=== PATIENT | male | born 1945 | race Caucasian/White ===

== ENCOUNTER → 2017-11-29 08:13 | Outpatient (CLI) | payer MEDICARE, SELFPAY ==
[2017-11-29 08:56] LABS: Basophils % 0.7 % (0.1-2.0); Eosinophils # 0.1 K/mm3 (0.0-0.4); Eosinophils % 1.7 % (0.1-12.0); Hematocrit 43.2 % (42.0-52.0); Hemoglobin 14.4 g/dL (14.1-18.0); Lymphocytes # 1.9 K/mm3 (0.7-4.5); Mean Corpuscular HGB Conc 33.3 g/dL (31.8-35.4); Mean Corpuscular Hemoglobin 29.9 pg (27.0-31.2); Mean Corpuscular Volume 89.8 fl (80-94); Mean Platelet Volume 8.9 fl (7.4-10.4); Monocytes # 0.5 K/mm3 (0.1-1.0); Neutrophils # 1.4 K/mm3 (1.8-7.8); Neutrophils % 36.7 % (37.0-80.0); Platelet Count 200 K/mm3 (142-424); Red Blood Count 4.81 M/mm3 (4.60-6.20); Red Cell Distribution Width 13.2 % (11.5-17.5); White Blood Count 3.8 K/mm3 (4.8-10.8)
[2017-11-29 09:47] LABS: Alanine Aminotransferase 24 U/L (12-78); Albumin Level 4.4 gm/dL (3.4-5.0); Albumin/Globulin Ratio 1.7 (1.1-1.8); Alkaline Phosphatase 34 U/L (46-116); Anion Gap 10.1 mEq/L (5-15); Aspartate Amino Transferase 22 U/L (15-37); Bilirubin,Total 0.6 mg/dL (0.2-1.0); Blood Urea Nitrogen 15 mg/dL (7-18); Calcium 9.4 mg/dL (8.5-10.1); Carbon Dioxide 29 mmol/L (21.0-32.0); Chloride 106 mmol/L (98-107); Chol/HDL Ratio 3.7 (1-3.5); Cholesterol 215 mg/dL (140-200); Creatinine,Serum 1.09 mg/dL (0.70-1.30); Estimated Glomerular Filt Rate 67 ml/min (>60); Ferritin 91 ng/mL (8-388); GFR (African American) 81 ML/MIN (>60); Globulin 2.6 gm/dl (1.3-3.2); Glucose 91 mg/dL (74-106); HDL Cholesterol 58 mg/dL (27-67); LDL Cholesterol 138 mg/dL (0-130); Magnesium 1.9 mg/dL (1.4-2.2); Potassium 4.1 mmoL/L (3.5-5.1); Sodium 141 mmol/L (136-145); Thyroid Stimulating Hormone 2.78 uIU/ml (0.358-3.740); Triglycerides 93 mg/dL (30-200); VLDL Cholesterol 19 mg/dL (0-40)
[2017-11-29 10:14] LABS: Prostate Specific Ag, Diagnost 5.26 ng/mL (0.0-4.0)
== END ==
PROVIDERS: PCP Internal Medicine Adolescent Medicine; Visit Provider Internal Medicine Adolescent Medicine
DX: Z79.899 Other long term (current) drug therapy (principal); D64.9 Anemia, unspecified; E78.00 Pure hypercholesterolemia, unspecified; R97.20 Elevated prostate specific antigen [PSA]
CPT/HCPCS: 36415; 80053; 80061; 82728; 83735; 84153; 84443; 85025

== ENCOUNTER 2018-01-17 14:43 | Emergency (ER) | payer MEDICARE, SELFPAY ==
[2018-01-17 14:44] VITALS: BP 141/107; PULSE 82; RESP 18; TEMP 36.6; O2SAT 96; BMI 25.8
--- NOTE | 2018-01-17 15:05 | PC.NURSE ---
Pt L index finger soaking in Saline and hibiclens mix.
--- NOTE | 2018-01-17 15:20 | HMH.EDGENADL ---
ED Disposition Clinical Impression: Avulsion of skin of finger Qualifiers: Encounter type: initial encounter Qualified Code(s): S61.209A - Unspecified open wound of unspecified finger without damage to nail, initial encounter Disposition: Home, Self-Care Condition on Discharge: Good Instructions: DI for Open Laceration Additional Instructions: Additional instructions for WOUND CARE: Keep the wound and bandage dry for the first 24 hours. Then, clean the wound daily and a bandage. See your physician in 3-5 days for a wound check. Return to the emergency room if increasing pain, swelling, redness, red streaks, pus drainage, or fever. Ibuprofen for pain. Elevate her hand to reduce pain and swelling. Prescriptions: cephALEXin [Keflex 500mg Cap] 500 mg PO TID #21 cap Referrals: Gil Aguilar MD [Primary Care Provider] - - Critical Care Critical Care Time: No Attestation: On 01/17/18, the high probability of a clinically significant, sudden or life threatening deterioration of the following system(s) required my full and direct attention, intervention and personal management. The time I documented below is in addition to time spent performing reported procedures but includes the following listed in this critical care notation. Medical Decision Making - Odell Inquiry Pt receiving controlled substance: No Vital Signs: 01/17/18 14:44 Temperature 97.8 F Temperature Source Oral Pulse Rate [Right Brachial] 82 Respiratory Rate 18 Blood Pressure [Right Arm] 141/107 Blood Pressure Mean [Right Arm] 118 Blood Pressure Source [Right Arm] Automatic Cuff Blood Pressure Position [Right Arm] Sitting 02 Sat by Pulse Oximetry 96 Oxygen Delivery Method Room Air Orders (Tests/Meds): ED MEDICATIONS Discontinued Medications Generic Name Dose Route Start Last Admin Trade Name Murtaza PRN Reason Stop Dose Admin Bupivacaine HCl 50 mg 01/17/18 15:21 01/17/18 15:58 Bupivacaine 0.5% 30ml Vial SQ 01/17/18 15:22 50 mg ONCE ONE Administration Cephalexin HCl 500 mg 01/17/18 15:22 01/17/18 15:57 Cephalexin 500mg Capsule PO 01/17/18 15:23 500 mg ONCE ONE Administration Protocol Tetanus/Diphtheria Toxoids 0.5 ml 01/17/18 15:20 01/17/18 15:57 Tenivac 0.5ml Syringe IM 01/17/18 15:21 0.5 ml .ONCE ONE Administration - Radiology Data #1 Image(s): Finger(s)/Thumb Image Reviewed: Yes I reviewed the patient's radiology image Soft tissue injury only, no bony injury seen. No foreign body seen. General Adult HPI - General Chief complaint: Wound/Laceration Stated complaint: AO lac L index finger Time Seen by Provider: 01/17/18 15:10 Mode of Arrival: Ambulatory Limitations: No Limitations Description of Symptoms (Recalled from ER Triage Doc. by RN): Laceration to L index finger from a miter saw. - History of Present Illness HPI narrative: He cut the tip of his left index finger with a miter saw. Last tetanus immunization greater than 5 years ago. - Related Data Home Medications Medication Instructions Recorded Confirmed Amlodipine Besylate [Norvasc 2.5mg 2.5 mg PO DAILY 01/17/18 01/17/18 tablet] Aspirin 81 mg PO DAILY 01/17/18 01/17/18 Fenofibrate 160 mg PO DAILY 01/17/18 01/17/18 Ferrous Sulfate 325 mg PO DAILY 01/17/18 01/17/18 Pramipexole Di-HCl [Mirapex 0.125 mg PO DAILY 01/17/18 01/17/18 0.125mg tablet] Previous Rx's Medication Instructions Recorded cephALEXin [Keflex 500mg Cap] 500 mg PO TID #21 cap 01/17/18 Allergies Allergy/AdvReac Type Severity Reaction Status Date / Time SEASONAL ALLERGIES Allergy Unknown RUNNY NOSE Uncoded 10/17/17 15:01 ETC [facility] History I have reviewed the patient's past medical history: Yes Medical History: Denies:: Diabetes Mellitus Type 1, Diabetes Mellitus Type 2 Laterality Cases: Right: Total Knee Replacement - Social History Alcohol Intake: never - Psychiatric History Expresses thoughts of
--- NOTE | 2018-01-17 15:21 | XR_ITS ---
XR finger LT min 2V CLINICAL INDICATION: Pain following injury, laceration to the distal phalanx of the second finger ITS.REASON: cut with saw ORDERING PHYSICIAN: Jas Benedict MD PATIENT AGE: 72 years COMPARISON: None FINDINGS: Soft tissue defect is present at the distal aspect of the second finger. No acute fracture. No metallic foreign body. IMPRESSION: Laceration of the tip of the distal phalanx of the second finger with no acute bony finding
[2018-01-17 17:04] VITALS: BP 135/84; PULSE 78; RESP 18; TEMP 36.6; O2SAT 98
== END 2018-01-17 17:04 | disposition home or self-care (01) ==
PROVIDERS: Emergency Provider Emergency Medicine; Family Provider Internal Medicine Adolescent Medicine; PCP Internal Medicine Adolescent Medicine
DX: S61.211A Laceration without foreign body of left index finger without damage to nail, initial encounter (principal); W31.2XXA Contact with powered woodworking and forming machines, initial encounter; Y92.019 Unspecified place in single-family (private) house as the place of occurrence of the external cause
CPT/HCPCS: 97597; 73140; 90471; 90714; 99282

== ENCOUNTER → 2018-05-28 09:51 | Outpatient (CLI) | payer MEDICARE, SELFPAY ==
[2018-05-28 11:28] LABS: Alanine Aminotransferase 27 U/L (12-78); Albumin Level 4.3 gm/dL (3.4-5.0); Albumin/Globulin Ratio 1.7 (1.1-1.8); Alkaline Phosphatase 36 U/L (46-116); Anion Gap 10.3 mEq/L (5-15); Aspartate Amino Transferase 17 U/L (15-37); Bilirubin,Total 0.5 mg/dL (0.2-1.0); Blood Urea Nitrogen 12 mg/dL (7-18); Calcium 9.2 mg/dL (8.5-10.1); Carbon Dioxide 30 mmol/L (21.0-32.0); Chloride 107 mmol/L (98-107); Chol/HDL Ratio 3.5 (1-3.5); Cholesterol 190 mg/dL (140-200); Creatinine,Serum 1.03 mg/dL (0.70-1.30); Estimated Glomerular Filt Rate 71 ml/min (>60); GFR (African American) 86 ML/MIN (>60); Globulin 2.6 gm/dl (1.3-3.2); Glucose 88 mg/dL (74-106); HDL Cholesterol 54 mg/dL (27-67); LDL Cholesterol 118 mg/dL (0-130); Potassium 4.3 mmoL/L (3.5-5.1); Prostate Specific Ag, Diagnost 4.79 ng/mL (0.0-4.0); Sodium 143 mmol/L (136-145); Total Protein,Serum 6.9 gm/dL (6.4-8.2); Triglycerides 92 mg/dL (30-200); VLDL Cholesterol 18 mg/dL (0-40)
== END ==
PROVIDERS: Visit Provider Internal Medicine Adolescent Medicine
DX: E78.00 Pure hypercholesterolemia, unspecified (principal); R97.20 Elevated prostate specific antigen [PSA]
CPT/HCPCS: 36415; 80053; 80061; 84153

== ENCOUNTER → 2018-07-31 10:25 | Outpatient (POV) | payer MEDICARE, SELFPAY | PROVIDERS: Visit Provider Dermatology | DX: Z00.00 Encounter for general adult medical examination without abnormal findings (principal) ==

== ENCOUNTER → 2018-08-29 10:03 | Outpatient (CLI) | payer MEDICARE, SELFPAY ==
[2018-08-29 11:05] LABS: Basophils % 0.9 % (0.1-2.0); Eosinophils % 1.1 % (0.1-12.0); Hematocrit 41.4 % (42.0-52.0); Hemoglobin 13.9 g/dL (14.1-18.0); Lymphocytes # 1.5 K/mm3 (0.7-4.5); Lymphocytes % 39.7 K/mm3 (10-50); Mean Corpuscular HGB Conc 33.4 g/dL (31.8-35.4); Mean Corpuscular Hemoglobin 30.7 pg (27.0-31.2); Mean Corpuscular Volume 91.8 fl (80-94); Mean Platelet Volume 8.7 fl (7.4-10.4); Monocytes # 0.5 K/mm3 (0.1-1.0); Monocytes % 13.6 % (1.7-9.3); Neutrophils # 1.7 K/mm3 (1.8-7.8); Neutrophils % 44.7 % (37.0-80.0); Platelet Count 193 K/mm3 (142-424); Red Blood Count 4.52 M/mm3 (4.60-6.20); Red Cell Distribution Width 12.7 % (11.5-17.5); White Blood Count 3.8 K/mm3 (4.8-10.8)
[2018-08-29 13:33] LABS: Alanine Aminotransferase 26 U/L (12-78); Albumin Level 4.3 gm/dL (3.4-5.0); Albumin/Globulin Ratio 1.6 (1.1-1.8); Alkaline Phosphatase 34 U/L (46-116); Aspartate Amino Transferase 21 U/L (15-37); Bilirubin,Total 0.6 mg/dL (0.2-1.0); Blood Urea Nitrogen 17 mg/dL (7-18); Calcium 9.1 mg/dL (8.5-10.1); Carbon Dioxide 30 mmol/L (21.0-32.0); Chloride 105 mmol/L (98-107); Chol/HDL Ratio 3.6 (1-3.5); Cholesterol 200 mg/dL (140-200); Creatinine,Serum 1.01 mg/dL (0.70-1.30); Estimated Glomerular Filt Rate 73 ml/min (>60); GFR (African American) 88 ML/MIN (>60); Globulin 2.7 gm/dl (1.3-3.2); Glucose 87 mg/dL (74-106); HDL Cholesterol 55 mg/dL (27-67); LDL Cholesterol 132 mg/dL (0-130); Sodium 140 mmol/L (136-145); Triglycerides 67 mg/dL (30-200); VLDL Cholesterol 13 mg/dL (0-40)
== END ==
PROVIDERS: Visit Provider Internal Medicine Adolescent Medicine
DX: E78.00 Pure hypercholesterolemia, unspecified (principal); M12.9 Arthropathy, unspecified
CPT/HCPCS: 36415; 80053; 80061; 85025

== ENCOUNTER → 2019-02-19 09:33 | Outpatient (POV) | payer MEDICARE, SELFPAY | PROVIDERS: Visit Provider Dermatology | DX: Z00.00 Encounter for general adult medical examination without abnormal findings (principal) ==

== ENCOUNTER → 2019-12-24 09:14 | Outpatient (POV) | payer MEDICARE, SELFPAY | PROVIDERS: PCP Dermatology; Visit Provider Dermatology | DX: Z00.00 Encounter for general adult medical examination without abnormal findings (principal) ==

== ENCOUNTER → 2020-04-08 12:53 | Outpatient (CLI) | payer MEDICARE, SELFPAY | PROVIDERS: PCP Internal Medicine Adolescent Medicine; Visit Provider Internal Medicine Adolescent Medicine | DX: G47.33 Obstructive sleep apnea (adult) (pediatric) (principal); R40.0 Somnolence; R06.83 Snoring | CPT/HCPCS: G0399 ==

== ENCOUNTER → 2020-09-22 10:14 | Outpatient (POV) | payer MEDICARE, SELFPAY | PROVIDERS: Visit Provider Dermatology | DX: Z00.00 Encounter for general adult medical examination without abnormal findings (principal) ==

== ENCOUNTER → 2021-05-28 08:43 | Outpatient (CLI) | payer MEDICARE, SELFPAY ==
[2021-05-28 09:01] LABS: Basophils % 0.6 % (0.1-2.0); Eosinophils # 0.1 K/mm3 (0.0-0.4); Eosinophils % 2.1 % (0.1-12.0); Hematocrit 41.1 % (42.0-52.0); Hemoglobin 14.1 g/dL (14.1-18.0); Lymphocytes # 1.7 K/mm3 (0.7-4.5); Lymphocytes % 35.2 % (10-50); Mean Corpuscular HGB Conc 34.2 g/dL (31.8-35.4); Mean Corpuscular Hemoglobin 30.2 pg (27.0-31.2); Mean Corpuscular Volume 88.2 fl (80-94); Mean Platelet Volume 9.3 fl (7.4-10.4); Monocytes # 0.7 K/mm3 (0.1-1.0); Monocytes % 14.3 % (1.7-9.3); Neutrophils # 2.3 K/mm3 (1.8-7.8); Neutrophils % 47.8 % (37.0-80.0); Platelet Count 177 K/mm3 (142-424); Red Blood Count 4.66 M/mm3 (4.60-6.20); White Blood Count 4.8 K/mm3 (4.8-10.8)
[2021-05-28 09:47] LABS: Alanine Aminotransferase 17 U/L (12-78); Albumin Level 4.6 g/dl (3.5-5.0); Alkaline Phosphatase 33 U/L (38-126); Anion Gap 11.7 mEq/L (5-15); Aspartate Amino Transferase 27 U/L (17-59); Bilirubin,Total 0.8 mg/dl (0.2-1.3); Blood Urea Nitrogen 14 mg/dl (9-20); Calcium 9.9 mg/dl (8.4-10.2); Carbon Dioxide 30 mmol/L (22.0-30.0); Chloride 104 mmol/L (98-107); Chol/HDL Ratio 3.5 (1-3.5); Cholesterol 198 mg/dl (140-200); Estimated Glomerular Filt Rate 73 ml/min (>60); GFR (African American) 89 ML/MIN (>60); Globulin 2.3 g/dL (1.3-3.2); Glucose 92 mg/dl (74-100); HDL Cholesterol 56 mg/dl (40-60); Potassium 4.7 mmoL/L (3.5-5.1); Sodium 141 mmol/L (136-145); Total Protein,Serum 6.9 g/dl (6.3-8.2); Triglycerides 82 mg/dl (30-150); VLDL Cholesterol 16 mg/dL (0-40)
[2021-05-28 09:58] LABS: Direct LDL Cholesterol 117.11 mg/dL (100-129)
[2021-05-28 10:18] LABS: Prostate Specific Ag Screen 5.1 ng/ml (0.0-4.0)
== END ==
PROVIDERS: Visit Provider Internal Medicine Adolescent Medicine
DX: G25.81 Restless legs syndrome (principal); E78.00 Pure hypercholesterolemia, unspecified; R97.20 Elevated prostate specific antigen [PSA]; Z12.5 Encounter for screening for malignant neoplasm of prostate
CPT/HCPCS: 36415; 80053; 80061; 85025; G0103

== ENCOUNTER 2021-08-20 09:00 | Outpatient (RCR) | payer MEDICARE, SELFPAY ==
--- NOTE | 2021-06-21 09:39 | HMH.PTOPEV ---
PT Outpatient Evaluation Rehab PT Outpatient Evaluation Start: 06/21/21 09:03 Freq: Status: Active Protocol: Document 06/21/21 09:05 KADERICARDO (Rec: 06/21/21 09:38 MAGYEMILEE [id number]) Electronically Signed By Zander Jaimes PT 06/21/21 09:05 Outpatient Therapy Subjective History Subjective History THis is the initial Physical THerapy evalaution for Mak Martell. Pt is a 75 y/o male referred to PT for c/o cervical pain and CALVO's. Pt reports c/o pain for years . Pt states his CALVO's are mild but he has knots in the muscles at the base of the skull Pt reports limited ROM and pain at end range. Chief Complaint Pain,Stiff Symptom Type Ache,Throb,Sharp,Dull Symptoms Relieved By Rest/Positioning,Prescription Meds Symptoms Aggravated By Sitting,Physical Activity Prior Functional Limitations None Current Functional Limitations Desk Work/Reading,Sitting, Recreation Activity Symptom Description Intermittent Level of pain today (0-10) 2 Pain scale - at its best (0-10) 0 Pain scale - at its worst (0-10) 8 Cervical Eval Palpation Cervical Muscles R Suboccipital,L Suboccipital Cervical/Thoracic Palpation Findings Tenderness,Trigger Point AROM Cervical Spine Extension Active Range of 40 Motion (degrees) Cervical Spine Flexion Active Range of 50 Motion (degrees) Cervical Spine Right Lateral Flexion 35 Active Range of Motion (degrees) Cervical Spine Left Lateral Flexion 35 Active Range of Motion (degrees) Cervical Spine Right Rotation Active 60 Range of Motion (degrees) Cervical Spine Left Rotation Active 70 Range of Motion (degrees) Special Test C-Spine Foraminal Compression (Spurling) Negative Left,Negative Right Test C-Spine Foraminal Distraction Test Positive C-Spine Compression Test Negative Left,Negative Right Outpatient Therapy Assessment Impairments Problems/Impairmments Palpation Tenderness,Impaired Range of Motion,Impaired Sitting,Impaired Recreational Activities,Subjective C/O Pain ,Impaired Self Care/Self Management Prognosis Rehab Potential Good Clinical Impression Consistent with Diagnosis Yes Short Term Goals Number of Weeks 2 Decreased Palpation Tenderness Yes: 1
== END 2021-08-20 09:05 | disposition home or self-care (01) ==
LOC: PT 09:00
PROVIDERS: PCP Internal Medicine Adolescent Medicine; Visit Provider Internal Medicine Adolescent Medicine
DX: M54.2 Cervicalgia (principal)
CPT/HCPCS: 20560; 20561; 97010; 97012; 97014; 97035; 97110; 97140; 97163; 97164; G0283

== ENCOUNTER → 2022-04-12 11:23 | Outpatient (CLI) | payer MEDICARE, SELFPAY ==
--- NOTE | 2022-04-12 11:27 | XR_ITS ---
FINAL REPORT CLINICAL HISTORY: CERVICALGIA, no injury FINDINGS: CERVICAL SPINE Five views were obtained. There is no acute fracture. There is mild anterolisthesis of C3 on C4. There is mild retrolisthesis of C4 on C5 and C5 on C6. There are mild and moderate degenerative changes. There are multilevel osteophytes. There is mild left neural foraminal narrowing at C4-5 and C5-6. IMPRESSION: [id number] degenerative disc disease. Reviewed, Interpreted and Dictated by Marcus Hogue III, MD Transcribed by Paulie Spence Authenticated and [facility]
== END ==
PROVIDERS: PCP Internal Medicine Adolescent Medicine; Visit Provider Internal Medicine Adolescent Medicine
DX: M54.2 Cervicalgia (principal)
CPT/HCPCS: 72050

== ENCOUNTER → 2022-05-13 09:22 | Outpatient (CLI) | payer MEDICARE, SELFPAY | PROVIDERS: PCP Internal Medicine Adolescent Medicine; Visit Provider Urology | DX: R97.20 Elevated prostate specific antigen [PSA] (principal); Z01.812 Encounter for preprocedural laboratory examination; Z20.822 Contact with and (suspected) exposure to COVID-19 | CPT/HCPCS: C9803; U0003; U0005 ==

== ENCOUNTER 2022-05-16 06:02 | Day surgery (SDC) | payer MEDICARE, SELFPAY ==
[2022-05-16 06:30] VITALS: BP 143/98; PULSE 89; RESP 18; TEMP 36.3; O2SAT 97; BMI 25.1
--- NOTE | 2022-05-16 07:04 | HMH.ANESCL ---
[facility] Anesthesia Checklist - Structural Data Admitted From: Home Planned Operative Procedure/s: prostate bx Consent for Planned Operative Procedure(s) Verified: Yes - Additional verifications Anesthesia Reactions: No Hx Blood Transfusions: No Blood Transfusion Reaction: No - Airway Assessment C-Spine Mobility Assessed: Yes TMJ Mobility Assessed: Yes Dentition: Dentures-good fit - Neurological Assessment Level of Consciousness: Awake, Alert, Appropriate - Anesthesia Plan Anesthesia Risk discussed: Yes Anesthesia Plan: Verified ASA Class: II Anesthesia Type: MAC [facility] History I have reviewed the patient's past medical history: Yes Medical History: Reports:: BPH, Hypertension Denies:: Cancer, Diabetes Mellitus Type 1, Diabetes Mellitus Type 2, Internal Pacemaker, MRSA, Seizures *Have you ever received a pneumonia vaccine?: Yes *Have you received a flu vaccine this season?: Yes Other Medical History: Reports: Arthritis. Denies: Blood Transfusion Reaction Anesthesia experience/problems:: none Laterality Cases: Right: Arthroscopy Knee, Bilateral: Cataract Other Surgeries: Yes: No Previous Surgery, Colonoscopy. No: Pacemaker Amputation: No Fractures: No - *Social History Last grade of school completed: High school graduate Smoking Status: Never smoker Alcohol Intake: never Substance Use Type: denies use *Occupational Status:: retired Housing: house Household Members: spouse *Travel in the last 8 weeks: None Family Hx:: Cancer, Hypertension
[2022-05-16 08:25] VITALS: BP 90/60; PULSE 63; RESP 16; TEMP 36.3; O2SAT 93
[2022-05-16 08:40] VITALS: BP 91/61; PULSE 53; RESP 16; TEMP 36.3; O2SAT 94
[2022-05-16 08:55] VITALS: BP 93/64; PULSE 65; RESP 16; TEMP 36.3; O2SAT 96
[2022-05-16 09:25] VITALS: BP 127/78; PULSE 64; RESP 18; TEMP 36.3; O2SAT 97
--- NOTE | 2022-05-16 11:49 | HMH.OPNOTE ---
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 We discussed the elevation and patient opted to proceed with transrectal ultrasound and prostate biopsy Operative findings:: Prostate was measured at 80.2 cm?. There were bilateral hypoechoic areas and calcifications. Operative note:: Patient taken to the operating room after informed consent was obtained. Monitored anesthesia care was administered and patient placed into the left lateral decubitus position. The transrectal ultrasound probe was placed into the rectum and the prostate was easily visualized. It was measured at 80.2 cm?. There were 2 hypoechoic areas on the left and 1:00 area on the right. There were multiple calcifications bilaterally in the central zone. 5 cc of local anesthetic placed into each neurovascular bundle and 12 biopsies then taken in a systematic fashion including through the focal areas. Patient tolerated the procedure well there are no complications. He was transported to recovery in stable condition. Condition: stable Disposition: same day Specimens:: Prostate biopsies x12 Complications:: None
== END 2022-05-16 09:25 | disposition home or self-care (01) ==
LOC: OR 06:03
PROVIDERS: PCP Internal Medicine Adolescent Medicine; Visit Provider Urology
DX: R97.20 Elevated prostate specific antigen [PSA] (principal); N40.0 Benign prostatic hyperplasia without lower urinary tract symptoms; I10 Essential (primary) hypertension; Z79.899 Other long term (current) drug therapy
CPT/HCPCS: 55700; 76872; 88305; J2405

== ENCOUNTER → 2022-05-23 09:50 | Outpatient (POV) | payer MEDICARE, SELFPAY ==
[2022-05-23 11:39] VITALS: BP 141/89; PULSE 75; RESP 20; TEMP 36.5; O2SAT 97; BMI 25.1
--- NOTE | 2022-05-23 12:55 | HMH.PMCON ---
Assessment and Plan (1) Bilateral occipital neuralgia Status: Acute Category: Medical Code(s): M54.81 - Occipital neuralgia - Assessment and plan all Dx Assessment and Plan for all problems:: Imaging Ordering Physician: Gucci Chery MD Date of Service: 04/12/22 Procedure(s): XR cervical spine 5V Accession Number(s): [id number] cc: Gucci Chery MD; Marcus Hogue MD~ FINAL REPORT CLINICAL HISTORY: CERVICALGIA, no injury FINDINGS: CERVICAL SPINE Five views were obtained. There is no acute fracture. There is mild anterolisthesis of C3 on C4. There is mild retrolisthesis of C4 on C5 and C5 on C6. There are mild and moderate degenerative changes. There are multilevel osteophytes. There is mild left neural foraminal narrowing at C4-5 and C5-6. IMPRESSION: [id number] degenerative disc disease. Reviewed, Interpreted and Dictated by Marcus Hogue III, MD Transcribed by Paulie Spence Authenticated and [facility] Plan: Patient presents today as a new patient with a chief complaint of bilateral pain around his occiput. He is tender to palpation around the bilateral occipital nerves. We will schedule the patient for bilateral occipital nerve block. We will also start this patient on the compounding cream Patient has been instructed to contact the clinic with any concerns before the next appointment. Dr. Aguilar has reviewed this note and agrees with this plan of care. This note was dictated using voice recognition software and make contain errors or omissions. HPI - Data of Consult Patient: new to practice Consult date: 05/23/22 Requesting Physician: DANIELLA Patino - Consult Narrative Reason for consult: Occiput pain History of present illness: Mr. Martell is a 76 year old male who presents today as a new patient. Patient is referred by Dr. Chery. Thank you for the referral. Patient presents with chronic bilateral occipital pain that radiates down to his posterior neck. This has been going on for 12 to 15 years. He states that he was having headache with this pain as well. He states that the headache did get better after getting chiropractic adjustments in the past. Denies any precipitating factors. He denies any vision changes or confusion. He says that his movements are limited on his neck because of the pain. He has also tried physical therapy, TENS unit and dry needling that all provided minimal relief. He does complain of constant achy pain. Rates his pain as 5 out of 10. He does take tramadol 50 mg 3 times a day as needed that are prescribed by Dr. Aguilar. Odell [phone] with an active morphine equivalent of 0. CC: DANIELLA Patino [facility] History I have reviewed the patient's past medical history: Yes Medical History: Reports:: BPH, Hypertension Denies:: Cancer, Diabetes Mellitus Type 1, Diabetes Mellitus Type 2, Internal Pacemaker, MRSA, Seizures *Have you ever received a pneumonia vaccine?: Yes *Have you received a flu vaccine this season?: Yes Other Medical History: Reports: Arthritis. Denies: Blood Transfusion Reaction Laterality Cases: Right: Arthroscopy Knee Other Surgeries: Yes: No Previous Surgery, Colonoscopy. No: Pacemaker Amputation: No Fractures: No - *Social History Smoking Status: Never smoker Alcohol Intake: never Substance Use Type: denies use *Occupational Status:: retired Housing: house Household Members: other *Travel in the last 8 weeks: None Family Hx:: Cancer, Hypertension Review of Systems - Review of Systems Review of Systems: General: No recent weight changes, no fever, no sleep disturbances Respiratory: No cough, no shortness of air, no recurring pulmonary infections Cardiovascular/peripheral vascular: No chest pain, no palpitations, no edema, no shortness of breath Gastrointestinal: No new onset incontinence, normal bowel movements reported Genitourinary: N
== END ==
PROVIDERS: Visit Provider Student in an Organized Health Care Education/Training Program
DX: M54.81 Occipital neuralgia (principal); M19.90 Unspecified osteoarthritis, unspecified site
CPT/HCPCS: 99202; G0463

== ENCOUNTER 2022-06-07 13:13 | Day surgery (SDC) | payer MEDICARE, SELFPAY ==
[2022-06-07 13:21] VITALS: BP 142/88; PULSE 74; RESP 20; TEMP 36.5; O2SAT 97; BMI 25.1
--- NOTE | 2022-06-07 13:42 | HMH.PMPROC ---
- Procedure Date: 06/07/22 Time: 13:42 Anesthesiologist:: Stephan Mejia CRNA Complications:: None Pre-procedure Diagnosis:: Bilateral occipital neuralgia Post-procedure Diagnosis:: Same Indications for Procedure:: This patient is a pleasant 76-year-old male who comes our clinic today with occipital nerve pain. Patient describes pain as constant, dull, aching in the superior area of the posterior cervical spine. Patient rates the pain 8/10. Patient complains of headaches intermittently. Pain in the posterior cervical spine. Procedure Details:: Details of the procedure were explained to the patient. Patient was taken the procedure room placed in the sitting position. The area over the occipital and posterior cervical spine area was cleaned using chlorhexidine as a cleansing solution. Markers were placed at the bilateral occipital nerve outlets. Using a 25-gauge needle a 6 cc solution containing 3 cc of 0.25% Marcaine +2 cc of 1% lidocaine and 40 mg of Depo-Medrol was injected in a fanning fashion after negative aspiration over the right occipital nerve area. The same procedure was carried out in the similar fashion over the left occipital nerve area. Patient tolerated the procedure without difficulty. There are no complications. Plan and Disposition:: Patient was discharged without incident.
[2022-06-07 13:50] VITALS: BP 148/89; PULSE 71; RESP 20; O2SAT 97
== END 2022-06-07 13:50 | disposition home or self-care (01) ==
LOC: SC.PAINP 13:14
PROVIDERS: PCP Internal Medicine Adolescent Medicine; Visit Provider Nurse Anesthetist, Certified Registered
DX: G57.83 Other specified mononeuropathies of bilateral lower limbs (principal); M54.81 Occipital neuralgia
CPT/HCPCS: 64405; J1040

== ENCOUNTER → 2022-06-22 13:48 | Outpatient (POV) | payer MEDICARE, SELFPAY ==
--- NOTE | 2022-06-22 14:22 | A.OFFVIS_ITS ---
[facility] Pain Management SOAP Note Subjective:: Patient is a pleasant 76-year-old male who presents today for follow-up from a occipital nerve block on 06/07/2022. We are currently treating the patient for bilateral occipital neuralgia. He states he has had 80% or better relief of his headaches since his injection. Today he rates his pain 1 out of 10 and states his pain is in his neck. He denies any new trauma or injury to the site. He states he just has limited range of motion of his neck turning side to side as well as soreness in his bilateral shoulders. Patient does currently take tramadol 50 mg 3 times a day written by Dr. Avelar. Patient denies any side effects from this medication. He states this medication does moderately improve his pain symptoms. He also is using a compounding cream and states this does provide some relief. Patient is not a diabetic. His Odell is [phone]. Its been reviewed and appropriate. Review of Systems: General: No recent weight changes, no fever, no sleep disturbances Respiratory: No cough, no shortness of air, no recurring pulmonary infections Cardiovascular/peripheral vascular: No chest pain, no palpitations, no edema, no shortness of breath Gastrointestinal: No new onset incontinence, normal bowel movements reported Genitourinary: No new onset incontinence Musculoskeletal: Neck pain, bilateral shoulder pain Psychiatric: [Normal mood/affect] Neurological: [Denies weakness in extremities], [denies balance issues] Objective:: Physical Exam: General: Alert and oriented x3, no acute distress, pleasant and cooperative Lungs: Respirations even and unlabored, symmetrical chest expansion Eyes: PERRL Musculoskeletal: Flexion and extension of cervical [spine] somewhat guarded secondary to pain, [antalgic gait noted]. Point tenderness noted along bilateral cervical paraspinous and trapezius muscles Neurological: Speech clear, no gross sensory deficit Assessment:: Bilateral occipital neuralgia, myofascial pain of bilateral cervical paraspinous and trapezius muscles Plan:: Patient has had significant improvements of his headaches and nerve pain since having the occipital nerve block. Today the patient had point tenderness along bilateral cervical paraspinous and trapezius muscles. I have discussed with the patient regarding having trigger point injections at the sites. Risk and benefits were discussed with the patient. He would like to proceed forward with these injections. We will schedule the patient for a TPI of bilateral cervical paraspinous and trapezius muscles. Patient has been instructed to contact the clinic with any concerns before the next appointment. Dr. Aguilar has reviewed this note and agrees with this plan of care. This note was dictated using voice recognition software and make contain errors or omissions. PFSH PFS Social History Smoking Status: Never smoker second hand exposure: No alcohol intake: never substance use type: denies use current occupational status: other household members: other housing: house current occupational exposures/hazards: No caffeine: No
[2022-06-22 14:55] VITALS: BP 135/78; PULSE 71; RESP 20; TEMP 36.6; O2SAT 99; BMI 25.1
== END ==
PROVIDERS: PCP Internal Medicine Adolescent Medicine; Visit Provider Nurse Practitioner Family
DX: M50.30 Other cervical disc degeneration, unspecified cervical region (principal); M54.81 Occipital neuralgia; M79.18 Myalgia, other site
CPT/HCPCS: 99212; G0463

== ENCOUNTER 2022-07-12 13:19 | Day surgery (SDC) | payer MEDICARE, SELFPAY ==
[2022-07-12 13:25] VITALS: BP 148/86; PULSE 72; RESP 20; O2SAT 96; BMI 25.1
[2022-07-12 13:33] VITALS: BP 146/94; PULSE 76; PULSE 78; RESP 18; O2SAT 96
--- NOTE | 2022-07-12 13:38 | EXP.PAIN.PRO ---
Procedure Date: 07/12/22 Time: 13:32 Anesthesiologist:: Stephan Mejia CRNA Complications:: None Pre-procedure Diagnosis:: Degenerative disc disease of cervical spine, bilateral occipital neuralgia, myofascial pain of bilateral cervical paraspinous and trapezius muscles Post-procedure Diagnosis:: Same Indications for Procedure:: Patient is a pleasant 77-year-old male who presents today for trigger point injections. We are currently treating the patient for degenerative disc disease of cervical spine, bilateral occipital neuralgia, myofascial pain of bilateral cervical paraspinous and trapezius muscles. Today the patient states that he is having 0 out of 10 pain. Patient denies any new trauma or injury to the site. He states that he often has limited range of motion of his neck while turning side to side as well as increased soreness in his bilateral shoulders. He is managed with tramadol 50 mg 3 times a day by Dr. Huynh's office. He denies any side effects from this medication and states it does provide moderate improvement of his pain. He also uses a compounding cream. We will proceed forward with trigger point injections of his bilateral cervical paraspinous and upper trapezius muscles at today's visit. Procedure Details:: Informed consent was obtained and the risk and benefits of the procedure were explained to the patient. The patient was taken to the procedure room where noninvasive monitoring was placed on the patient including a noninvasive blood pressure cuff and pulse oximeter. Neck and upper trapezius area were prepped using ChloraPrep bilaterally. Trigger points were palpated and marked. Each of these trigger points were injected with bupivacaine 0.25% 2 mL and Depo-Medrol 10 mg. A total of 80 mg Depo-Medrol was used for bilateral trigger points of the cervical paraspinous and upper trapezius muscles. Patient tolerated the procedure well with no complications. Plan and Disposition:: Patient will follow up in clinic in 2 weeks. Patient has been advised to contact the clinic if he has any questions or concerns before the next appointment date. Dr. Aguilar has reviewed this chart and agrees with this plan of care. This note was dictated using voice recognition and may contain errors or omissions.
[2022-07-12 13:47] VITALS: BP 143/80; PULSE 72; RESP 20; O2SAT 96
== END 2022-07-12 13:48 | disposition home or self-care (01) ==
PROVIDERS: PCP Internal Medicine Adolescent Medicine; Visit Provider Nurse Anesthetist, Certified Registered
DX: M50.10 Cervical disc disorder with radiculopathy, unspecified cervical region (principal); M54.81 Occipital neuralgia; M79.18 Myalgia, other site
CPT/HCPCS: 20552; J1040

== ENCOUNTER → 2022-07-26 10:12 | Outpatient (CLI) | payer MEDICARE, SELFPAY ==
[2022-07-27 09:28] LABS: PSA, Free 3.43 ng/mL; Prostate Specific Ag 12.6 ng/mL (0.0-4.0)
== END ==
PROVIDERS: PCP Internal Medicine Adolescent Medicine; Visit Provider Urology
DX: R97.20 Elevated prostate specific antigen [PSA] (principal)
CPT/HCPCS: 36415; 84153; 84154

== ENCOUNTER → 2022-07-27 09:26 | Outpatient (POV) | payer MEDICARE, SELFPAY ==
[2022-07-27 09:48] VITALS: BP 150/84; PULSE 71; RESP 18; TEMP 36.4; O2SAT 98; BMI 25.4
--- NOTE | 2022-07-27 12:55 | EXP.PAIN.SOA ---
[facility] Pain Management SOAP Note Subjective:: Patient is a pleasant 77-year-old male who presents today for follow-up of trigger point injections of bilateral cervical paraspinous and bilateral trapezius on 07/12/2022. We are currently treating the patient for degenerative disc disease of cervical spine, bilateral occipital neuralgia, myofascial pain of bilateral cervical paraspinous and trapezius muscles. Patient states he has had 95% improvement following this injection and feels like it is still helping in his muscles. Today the patient rates his pain a 8 out of 10 and states the pain is primarily in his upper back with radiating symptoms in and around his arms into his chest. Patient denies any new trauma or injury to the site. He states his pain is worse with increased activity and describes it as a sharp achy, shooting sensation and comes at random times. Patient has tried [id number] ibuprofen with tramadol that does provide some relief of his symptoms. He has also tried heat and ice. Patient did have physical therapy last year however it provided no help including dry needling and use of a TENS unit. Patient does continue to do some at home exercise and stretching techniques for longer than 6 weeks however he has had to decrease those lately due to the pain. Patient does also use compounding cream that helps some. Patient is currently managed with tramadol 50 mg 3 times a day by Dr. Avelar's office. Patient denies any side effects from this medication. He states this medication does adequately help manage his pain symptoms. His Odell is [id number]. It has been reviewed and appropriate. Review of Systems: General: No recent weight changes, no fever, no sleep disturbances Respiratory: No cough, no shortness of air, no recurring pulmonary infections Cardiovascular/peripheral vascular: No chest pain, no palpitations, no edema, no shortness of breath Gastrointestinal: No new onset incontinence, normal bowel movements reported Genitourinary: No new onset incontinence Musculoskeletal: Upper back pain Psychiatric: [Normal mood/affect] Neurological: [Denies weakness in extremities], [denies balance issues] Objective:: Physical Exam: General: Alert and oriented x3, no acute distress, pleasant and cooperative Lungs: Respirations even and unlabored, symmetrical chest expansion Eyes: PERRL Musculoskeletal: Flexion and extension of cervical [spine] somewhat guarded secondary to pain, [antalgic gait noted] Neurological: Speech clear, no gross sensory deficit Assessment:: Degenerative disc disease of cervical spine, bilateral occipital neuralgia, myofascial pain of bilateral cervical paraspinous and trapezius muscles Plan:: Patient is experiencing significant pain in his upper back that radiates into under his arms towards his chest. Patient had limited range of motion of his cervical spine during today's exam. Patient has tried and failed conservative therapy such as oral medications, topical creams, heat and ice, physical therapy, at home stretching and exercises for longer than 6 weeks. I have discussed with the patient that he may benefit from a cervical epidural. Risk and benefits were discussed with the patient. He would like to proceed forward with this injection. He is not currently on any blood thinners. We will schedule him for a ALVERTO C6-C7 at today's visit. Patient has been instructed to contact the clinic with any concerns before the next appointment. Dr. Aguilar has reviewed this note and agrees with this plan of care. This note was dictated using voice recognition software and make contain errors or omissions. [facility] Medical History HTN (hypertension) HTN (hypertension) Family History Other No significant family history Social History Smoking Status: Never smoker
== END ==
PROVIDERS: PCP Internal Medicine Adolescent Medicine; Visit Provider Nurse Practitioner Family
DX: M50.323 Other cervical disc degeneration at C6-C7 level (principal); M54.81 Occipital neuralgia; M79.18 Myalgia, other site
CPT/HCPCS: 99212; G0463

== ENCOUNTER 2022-08-02 11:39 | Day surgery (SDC) | payer MEDICARE, SELFPAY ==
[2022-08-02 11:45] VITALS: BP 148/85; PULSE 76; RESP 20; TEMP 36.7; O2SAT 98; BMI 25.4
[2022-08-02 12:09] VITALS: BP 153/102; PULSE 73; RESP 18; O2SAT 97
[2022-08-02 12:10] VITALS: BP 153/102; PULSE 73; RESP 18; O2SAT 97
--- NOTE | 2022-08-02 12:18 | P.PCN_ITS ---
Procedure Date: 08/02/22 Time: 12:18 Anesthesiologist:: Stephan Mejia CRNA Complications:: None Pre-procedure Diagnosis:: Degenerative disc disease cervical spine multilevels. Cervical radiculopathy. Post-procedure Diagnosis:: Same. Indications for Procedure:: Very pleasant 77-year-old male that comes to our clinic today for an initial cervical epidural steroid injection C7-T1 level. Patient complains of cervical neck pain as well as cervical radicular symptoms to bilateral arms and s houlders. He rates his pain 7/10. Procedure Details:: Procedure:Cervical epidural steroid injection Informed consent was obtained and the risks and benefits of the procedure were explained to the patient. The patient was taken to the procedure room and noninvasive monitors placed, including noninvasive blood pressure cuff and pulse oximeter. The neck was prepped using Betadine as a cleansing solution. The C7-T1 interspace was palpated. The skin and subcutaneous tissues were anesthetized using lidocaine 1.5% and a 25-gauge needle. After this an 18-gauge Touhy epidural needle was placed into the C7-T1 interspace and advanced using loss of resistance to air until the epidural space was encountered. After confirmation of needle placement in the epidural space, a solution containing 2 cc of normal saline and Depo-Medrol 80 mg was incrementally injected into the cervical epidural space.~ The patient tolerated the procedure well with no complications. The patient was observed in the Pain Clinic and then discharged home neurologically intact. Plan and Disposition:: Patient was discharged without incident
[2022-08-02 12:19] VITALS: BP 126/82; PULSE 70; RESP 20
== END 2022-08-02 12:20 | disposition home or self-care (01) ==
PROVIDERS: PCP Internal Medicine Adolescent Medicine; Visit Provider Nurse Anesthetist, Certified Registered
DX: M50.13 Cervical disc disorder with radiculopathy, cervicothoracic region (principal)
CPT/HCPCS: 62321; J1040

== ENCOUNTER → 2022-08-23 09:28 | Outpatient (POV) | payer MEDICARE, SELFPAY ==
[2022-08-23 09:38] VITALS: BP 138/85; PULSE 72; RESP 18; TEMP 36.8; O2SAT 97; BMI 25.4
--- NOTE | 2022-08-23 09:50 | A.OFFVIS_ITS ---
[facility] Pain Management SOAP Note Subjective:: Patient is a pleasant 77-year-old male who presents today for follow-up of cervical epidural steroid injection at C7-T1 on 08/02/2022. We are currently treating the patient for degenerative disc disease cervical spine multilevels with cervical radiculopathy symptoms. Patient states following this injection he has had significant improvement of his symptoms however this past Monday he was on his lawnmower and thinks he may have pulled a muscle when looking back. Patient has had episodes of shooting pain along the right side of his neck following this episode. Today the patient rates his pain a 1 out of 10. He states the pain has gotten better however it seems to come and go. Patient states he has been using his tramadol 50 mg to help treat the pain. Patient denies any side effects to this medication. He states this medication does adequately help manage his pain symptoms. He is also prescribed a compounding cream that states gives additional improvement of his symptoms. His Odell is [id number]. Its been reviewed and appropriate. Review of Systems: General: No recent weight changes, no fever, no sleep disturbances Respiratory: No cough, no shortness of air, no recurring pulmonary infections Cardiovascular/peripheral vascular: No chest pain, no palpitations, no edema, no shortness of breath Gastrointestinal: No new onset incontinence, normal bowel movements reported Genitourinary: No new onset incontinence Musculoskeletal: Neck pain Psychiatric: [Normal mood/affect] Neurological: [Denies weakness in extremities], [denies balance issues] Objective:: Physical Exam: General: Alert and oriented x3, no acute distress, pleasant and cooperative Lungs: Respirations even and unlabored, symmetrical chest expansion Eyes: PERRL Musculoskeletal: Flexion and extension of cervical [spine] somewhat guarded secondary to pain, [antalgic gait noted] Neurological: Speech clear, no gross sensory deficit Assessment:: Degenerative disc disease cervical spine with cervical radiculopathy symptoms Plan:: Patient has had worsening right-sided neck pain following an episode on his lawnmower. Patient did have limited range of motion of the cervical spine during today's visit. I have discussed with the patient regarding having a repeat cervical epidural steroid injection. Risk and benefits were discussed with the patient. He would like to proceed forward with this injection. Patient is not currently on any blood thinners. We will schedule him for a ALVERTO C7-T1. Patient has been instructed to contact the clinic with any concerns before the next appointment. Dr. Aguilar has reviewed this note and agrees with this plan of care. This note was dictated using voice recognition software and make contain errors or omissions. [facility] Medical History HTN (hypertension) HTN (hypertension) Family History Other No significant family history Social History (Updated 08/02/22 @ 11:55 by Essence Rush RN) Smoking Status: Never smoker second hand exposure: No alcohol intake: never substance use type: denies use current occupational status: retired Travel in the last 8 weeks: None household members: other housing: house current occupational exposures/hazards: No caffeine: No
== END ==
PROVIDERS: PCP Internal Medicine Adolescent Medicine; Visit Provider Nurse Practitioner Family
DX: M50.13 Cervical disc disorder with radiculopathy, cervicothoracic region (principal); Z79.899 Other long term (current) drug therapy
CPT/HCPCS: 99212; G0463

== ENCOUNTER 2022-08-30 14:45 | Day surgery (SDC) | payer MEDICARE, SELFPAY ==
[2022-08-30 15:01] VITALS: BP 140/92; PULSE 77; RESP 18; TEMP 36.8; O2SAT 97; BMI 25.1
--- NOTE | 2022-08-30 15:20 | P.PCN_ITS ---
Procedure Date: 08/30/22 Time: 15:15 Anesthesiologist:: Stephan Mejia CRNA Complications:: None Pre-procedure Diagnosis:: Degenerative disc disease cervical spine multilevels. Cervical radiculopathy Post-procedure Diagnosis:: Same. Indications for Procedure:: Very pleasant 77-year-old male that comes our clinic today for a repeat cervical epidural steroid injection at the C7-T1 level. Patient had significant improvement terms of his cervical neck pain as well as bilateral arm radicular symptoms with his first injection at the same level. Patient describes his cervical neck pain as constant, dull, sharp, stabbing at times. Also complains of bilateral arm radicular symptoms at times. Procedure Details:: Procedure:Cervical epidural steroid injection Informed consent was obtained and the risks and benefits of the procedure were e xplained to the patient. The patient was taken to the procedure room and noninvasive monitors placed, including noninvasive blood pressure cuff and pulse oximeter. The neck was prepped using Chloraprep as a cleansing solution. The C7- T1 interspace was viewed using fluroscopy. The skin and subcutaneous tissues were anesthetized using lidocaine 1.5% and a 25-gauge needle. After this an 18- gauge Touhy epidural needle was placed into the C7-T1 interspace under fluroscopy guidance and advanced using loss of resistance to air until the epidural space was encountered. After confirmation of needle placement in the epidural space using contrast dye, a solution containing normal saline, 2 mL and Depo-Medrol 80 mg was incrementally injected into the cervical epidural space.~ The patient tolerated the procedure well with no complications. The patient was observed in the Pain Clinic and then discharged home neurologically intact. Plan and Disposition:: Patient was discharged without incident
[2022-08-30 15:21] VITALS: BP 140/81; PULSE 70; RESP 18; O2SAT 97
== END 2022-08-30 15:21 | disposition home or self-care (01) ==
PROVIDERS: PCP Internal Medicine Adolescent Medicine; Visit Provider Nurse Anesthetist, Certified Registered
DX: M50.13 Cervical disc disorder with radiculopathy, cervicothoracic region (principal)
CPT/HCPCS: 62321; J1030

== ENCOUNTER → 2022-09-29 14:38 | Outpatient (POV) | payer MEDICARE, SELFPAY ==
[2022-09-29 14:49] VITALS: BP 146/86; PULSE 81; RESP 18; O2SAT 97; BMI 25.1
--- NOTE | 2022-09-29 14:58 | EXP.PAIN.SOA ---
[facility] Pain Management SOAP Note Subjective:: Patient is a pleasant 77-year-old male who presents today for follow-up of cervical epidural steroid injection at C7-T1 on 08/30/2022. We are currently treating the patient for degenerative disc disease of cervical spine multilevels with cervical radiculopathy symptoms, myofascial pain. Today the patient states he has had at least 90% improvement following this injection and states that has continued to provide relief. Today he rates a 0 out of 10 his pain however he does state that he has started experiencing more issues with his left knee. Patient states he has had a right knee replacement however his left has slowly worsened over time. Patient describes this as a constant ache that goes down to his left calf and is worse with increased activity. Patient continues to use vtjr-pab-enfnmea medications to provide some improvement. He also states he uses a heating pad and compounding cream for short-term relief. His Odell is [id number]. It has been reviewed and appropriate. Review of Systems: General: No recent weight changes, no fever, no sleep disturbances Respiratory: No cough, no shortness of air, no recurring pulmonary infections Cardiovascular/peripheral vascular: No chest pain, no palpitations, no edema, no shortness of breath Gastrointestinal: No new onset incontinence, normal bowel movements reported Genitourinary: No new onset incontinence Musculoskeletal: Left knee pain Psychiatric: [Normal mood/affect] Neurological: [Denies weakness in extremities], [denies balance issues] Objective:: Physical Exam: General: Alert and oriented x3, no acute distress, pleasant and cooperative Lungs: Respirations even and unlabored, symmetrical chest expansion Eyes: PERRL Musculoskeletal: Flexion and extension of left knee somewhat guarded secondary to pain, [antalgic gait noted] Neurological: Speech clear, no gross sensory deficit Assessment:: Degenerative disc disease of cervical spine with cervical radiculopathy symptoms, left knee pain, myofascial pain Plan:: Patient is experiencing worsening pain in his left knee during today's visit. I have discussed with the patient that he may benefit from diagnostic intra-articular knee injections at the left side. Risk and benefits were discussed with the patient. He would like to proceed forward with this plan of care. We will schedule him for a left knee intra-articular injection. Patient has been instructed to contact the clinic with any concerns before the next appointment. Dr. Aguilar has reviewed this note and agrees with this plan of care. This note was dictated using voice recognition software and make contain errors or omissions. [facility] Disclaimer: The information contained in this section may have been updated after the patient was seen, as this information can be updated by other users. Medical History HTN (hypertension) HTN (hypertension) Family History Other No significant family history Social History Smoking Status: Never smoker second hand exposure: No alcohol intake: never substance use type: denies use current occupational status: retired Travel in the last 8 weeks: None household members: other housing: house current occupational exposures/hazards: No caffeine: No
== END ==
PROVIDERS: PCP Internal Medicine Adolescent Medicine; Visit Provider Nurse Practitioner Family
DX: M50.13 Cervical disc disorder with radiculopathy, cervicothoracic region (principal); M79.10 Myalgia, unspecified site; M25.562 Pain in left knee; Z79.899 Other long term (current) drug therapy
CPT/HCPCS: 99212; G0463

== ENCOUNTER 2022-10-11 08:49 | Day surgery (SDC) | payer MEDICARE, SELFPAY ==
[2022-10-11 09:02] VITALS: BP 136/90; PULSE 72; RESP 18; TEMP 36.2; O2SAT 96; BMI 25.1
[2022-10-11 09:09] VITALS: BP 153/87; PULSE 71; RESP 18; O2SAT 98
[2022-10-11 09:11] VITALS: BP 153/87; PULSE 71; RESP 18; O2SAT 98
[2022-10-11 09:14] VITALS: BP 145/94; PULSE 70; RESP 18; O2SAT 96
--- NOTE | 2022-10-11 09:24 | EXP.PAIN.PRO ---
Procedure Date: 10/11/22 Time: 09:00 Anesthesiologist:: Stephan Mejia CRNA Complications:: None Pre-procedure Diagnosis:: Osteoarthritis left knee Post-procedure Diagnosis:: Same Indications for Procedure:: Patient is a pleasant 77-year-old male that comes our clinic today for his initial left intra-articular knee injection of cortisone. Patient complains of constant pain in the left knee with ambulation. Patient also reports at times while sitting it will ache. He rates the pain 7/10. Procedure Details:: Procedure Details: Left intra-articular knee injection Informed consent was obtained risk and benefits of the procedure were explained to the patient. Patient was taken the procedure room left knees was prepped using ChloraPrep. A 25-gauge needle was used to inject 10 mL bupivacaine 0.25% and Depo-Medrol 40 mg into left knee. The patient tolerated the procedure well with no complications. Plan and Disposition:: We will follow-up with him in 2 weeks. Will reevaluate symptoms at that time. Plan and Disposition:: Patient was discharged without incident.
== END 2022-10-11 09:14 | disposition home or self-care (01) ==
LOC: SC.PAINP 08:50
PROVIDERS: PCP Internal Medicine Adolescent Medicine; Visit Provider Nurse Anesthetist, Certified Registered
DX: M17.12 Unilateral primary osteoarthritis, left knee (principal)
CPT/HCPCS: 20610; J1040

== ENCOUNTER → 2022-10-25 08:17 | Outpatient (POV) | payer MEDICARE, SELFPAY ==
[2022-10-25 08:31] VITALS: BP 162/92; PULSE 72; RESP 18; O2SAT 96; BMI 25.8
--- NOTE | 2022-10-25 08:45 | EXP.PAIN.SOA ---
[facility] Pain Management SOAP Note Subjective:: Patient is a pleasant 77-year-old male who presents today for follow-up of left knee intra-articular injection on 10/11/2022. We are currently treating the patient for degenerative disc disease of cervical spine multilevels with cervical radiculopathy symptoms, myofascial pain, left knee osteoarthritis. Today he states that this last injection is provided 90 to 95% relief lasting over 1 week. Patient states that approximately 1 week ago he did start having additional pain in his left knee with increased activity. Patient states he was out frequently with shopping for [employer] and may have aggravated his symptoms. Today he rates his pain a 0 out of 10. He states his knee pain has improved again and he is not having any issues at this time. Patient is able to increase range of motion of that left knee without increased pain symptoms. Patient does state that he has been experiencing increasing pain around his left hip and buttocks. Patient denies any new trauma or injury. Patient states he has had an injection from his primary care doctor in the past at this site and did provide significant improvement. Patient is managed with compounding cream that he states does provide some additional improvement. Patient does also use a heating pad that he states gives significant relief although short-term. His Odell is [id number]. Its been reviewed and appropriate. Review of Systems: General: No recent weight changes, no fever, no sleep disturbances Respiratory: No cough, no shortness of air, no recurring pulmonary infections Cardiovascular/peripheral vascular: No chest pain, no palpitations, no edema, no shortness of breath Gastrointestinal: No new onset incontinence, normal bowel movements reported Genitourinary: No new onset incontinence Musculoskeletal: Left buttocks/hip pain Psychiatric: [Normal mood/affect] Neurological: [Denies weakness in extremities], [denies balance issues] Objective:: Physical Exam: General: Alert and oriented x3, no acute distress, pleasant and cooperative Lungs: Respirations even and unlabored, symmetrical chest expansion Eyes: PERRL Musculoskeletal: Flexion and extension of lumbar [spine] somewhat guarded secondary to pain, [antalgic gait noted] point tenderness along left SI and positive left Irlanda's, Ken's, Gaenslen's, compression and distraction exam Neurological: Speech clear, no gross sensory deficit Assessment:: Degenerative disc disease of cervical spine multilevels with cervical radiculopathy symptoms, myofascial pain, left knee osteoarthritis, left-sided sacroiliitis Plan:: The patient had significant improvement of his left knee pain symptoms following a intra-articular knee injection and does not need any additional injective therapy at this location currently. I have discussed with the patient that he may benefit from a repeat left knee intra-articular injection in the future. Risk and benefits were discussed. Patient did have limited range of motion of his lumbar spine and point tenderness along his left SI as well as positive left Irlanda's, Ken's, Gaenslen's, compression and distraction exam. I have discussed with the patient that he may benefit from a diagnostic left SI injection. Risk and benefits were discussed however at this time the patient would like to wait. I have counseled the patient that we will do a 1 month follow-up however if he does start having worsening pain he can call to schedule either a left knee intra-articular injection or a left SI injection. Patient is not on any blood thinners. Patient will return to clinic in 1 month for reevaluation of symptoms and follow-up. Patient has been instructed to contact the clinic with any concerns before the next appointment. Dr. Aguilar has reviewed this note and agrees with this plan of care. This note was dictated using voice recognition software and make contain errors or omissions. [facility] Disclaimer: The
== END ==
PROVIDERS: PCP Internal Medicine Adolescent Medicine; Visit Provider Nurse Practitioner Family
DX: M50.10 Cervical disc disorder with radiculopathy, unspecified cervical region (principal); M46.1 Sacroiliitis, not elsewhere classified; M17.12 Unilateral primary osteoarthritis, left knee; M79.10 Myalgia, unspecified site; Z79.899 Other long term (current) drug therapy
CPT/HCPCS: 99212; G0463

== ENCOUNTER → 2022-11-24 11:32 | Outpatient (POV) | payer MEDICARE, SELFPAY ==
[2022-11-24 11:51] VITALS: BP 150/90; PULSE 72; RESP 18; O2SAT 100; BMI 25.5
--- NOTE | 2022-11-24 12:27 | EXP.PAIN.SOA ---
[facility] Pain Management SOAP Note Subjective:: Patient is a pleasant 77-year-old male who presents today for follow-up. We are currently treating the patient for degenerative disc disease of cervical spine multilevels with cervical radiculopathy symptoms, myofascial pain, left knee osteoarthritis. Today he rates his pain a 2 out of 10 for his left knee however he states his neck pain is an 8 out of 10. Patient denies any new trauma or injury. Patient denies any change location or type of pain he experiences. Patient states he is still getting relief in his left knee from his previous injection back in September. Patient has had multiple injections including trigger point injections in his neck and shoulders in the past that provided significant improvement for over 2 to 3 months. Patient does describe his pain as a aching, throbbing sensation that is worse with increased activity. Patient states he does have radiating symptoms into his shoulders with limited range of motion of his neck. Patient also states he has been having more headaches and does believe it is related to his neck pain. Patient states his pain and limited range of motion does affect his ability to perform activities of daily living such as cooking and cleaning around the house. Patient is currently prescribed compounding cream that he states does provide significant improvement along with a heating pad. Patient is on tramadol 50 mg 3 times a day from his primary care doctor. Patient denies any side effects from this medication. His Odell is [id number]. Its been reviewed and appropriate. Review of Systems: General: No recent weight changes, no fever, no sleep disturbances Respiratory: No cough, no shortness of air, no recurring pulmonary infections Cardiovascular/peripheral vascular: No chest pain, no palpitations, no edema, no shortness of breath Gastrointestinal: No new onset incontinence, normal bowel movements reported Genitourinary: No new onset incontinence Musculoskeletal: Neck pain, shoulder pain, headaches Psychiatric: [Normal mood/affect] Neurological: [Denies weakness in extremities], [denies balance issues] Objective:: Physical Exam: General: Alert and oriented x3, no acute distress, pleasant and cooperative Lungs: Respirations even and unlabored, symmetrical chest expansion Eyes: PERRL Musculoskeletal: Flexion and extension of cervical [spine] somewhat guarded secondary to pain, [antalgic gait noted] Neurological: Speech clear, no gross sensory deficit ORT score updated with low risk Assessment:: Degenerative disc disease of cervical spine multilevels with cervical radiculopathy symptoms, myofascial pain of bilateral cervical paraspinous and bilateral trapezius muscles, left knee osteoarthritis, headaches Plan:: Patient is experiencing worsening pain in his neck with radiating symptoms into his shoulders. Patient did have limited range of motion of his cervical spine today along with extreme point tenderness at his bilateral cervical paraspinous and bilateral trapezius muscles. I have discussed with the patient that he may benefit from trigger point injections at these locations. Risk and benefits were discussed with the patient. He would like to proceed forward with this plan of care. I have discussed with the patient that if he does not get beneficial relief with these injections we may look into doing a cervical epidural as well as ordering updated cervical imaging. We will schedule the patient for TPI bilateral cervical paraspinous and bilateral trapezius muscles. Patient has been instructed to contact the clinic with any concerns before the next appointment. Dr. Aguilar has reviewed this note and agrees with this plan of care. This note was dictated using voice recognition software and make contain errors or omissions. [facility] Disclaimer: The information contained in this section may have been updated after the patient was seen, as this information can be updated
== END ==
PROVIDERS: PCP Internal Medicine Adolescent Medicine; Visit Provider Nurse Practitioner Family
DX: M50.10 Cervical disc disorder with radiculopathy, unspecified cervical region (principal); M17.12 Unilateral primary osteoarthritis, left knee; M79.10 Myalgia, unspecified site; R51.9 Headache, unspecified
CPT/HCPCS: 99212; G0463

== ENCOUNTER 2022-11-29 10:14 | Day surgery (SDC) | payer MEDICARE, SELFPAY ==
[2022-11-29 10:22] VITALS: BP 140/87; PULSE 74; RESP 18; TEMP 36.7; O2SAT 97; BMI 56.2
[2022-11-29 10:23] VITALS: BP 162/83; PULSE 68; RESP 18; O2SAT 97
[2022-11-29 10:35] VITALS: BP 143/79; PULSE 64; RESP 18; O2SAT 97
--- NOTE | 2022-11-29 10:35 | EXP.PAIN.PRO ---
Procedure Date: 11/29/22 Time: 10:35 Anesthesiologist:: Stephan Mejia CRNA Complications:: None Pre-procedure Diagnosis:: Myofascial pain bilateral cervical paraspinous muscles. Bilateral trapezius muscles. Post-procedure Diagnosis:: Same. Indications for Procedure:: Very pleasant 77-year-old male that comes our clinic today for trigger point injections bilateral posterior cervical paraspinous muscles as well as bilateral trapezius muscles. Patient has had this for months ago with significant improvement. Patient also receives cervical epidural steroid injection at times. Procedure Details:: Details of the procedure explained the patient. The patient taken procedure room placed in sitting position. The area over the posterior cervical spine was cleansed using chlorhexidine as a cleansing solution. Also, bilateral trapezius muscles were cleansed in the same fashion. Using a syringe of 0.25% Marcaine +1% lidocaine and 40 mg of Depo-Medrol and a 25-gauge needle. After negative aspiration 1 cc was injected in 2 separate areas bilaterally at the cervical posterior spinous muscles. Also, 1 cc was injected after negative aspiration in 3 areas of the left trapezius muscle. The same was carried out on the right trapezius muscle. Patient tolerated procedure without difficulty. There are no complications Plan and Disposition:: Patient was discharged without incident.
== END 2022-11-29 10:35 | disposition home or self-care (01) ==
PROVIDERS: PCP Internal Medicine Adolescent Medicine; Visit Provider Nurse Anesthetist, Certified Registered
DX: M79.18 Myalgia, other site (principal); M50.10 Cervical disc disorder with radiculopathy, unspecified cervical region; M17.12 Unilateral primary osteoarthritis, left knee
CPT/HCPCS: 20552; J1040

== ENCOUNTER → 2022-12-16 09:28 | Outpatient (POV) | payer MEDICARE, SELFPAY ==
[2022-12-16 10:04] VITALS: BP 135/87; PULSE 75; RESP 18; O2SAT 98; BMI 25.4
--- NOTE | 2022-12-16 10:24 | EXP.PAIN.SOA ---
[facility] Pain Management SOAP Note Subjective:: This patient is a pleasant 77-year-old male who comes our clinic today following trigger point injections of the posterior cervical paraspinous muscle as well as bilateral trapezius muscle. Patient reports 50 to 70% improvement terms of his overall symptoms in these areas. However, patient is describing today pinpoint pain over the bilateral occipital nerve. Right greater than left. Patient describes this pain as sharp, stabbing. Also complains of chronic headaches. Patient also describing right trapezius and shoulder pain at times especially when trying to sleep. He rates his overall pain 7/10. I discussed in detail with the patient regarding occipital neuritis symptoms. Treatment options. Also, discussed in detail with the patient regarding cervical facet arthropathy, spondylosis cervical spine. We do not have imaging for cervical spine. Patient has difficulty with right and left rotation of the cervical spine Objective:: Patient is awake alert [place] x3. In no acute distress. Flexion-extension cervical and lumbar spine somewhat guarded secondary to pain. Deep tendon reflexes upper lower extremities normal. Motor strength upper lower extremities normal. There is no gross sensory deficit. Gait is normal. Assessment:: Chronic cervical neck pain. Acute cervical neck pain. Occipital neuritis. Cervical radiculopathy. Lumbar back pain. Lumbar radiculopathy Plan:: Patient attended physical therapy last year for same symptoms. He reports minimal relief. He continues taking acetaminophen when appropriate. Patient unable to take NSAIDs. He continues with a home exercise program with mild relief. Essentially, patient has failed conservative treatments. I recommend bilateral occipital nerve blocks. Also, MRI cervical spine to further discern pathology. I suspect he may have facet arthropathy multiple levels. I discussed in detail with the patient regarding these treatment options. He wishes to proceed. [facility] Disclaimer: The information contained in this section may have been updated after the patient was seen, as this information can be updated by other users. Medical History HTN (hypertension) HTN (hypertension) Family History Other No significant family history Social History Smoking Status: Never smoker second hand exposure: No alcohol intake: never substance use type: denies use current occupational status: retired Travel in the last 8 weeks: None household members: other housing: house current occupational exposures/hazards: No caffeine: No
== END ==
PROVIDERS: PCP Internal Medicine Adolescent Medicine; Visit Provider Nurse Anesthetist, Certified Registered
DX: M54.12 Radiculopathy, cervical region (principal); M54.16 Radiculopathy, lumbar region; M54.2 Cervicalgia; M54.50 Low back pain, unspecified; G89.29 Other chronic pain
CPT/HCPCS: 99212; G0463

== ENCOUNTER 2022-12-20 14:18 | Day surgery (SDC) | payer MEDICARE, SELFPAY ==
[2022-12-20 14:30] VITALS: BP 132/91; PULSE 77; RESP 18; TEMP 36.7; O2SAT 97; BMI 25.5
[2022-12-20 14:31] VITALS: BP 149/82; PULSE 82; RESP 18; O2SAT 97
[2022-12-20 14:33] VITALS: BP 149/82; PULSE 82; RESP 18; O2SAT 97
--- NOTE | 2022-12-20 14:36 | EXP.PAIN.PRO ---
Procedure Date: 12/20/22 Time: 14:36 Anesthesiologist:: Stephan Mejia CRNA Complications:: None Pre-procedure Diagnosis:: Bilateral greater occipital neuralgia Post-procedure Diagnosis:: Same. Indications for Procedure:: Patient is a very pleasant 77-year-old male that comes our clinic today for bilateral greater occipital nerve block. Patient has high cervical pain bilaterally. Right greater than left. Occipital pain bilaterally. We do not have cervical imaging. This has been ordered. We will review the cervical MRI to further discern pathology in the near future. I discussed in detail with the patient regarding the potential need for bilateral cervical facet blocks/medial branch blocks. Procedure Details:: Details of the procedure were explained to the patient. The area over the bilateral occipital nerve was cleaned using alcohol swab. The right greater occipital nerve was blocked using a 22-gauge needle after negative aspiration with 5 cc of 0.5% Marcaine +20 mg of Depo-Medrol. The same procedure was carried out over the greater left occipital nerve. Patient tolerated procedure without difficulty. There are no complications. Plan and Disposition:: Patient was discharged without incident.
[2022-12-20 14:37] VITALS: BP 138/79; PULSE 73; RESP 18; O2SAT 97
== END 2022-12-20 14:37 | disposition home or self-care (01) ==
PROVIDERS: PCP Internal Medicine Adolescent Medicine; Visit Provider Nurse Anesthetist, Certified Registered
DX: M54.81 Occipital neuralgia (principal)
CPT/HCPCS: 64405; J1040

== ENCOUNTER → 2022-12-27 14:00 | Outpatient (CLI) | payer MEDICARE, SELFPAY ==
--- NOTE | 2022-12-27 14:03 | MR_ITS ---
FINAL REPORT TECHNIQUE: Multiplanar and multisequence imaging of the cervical spine was obtained. CLINICAL HISTORY: NECK PAIN into top of shoulders x 10-12 years FINDINGS: Alignment is normal. Vertebral body height is preserved. Signal intensity within the substance of the spinal cord is normal. There are multilevel degenerative marrow endplate changes. Marrow signal is otherwise unremarkable. Paraspinal soft tissues are within normal limits. C2/3: There is mild bilateral facet osteoarthropathy with mild right neural foraminal narrowing. C3/4: An annular disc bulge is present with degenerative endplate changes and facet osteoarthropathy. There is moderate bilateral neural foraminal narrowing. C4/5: An annular disc bulge is present with degenerative endplate changes and facet osteoarthropathy. There is mild central stenosis. There is severe, left greater than right neural foraminal narrowing. C5/6: An annular disc bulge is present with degenerative endplate changes and facet osteoarthropathy. There is mild central stenosis and moderate bilateral neural foraminal narrowing. C6/7: An annular disc bulge is present with degenerative endplate changes and facet osteoarthropathy. There is moderate bilateral neural foraminal narrowing. C7/T1: There is no focal disc herniation, central stenosis or neural foraminal narrowing. IMPRESSION: Multilevel degenerative disc disease. Reviewed, Interpreted and Dictated by Julia Benavidez MD Transcribed by Lilibeth Vigil Authenticated and [facility]
== END ==
PROVIDERS: PCP Internal Medicine Adolescent Medicine; Visit Provider Nurse Practitioner Family
DX: M54.2 Cervicalgia (principal)
CPT/HCPCS: 72141; 76376

== ENCOUNTER → 2023-01-09 09:54 | Outpatient (POV) | payer MEDICARE, SELFPAY ==
[2023-01-09 10:30] VITALS: BP 163/93; PULSE 71; RESP 20; BMI 25.8
--- NOTE | 2023-01-09 10:30 | EXP.PAIN.SOA ---
[facility] Pain Management SOAP Note Subjective:: Patient is a pleasant 77-year-old male who presents today for follow-up of MRI of cervical spine as well as bilateral occipital nerve blocks on 12/20/2022. We are currently treating the patient for degenerative disc disease of cervical spine with cervical radiculopathy symptoms, myofascial pain chronic neck pain, low back pain, lumbar radiculopathy symptoms. Today he states that he got 0 relief following the occipital nerve blocks. He states it did seem like it made his pain worse. He does rated a 10 out of 10 today. He states he has constant aching sensations in his bilateral neck with radiating symptoms into his shoulders. Patient states he has limited range of motion due to his pain. He states he has to turn his whole body in order to turn his head from side to side or up and down. Patient denies any new trauma or injury. Patient denies any change to location or type of pain he experiences. Patient has had trigger point injections in the past that did provide significant relief as well as cervical epidural. Patient does have a history of restless legs syndrome and he is prescribed Mirapex 0.125 mg daily by his primary care doctor as well as tramadol 50 mg 3 times a day. Patient is prescribed from our office compounding cream that he does state will typically help however this episode he states is not doing anything additional for. He is interested in any additional relief we can provide. His Odell is [phone]. Its been reviewed and appropriate. Review of Systems: General: No recent weight changes, no fever, no sleep disturbances Respiratory: No cough, no shortness of air, no recurring pulmonary infections Cardiovascular/peripheral vascular: No chest pain, no palpitations, no edema, no shortness of breath Gastrointestinal: No new onset incontinence, normal bowel movements reported Genitourinary: No new onset incontinence Musculoskeletal: Neck pain, shoulder pain Psychiatric: [Normal mood/affect] Neurological: [Denies weakness in extremities], [denies balance issues] Objective:: Physical Exam: General: Alert and oriented x3, no acute distress, pleasant and cooperative Lungs: Respirations even and unlabored, symmetrical chest expansion Eyes: PERRL Musculoskeletal: Flexion and extension of cervical [spine] somewhat guarded secondary to pain, [antalgic gait noted] extreme point tenderness of bilateral cervical paraspinous and bilateral trapezius muscles Neurological: Speech clear, no gross sensory deficit FINAL REPORT TECHNIQUE: Multiplanar and multisequence imaging of the cervical spine was obtained. CLINICAL HISTORY: NECK PAIN into top of shoulders x 10-12 years FINDINGS: Alignment is normal.? Vertebral body height is preserved. Signal intensity within the substance of the spinal cord is normal.? There are multilevel degenerative marrow endplate changes.? Marrow signal is otherwise unremarkable.? Paraspinal soft tissues are within normal limits.? C2/3:? There is mild bilateral facet osteoarthropathy with mild right neural foraminal narrowing.? C3/4:? An annular disc bulge is present with degenerative endplate changes and facet osteoarthropathy. There is moderate bilateral neural foraminal narrowing.? C4/5: An annular disc bulge is present with degenerative endplate changes and facet osteoarthropathy.? There is mild central stenosis.? There is severe, left greater than right neural foraminal narrowing.? C5/6:? An annular disc bulge is present with degenerative endplate changes and facet osteoarthropathy. There is mild central stenosis and moderate bilateral neural foraminal narrowing.? C6/7:? An annular disc bulge is present with degenerative endplate changes and facet osteoarthropathy. There is moderate bilateral neural foraminal narrowing.? C7/T1: There is no focal disc herniation, central stenosis or neural foraminal narrowing. IMPRESSION: Multilevel degenerative disc disease. Reviewed, In
== END | disposition home or self-care (01) ==
PROVIDERS: Visit Provider Nurse Practitioner Family
DX: M50.10 Cervical disc disorder with radiculopathy, unspecified cervical region (principal); M79.10 Myalgia, unspecified site; G89.29 Other chronic pain
CPT/HCPCS: 99212; G0463

== ENCOUNTER 2023-01-17 08:21 | Day surgery (SDC) | payer MEDICARE, SELFPAY ==
[2023-01-17 08:34] VITALS: BP 156/90; PULSE 73; RESP 18; TEMP 36.9; O2SAT 98; BMI 25.8
[2023-01-17 09:00] VITALS: BP 154/88; PULSE 68; RESP 18; O2SAT 98
[2023-01-17 09:04] VITALS: BP 154/88; PULSE 68; RESP 18; O2SAT 98
--- NOTE | 2023-01-17 09:06 | EXP.PAIN.PRO ---
Procedure Date: 01/17/23 Time: 08:50 Anesthesiologist:: Stephan Mejia CRNA Complications:: None Pre-procedure Diagnosis:: Myofascial pain bilateral cervical paraspinous muscles. Bilateral trapezius muscles Post-procedure Diagnosis:: Same. Indications for Procedure:: Very pleasant 77-year-old male that comes our clinic today for repeat of the distal posterior cervical paraspinous muscles as well as bilateral trapezius muscles. He has had these injections in the past with significant relief. He reports 3 to 4 months of significant improvement in his overall posterior cervical and shoulder pain. Procedure Details:: Details of the procedure explained to the patient. The patient was taken to procedure room placed in the sitting position. The area over the posterior cervical spine as well as bilateral trapezius muscle was cleansed using chlorhexidine as a cleansing solution. Using a 22-gauge inch and half needle the bilateral inferior posterior cervical paraspinous muscles were injected with 2 ml of a 10 mL solution containing 0.25% Marcaine +1% lidocaine and 40 mg of Depo-Medrol. 2 separate injections of the left trapezius muscle using 3 cc/inj. of the same solution. The same was carried out over the right trapezius muscle. Patient tolerated procedure without difficulty. There are no complications Plan and Disposition:: Patient was discharged without incident.
[2023-01-17 09:07] VITALS: BP 146/80; PULSE 70; RESP 18; O2SAT 98
== END 2023-01-17 09:07 | disposition home or self-care (01) ==
PROVIDERS: PCP Internal Medicine Adolescent Medicine; Visit Provider Nurse Anesthetist, Certified Registered
DX: M79.18 Myalgia, other site (principal)
CPT/HCPCS: 20552; J1040

== ENCOUNTER → 2023-01-24 08:24 | Outpatient (POV) | payer MEDICARE, SELFPAY | PROVIDERS: Visit Provider Dermatology | DX: Z00.00 Encounter for general adult medical examination without abnormal findings (principal) ==

== ENCOUNTER → 2023-02-01 09:36 | Outpatient (POV) | payer MEDICARE, SELFPAY ==
--- NOTE | 2023-02-01 10:34 | EXP.PAIN.SOA ---
[facility] Pain Management SOAP Note Subjective:: Patient is a pleasant 77-year-old male who presents today for follow-up of trigger point injections of his bilateral cervical paraspinous and bilateral trapezius muscles on 01/17/2023. We are currently treating the patient for degenerative disc disease of cervical spine with cervical radiculopathy symptoms, myofascial pain, chronic neck pain, low back pain, lumbar radiculopathy symptoms, cervical facet arthropathy. Today he states that he did have approximately 50% improvement lasting only a few days following these injections. Patient continues to state he has significant pain in his neck that is worse with bending, twisting movements. He states he experiences significant stiffness on a daily basis. He does state this interferes with his ability to perform activities of daily living such as cooking and cleaning. He states he cannot even turn his head from side to side without significant pain. Patient has had cervical epidurals and trigger point injections that did provide significant relief in the past. Patient does have a history of restless leg syndrome and is prescribed Mirapex 0.125 mg daily by his primary care doctor and tramadol 50 mg 3 times a day. Patient denies any side effects from this medication. Patient has been prescribed compounding cream in the past however he did not notice significant improvement. His Odell is [id number]. Its been reviewed and appropriate. Review of Systems: General: No recent weight changes, no fever, no sleep disturbances Respiratory: No cough, no shortness of air, no recurring pulmonary infections Cardiovascular/peripheral vascular: No chest pain, no palpitations, no edema, no shortness of breath Gastrointestinal: No new onset incontinence, normal bowel movements reported Genitourinary: No new onset incontinence Musculoskeletal: Neck pain Psychiatric: [Normal mood/affect] Neurological: [Denies weakness in extremities], [denies balance issues] Objective:: Physical Exam: General: Alert and oriented x3, no acute distress, pleasant and cooperative Lungs: Respirations even and unlabored, symmetrical chest expansion Eyes: PERRL Musculoskeletal: Flexion and extension of cervical [spine] somewhat guarded secondary to pain, [antalgic gait noted] positive Kemps test Neurological: Speech clear, no gross sensory deficit Assessment:: Degenerative disc disease of cervical spine with cervical radiculopathy symptoms, cervical facet arthropathy, cervical spondylosis, myofascial pain, chronic neck pain, low back pain, lumbar radiculopathy symptoms Plan:: Patient continues to experience significant pain with bending and twisting motions. Patient did have a positive Kemps test and limited range of motion of his cervical spine during today's visit. I have discussed with the patient that he may benefit from a medial branch block of his cervical spine. Risk and benefits were discussed with the patient and he would like to proceed forward with this plan of care. Patient is not on any blood thinners. We will schedule him for a cervical medial branch block bilaterally of C5-C6, C6-C7. Patient has been instructed to contact the clinic with any concerns before the next appointment. Dr. Aguilar has reviewed this note and agrees with this plan of care. This note was dictated using voice recognition software and make contain errors or omissions. [facility] Disclaimer: The information contained in this section may have been updated after the patient was seen, as this information can be updated by other users. Medical History HTN (hypertension) HTN (hypertension) Family History Other No significant family history Social History Smoking Status: Never smoker second hand exposure: No alcohol intake: never substance use ty
[2023-02-01 12:22] VITALS: BP 143/80; PULSE 79; RESP 18; O2SAT 97; BMI 25.2
== END ==
PROVIDERS: PCP Internal Medicine Adolescent Medicine; Visit Provider Nurse Practitioner Family
DX: M50.123 Cervical disc disorder at C6-C7 level with radiculopathy (principal); M47.22 Other spondylosis with radiculopathy, cervical region; M79.10 Myalgia, unspecified site
CPT/HCPCS: 99212; G0463

== ENCOUNTER 2023-02-07 13:08 | Day surgery (SDC) | payer MEDICARE, SELFPAY ==
[2023-02-07 13:20] VITALS: BP 147/80; PULSE 79; RESP 18; TEMP 37; O2SAT 97; BMI 25.2
[2023-02-07 13:24] VITALS: BP 142/78; PULSE 86; RESP 18; O2SAT 97
[2023-02-07 13:26] VITALS: BP 142/78; PULSE 86; RESP 18; O2SAT 97
[2023-02-07 13:31] VITALS: BP 128/73; PULSE 78; RESP 18; O2SAT 97
--- NOTE | 2023-02-07 13:31 | P.PCN_ITS ---
Procedure Date: 02/07/23 Time: 13:20 Anesthesiologist:: Stephan Mejia CRNA Complications:: None Pre-procedure Diagnosis:: Degenerative disc disease cervical spine multilevels. Cervical spondylosis. Multilevel cervical facet arthropathy. Cervical radiculopathy Post-procedure Diagnosis:: Same. Indications for Procedure:: Patient is a pleasant 77-year-old male that comes our clinic today for bilateral C5-6, C6-7 medial branch block/facet block. Patient complains of posterior cervical neck pain. Difficulty with flexion, extension, left and right rotation of the cervical spine. He rates his pain 7/10. Procedure Details:: Informed consent was obtained and the risk and benefits of the procedure was explained to the patient. Patient was taken to the procedure room where noninvasive monitors were placed, including noninvasive blood pressure cuff as well as pulse oximeter. The area over the posterior cervical spine was cleansed using chlorhexidine as a cleansing solution. I anesthetized the skin and subcutaneous tissues with 1% Lidocaine. I placed 25 -gauge spinal needles into the facet joint/ medial branches of C5-6, C6-7 bilaterally. Needle placement was confirmed with fluoroscopy. After confirmation of needle placement, each site was injected with 1 mL of 1% lidocaine and 0.25 % Marcaine and 10 mg of Depo- Medrol. A total of 20 mg of depo medrol was used for bilateral medial branch blocks of C5-6, C6-7 bilaterally. Patient tolerated the procedure without difficulty. There were no complications. Plan and Disposition:: Patient was discharged without incident.
== END 2023-02-07 13:31 | disposition home or self-care (01) ==
PROVIDERS: PCP Internal Medicine Adolescent Medicine; Visit Provider Nurse Anesthetist, Certified Registered
DX: M50.123 Cervical disc disorder at C6-C7 level with radiculopathy (principal); M47.892 Other spondylosis, cervical region
CPT/HCPCS: 64490; 64491; J1040; Q9966

== ENCOUNTER → 2023-02-21 12:50 | Outpatient (POV) | payer MEDICARE, SELFPAY | PROVIDERS: Visit Provider Dermatology | DX: Z00.00 Encounter for general adult medical examination without abnormal findings (principal) ==

== ENCOUNTER → 2023-02-23 13:53 | Outpatient (POV) | payer MEDICARE, SELFPAY ==
[2023-02-23 14:23] VITALS: BP 136/87; PULSE 84; RESP 18; O2SAT 98; BMI 25.5
--- NOTE | 2023-02-23 14:28 | EXP.PAIN.SOA ---
[facility] Pain Management SOAP Note Subjective:: Patient is a pleasant 77-year-old male who presents today for follow-up bilateral medial branch block of cervical spine C5-6 and C6-7 on 02/07/2023. We are currently treating the patient for degenerative disc disease of cervical spine with cervical radiculopathy symptoms, cervical facet arthropathy, chronic neck pain, low back pain, lumbar radiculopathy symptoms, myofascial pain. Today he states he has had at least 40 to 50% improvement following these injections. He states that he was feeling so good that he did go out to the garden and work. Patient states that he was doing a lot of bending and twisting and feels like he may have pulled something. He states Monday and Monday he was in excruciating pain however it has progressively improved. He does state he still continues to have some soreness into the back of his head and going into his neck and shoulders. Patient states that overall his more major pain has been resolved since and continues to provide relief. Patient does have a history of restless leg syndrome and is on Mirapex 0.125 mg daily from his primary care doctor and tramadol 50 mg 3 times a day from Dr. Aguilar's office. He denies any side effects from this medication. Patient denies any heart or kidney issues his Odell is [id number]. Its been reviewed and appropriate. Review of Systems: General: No recent weight changes, no fever, no sleep disturbances Respiratory: No cough, no shortness of air, no recurring pulmonary infections Cardiovascular/peripheral vascular: No chest pain, no palpitations, no edema, no shortness of breath Gastrointestinal: No new onset incontinence, normal bowel movements reported Genitourinary: No new onset incontinence Musculoskeletal: Neck pain, shoulder pain Psychiatric: [Normal mood/affect] Neurological: [Denies weakness in extremities], [denies balance issues] Objective:: Physical Exam: General: Alert and oriented x3, no acute distress, pleasant and cooperative Lungs: Respirations even and unlabored, symmetrical chest expansion Eyes: PERRL Musculoskeletal: Flexion and extension of cervical [spine] somewhat guarded secondary to pain, [antalgic gait noted] positive Kemps test; point tenderness noted along bilateral cervical paraspinous and bilateral trapezius muscles Neurological: Speech clear, no gross sensory deficit Assessment:: Degenerative disc disease of cervical spine with cervical radiculopathy symptoms, cervical facet arthropathy, chronic neck pain, low back pain with lumbar radiculopathy symptoms, myofascial pain Plan:: Patient is experiencing significant pain in his posterior cervical paraspinous muscles and bilateral trapezius muscles. Patient had limited range of motion of the cervical spine during today's visit. I have discussed with patient that he may benefit from trigger point injections at these locations. Risk and benefits were discussed with the patient and he would like to proceed forward with this plan of care. I have also discussed with the patient that in the future he may benefit from being put on meloxicam however at this time we will wait. We will schedule him for TPI of bilateral posterior cervical paraspinous and bilateral trapezius muscles. Patient has been instructed to contact the clinic with any concerns before the next appointment. Dr. Aguilar has reviewed this note and agrees with this plan of care. This note was dictated using voice recognition software and make contain errors or omissions. [facility] Disclaimer: The information contained in this section may have been updated after the patient was seen, as this information can be updated by other users. Medical History HTN (hypertension) HTN (hypertension) Family History Other No significant family history Social History (Reviewed 02/07/23 @ 13:20 by Madeleine Slaughter
== END ==
PROVIDERS: PCP Internal Medicine Adolescent Medicine; Visit Provider Nurse Practitioner Family
DX: M50.123 Cervical disc disorder at C6-C7 level with radiculopathy (principal); M47.22 Other spondylosis with radiculopathy, cervical region; M79.10 Myalgia, unspecified site
CPT/HCPCS: 99212; G0463

== ENCOUNTER 2023-02-28 10:41 | Day surgery (SDC) | payer MEDICARE, SELFPAY ==
[2023-02-28 10:44] VITALS: BP 145/88; PULSE 69; RESP 18; TEMP 36.4; O2SAT 97; BMI 25.2
[2023-02-28 11:03] VITALS: BP 150/81; PULSE 65; RESP 18; O2SAT 97
--- NOTE | 2023-02-28 11:04 | EXP.PAIN.PRO ---
Procedure Date: 02/28/23 Time: 11:00 Anesthesiologist:: Stephan Mejia CRNA Complications:: None Pre-procedure Diagnosis:: Myofascial pain bilateral posterior cervical paraspinous muscles as well as bilateral trapezius muscles Post-procedure Diagnosis:: Same. Indications for Procedure:: Patient is a very pleasant 77-year-old male that comes our clinic today for trigger point injections to bilateral posterior cervical paraspinous muscle as well as bilateral trapezius muscles. Patient describes pain as constant, dull, aching in regards to these muscle groups. Procedure Details:: Informed consent was obtained and the risk and benefits of the procedure were explained to the patient. The patient was taken to the procedure room where noninvasive monitoring was placed including a noninvasive blood pressure cuff and a pulse oximeter. Neck and upper trapezius on the right side were prepped with ChloraPrep as a cleansing solution. Trigger points were palpated and marked. Each of these trigger points were injected with bupivacaine 0.25% 3 mL and Depo-Medrol 20 mg. A total of 80 mg Depo-Medrol was used for each trigger point of the right cervical paraspinous and right upper trapezius muscles. Needle was withdrawn and sterile bandages placed over the injection sites. Patient tolerated the procedure well with no complications. Plan and Disposition:: Patient was discharged without incident.
== END 2023-02-28 11:03 | disposition home or self-care (01) ==
PROVIDERS: PCP Internal Medicine Adolescent Medicine; Visit Provider Nurse Anesthetist, Certified Registered
DX: M79.18 Myalgia, other site (principal)
CPT/HCPCS: 20552; J1040

== ENCOUNTER → 2023-03-15 11:40 | Outpatient (POV) | payer MEDICARE, SELFPAY ==
[2023-03-15 11:44] VITALS: BP 162/92; PULSE 68; RESP 20; BMI 24.8
--- NOTE | 2023-03-15 11:51 | EXP.PAIN.SOA ---
[facility] Pain Management SOAP Note Subjective:: Patient is a pleasant 77-year-old male who presents today for follow-up of trigger point injections to his bilateral posterior cervical paraspinous and bilateral trapezius muscles on 02/28/2023. We are currently treating the patient for degenerative disc disease of cervical spine with cervical radiculopathy symptoms, cervical facet arthropathy, chronic neck pain, low back pain, lumbar radiculopathy symptoms, myofascial pain. Today he rates his pain a 1 out of 10. He states that he did not notice significant improvement in his upper neck symptoms but he may have had approximately 50% in his lower neck area and into his shoulders following this injection. Patient denies any new trauma or injury. Patient denies any change location or type of pain he experiences. He states he continues to have pain higher up into his neck that is aggravated with motions of bending or twisting. He states he immediately has sharp, shooting pain and cannot even sit to watch the TV due to this. He continues to use a heating pad frequently to provide temporary relief. He denies any radiating symptoms with this pain. He does state his pain interferes with his ability to do activities of daily living such as cooking and cleaning. Patient has had multiple injections that have provided significant improvements. He is currently managed on Mirapex 0.25 mg daily and tramadol 50 mg twice a day from his primary care doctor and compounding cream from our office. Patient denies any side effects from these medications. He states he has not noticed significant relief with the compounding cream. His Odell is [id number]. Its been reviewed and appropriate. Review of Systems: General: No recent weight changes, no fever, no sleep disturbances Respiratory: No cough, no shortness of air, no recurring pulmonary infections Cardiovascular/peripheral vascular: No chest pain, no palpitations, no edema, no shortness of breath Gastrointestinal: No new onset incontinence, normal bowel movements reported Genitourinary: No new onset incontinence Musculoskeletal: Neck pain Psychiatric: [Normal mood/affect] Neurological: [Denies weakness in extremities], [denies balance issues] Objective:: Physical Exam: General: Alert and oriented x3, no acute distress, pleasant and cooperative Lungs: Respirations even and unlabored, symmetrical chest expansion Eyes: PERRL Musculoskeletal: Flexion and extension of cervical [spine] somewhat guarded secondary to pain, [antalgic gait noted] positive Kemps test Neurological: Speech clear, no gross sensory deficit CLINICAL HISTORY: NECK PAIN into top of shoulders x 10-12 years FINDINGS: Alignment is normal.? Vertebral body height is preserved. Signal intensity within the substance of the spinal cord is normal.? There are multilevel degenerative marrow endplate changes.? Marrow signal is otherwise unremarkable.? Paraspinal soft tissues are within normal limits.? C2/3:? There is mild bilateral facet osteoarthropathy with mild right neural foraminal narrowing.? C3/4:? An annular disc bulge is present with degenerative endplate changes and facet osteoarthropathy. There is moderate bilateral neural foraminal narrowing.? C4/5: An annular disc bulge is present with degenerative endplate changes and facet osteoarthropathy.? There is mild central stenosis.? There is severe, left greater than right neural foraminal narrowing.? C5/6:? An annular disc bulge is present with degenerative endplate changes and facet osteoarthropathy. There is mild central stenosis and moderate bilateral neural foraminal narrowing.? C6/7:? An annular disc bulge is present with degenerative endplate changes and facet osteoarthropathy. There is moderate bilateral neural foraminal narrowing.? C7/T1: There is no focal disc herniation, central stenosis or neural foraminal narrowing. IMPRESSION: Multilevel degenerative disc disease. Reviewed, Interpreted and Dictated
== END | disposition home or self-care (01) ==
PROVIDERS: PCP Internal Medicine Adolescent Medicine; Visit Provider Nurse Practitioner Family
DX: M50.121 Cervical disc disorder at C4-C5 level with radiculopathy (principal); M47.22 Other spondylosis with radiculopathy, cervical region
CPT/HCPCS: 99212; G0463

== ENCOUNTER 2023-03-28 10:34 | Day surgery (SDC) | payer MEDICARE, SELFPAY ==
[2023-03-28 10:40] VITALS: BP 155/86; PULSE 74; RESP 18; TEMP 36.9; O2SAT 98; BMI 25.1
[2023-03-28 10:46] VITALS: BP 145/79; PULSE 78; RESP 18; O2SAT 97
[2023-03-28 11:00] VITALS: BP 149/83; PULSE 74; RESP 18; O2SAT 98
--- NOTE | 2023-03-28 11:17 | P.PCN_ITS ---
Procedure Date: 03/28/23 Time: 11:00 Anesthesiologist:: Stephan Mejia CRNA Complications:: None Pre-procedure Diagnosis:: Degenerative disc cervical spine multilevels. Cervical radiculopathy. Cervical spondylosis. Multilevel cervical facet arthropathy Post-procedure Diagnosis:: Same. Indications for Procedure:: Very pleasant 77-year-old male that comes our clinic today for C3-4, C4-5 bilateral medial branch blocks/facet injections. Patient complains of posterior cervical neck pain as constant, dull, aching. Patient also reports radicular symptoms into the shoulders bilaterally. Frequent headaches. Procedure Details:: Informed consent was obtained and the risk and benefits of the procedure was explained to the patient. Patient was taken to the procedure room where noninvasive monitors were placed, including noninvasive blood pressure cuff as well as pulse oximeter. The area over the posterior cervical spine was cleansed using chlorhexidine as a cleansing solution. I anesthetized the skin and subcutaneous tissues with 1% Lidocaine. I placed 25 -gauge spinal needles into the facet joint/ medial branches of C3-4, C4-5 bilaterally. Needle placement was confirmed with fluoroscopy. After confirmation of needle placement, each site was injected with 1 mL of 1% lidocaine and 0.25 % Marcaine and 10 mg of Depo- Medrol. A total of 20 mg of depo medrol was used for bilateral medial branch blocks of C3-4, C4-5 bilaterally. Patient tolerated the procedure without difficulty. There were no complications. Plan and Disposition:: Patient was discharged without incident.
== END 2023-03-28 11:00 | disposition home or self-care (01) ==
LOC: SC.PAINP 10:34
PROVIDERS: PCP Internal Medicine Adolescent Medicine; Visit Provider Nurse Anesthetist, Certified Registered
DX: M50.121 Cervical disc disorder at C4-C5 level with radiculopathy (principal); M47.896 Other spondylosis, lumbar region
CPT/HCPCS: 64493; 64494; J1040; Q9966

== ENCOUNTER → 2023-04-10 08:56 | Outpatient (POV) | payer MEDICARE, SELFPAY ==
--- NOTE | 2023-04-10 09:32 | EXP.PAIN.SOA ---
[facility] Pain Management SOAP Note Subjective:: Patient is a pleasant 77-year-old male who presents today for follow-up of cervical medial branch blocks C3-4 and C4-5 on 03/28/2023.? We are currently treating the patient for degenerative disc disease of cervical spine with cervical radiculopathy symptoms, cervical facet arthropathy, chronic neck pain, low back pain, lumbar radiculopathy symptoms, myofascial pain.? Today he rates his pain a 1 out of 10.? He states he did have significant improvement initially however he states it only lasted 3 to 4 days. He rates improvement of approximately 30 to 50%. He states that it was easier to turn his neck following the injection and he was able to increase his activity however for today he is back to his baseline. He continues to state he is only experiencing pain in his upper neck and has continued to do well with previous injections for the lower portion and into his shoulders. He denies any new trauma or injury.? Patient denies any change location or type of pain he experiences.? He states he continues to have pain higher up into his neck that is aggravated with motions of bending or twisting.? He states he immediately has sharp, shooting pain that is made worse when turning his head in the car or even watching television.? He continues to state it does not radiate anywhere and that he will frequently use a heating pad. He has tried compounding cream at this location however he states the cream became less effective over time he felt like. At our last visit we did prescribe meloxicam and he states he did feel like this medication did help some. He is requesting a refill at today's visit. He does state his pain interferes with his ability to do activities of daily living such as cooking and cleaning.? He is currently managed on Mirapex 0.25 mg daily and tramadol 50 mg twice a day from his primary care doctor.? Patient denies any side effects from these medications.? His Odell is [id number]. Its been reviewed and appropriate. Review of Systems: General: No recent weight changes, no fever, no sleep disturbances Respiratory: No cough, no shortness of air, no recurring pulmonary infections Cardiovascular/peripheral vascular: No chest pain, no palpitations,? no edema, no shortness of breath Gastrointestinal: No new onset incontinence, normal bowel movements reported Genitourinary: No new onset incontinence Musculoskeletal: Neck pain Psychiatric: [Normal mood/affect] Neurological: [Denies weakness in extremities], [denies balance issues] Objective:: Physical Exam: General: Alert and oriented x3, no acute distress, pleasant and cooperative Lungs: Respirations even and unlabored, symmetrical chest expansion Eyes: PERRL Musculoskeletal: Flexion and extension of cervical [spine] somewhat guarded secondary to pain, [antalgic gait noted] positive Kemps test Neurological: Speech clear, no gross sensory deficit Assessment:: Degenerative disc disease of cervical spine with cervical radiculopathy symptoms, cervical facet arthropathy, chronic neck pain, cervical spondylosis, low back pain with lumbar radiculopathy symptoms, myofascial pain. Plan:: Patient continues to have pain in his neck with limited range of motion. He did have a positive Kemps test. I have discussed with the patient that he may benefit from repeat cervical medial branch block bilaterally. Risk and benefits were discussed with the patient and he would like to proceed forward with this plan of care. Patient is not on any blood thinners. I will refill his meloxicam 7.5 mg daily and provide a 1 month supply of this medication. We will schedule the patient for a cervical medial branch block #2 bilaterally C3-C4, C4-C5 and C5-C6. Patient has been instructed to contact the clinic with any concerns before the next appointment. Dr. Aguilar has reviewed this note and agrees with this plan of care. This note was dictated using voice recognition software and make contain errors or o
[2023-04-10 09:51] VITALS: BP 148/93; PULSE 75; RESP 18; O2SAT 98; BMI 25.1
== END | disposition home or self-care (01) ==
PROVIDERS: PCP Internal Medicine Adolescent Medicine; Visit Provider Nurse Practitioner Family
DX: M50.122 Cervical disc disorder at C5-C6 level with radiculopathy (principal); M47.22 Other spondylosis with radiculopathy, cervical region; M54.16 Radiculopathy, lumbar region; G89.29 Other chronic pain
CPT/HCPCS: 99212; G0463

== ENCOUNTER 2023-04-18 09:24 | Day surgery (SDC) | payer MEDICARE, SELFPAY ==
[2023-04-18 09:39] VITALS: BP 148/87; PULSE 74; RESP 18; TEMP 36.2; O2SAT 96; BMI 24.8
[2023-04-18 09:47] VITALS: BP 166/90; PULSE 77; RESP 18; O2SAT 98
[2023-04-18 09:49] VITALS: BP 120/84; BP 166/90; PULSE 65; PULSE 77; RESP 18; O2SAT 96; O2SAT 98
--- NOTE | 2023-04-18 09:51 | EXP.PAIN.PRO ---
Procedure Date: 04/18/23 Time: 09:20 Anesthesiologist:: Stephan Mejia CRNA Complications:: None Pre-procedure Diagnosis:: Degenerative disc cervical spine multilevels. Cervical radiculopathy. Cervical spondylosis. Multilevel cervical facet arthropathy. Post-procedure Diagnosis:: Same. Indications for Procedure:: Very pleasant 77-year-old male that comes our clinic today for repeat bilateral cervical C4-5, C5-6 medial branch block/facet block. Patient responded very well to his initial block same levels. He reports 50% improvement. Patient reports improvement with flexion, extension, left and right rotation of the cervical spine. Procedure Details:: Details of the procedure explained to the patient. The patient was taken to procedure room placed in the prone position on the fluoroscopy table. The posterior cervical spine was cleansed using chlorhexidine as a cleansing solution. Using a 22-gauge 3 inch needle under fluoroscopy guidance the right C4-5 and C5-6 facet joint was accessed. Needle position was confirmed using contrast dye. 1 cc of 1% lidocaine +10 mg of Depo-Medrol was injected at each facet level. The same procedure was carried out on the left C4-5, C5-6 facet joint. Patient tolerated procedure without difficulty. There are no complications. Plan and Disposition:: Patient was discharged without incident.
== END 2023-04-18 09:49 | disposition home or self-care (01) ==
PROVIDERS: PCP Internal Medicine Adolescent Medicine; Visit Provider Nurse Anesthetist, Certified Registered
DX: M50.10 Cervical disc disorder with radiculopathy, unspecified cervical region (principal); M47.892 Other spondylosis, cervical region
CPT/HCPCS: 64491; 64490; J1040; Q9966

== ENCOUNTER → 2023-05-03 08:59 | Outpatient (POV) | payer MEDICARE, SELFPAY ==
--- NOTE | 2023-05-03 09:34 | EXP.PAIN.SOA ---
[facility] Pain Management SOAP Note Subjective:: Patient is a pleasant 77-year-old male who presents today for follow-up of cervical medial branch block bilaterally C4-C5 and C5-C6 on 04/18/2023. We are currently treating the patient for degenerative disc disease of cervical spine with cervical radiculopathy symptoms, cervical facet arthropathy, chronic neck pain, low back pain with lumbar radiculopathy symptoms, myofascial pain. Today he states he has had at least 85% improvement following this injection and feels like it is still providing additional relief. He does rate his pain currently a 0 out of 10 however states with certain movements or increased activity he will have pain at the back of his head that does interfere with his ability perform activities of daily living such as cooking and cleaning. Patient states he does have tenderness when palpating at these 2 spots. Patient states that he will occasionally have difficulty turning his head from side to side when these sites flareup. Patient has used a heating pad along with compounding cream however it became less effective over time. He is currently managed with Mirapex 0.25 mg daily and tramadol 50 mg twice a day from his primary care doctor. Patient's Odell is [id number]. Its been reviewed and appropriate. Review of Systems: General: No recent weight changes, no fever, no sleep disturbances Respiratory: No cough, no shortness of air, no recurring pulmonary infections Cardiovascular/peripheral vascular: No chest pain, no palpitations, no edema, no shortness of breath Gastrointestinal: No new onset incontinence, normal bowel movements reported Genitourinary: No new onset incontinence Musculoskeletal: Neck pain Psychiatric: [Normal mood/affect] Neurological: [Denies weakness in extremities], [denies balance issues] Objective:: Physical Exam: General: Alert and oriented x3, no acute distress, pleasant and cooperative Lungs: Respirations even and unlabored, symmetrical chest expansion Eyes: PERRL Musculoskeletal: Flexion and extension of cervical [spine] somewhat guarded secondary to pain, [antalgic gait noted] point tenderness noted at superior sternocleidomastoid muscles bilaterally Neurological: Speech clear, no gross sensory deficit Assessment:: degenerative disc disease of cervical spine with cervical radiculopathy symptoms, cervical facet arthropathy, chronic neck pain, low back pain with lumbar radiculopathy symptoms, myofascial pain Plan:: Patient continues to have point tenderness along the posterior aspect of his occipital with point tenderness noted at his bilateral superior sternocleidomastoid muscles. I have discussed with the patient that it may be beneficial to try trigger point injections at these areas. Risk and benefits were discussed with the patient and he would like to proceed forward with this plan of care. Patient will be scheduled for trigger point injections of his superior sternocleidomastoid muscles bilaterally. Patient has been instructed to contact the clinic with any concerns before the next appointment. Dr. Aguilar has reviewed this note and agrees with this plan of care. This note was dictated using voice recognition software and make contain errors or omissions. [facility] Disclaimer: The information contained in this section may have been updated after the patient was seen, as this information can be updated by other users. Medical History HTN (hypertension) HTN (hypertension) Family History Other No significant family history Social History Smoking Status: Never smoker second hand exposure: No alcohol intake: never substance use type: denies use current occupational status: retired Travel in the last 8 weeks: None household members: other housing: house current occupationa
[2023-05-03 09:53] VITALS: BP 140/80; PULSE 70; RESP 18; O2SAT 97; BMI 24.9
== END ==
PROVIDERS: Visit Provider Nurse Practitioner Family
DX: M50.10 Cervical disc disorder with radiculopathy, unspecified cervical region (principal); M47.22 Other spondylosis with radiculopathy, cervical region; G89.29 Other chronic pain; M79.10 Myalgia, unspecified site
CPT/HCPCS: 99212; G0463

== ENCOUNTER 2023-05-16 10:43 | Day surgery (SDC) | payer MEDICARE, SELFPAY ==
[2023-05-16 11:01] VITALS: BP 143/88; PULSE 76; RESP 18; TEMP 36.4; O2SAT 98; BMI 25.1
[2023-05-16 11:17] VITALS: BP 158/81; PULSE 67; RESP 18; O2SAT 97
--- NOTE | 2023-05-16 11:18 | EXP.PAIN.PRO ---
Procedure Date: 05/16/23 Time: 11:15 Anesthesiologist:: Stephan Mejia CRNA Complications:: None Pre-procedure Diagnosis:: Chronic occipital pain. Chronic posterior neck pain at times. Cervical facet arthropathy. Cervical spondylosis. Post-procedure Diagnosis:: Same. Indications for Procedure:: Patient is a very pleasant 77-year-old male that comes our clinic today for bilateral occipital nerve block. Patient was scheduled for bilateral superior sternocleidomastoid trigger point injection. However, this was accomplished with occipital nerve blocks bilaterally. Patient describes his pain as constant, dull, aching. Patient states pain increases with left and right rotation of the cervical spine. Procedure Details:: Details of the procedure explained to the patient. Patient taken to procedure room placed in the sitting position. The occipital area was cleansed using alcohol preps. Using a 25-gauge inch and a half needle the right occipital nerve area was injected after negative aspiration using 6 mL of solution containing 0.25% Marcaine +1% lidocaine and 20 mg of Depo-Medrol. The same procedure was carried out over the left occipital nerve area. Patient tolerated procedure without difficulty. There are no complications. Plan and Disposition:: Patient was reevaluated 10 minutes post procedure. He reports 50% improvement in his cervical neck pain with flexion and extension, left and right rotation. Patient was discharged without incident.
[2023-05-16 11:19] VITALS: BP 158/81; PULSE 67; RESP 18; O2SAT 97
[2023-05-16 11:24] VITALS: BP 157/80; PULSE 66; RESP 18; O2SAT 98
== END 2023-05-16 11:24 | disposition home or self-care (01) ==
PROVIDERS: PCP Internal Medicine Adolescent Medicine; Visit Provider Nurse Anesthetist, Certified Registered
DX: M54.81 Occipital neuralgia (principal); M47.812 Spondylosis without myelopathy or radiculopathy, cervical region; G89.29 Other chronic pain
CPT/HCPCS: 64405; J1040

== ENCOUNTER → 2023-05-29 13:04 | Outpatient (POV) | payer MEDICARE, SELFPAY ==
--- NOTE | 2023-05-29 13:34 | EXP.PAIN.SOA ---
[facility] Pain Management SOAP Note Subjective:: Patient is a pleasant 77-year-old male who presents today for follow-up of bilateral occipital nerve block on 05/16/2023. We are currently treating the patient for degenerative disc disease of cervical spine with cervical radiculopathy symptoms, cervical facet arthropathy, cervical spondylosis, chronic neck pain, low back pain with lumbar radiculopathy symptoms, myofascial pain, occipital neuralgia. Today he states that he has had at least 50% improvement following these injections however he is experiencing soreness at the sites of injection. He also states that he was mowing the yard about a week after his injection and noticed that the vibration seem to aggravate his pain symptoms. He does state that he has been using ice for temporary relief. Patient denies any new trauma or injury. Patient denies any change location or type of pain he experiences. 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 He does describe it as an aching, throbbing sensation that is worse with increased activity. Patient is currently managed with Mirapex 0.25 mg daily and tramadol 50 mg twice a day from his primary care doctor. He has been put on compounding cream from our office and methocarbamol with no additional relief. His Odell is [id number]. Its been reviewed and appropriate. Review of Systems: General: No recent weight changes, no fever, no sleep disturbances Respiratory: No cough, no shortness of air, no recurring pulmonary infections Cardiovascular/peripheral vascular: No chest pain, no palpitations, no edema, no shortness of breath Gastrointestinal: No new onset incontinence, normal bowel movements reported Genitourinary: No new onset incontinence Musculoskeletal: Neck pain, occipital neuralgia Psychiatric: [Normal mood/affect] Neurological: [Denies weakness in extremities], [denies balance issues] Objective:: Physical Exam: General: Alert and oriented x3, no acute distress, pleasant and cooperative Lungs: Respirations even and unlabored, symmetrical chest expansion Eyes: PERRL Musculoskeletal: Flexion and extension of cervical [spine] somewhat guarded secondary to pain, [antalgic gait noted] Neurological: Speech clear, no gross sensory deficit Assessment:: degenerative disc disease of cervical spine with cervical radiculopathy symptoms, cervical facet arthropathy, cervical spondylosis, chronic neck pain, low back pain with lumbar radiculopathy symptoms, myofascial pain, occipital neura Plan:: I will prescribe the patient tizanidine 4 mg at bedtime and provide a 2-week supply of this medication. Patient will return to clinic in 2 weeks for reevaluation of symptoms, possible medication refill if indicated and follow-up. Patient has been instructed to contact the clinic with any concerns before the next appointment. Dr. Aguilar has reviewed this note and agrees with this plan of care. This note was dictated using voice recognition software and make contain errors or omissions. [facility] Disclaimer: The information contained in this section may have been updated after the patient was seen, as this information can be updated by other users. Medical History HTN (hypertension) HTN (hypertension) Family History Other No significant family history Social History Smoking Status: Never smoker second hand exposure: No alcohol intake: never substance use type: denies use current occupational status: retired Travel in the last 8 weeks: None household members: other housing: house current occupational exposures/hazards: No caffeine: No
[2023-05-29 13:49] VITALS: BP 145/88; PULSE 77; RESP 18; O2SAT 98; BMI 24.9
== END | disposition home or self-care (01) ==
PROVIDERS: Visit Provider Nurse Practitioner Family
DX: M50.10 Cervical disc disorder with radiculopathy, unspecified cervical region (principal); M47.22 Other spondylosis with radiculopathy, cervical region; G89.29 Other chronic pain; M54.16 Radiculopathy, lumbar region; M79.10 Myalgia, unspecified site; M54.81 Occipital neuralgia
CPT/HCPCS: 99212; G0463

== ENCOUNTER → 2023-06-12 10:19 | Outpatient (POV) | payer MEDICARE, SELFPAY ==
--- NOTE | 2023-06-12 11:26 | EXP.PAIN.SOA ---
[facility] Pain Management SOAP Note Subjective:: Patient is a pleasant 77-year-old male who presents today for follow-up and medication refill. We are currently treating the patient for degenerative disc disease of cervical spine with cervical radiculopathy symptoms, cervical facet arthropathy, chronic neck pain, low back pain with lumbar radiculopathy symptoms, myofascial pain. Today he rates his pain a 6 out of 10. Patient denies any new trauma or injury or change to location or type of pain he has. He does still have tenderness with palpation around his neck and going into his shoulders. He states he does have difficulty with certain range of motion exercises and then it does affect his ability to perform ADLs. P he does use a heating pad along with compounding cream. He is currently managed with Mirapex 0.25 mg daily and tramadol 50 mg twice a day from his primary care doctor. At our last visit we did prescribe him tizanidine 4 mg at bedtime. He states that this medication did provide significant improvement and is requesting a refill. Patient's Odell is [id number]. Its been reviewed and appropriate. Review of Systems: General: No recent weight changes, no fever, no sleep disturbances Respiratory: No cough, no shortness of air, no recurring pulmonary infections Cardiovascular/peripheral vascular: No chest pain, no palpitations, no edema, no shortness of breath Gastrointestinal: No new onset incontinence, normal bowel movements reported Genitourinary: No new onset incontinence Musculoskeletal: Neck pain Psychiatric: [Normal mood/affect] Neurological: [Denies weakness in extremities], [denies balance issues] Objective:: Physical Exam: General: Alert and oriented x3, no acute distress, pleasant and cooperative Lungs: Respirations even and unlabored, symmetrical chest expansion Eyes: PERRL Musculoskeletal: Flexion and extension of cervical [spine] somewhat guarded secondary to pain, [antalgic gait noted] point tenderness along bilateral cervical paraspinous and rhomboid muscles Neurological: Speech clear, no gross sensory deficit Assessment:: degenerative disc disease of cervical spine with cervical radiculopathy symptoms, cervical facet arthropathy, chronic neck pain, low back pain with lumbar radiculopathy symptoms, myofascial pain Plan:: Patient does have point tenderness along his bilateral cervical paraspinous and rhomboid muscles. I have discussed with the patient that he may benefit from trigger point injections at this location. I will refill his tizanidine 4 mg at bedtime and provide a 1 month supply of this medication. Patient will be scheduled for trigger point injections of his bilateral cervical paraspinous and rhomboid muscles. Patient has been instructed to contact the clinic with any concerns before the next appointment. Dr. Aguilar has reviewed this note and agrees with this plan of care. This note was dictated using voice recognition software and make contain errors or omissions. [facility] Disclaimer: The information contained in this section may have been updated after the patient was seen, as this information can be updated by other users. Medical History HTN (hypertension) HTN (hypertension) Family History Other No significant family history Social History Smoking Status: Never smoker second hand exposure: No alcohol intake: never substance use type: denies use current occupational status: retired Travel in the last 8 weeks: None household members: other housing: house current occupational exposures/hazards: No caffeine: No
[2023-06-12 12:09] VITALS: BP 152/89; PULSE 67; RESP 18; O2SAT 96; BMI 24.9
== END ==
PROVIDERS: PCP Internal Medicine Adolescent Medicine; Visit Provider Nurse Practitioner Family
DX: M50.10 Cervical disc disorder with radiculopathy, unspecified cervical region (principal); M47.22 Other spondylosis with radiculopathy, cervical region; M54.16 Radiculopathy, lumbar region; M79.10 Myalgia, unspecified site
CPT/HCPCS: 99212; G0463

== ENCOUNTER 2023-06-20 11:21 | Day surgery (SDC) | payer MEDICARE, SELFPAY ==
[2023-06-20 11:46] VITALS: BP 136/76; PULSE 74; RESP 18; TEMP 36.6; O2SAT 97; BMI 25.1
--- NOTE | 2023-06-20 12:08 | P.PCN_ITS ---
Procedure Date: 06/20/23 Time: 12:10 Anesthesiologist:: Stephan Mejia CRNA Complications:: None Pre-procedure Diagnosis:: Myofascial pain bilateral posterior cervical paraspinous muscles. Bilateral trapezius muscles. Bilateral rhomboids. Post-procedure Diagnosis:: Same. Indications for Procedure:: Patient continues with myofascial pain posterior cervical spine as well as bilateral trapezius muscles. He complains of pain that is aching, dull, constant at times. Patient has difficulty with left and right rotation of the cervical spine. Procedure Details:: Details of the procedure explained to the patient. The patient taken to proce dure room placed in sitting position. The area over the posterior cervical spine as well as trapezius muscles was cleansed using chlorhexidine as a cleansing solution. Using a 25-gauge inch and half needle and a solution containing 0.25% Marcaine +1% lidocaine and 40 mg of Depo-Medrol 2 mL of solution was injected in 3 separate areas of the left cervical paraspinous muscle. Also, same was carried out over the left trapezius muscle. Same procedure was carried out over the right cervical paraspinous muscle as well as right trapezius muscle. Patient tolerated procedure without difficulty. There are no complications. Plan and Disposition:: Patient was discharged without incident.
[2023-06-20 12:15] VITALS: BP 152/86; PULSE 71; RESP 18; O2SAT 97
[2023-06-20 12:20] VITALS: BP 177/93; PULSE 76; RESP 18; O2SAT 97
[2023-06-20 12:21] VITALS: BP 177/93; PULSE 76; RESP 18; O2SAT 97
== END 2023-06-20 12:15 | disposition home or self-care (01) ==
PROVIDERS: PCP Internal Medicine Adolescent Medicine; Visit Provider Nurse Anesthetist, Certified Registered
DX: M79.18 Myalgia, other site (principal)
CPT/HCPCS: 20553; J1040

== ENCOUNTER → 2023-07-12 11:21 | Outpatient (POV) | payer MEDICARE, SELFPAY ==
--- NOTE | 2023-07-12 11:55 | EXP.PAIN.SOA ---
[facility] Pain Management SOAP Note Subjective:: Patient is a pleasant 78-year-old male who presents today for follow-up of trigger point injections of bilateral posterior cervical paraspinous, trapezius and rhomboid muscles on 06/20/2023. We are currently treating the patient for degenerative disc disease of cervical spine with cervical radiculopathy symptoms, cervical facet arthropathy, chronic neck pain, low back pain with lumbar radiculopathy symptoms, myofascial pain. Today he rates his pain a 2 out of 10. Patient denies any new trauma or injury. He states he had at least 50% improvement following these injections however he is starting to go back to his baseline. He states he continues to have soreness in his neck with radiating symptoms down into his bilateral shoulders. Patient does describe this as an aching sensation that is worse with increased activity and does affect his ability to perform ADLs. Patient is currently managed with Mirapex 0.25 mg daily and tramadol 50 mg twice a day from his primary care provider. Patient has been prescribed tizanidine 4 mg at bedtime from our office. Patient denies any side effects from this medication. He states that he is not really sure how much improvement he has gotten from the tizanidine and not requesting a refill at this time. His Odell is [id number]. Its been reviewed and appropriate. Review of Systems: General: No recent weight changes, no fever, no sleep disturbances Respiratory: No cough, no shortness of air, no recurring pulmonary infections Cardiovascular/peripheral vascular: No chest pain, no palpitations, no edema, no shortness of breath Gastrointestinal: No new onset incontinence, normal bowel movements reported Genitourinary: No new onset incontinence Musculoskeletal: Neck pain, shoulder pain Psychiatric: [Normal mood/affect] Neurological: [Denies weakness in extremities], [denies balance issues] Objective:: Physical Exam: General: Alert and oriented x3, no acute distress, pleasant and cooperative Lungs: Respirations even and unlabored, symmetrical chest expansion Eyes: PERRL Musculoskeletal: Flexion and extension of cervical [spine] somewhat guarded secondary to pain, [antalgic gait noted] point tenderness noted along posterior cervical paraspinous muscles, bilateral trapezius and bilateral rhomboid muscles Neurological: Speech clear, no gross sensory deficit Assessment:: Degenerative disc disease of cervical spine with cervical radiculopathy symptoms, cervical facet arthropathy, low back pain with lumbar radiculopathy symptoms, myofascial pain, chronic neck pain Plan:: Patient did have at least 50% improvement following his trigger point injections however he is starting to experience worsening pain in his neck and shoulders with point tenderness noted throughout these muscles. I have discussed with the patient that he may benefit from repeat trigger point injections to these locations. Risk and benefits were explained to the patient and he would like to proceed forward with this plan of care. I have counseled the patient if he decides he would like additional refills on his tizanidine he can call our office and let us know. Patient will be scheduled for trigger point injections of his bilateral posterior cervical paraspinous, bilateral trapezius and bilateral rhomboid muscles. Patient has been instructed to contact the clinic with any concerns before the next appointment. Dr. Aguilar has reviewed this note and agrees with this plan of care. This note was dictated using voice recognition software and make contain errors or omissions. [facility] Disclaimer: The information contained in this section may have been updated after the patient was seen, as this information can be updated by other users. Medical History HTN (hypertension) HTN (hypertension) Family History Other No signific
[2023-07-12 12:05] VITALS: BP 148/87; PULSE 77; RESP 18; O2SAT 97; BMI 24.7
== END ==
PROVIDERS: PCP Internal Medicine Adolescent Medicine; Visit Provider Nurse Practitioner Family
DX: M50.10 Cervical disc disorder with radiculopathy, unspecified cervical region (principal); M47.22 Other spondylosis with radiculopathy, cervical region; M54.16 Radiculopathy, lumbar region; M79.10 Myalgia, unspecified site; G89.29 Other chronic pain
CPT/HCPCS: 99212; G0463

== ENCOUNTER → 2023-07-17 09:38 | Outpatient (CLI) | payer MEDICARE, SELFPAY ==
--- NOTE | 2023-07-17 09:46 | XR_ITS ---
FINAL REPORT TECHNIQUE: Chest PA & Lateral CLINICAL HISTORY: SUBAREOLAR MASS OF RT BREAST COMPARISON: None FINDINGS: 2 views of the chest were performed. The heart size is normal. The mediastinum is within normal limits. There is no acute cardiopulmonary process. There are no pleural effusions. There is no pneumothorax. The bony thorax appears intact. IMPRESSION: No acute cardiopulmonary process. Reviewed, Interpreted and Dictated by Branden Bear MD Transcribed by Nubia Christensen Authenticated and [facility]
== END ==
PROVIDERS: PCP Internal Medicine Adolescent Medicine; Visit Provider Internal Medicine Adolescent Medicine
DX: N63.41 Unspecified lump in right breast, subareolar (principal)
CPT/HCPCS: 71046

== ENCOUNTER → 2023-07-21 13:46 | Outpatient (CLI) | payer MEDICARE, SELFPAY ==
--- NOTE | 2023-07-21 13:50 | MM_ITS ---
PROCEDURE INFORMATION: Exam: Bilateral Diagnostic Breast Tomosynthesis Exam date and time: 07/21/2023 1:42 PM Age: 78 years old Clinical indication: Right breast palpable lump TECHNIQUE: Imaging protocol: Bilateral Diagnostic tomosynthesis and 2D mammography including computer-aided detection (CAD) when performed. Unilateral or bilateral exam. COMPARISON: No relevant prior studies available. FINDINGS: MAMMOGRAPHY: The breast tissue is composed of scattered areas of fibroglandular density. There is no stellate mass, architectural distortion or suspicious microcalcifications in either breast to suggest malignancy. Minimal nonspecific somewhat nodular densities are noted both immediate retroareolar regions likely reflecting bilateral gynecomastia. The spot compression views of the right retroareolar region where the patient reports a palpable abnormality suggests benign parenchyma consistent with benign gynecomastia. No skin thickening or axillary adenopathy. IMPRESSION: Patient to return for bilateral breast ultrasound for full evaluation of probably benign gynecomastia bilaterally as well as for further evaluation of the patient's complaint of a palpable abnormality in the right breast. ASSESSMENT: BI-RADS Category 0: Incomplete- Need Additional Imaging Evaluation and/or Prior Mammograms for Comparison
== END ==
PROVIDERS: PCP Internal Medicine Adolescent Medicine; Visit Provider Internal Medicine Adolescent Medicine
DX: N63.41 Unspecified lump in right breast, subareolar (principal)
CPT/HCPCS: 77062; 77066; G0279

== ENCOUNTER 2023-07-25 10:41 | Day surgery (SDC) | payer MEDICARE, SELFPAY ==
[2023-07-25 10:57] VITALS: BP 146/88; PULSE 69; RESP 18; TEMP 36.6; O2SAT 97; BMI 24.7
[2023-07-25 11:06] VITALS: BP 142/92; PULSE 70; RESP 18; O2SAT 98
[2023-07-25 11:07] VITALS: BP 142/92; PULSE 70; RESP 18; O2SAT 97
[2023-07-25 11:13] VITALS: BP 148/85; PULSE 72; RESP 16; O2SAT 97
--- NOTE | 2023-07-25 11:24 | P.PCN_ITS ---
Procedure Date: 07/25/23 Time: 11:05 Anesthesiologist:: Stephan Mejia CRNA Complications:: None Pre-procedure Diagnosis:: Myofascial pain posterior cervical paraspinous muscles. Myofascial pain bilateral trapezius muscles. Post-procedure Diagnosis:: Same. Indications for Procedure:: Very pleasant 78-year-old male that is responded actions of the posterior paraspinous muscles as well as bilateral trapezius muscles in the past. Patient complains of posterior cervical neck pain. Bilateral trapezius pain. Patient rates his pain 7/10. Procedure Details:: Details of the procedure explained to the patient. The patient taken to procedure room placed in sitting position. Using a 25-gauge inch and half needle and a solution containing 0.25% Marcaine +1% lidocaine and 40 mg of Depo- Medrol 2 cc was injected after negative aspiration in 2 separate areas of the left cervical paraspinous muscle. 2 cc of solution was injected in 3 separate areas of the left trapezius muscle. The same procedure was carried out on the right cervical paraspinous as well as right trapezius muscle. Patient tolerated procedure without difficulty. There are no complications. Plan and Disposition:: Patient was discharged without incident.
== END 2023-07-25 11:13 | disposition home or self-care (01) ==
LOC: SC.PAINP 10:42
PROVIDERS: PCP Internal Medicine Adolescent Medicine; Visit Provider Nurse Anesthetist, Certified Registered
DX: M79.18 Myalgia, other site (principal)
CPT/HCPCS: 20553; J1040

== ENCOUNTER → 2023-08-03 15:29 | Outpatient (POV) | payer MEDICARE, SELFPAY ==
[2023-08-03 15:51] VITALS: BP 134/74; PULSE 68; RESP 18; O2SAT 97; BMI 24.6
--- NOTE | 2023-08-03 16:03 | EXP.PAIN.SOA ---
[facility] Pain Management SOAP Note Subjective:: Patient is a pleasant 78-year-old male who presents today for follow-up of trigger point injections of his posterior cervical paraspinous and bilateral trapezius muscles on 07/25/2023. We are currently treating the patient for degenerative disc disease of cervical spine with cervical radiculopathy symptoms, cervical facet arthropathy, chronic neck pain, low back pain with lumbar radiculopathy symptoms, myofascial pain. Today he rates his pain a 3 out of 10. He states that he had significant improvement following his trigger point injections however they typically only get about 3 to 4 days before he starts having pain bilaterally all around his occipital region. Patient does state this is a chronic issue and has been going on for upwards of 16 years. Patient states that his flareups are unrelated to any activity he is doing. Patient has tried cervical medial branch blocks, cervical epidurals, occipital nerve blocks and trigger point injections and all of them have provided significant relief however he still typically will have flareups in 2 specific locations in the back of his neck. Patient is currently managed with Mirapex 0.25 mg daily and tramadol 50 mg twice a day from his primary care provider. Patient was on tizanidine from our office however he states he has not been using this because it did not really seem to help. Patient denies any heart or kidney issues. His Odell is [phone]. Its been reviewed and appropriate. \ Review of Systems: General: No recent weight changes, no fever, no sleep disturbances Respiratory: No cough, no shortness of air, no recurring pulmonary infections Cardiovascular/peripheral vascular: No chest pain, no palpitations, no edema, no shortness of breath Gastrointestinal: No new onset incontinence, normal bowel movements reported Genitourinary: No new onset incontinence Musculoskeletal: Neck pain Psychiatric: [Normal mood/affect] Neurological: [Denies weakness in extremities], [denies balance issues] Objective:: Physical Exam: General: Alert and oriented x3, no acute distress, pleasant and cooperative Lungs: Respirations even and unlabored, symmetrical chest expansion Eyes: PERRL Musculoskeletal: Flexion and extension of cervical [spine] somewhat guarded secondary to pain, [antalgic gait noted] Neurological: Speech clear, no gross sensory deficit Assessment:: Degenerative disc disease of cervical spine with cervical radiculopathy symptoms, cervical facet arthropathy, chronic neck pain, low back pain with lumbar radiculopathy symptoms, myofascial pain, occipital neuralgia Plan:: Patient continues to have significant pain in his occipital region and neck with limited range of motion of his lumbar spine. I have discussed with the patient that we have tried multiple injections with some improvement however he continues to have the chronic pain in 2 locations at the back of his occipital region. I have discussed with the patient that it may be beneficial to add a anti-inflammatory. I will order the patient meloxicam 15 mg daily and provide a 2-week supply of this medication. I have counseled the patient to discontinue all other NSAIDs while taking this medication and to take it with food to minimize GI upset. Patient will return to clinic in 1 month for reevaluation of symptoms and plan of care. Patient has been instructed to contact the clinic with any concerns before the next appointment. Dr. Aguilar has reviewed this note and agrees with this plan of care. This note was dictated using voice recognition software and make contain errors or omissions. [facility] Disclaimer: The information contained in this section may have been updated after the patient was seen, as this information can be updated by other users. Medical History HTN (hypertension) HTN (hypertension) Family History (Reviewed 07/26/22 @ 09:28 by Tsering Arias
== END | disposition home or self-care (01) ==
PROVIDERS: PCP Internal Medicine Adolescent Medicine; Visit Provider Nurse Practitioner Family
DX: M50.10 Cervical disc disorder with radiculopathy, unspecified cervical region (principal); M47.22 Other spondylosis with radiculopathy, cervical region; G89.29 Other chronic pain; M54.16 Radiculopathy, lumbar region; M79.10 Myalgia, unspecified site; M54.81 Occipital neuralgia
CPT/HCPCS: 99212; G0463

== ENCOUNTER → 2023-08-14 11:40 | Outpatient (CLI) | payer MEDICARE, SELFPAY ==
--- NOTE | 2023-08-14 13:14 | US_ITS ---
PROCEDURE INFORMATION: Exam: US Left Breast, Complete US Right Breast, Complete Exam date and time: 08/14/2023 1:32 PM Age: 78 years old Clinical indication: Palpable abnormality in the right breast. Patient recalled for further evaluation of probable bilateral gynecomastia seen on mammogram dated 07/21/2023 TECHNIQUE: Imaging protocol: Complete ultrasound of all four quadrants of the left breast and the retroareolar regions, including ultrasound of the axilla when performed. Complete ultrasound of all four quadrants of the right breast and the retroareolar regions, including ultrasound of the axilla when performed. COMPARISON: MG MM DIG MAMM BI DX W/CAD 07/21/2023 1:42 PM FINDINGS: Breast: Sonographic images of both breasts including the retroareolar regions, all 4 quadrants and the axilla do not demonstrate any solid or cystic masses. Nonspecific hypoechoic tissue is noted both retroareolar regions consistent with bilateral retroareolar gynecomastia. No architectural distortion or acoustical shadowing. No skin thickening or axillary adenopathy. IMPRESSION: 1. Bilateral benign gynecomastia. Patient's complaint of a palpable abnormality in the right retroareolar region corresponds to benign gynecomastia. Correlation with current medication use is recommended to assess the potential etiology for the gynecomastia. 2. Further evaluation of a palpable abnormality should be based on clinical grounds regardless of radiographic findings or lack thereof. ASSESSMENT: BI-RADS Category 2: Benign
== END ==
PROVIDERS: PCP Internal Medicine Adolescent Medicine; Visit Provider Internal Medicine Adolescent Medicine
DX: R92.8 Other abnormal and inconclusive findings on diagnostic imaging of breast (principal)
CPT/HCPCS: 76641

== ENCOUNTER → 2023-08-31 08:42 | Outpatient (POV) | payer MEDICARE, SELFPAY ==
--- NOTE | 2023-08-31 09:25 | EXP.PAIN.SOA ---
[facility] Pain Management SOAP Note Subjective:: Patient is a pleasant 78-year-old male who presents today for follow-up. We are currently treating the patient for degenerative disc disease of cervical spine with cervical radiculopathy, cervical facet arthropathy, cervical spondylosis, myofascial pain, low back pain with lumbar radiculopathy symptoms, chronic neck pain. Today he rates his pain a 0 out of 10. He states his pain this morning is doing well however he does state that he is started doing more crafts at home in his shop and that his pain will jump up to a 7 out of 10 with certain movements such as bending, twisting or lifting. He denies any radiating symptoms into his arms or hands. Patient does state that his range of motion is limited and it does affect his ability perform activities of daily living such as cooking and cleaning. At our last visit he was prescribed meloxicam and he states this has provided additional relief. He is requesting refills at today's visit. Patient is also on Mirapex 0.25 mg daily and tramadol 50 mg twice a day from his PCP. He is also prescribed compounded cream. His Odell has been reviewed and is appropriate. Review of Systems: General: No recent weight changes, no fever, no sleep disturbances Respiratory: No cough, no shortness of air, no recurring pulmonary infections Cardiovascular/peripheral vascular: No chest pain, no palpitations, no edema, no shortness of breath Gastrointestinal: No new onset incontinence, normal bowel movements reported Genitourinary: No new onset incontinence Musculoskeletal: Neck pain Psychiatric: [Normal mood/affect] Neurological: [Denies weakness in extremities], [denies balance issues] Objective:: Physical Exam: General: Alert and oriented x3, no acute distress, pleasant and cooperative Lungs: Respirations even and unlabored, symmetrical chest expansion Eyes: PERRL Musculoskeletal: Flexion and extension of cervical [spine] somewhat guarded secondary to pain, [antalgic gait noted] positive Kemps test Neurological: Speech clear, no gross sensory deficit Assessment:: Degenerative disc disease of cervical spine with cervical radiculopathy symptoms, cervical facet arthropathy, cervical spondylosis, chronic neck pain, low back pain with lumbar radiculopathy symptoms, myofascial pain Plan:: Patient is experiencing worsening pain in his neck with limited range of motion. Patient did have a positive Kemps test during today's visit. Patient did have 2 cervical medial branch blocks bilaterally C4-C5 and C5-C6 earlier in the year with approximately 50% improvement on the first injection lasting 3 to 4 days and 85% improvement on the second block lasting a couple of months. I have discussed with the patient that he may benefit from a cervical RFA. Risk and benefits were discussed with the patient and he would like to proceed forward with this plan of care. We will schedule the patient for a cervical RFA C4-C5 and C5-C6. I will send in a refill of meloxicam 15 mg daily and provide a 3-month supply of this medications. Patient has been instructed to contact the clinic with any concerns before the next appointment. Dr. Aguilar has reviewed this note and agrees with this plan of care. This note was dictated using voice recognition software and make contain errors or omissions. [facility] Disclaimer: The information contained in this section may have been updated after the patient was seen, as this information can be updated by other users. Medical History HTN (hypertension) HTN (hypertension) Family History Other No significant family history Social History Smoking Status: Never smoker second hand exposure: No alcohol intake: never substance use type: denies use current occupational status: retired Travel in the
[2023-08-31 10:53] VITALS: BP 166/89; PULSE 67; RESP 20; O2SAT 96; BMI 25.1
== END | disposition home or self-care (01) ==
PROVIDERS: PCP Internal Medicine Adolescent Medicine; Visit Provider Nurse Practitioner Family
DX: M50.10 Cervical disc disorder with radiculopathy, unspecified cervical region (principal); M47.22 Other spondylosis with radiculopathy, cervical region; G89.29 Other chronic pain; M54.16 Radiculopathy, lumbar region; M79.10 Myalgia, unspecified site
CPT/HCPCS: 99212; G0463

== ENCOUNTER → 2023-09-12 09:25 | Outpatient (POV) | payer MEDICARE, SELFPAY | PROVIDERS: PCP Internal Medicine Adolescent Medicine; Visit Provider Dermatology | DX: Z00.00 Encounter for general adult medical examination without abnormal findings (principal) ==

== ENCOUNTER 2023-09-12 10:57 | Day surgery (SDC) | payer MEDICARE, SELFPAY ==
[2023-09-12 11:13] VITALS: BP 138/90; BP 140/80; PULSE 72; PULSE 74; RESP 16; RESP 18; TEMP 36.3; O2SAT 94; O2SAT 97; BMI 25.1
[2023-09-12 11:23] VITALS: BP 140/80; PULSE 74; RESP 18; O2SAT 96
[2023-09-12 11:30] VITALS: BP 153/83; PULSE 69; RESP 16; O2SAT 97
--- NOTE | 2023-09-12 11:30 | EXP.PAIN.PRO ---
Procedure Date: 09/12/23 Time: 11:00 Anesthesiologist:: Stephan Mejia CRNA Complications:: None Pre-procedure Diagnosis:: Degenerative disc cervical spine multilevels. Cervical radiculopathy. Cervical spondylosis. Multilevel cervical facet arthropathy. Post-procedure Diagnosis:: Same. Indications for Procedure:: Patient is a very pleasant 78-year-old male who comes our clinic today for right cervical C5-6, C6-7 radiofrequency ablation. Patient has had multiple trigger point injections of this posterior cervical spine paraspinous muscle as well as trapezius muscles. Extremely short-term relief. He has had successful medial branch block bilateral C5-6, C6-7 facet joints. Procedure Details:: Informed consent was obtained and the risk and benefits of the procedure was explained to the patient. Patient was placed prone on the procedure table. The patient was prepped and draped in sterile fashion. C-arm fluoroscopy was used to view the lumbar spine. The skin and subcutaneous tissues were anesthetized using lidocaine. I placed 20-gauge RF needles into the facet joints of C5- C6 and C6-C7 levels on the right side. We underwent sensory stimulation. There is good sensory stimulation at 0.8 V. We underwent motor stimulation. There is no motor stimulation at 2.5 V. We then anesthetized these levels with lidocaine and Depo-Medrol. I used a total of 40 mg Depo-Medrol for both levels. I then burned both levels of C5-C6 and C6-C7 facet joint/medial branches on the right side for 4 minutes at 80 ?C. Patient tolerated the procedure well with no complication. Plan and Disposition:: Patient was discharged without incident.
== END 2023-09-12 11:30 | disposition home or self-care (01) ==
LOC: SC.PAINP 10:58
PROVIDERS: PCP Internal Medicine Adolescent Medicine; Visit Provider Nurse Anesthetist, Certified Registered
DX: M50.10 Cervical disc disorder with radiculopathy, unspecified cervical region (principal); M47.22 Other spondylosis with radiculopathy, cervical region
CPT/HCPCS: 64633; 64634; J1040; Q9966

== ENCOUNTER → 2023-09-29 09:14 | Outpatient (CLI) | payer MEDICARE, SELFPAY ==
[2023-09-29 11:07] LABS: Blood Urea Nitrogen 21 mg/dl (9-20); Estimated Glomerular Filt Rate 73 ml/min (>60); GFR (African American) 88 ML/MIN (>60)
== END ==
PROVIDERS: PCP Internal Medicine Adolescent Medicine; Visit Provider Nurse Practitioner
DX: H91.90 Unspecified hearing loss, unspecified ear (principal); H93.13 Tinnitus, bilateral
CPT/HCPCS: 36415; 82565; 84520

== ENCOUNTER → 2023-10-04 10:28 | Outpatient (POV) | payer MEDICARE, SELFPAY ==
[2023-10-04 10:53] VITALS: BP 134/83; PULSE 76; RESP 18; O2SAT 95; BMI 25.4
--- NOTE | 2023-10-04 11:04 | EXP.PAIN.SOA ---
[facility] Pain Management SOAP Note Subjective:: Patient is a pleasant 78-year-old male who presents today for follow-up of right cervical C5-C6 and C6-C7 radiofrequency ablation on 09/12/2023. We are currently treating the patient for degenerative disc disease of cervical spine with cervical radiculopathy symptoms, cervical facet arthropathy, cervical spondylosis, myofascial pain, low back pain with lumbar radiculopathy symptoms, chronic neck pain. Today he rates his pain a 1 out of 10. Patient states he has had at least 85% however he does still have 1 area that bothers him on the right side occipital region. Patient does state that he feels like his range of motion has improved following this procedure and that he only really notices it more when he is working in his shop and looking downward for periods of time. He states that he will experience this for 30 to 45 minutes and then it starts to ease off. He does state that his left knee is bothering him more on a regular basis. Patient states that it is worse with increased ambulation. 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 He states he may be interested in injection therapy at a later date. Patient is currently managed with meloxicam 15 mg, Mirapex 0.25 mg daily and tramadol 50 mg twice a day from his primary care provider. Patient denies any side effects from this medication. He is also on compounded cream. His Odell has been reviewed and is appropriate. Review of Systems: General: No recent weight changes, no fever, no sleep disturbances Respiratory: No cough, no shortness of air, no recurring pulmonary infections Cardiovascular/peripheral vascular: No chest pain, no palpitations, no edema, no shortness of breath Gastrointestinal: No new onset incontinence, normal bowel movements reported Genitourinary: No new onset incontinence Musculoskeletal: Right occipital pain, left knee pain Psychiatric: [Normal mood/affect] Neurological: [Denies weakness in extremities], [denies balance issues] Objective:: Physical Exam: General: Alert and oriented x3, no acute distress, pleasant and cooperative Lungs: Respirations even and unlabored, symmetrical chest expansion Eyes: PERRL Musculoskeletal: Flexion and extension of cervical [spine] somewhat guarded secondary to pain, [antalgic gait noted] Neurological: Speech clear, no gross sensory deficit Assessment:: Degenerative disc disease of cervical spine with cervical radiculopathy symptoms, cervical facet arthropathy, cervical spondylosis, myofascial pain, low back pain with lumbar radiculopathy symptoms, chronic neck pain, left knee pain Plan:: Patient is doing well following his cervical RFA and does not require any additional injection therapy at this location currently. I have discussed with the patient in future he may benefit from an intra-articular knee injection. Risk and benefits were discussed with the patient and we will follow-up with this at his next visit. Patient will return to clinic in 1 month for reevaluation of symptoms and plan of care. Patient has been instructed to contact the clinic with any concerns before the next appointment. Dr. Aguilar has reviewed this note and agrees with this plan of care. This note was dictated using voice recognition software and make contain errors or omissions. [facility] Disclaimer: The information contained in this section may have been updated after the patient was seen, as this information can be updated by other users. Medical History (Updated 09/25/23 @ 13:18 by Anayeli June CMA) Hearing loss HTN (hypertension) HTN (hypertension) Tinnitus of both ears Family History Other No significant family history Social History Smoking Status: Never smoker second hand exposure: No alcohol intake: never substance use type: denies use
== END ==
PROVIDERS: PCP Internal Medicine Adolescent Medicine; Visit Provider Nurse Practitioner Family
DX: M50.10 Cervical disc disorder with radiculopathy, unspecified cervical region (principal); M47.22 Other spondylosis with radiculopathy, cervical region; M79.10 Myalgia, unspecified site; M54.50 Low back pain, unspecified; M54.16 Radiculopathy, lumbar region; G89.29 Other chronic pain; M25.562 Pain in left knee
CPT/HCPCS: 99212; G0463

== ENCOUNTER → 2023-10-18 15:17 | Outpatient (POV) | payer MEDICARE, SELFPAY | PROVIDERS: Visit Provider Specialist/Technologist | DX: Z00.00 Encounter for general adult medical examination without abnormal findings (principal) ==

== ENCOUNTER → 2023-10-25 08:16 | Outpatient (CLI) | payer MEDICARE, SELFPAY ==
--- NOTE | 2023-10-25 08:18 | MR_ITS ---
FINAL REPORT CLINICAL HISTORY: tinnitus, bilateral hearing loss COMPARISON: None FINDINGS: Multiple projection images of the brain arterial vasculature were obtained without contrast. raw data images were also reviewed. The internal carotid arteries are patent. The middle cerebral arteries and visualized proximal branches are patent. The anterior cerebral arteries are patent. The intracranial vertebral arteries are patent. The right vertebral artery is dominant.The basilar artery is patent. The posterior cerebral arteries are patent. There is heterogeneous signal in the CP angle on the left side, that is ill-defined, and asymmetric. This appears vascular, and would recommend pre and postinfusion MRI of the head with special attention to the internal auditory canals. IMPRESSION: No major vessel occlusion. Heterogeneous signal in the CP angle on the left side, ill-defined and asymmetric. Would recommend pre and postinfusion MRI of the head with special attention to the internal auditory canals for further evaluation. Reviewed, Interpreted and Dictated by Branden Bear MD Transcribed by Omayra Melara Authenticated and [facility]
== END ==
LOC: RAD 08:18
PROVIDERS: PCP Internal Medicine Adolescent Medicine; Visit Provider Nurse Practitioner
DX: H93.13 Tinnitus, bilateral (principal); H91.90 Unspecified hearing loss, unspecified ear
CPT/HCPCS: 70544

== ENCOUNTER → 2023-11-01 09:10 | Outpatient (POV) | payer MEDICARE, SELFPAY ==
[2023-11-01 09:35] VITALS: BP 143/81; PULSE 75; RESP 18; O2SAT 97; BMI 25.5
--- NOTE | 2023-11-01 09:38 | A.OFFVIS_ITS ---
[facility] Pain Management SOAP Note Subjective:: Patient is a pleasant 78-year-old male who presents today for 1 month follow-up. We are currently treating the patient for degenerative disc disease of cervical spine with cervical radiculopathy symptoms, cervical facet arthropathy, cervical spondylosis, myofascial pain, low back pain with lumbar radiculopathy symptoms, chronic neck pain. Today he rates his pain a 1 out of 10. Patient denies any new trauma or injury. He does state that his pain will shoot up to a 10 out of 10 with certain positioning or activity. Patient states that when he is working out on his work bands and looking downward he does have increased pain and he also has tenderness into the back of his neck and going into his right shoulder. Patient does state the pain can fear with his ability to perform activities of daily living such as cooking and cleaning. Patient does also state that he has continued to try and use heat and ice and massage with minimal relief. He he also states his back did start acting up over the last month and had a moment when he had severe pressure and tightening up where his had to help him over to the couch to sit and rest. Patient states it has been a while since his back bothered him. Patient is currently managed with meloxicam 15 mg, Mirapex 0.25 mg daily and tramadol 50 mg twice a day from his PCP. He is prescribed compounded cream from our office. Patient denies any side effects his Odell has been reviewed and is appropriate. Review of Systems: General: No recent weight changes, no fever, no sleep disturbances Respiratory: No cough, no shortness of air, no recurring pulmonary infections Cardiovascular/peripheral vascular: No chest pain, no palpitations, no edema, no shortness of breath Gastrointestinal: No new onset incontinence, normal bowel movements reported Genitourinary: No new onset incontinence Musculoskeletal: Right neck pain, right shoulder pain, low back pain Psychiatric: [Normal mood/affect] Neurological: [Denies weakness in extremities], [denies balance issues] Objective:: Physical Exam: General: Alert and oriented x3, no acute distress, pleasant and cooperative Lungs: Respirations even and unlabored, symmetrical chest expansion Eyes: PERRL Musculoskeletal: Flexion and extension of cervical [spine] somewhat guarded secondary to pain, point tenderness along right cervical paraspinous and right trapezius muscles Neurological: Speech clear, no gross sensory deficit Assessment:: Degenerative disc disease of cervical spine with cervical radiculopathy symptoms, cervical facet arthropathy, cervical spondylosis, myofascial pain, low back pain with lumbar radiculopathy symptoms, chronic neck pain Plan:: Patient continues to have worsening neck pain with certain positioning. Patient did have limited range of motion of the cervical spine along with point tenderness with palpation on his right cervical paraspinous and right trapezius muscles. I have discussed with the patient that he may benefit from right cervical paraspinous and trapezius trigger point injections. Risk and benefits were discussed with the patient and he would like to proceed forward with this plan of care. I have also discussed with the patient in future if his back continues to cause worsening symptoms that we can look at doing a injection for this. We will follow-up at future visits. He will be submitted for TPI of right cervical paraspinous and right trapezius. Patient has been instructed to contact the clinic with any concerns before the next appointment. Dr. Aguilar has reviewed this note and agrees with this plan of care. This note was dictated using voice recognition software and make contain errors or omissions. [facility] Disclaimer: The information contained in this section may have been updated after the patient was seen, as this information can be updated by other users. Medical History (Updated 09/25/23 @ 13:18 by Anayeli June CMA) Hearing loss HTN (hypertension) HTN (hypertension) Tinnitus of both ears Family History Other No significant family history Social History Smoking Status: Never smoker second hand exposure: No alcohol intake: never substance use type: denies use current occupational status: retired Travel in the last 8 weeks: None household members: other housing: house current occupational exposures/hazards: No caffeine: No
== END ==
LOC: SC.PAIN 09:11
PROVIDERS: PCP Internal Medicine Adolescent Medicine; Visit Provider Nurse Practitioner Family
DX: M50.10 Cervical disc disorder with radiculopathy, unspecified cervical region (principal); M47.22 Other spondylosis with radiculopathy, cervical region; M79.10 Myalgia, unspecified site; M54.16 Radiculopathy, lumbar region; G89.29 Other chronic pain
CPT/HCPCS: 99212; G0463

== ENCOUNTER 2023-11-10 10:51 | Day surgery (SDC) | payer MEDICARE, SELFPAY ==
[2023-11-10 11:40] VITALS: BP 150/80; PULSE 70; RESP 16; O2SAT 97; BMI 25.8
[2023-11-10] MEDS: BUPIVACAINE 0.25% 10ML INJ 25 MG IJ (12:03)
[2023-11-10] MEDS: LIDOCAINE 1% 5ML PF VIAL 5 ML (12:03)
[2023-11-10] MEDS: methylPREDNISolone ACETATE 80MG/ML VIAL 80 MG (12:03)
[2023-11-10 12:10] VITALS: BP 155/86; PULSE 72; RESP 18; O2SAT 97
--- NOTE | 2023-11-10 12:27 | EXP.PAIN.PRO ---
Procedure Date: 11/10/23 Time: 12:27 Anesthesiologist:: Thanh Aguilar MD Complications:: None Pre-procedure Diagnosis:: Myofascial pain right cervical paraspinous muscles and upper trapezius muscles Post-procedure Diagnosis:: Same Indications for Procedure:: The patient is a pleasant 78-year-old white male who we are treating for neck pain which is myofascial in origin. He has trigger points identified in the cervical paraspinous muscles and right upper trapezius muscles. Will do trigger point injections today to see if this will help with his pain symptoms. Procedure Details:: Trigger point injections x 4 to right cervical paraspinous muscle and upper trapezius muscle Informed consent was obtained risk and benefits of the procedure explained to the patient. The right neck and upper trapezius area were prepped using ChloraPrep. Trigger points were palpated marked. Each of these trigger points were injected with bupivacaine 0.25% 3 mL and Depo-Medrol 10 mg. A total of 4 trigger points were injected using 40 mg Depo-Medrol. The patient tolerated the procedure well with no complications. Plan and Disposition:: Will follow-up with this patient in 2 weeks. Will reevaluate symptoms at that time.
== END 2023-11-10 12:10 | disposition home or self-care (01) ==
PROVIDERS: PCP Internal Medicine Adolescent Medicine; Visit Provider Anesthesiology
DX: M79.18 Myalgia, other site (principal)
CPT/HCPCS: 20552; J1040

== ENCOUNTER → 2023-11-20 11:18 | Outpatient (POV) | payer MEDICARE, SELFPAY ==
--- NOTE | 2023-11-20 11:59 | A.OFFVIS_ITS ---
[facility] Pain Management SOAP Note Subjective:: Patient is a pleasant 78-year-old male who presents today for follow-up of trigger point injections of his right cervical paraspinous muscles and upper trapezius muscles on 11/10/2020. We are currently treating the patient for degenerative disc disease of cervical spine with cervical radiculopathy symptoms, cervical facet arthropathy, cervical spondylosis, myofascial pain, low back pain with lumbar radiculopathy symptoms. Today he states his pain is a 4 out of 10. He states following that injection he had 3 really good days with at least 50% improvement however after that his pain did seem to worsen and that does now go a little bit down further into the right side of his neck. He st ates he does notice more pain when he turns his head to the side. Patient is currently managed with meloxicam 15 mg daily, Mirapex 0.25 mg daily and tramadol 50 mg twice a day from his primary care provider. He is prescribed compounded cream from our office he states he has not been using this cream because he did not really notice significant improvement. His Odell has been reviewed and is appropriate. Review of Systems: General: No recent weight changes, no fever, no sleep disturbances Respiratory: No cough, no shortness of air, no recurring pulmonary infections Cardiovascular/peripheral vascular: No chest pain, no palpitations, no edema, no shortness of breath Gastrointestinal: No new onset incontinence, normal bowel movements reported Genitourinary: No new onset incontinence Musculoskeletal: Right-sided neck pain Psychiatric: [Normal mood/affect] Neurological: [Denies weakness in extremities], [denies balance issues] Objective:: Physical Exam: General: Alert and oriented x3, no acute distress, pleasant and cooperative Lungs: Respirations even and unlabored, symmetrical chest expansion Eyes: PERRL Musculoskeletal: Flexion and extension of cervical [spine] somewhat guarded secondary to pain, [antalgic gait noted] Neurological: Speech clear, no gross sensory deficit Assessment:: Degenerative disc disease of cervical spine with cervical radiculopathy symptoms, cervical facet arthropathy, cervical spondylosis, myofascial pain, low back pain with lumbar radiculopathy symptoms Plan:: Patient is experiencing worsening pain following his injections. I will send in a 5-day dose of prednisone 20 mg twice daily and a 1 month supply of meloxicam 15 mg daily. Patient has been counseled to discontinue all other NSAIDs while taking the meloxicam and to take it with food to minimize GI upset. I have discussed with the patient to take this medication as prescribed and to try his compounded cream on this area. Patient will return to clinic in 2 weeks for reevaluation of symptoms and plan of care. Patient has been instructed to contact the clinic with any concerns before the next appointment. Dr. Aguilar has reviewed this note and agrees with this plan of care. This note was dictated using voice recognition software and make contain errors or omissions. [facility] Disclaimer: The information contained in this section may have been updated after the patient was seen, as this information can be updated by other users. Medical History Hearing loss HTN (hypertension) HTN (hypertension) Tinnitus of both ears Family History Other No significant family history Social History Smoking Status: Never smoker second hand exposure: No alcohol intake: never substance use type: denies use current occupational status: retired Travel in the last 8 weeks: None household members: other housing: house current occupational exposures/hazards: No caffeine: No
[2023-11-20 14:15] VITALS: BP 142/85; PULSE 82; RESP 18; O2SAT 96; BMI 25.2
== END | disposition home or self-care (01) ==
PROVIDERS: PCP Internal Medicine Adolescent Medicine; Visit Provider Nurse Practitioner Family
DX: M50.10 Cervical disc disorder with radiculopathy, unspecified cervical region (principal); M47.22 Other spondylosis with radiculopathy, cervical region; M79.10 Myalgia, unspecified site; M54.16 Radiculopathy, lumbar region
CPT/HCPCS: 99212; G0463

== ENCOUNTER → 2023-12-07 10:54 | Outpatient (POV) | payer MEDICARE, SELFPAY ==
[2023-12-07 11:24] VITALS: BP 141/93; PULSE 77; RESP 18; O2SAT 96; BMI 25.2
--- NOTE | 2023-12-07 11:41 | A.OFFVIS_ITS ---
[facility] Pain Management SOAP Note Subjective:: Patient is a pleasant 78-year-old male who presents today for follow-up. We are currently treating the patient for degenerative disc disease of cervical spine with cervical radiculopathy symptoms, cervical facet arthropathy, cervical spondylosis, myofascial pain, low back pain with lumbar radiculopathy symptoms. Today he rates his pain an 8 out of 10. Patient denies any new trauma or injury. He states that he continues to have neck pain that is constant and does affect his ability perform activities of daily living such as cooking and cleaning. Patient has had multiple injections in the past that did provide significant improvement however some injections did better than others. Patient is currently managed with meloxicam 15 mg daily, Mirapex 0.25 mg daily and tramadol 50 mg twice a day from his primary care provider. Patient has been prescribed compounded cream in the past. He does state that from our last visit the steroids that we did prescribe ended up causing him to not be able to sleep so he discontinued this medication. Patient does also state that the meloxicam does not seem to be doing any additional improvement. Patient does state that he does think he may have a gastric ulcer and is scheduled to see a GI specialist coming up for possible EGD. His Odell has been reviewed and is appropriate. Review of Systems: General: No recent weight changes, no fever, no sleep disturbances Respiratory: No cough, no shortness of air, no recurring pulmonary infections Cardiovascular/peripheral vascular: No chest pain, no palpitations, no edema, no shortness of breath Gastrointestinal: No new onset incontinence, normal bowel movements reported Genitourinary: No new onset incontinence Musculoskeletal: Neck pain Psychiatric: [Normal mood/affect] Neurological: [Denies weakness in extremities], [denies balance issues] Objective:: Physical Exam: General: Alert and oriented x3, no acute distress, pleasant and cooperative Lungs: Respirations even and unlabored, symmetrical chest expansion Eyes: PERRL Musculoskeletal: Flexion and extension of cervical [spine] somewhat guarded secondary to pain, [antalgic gait noted] Neurological: Speech clear, no gross sensory deficit Assessment:: Degenerative disc disease of cervical spine with cervical radiculopathy symptoms, cervical facet arthropathy, cervical spondylosis, myofascial pain, low back pain with lumbar radiculopathy symptoms, chronic pain syndrome Plan:: Patient continues to experience significant pain in his neck with limited range of motion of his cervical spine. I have discussed with the patient that he may benefit from a spinal cord stimulator trial in the future. Risk and benefits were discussed with patient and he would like time to review the educational handouts that he was given during today's visit. I have also counseled the patient due to possible GI ulcer that we will discontinue the meloxicam at this time. Patient states he does think that he will have an EGD soon and I have counseled the patient that we will wait until after confirming there is no GI ulcer before deciding to proceed forward with anti-inflammatory medication. I have discussed with patient if he ends up being able to get this medication we may look at prescribing diclofenac instead of the meloxicam. We will follow-up with the patient in 1 month for reevaluation of symptoms and plan of care. Patient has been instructed to contact the clinic with any concerns before the next appointment. Dr. Aguilar has reviewed this note and agrees with this plan of care. This note was dictated using voice recognition software and make contain errors or omissions. [facility] Disclaimer: The information contained in this section may have been updated after the patient was seen, as this information can be updated by other users. Medical History Hearing loss HTN (hypertension) HTN (hypertension) Tinnitus of both ears Family History Other No significant family history Social History Smoking Status: Never smoker second hand exposure: No alcohol intake: never substance use type: denies use current occupational status: retired Travel in the last 8 weeks: None household members: other housing: house current occupational exposures/hazards: No caffeine: No
== END ==
LOC: SC.PAIN 10:55
PROVIDERS: PCP Internal Medicine Adolescent Medicine; Visit Provider Nurse Practitioner Family
DX: M50.10 Cervical disc disorder with radiculopathy, unspecified cervical region (principal); M47.22 Other spondylosis with radiculopathy, cervical region; M79.10 Myalgia, unspecified site; M54.50 Low back pain, unspecified; G89.4 Chronic pain syndrome
CPT/HCPCS: 99212; G0463

== ENCOUNTER 2023-12-18 10:28 | Outpatient (CLI) | payer MEDICARE, SELFPAY ==
--- NOTE | 2023-12-18 10:34 | XR_ITS ---
FINAL REPORT CLINICAL HISTORY: FALL,CONTUSION OF LT RIB, COMPARISON: None FINDINGS: 3 views of the left ribs were obtained. There is a mildly displaced posterior left fourth rib fracture. The visualized lungs are clear. No pneumothorax is identified. IMPRESSION: Mildly displaced posterior left fourth rib fracture. Reviewed, Interpreted and Dictated by Branden Bear MD Transcribed by Nubia Christensen Authenticated and [facility]
--- NOTE | 2023-12-18 10:34 | XR_ITS ---
FINAL REPORT TECHNIQUE: Chest PA & Lateral CLINICAL HISTORY: FALL,CONTUSION OF LT RIB, COMPARISON: 07/17/2023 FINDINGS: 2 views of the chest were performed. The heart size is normal. The mediastinum is within normal limits. There is no acute cardiopulmonary process. There are no pleural effusions. There is no pneumothorax. The bony thorax appears intact. IMPRESSION: No acute cardiopulmonary process. Reviewed, Interpreted and Dictated by Branden Bear MD Transcribed by Nubia Christensen Authenticated and [facility]
== END 2023-12-18 23:59 ==
LOC: RAD 10:29
PROVIDERS: PCP Internal Medicine Adolescent Medicine; Visit Provider Internal Medicine Adolescent Medicine
DX: S20.212A Contusion of left front wall of thorax, initial encounter (principal); W19.XXXA Unspecified fall, initial encounter; Y92.009 Unspecified place in unspecified non-institutional (private) residence as the place of occurrence of the external cause; R07.89 Other chest pain; R07.81 Pleurodynia
CPT/HCPCS: 71046; 71100

== ENCOUNTER 2024-01-04 10:13 | Outpatient (POV) | payer MEDICARE, SELFPAY ==
[2024-01-04 10:15] VITALS: BP 145/93; PULSE 76; RESP 20; BMI 25.1
--- NOTE | 2024-01-04 11:02 | EXP.PAIN.SOA ---
[facility] Pain Management SOAP Note Subjective:: Patient is a pleasant 78-year-old male who presents today for follow-up today he rates his pain a 10 out of 10. Patient states he continues to have pain in his neck that does radiate down into his shoulders. He does state the right side is worse than the left. He denies any new trauma or injury. He does state that the pain is more severe and constant and does affect his ability perform activities of daily living such as cooking and cleaning. He states he still cannot do certain movements such as twisting his head [id number] or looking down without having sharp shooting pains. Patient has had multiple injections in the past that did provide significant relief including trigger point injections. Patient is currently managed with 15 mg meloxicam daily, Mirapex 0.25 mg daily and tramadol 50 mg twice a day from his PCP. He is prescribed compounding cream from our office in the past however he did not end up feeling like he had significant relief. At our last visit we did discuss with the patient that he may benefit from a spinal cord stimulator trial. Patient does state today that he did look over the information that we gave him and he still has additional questions. His Odell has been reviewed and is appropriate. Review of Systems: General: No recent weight changes, no fever, no sleep disturbances Respiratory: No cough, no shortness of air, no recurring pulmonary infections Cardiovascular/peripheral vascular: No chest pain, no palpitations, no edema, no shortness of breath Gastrointestinal: No new onset incontinence, normal bowel movements reported Genitourinary: No new onset incontinence Musculoskeletal: Neck pain, shoulder pain, headache Psychiatric: [Normal mood/affect] Neurological: [Denies weakness in extremities], [denies balance issues] Objective:: Physical Exam: General: Alert and oriented x3, no acute distress, pleasant and cooperative Lungs: Respirations even and unlabored, symmetrical chest expansion Eyes: PERRL Musculoskeletal: Flexion and extension of cervical [spine] somewhat guarded secondary to pain, [antalgic gait noted] point tenderness along bilateral cervical paraspinous and bilateral trapezius muscles Neurological: Speech clear, no gross sensory deficit Assessment:: Degenerative disc disease of cervical and lumbar spine with cervical and lumbar radiculopathy symptoms, cervical facet arthropathy, cervical spondylosis, myofascial pain Plan:: Patient continues to experience significant pain in his neck and shoulders with point tenderness with palpation. I have discussed with the patient that he may benefit from trigger point injections at these sites. Risk and benefits were discussed with patient and he would like to proceed forward with this plan of care. I have also reviewed over again I am the risk and benefits of the spinal cord stimulator trial and he would like to proceed forward with this option. Patient will be sent for psychological evaluation and if he is deemed an appropriate candidate we will proceed forward with a trial at a later date. Patient will be scheduled for trigger point injections of his bilateral cervical paraspinous and bilateral trapezius muscles. Patient has been instructed to contact the clinic with any concerns before the next appointment. Dr. Aguilar has reviewed this note and agrees with this plan of care. This note was dictated using voice recognition software and make contain errors or omissions. [facility] Disclaimer: The information contained in this section may have been updated after the patient was seen, as this information can be updated by other users. Medical History Hearing loss HTN (hypertension) HTN (hypertension) Tinnitus of both ears Family History Other No significant family history Social History Smoking Status: Never smoker second hand exposure: No alcohol intake: never substance use type: denies use current occupational status: other Travel in the last 8 weeks: None household members: other housing: house current occupational exposures/hazards: No caffeine: No
== END 2024-01-04 23:59 ==
LOC: SC.PAIN 10:14
PROVIDERS: PCP Internal Medicine Adolescent Medicine; Visit Provider Nurse Practitioner Family
DX: M50.10 Cervical disc disorder with radiculopathy, unspecified cervical region (principal); M51.16 Intervertebral disc disorders with radiculopathy, lumbar region; M47.22 Other spondylosis with radiculopathy, cervical region; M79.10 Myalgia, unspecified site
CPT/HCPCS: 99212; G0463

== ENCOUNTER 2024-01-15 09:54 | Outpatient (POV) | payer MEDICARE, SELFPAY ==
--- NOTE | 2024-01-15 10:02 | EXP.PAIN.SOA ---
[facility] Pain Management SOAP Note Subjective:: Patient is a pleasant 78-year-old male who presents today for follow-up. He rates his pain today a 10 out of 10. He denies any new injury or trauma. He states that he started experiencing severe pain with significant decreased range of motion. The pain goes from his neck into his shoulders as well as states he has been experiencing worsening headache and overall pressure. He does state the right side is worse than the left. He does state that the pain is constant and does affect his ability perform activities of daily living such as cooking and cleaning. He states he still cannot do certain movements such as twisting his head [id number] or looking down without having sharp shooting pains. At our last visit the patient was sent for psychological evaluation for possible spinal cord stimulator trial however this is not been done at this point. Patient was also scheduled for trigger point injections however those are scheduled for the beginning of January. He does state that he went to his primary care provider and did get additional medications including gabapentin 100 mg. He is currently managed with 15 mg meloxicam daily, Mirapex 0.25 mg daily and tramadol 50 mg twice a day from his PCP as well. His Odell has been reviewed and is appropriate. Injections: 11/10/2023?trigger point injections 09/12/2023?right cervical medial branch blocks C5-C6 and C6-C7 07/25/2023?bilateral trapezius trigger point injections 06-20-2023?bilateral trapezius trigger point injections 05/21/2023?occipital nerve block 04/18/2023 bilateral cervical medial branch blocks C4-C5, C5-C6 bilaterally 03/28/2023?bilateral cervical C3-C4, C4-C5 bilaterally 02/28/2023?trigger point injections 02/07/2023?bilateral cervical medial branch blocks C5-C6 and C6-C7 01/17/2023?trigger point injections 12/20/2022?occipital nerve block 11/29/2022?trigger point injection 10/11/2022?left intra-articular knee injection 08/30/2022?cervical epidural steroid injection 90% relief Review of Systems: General: No recent weight changes, no fever, no sleep disturbances Respiratory: No cough, no shortness of air, no recurring pulmonary infections Cardiovascular/peripheral vascular: No chest pain, no palpitations, no edema, no shortness of breath Gastrointestinal: No new onset incontinence, normal bowel movements reported Genitourinary: No new onset incontinence Musculoskeletal: Neck pain, shoulder pain, headache Psychiatric: [Normal mood/affect] Neurological: [Denies weakness in extremities], [denies balance issues] Objective:: Physical Exam: General: Alert and oriented x3, no acute distress, pleasant and cooperative Lungs: Respirations even and unlabored, symmetrical chest expansion Eyes: PERRL Musculoskeletal: Flexion and extension of cervical [spine] somewhat guarded secondary to pain, [antalgic gait noted] Neurological: Speech clear, no gross sensory deficit Assessment:: Degenerative disc disease of cervical and lumbar spine with cervical and lumbar radiculopathy symptoms, cervical facet arthropathy, cervical spondylosis, myofascial pain Plan:: Patient is experiencing significant pain in his neck with radiating symptoms to his shoulders and increased headaches. Patient did have limited range of motion of his cervical spine with a positive Spurling's test. I have discussed with the patient that he may benefit from a cervical epidural steroid injection. Risk and benefits were discussed with patient and he would like to proceed forward with this plan of care. Patient has previously had a cervical epidural back in August 2022 that did provide upwards of 90% relief lasting several months. Patient has tried and failed conservative therapy. We will schedule the patient for a ALVERTO C6 or C7 under fluoroscopy. Patient has been instructed to contact the clinic with any concerns before the next appointment. Dr. Aguilar has reviewed this note and agrees with this plan of care. This note was dictated using voice recognition software and make contain errors or omissions. [facility] Disclaimer: The information contained in this section may have been updated after the patient was seen, as this information can be updated by other users. Medical History Hearing loss HTN (hypertension) HTN (hypertension) Tinnitus of both ears Family History Other No significant family history Social History Smoking Status: Never smoker second hand exposure: No alcohol intake: never substance use type: denies use current occupational status: retired Travel in the last 8 weeks: None household members: other housing: house current occupational exposures/hazards: No caffeine: No
[2024-01-15 10:39] VITALS: BP 149/92; PULSE 94; RESP 18; O2SAT 96; BMI 24.9
== END 2024-01-15 23:59 ==
LOC: SC.PAIN 09:55
PROVIDERS: PCP Internal Medicine Adolescent Medicine; Visit Provider Nurse Practitioner Family
DX: M50.123 Cervical disc disorder at C6-C7 level with radiculopathy (principal); M51.16 Intervertebral disc disorders with radiculopathy, lumbar region; M47.22 Other spondylosis with radiculopathy, cervical region; M79.18 Myalgia, other site
CPT/HCPCS: 99212; G0463

== ENCOUNTER 2024-01-23 08:37 | Day surgery (SDC) | payer MEDICARE, SELFPAY ==
[2024-01-23 08:30] VITALS: BP 129/97; PULSE 85; RESP 18; TEMP 36.4; O2SAT 97; BMI 25.4
[2024-01-23 09:03] VITALS: BP 136/84; PULSE 77; PULSE 79; RESP 18; O2SAT 96; O2SAT 97
[2024-01-23] MEDS: methylPREDNISolone ACETATE 80MG/ML VIAL 80 MG (09:04)
--- NOTE | 2024-01-23 09:09 | P.PCN_ITS ---
Procedure Date: 01/23/24 Time: 08:50 Anesthesiologist:: Stephan Mejia CRNA Complications:: None Pre-procedure Diagnosis:: Degenerative disc cervical spine multilevels. Cervical radiculopathy. Cervical spondylosis. Cervical facet arthropathy. Post-procedure Diagnosis:: Same. Indications for Procedure:: Patient is a very pleasant 78-year-old male comes our clinic today for repeat cervical epidural steroid injection. Patient has tried and failed a plethora of cervical injections including trigger point injections, facet blocks. The most relief has come from cervical epidural steroid injection. He rates pain today 7/10. He describes cervical neck pain as well as bilateral arm radicular symptoms. Procedure Details:: Procedure:Cervical epidural steroid injection Informed consent was obtained and the risks and benefits of the procedure were explained to the patient. The patient was taken to the procedure room and noninvasive monitors placed, including noninvasive blood pressure cuff and pulse oximeter. The neck was prepped using Chloraprep as a cleansing solution. The C6- C7 interspace was viewed using fluroscopy. The skin and subcutaneous tissues were anesthetized using lidocaine 1.5% and a 25-gauge needle. After this an 18- gauge Touhy epidural needle was placed into the C6-C7 interspace under fluroscopy guidance and advanced using loss of resistance to air until the epidural space was encountered. After confirmation of needle placement in the epidural space using contrast dye, a solution containing normal saline, 2 mL and Depo-Medrol 80 mg was incrementally injected into the cervical epidural space.~ The patient tolerated the procedure well with no complications. The patient was observed in the Pain Clinic and then discharged home neurologically intact. Plan and Disposition:: Patient was discharged out incident.
[2024-01-23 09:11] VITALS: BP 130/78; PULSE 72; RESP 18; O2SAT 97
== END 2024-01-23 09:11 | disposition home or self-care (01) ==
PROVIDERS: PCP Internal Medicine Adolescent Medicine; Visit Provider Nurse Anesthetist, Certified Registered
DX: M50.123 Cervical disc disorder at C6-C7 level with radiculopathy (principal); M47.22 Other spondylosis with radiculopathy, cervical region
CPT/HCPCS: 62321; J1040

== ENCOUNTER 2024-02-05 08:54 | Outpatient (POV) | payer MEDICARE, SELFPAY ==
[2024-02-05 08:59] VITALS: BP 155/90; PULSE 80; RESP 20; O2SAT 95; BMI 25.0
--- NOTE | 2024-02-05 09:38 | A.OFFVIS_ITS ---
[facility] Pain Management SOAP Note Subjective:: Patient is a pleasant 78-year-old male who presents today for follow-up of cervical epidural steroid injection C6-C7 on 01/23/2024. Today he rates his pain a 0 out of 10. Patient states that he has had at least 85% improvement following this injection and feels like it is still helping. Patient states he did go and complete his psychological evaluation for the spinal cord stimulator trial last week. He states he does still continue to have chronic pain in his neck and that he notices it more at night or when he looks downward however when he brings his head back up it is relieved. Patient has been prescribed meloxicam 15 mg daily, Mirapex 0.25 mg daily and tramadol twice a day from his PCP. His Odell has been reviewed and is appropriate. Review of Systems: General: No recent weight changes, no fever, no sleep disturbances Respiratory: No cough, no shortness of air, no recurring pulmonary infections Cardiovascular/peripheral vascular: No chest pain, no palpitations, no edema, no shortness of breath Gastrointestinal: No new onset incontinence, normal bowel movements reported Genitourinary: No new onset incontinence Musculoskeletal: Neck pain Psychiatric: [Normal mood/affect] Neurological: [Denies weakness in extremities], [denies balance issues] Objective:: Physical Exam: General: Alert and oriented x3, no acute distress, pleasant and cooperative Lungs: Respirations even and unlabored, symmetrical chest expansion Eyes: PERRL Musculoskeletal: Flexion and extension of cervical [spine] somewhat guarded secondary to pain, [antalgic gait noted] Neurological: Speech clear, no gross sensory deficit Assessment:: Degenerative disc disease of cervical and lumbar spine with cervical and lumbar radiculopathy symptoms, cervical facet arthropathy, cervical spondylosis, myof ascial pain Plan:: Patient has had significant improvement following his cervical epidural and does not require any additional injection therapy at this time. Patient will return to clinic in 1 month for reevaluation of symptoms and plan of care. Patient has been instructed to contact the clinic with any concerns before the next appointment. Dr. Aguilar has reviewed this note and agrees with this plan of care. This note was dictated using voice recognition software and make contain errors or omissions. [facility] Disclaimer: The information contained in this section may have been updated after the patient was seen, as this information can be updated by other users. Medical History Hearing loss HTN (hypertension) HTN (hypertension) Tinnitus of both ears Family History Other No significant family history Social History Smoking Status: Never smoker second hand exposure: No alcohol intake: never substance use type: denies use current occupational status: retired Travel in the last 8 weeks: None household members: other housing: house current occupational exposures/hazards: No caffeine: No
== END 2024-02-05 23:59 ==
LOC: SC.PAIN 08:55
PROVIDERS: PCP Internal Medicine Adolescent Medicine; Visit Provider Nurse Practitioner Family
DX: M50.123 Cervical disc disorder at C6-C7 level with radiculopathy (principal); M51.16 Intervertebral disc disorders with radiculopathy, lumbar region; M47.22 Other spondylosis with radiculopathy, cervical region; M79.10 Myalgia, unspecified site
CPT/HCPCS: 99212; G0463

== ENCOUNTER 2024-03-06 08:34 | Outpatient (POV) | payer MEDICARE, SELFPAY ==
[2024-03-06 08:54] VITALS: BP 147/87; PULSE 67; RESP 18; O2SAT 98; BMI 24.6
--- NOTE | 2024-03-06 08:58 | A.OFFVIS_ITS ---
[facility] Pain Management SOAP Note Subjective:: Patient is a pleasant 78-year-old male who presents today for 1 month follow-up. Today he rates his pain a 1 out of 10 however states that it is in his neck. He states that his low back has really been bothering him over the last couple of months. He states he has not had any injury or trauma. He describes it as an aching, throbbing sensation that is worse with increased activity or certain movements. Patient states that it does seem very aggravated by bending, twisting or lifting. Patient does state the pain interferes with his ability perform activities of daily living such as cooking and cleaning. He does state that he did end up going to Dr. Aguilar's office due to the worsening pain of his low back and left knee and that he did get an intra-articular knee injection. He states the knee is much better however the low back is what still really giving him fits. Patient denies any radiating symptoms into his legs. Patient is prescribed meloxicam, Mirapex and tramadol from his PCP. His Odell has been reviewed and is appropriate. Review of Systems: General: No recent weight changes, no fever, no sleep disturbances Respiratory: No cough, no shortness of air, no recurring pulmonary infections Cardiovascular/peripheral vascular: No chest pain, no palpitations, no edema, no shortness of breath Gastrointestinal: No new onset incontinence, normal bowel movements reported Genitourinary: No new onset incontinence Musculoskeletal: Low back pain Psychiatric: [Normal mood/affect] Neurological: [Denies weakness in extremities], [denies balance issues] Objective:: Physical Exam: General: Alert and oriented x3, no acute distress, pleasant and cooperative Lungs: Respirations even and unlabored, symmetrical chest expansion Eyes: PERRL Musculoskeletal: Flexion and extension of lumbar [spine] somewhat guarded secondary to pain, [antalgic gait noted] positive Kemps test Neurological: Speech clear, no gross sensory deficit Assessment:: Degenerative disc disease of cervical and lumbar spine with cervical and lumbar radiculopathy symptoms, cervical facet arthropathy and spondylosis and lumbar facet arthropathy, myofascial pain Plan:: Patient is experiencing worsening pain in his low back with limited range of motion of his lumbar spine and a positive Kemps test. I have discussed with the patient that he may benefit from a lumbar medial branch block bilaterally. Risk and benefits were discussed with patient and he would like to proceed forward with this plan of care. Patient has tried and failed conservative therapy and has continued to do at home stretching and exercise in between injections with no additional change to his low back symptoms. We will schedule the patient for a lumbar medial branch block bilaterally L4-L5 and L5-S1 under fluoroscopy. I have counseled patient if he does have significant relief we will proceed forward with doing a second block and then possibly the lumbar RFA at a later date. Patient acknowledges understanding and agrees with this plan of care. Patient has been instructed to contact the clinic with any concerns before the next appointment. Dr. Aguilar has reviewed this note and agrees with this plan of care. This note was dictated using voice recognition software and make contain errors or omissions. [facility] Disclaimer: The information contained in this section may have been updated after the patient was seen, as this information can be updated by other users. Medical History Tinnitus of both ears Hearing loss HTN (hypertension) HTN (hypertension) Family History Other No significant family history Social History Smoking Status: Never smoker second hand exposure: No alcohol intake: never substance use type: denies use current occupational status: retired Travel in the last 8 weeks: None household members: other housing: house current occupational exposures/hazards: No caffeine: No
== END 2024-03-06 23:59 | disposition home or self-care (01) ==
LOC: SC.PAIN 08:34
PROVIDERS: PCP Internal Medicine Adolescent Medicine; Visit Provider Nurse Practitioner Family
DX: M51.16 Intervertebral disc disorders with radiculopathy, lumbar region (principal); M47.896 Other spondylosis, lumbar region; M50.10 Cervical disc disorder with radiculopathy, unspecified cervical region; M47.22 Other spondylosis with radiculopathy, cervical region; M79.10 Myalgia, unspecified site
CPT/HCPCS: 99212; G0463

== ENCOUNTER 2024-03-06 09:46 | Outpatient (POV) | payer MEDICARE, SELFPAY | END 2024-03-06 23:59 | disposition home or self-care (01) | LOC: SC 09:46 | PROVIDERS: Visit Provider Specialist/Technologist | DX: Z00.00 Encounter for general adult medical examination without abnormal findings (principal) ==

== ENCOUNTER 2024-03-14 14:58 | Outpatient (CLI) | payer MEDICARE, SELFPAY ==
--- NOTE | 2024-03-14 15:10 | XR_ITS ---
FINAL REPORT CLINICAL HISTORY: lt knee pain COMPARISON: None FINDINGS: Three views of the left knee reveal no evidence of fracture or dislocation. The bony alignment is normal. There is moderate to severe degenerative change in the left knee, with significant medial compartment narrowing. There are probable loose bodies in the lateral compartment of the knee. A large joint effusion is present. IMPRESSION: Moderate to severe degenerative change, with probable loose bodies and a large joint effusion. Reviewed, Interpreted and Dictated by Marcus Hogue III, MD Transcribed by Omayra Melara Authenticated and [facility]
== END 2024-03-14 23:59 | disposition home or self-care (01) ==
PROVIDERS: PCP Internal Medicine Adolescent Medicine; Visit Provider Orthopaedic Surgery
DX: M25.562 Pain in left knee (principal)
CPT/HCPCS: 73562

== ENCOUNTER 2024-04-17 11:18 | Outpatient (POV) | payer MEDICARE, SELFPAY ==
[2024-04-17 11:35] VITALS: BP 140/82; PULSE 73; RESP 18; O2SAT 96; BMI 24.3
--- NOTE | 2024-04-17 11:50 | A.OFFVIS_ITS ---
[facility] Pain Management SOAP Note Subjective:: Patient is a pleasant 78-year-old male who presents today for follow-up of lumbar medial branch block denial. Today he rates his pain a 1 out of 10 in his low back and states that the pain has decreased back down. He states that overall now it is just a little bit more stiffness and he does believe that this is related to arthritis. He does however state that his neck pain is starting to become more prominent and rates it a 5-6 out of 10. He states he does have more radiating symptoms into his right side with numbness and tingling. He states that the pain is starting to interfere with his ability to perform activities of daily living such as cooking and cleaning. Patient does have chronic neck pain and did just recently have a cervical epidural back in December that provided 85% relief and lasted up until the last couple of weeks. Patient does state that he would like to see about repeating this injection. Patient has tried and failed conservative therapies including continued at home stretching exercise between injections with no additional improvement. His Odell has been reviewed and is appropriate. Review of Systems: General: No recent weight changes, no fever, no sleep disturbances Respiratory: No cough, no shortness of air, no recurring pulmonary infections Cardiovascular/peripheral vascular: No chest pain, no palpitations, no edema, no shortness of breath Gastrointestinal: No new onset incontinence, normal bowel movements reported Genitourinary: No new onset incontinence Musculoskeletal: Neck pain, right arm numbness tingling Psychiatric: [Normal mood/affect] Neurological: [Denies weakness in extremities], [denies balance issues] Objective:: Physical Exam: General: Alert and oriented x3, no acute distress, pleasant and cooperative Lungs: Respirations even and unlabored, symmetrical chest expansion Eyes: PERRL Musculoskeletal: Flexion and extension of cervical [spine] somewhat guarded secondary to pain, [antalgic gait noted] positive Spurling's test Neurological: Speech clear, no gross sensory deficit Assessment:: Degenerative disc disease of cervical and lumbar spine with cervical and lumbar radiculopathy symptoms, cervical facet arthropathy and spondylosis, lumbar facet arthropathy, myofascial pain Plan:: Patient is experiencing worsening pain in his neck with limited range of motion of his cervical spine and numbness and tingling into his right arm. Patient did have a positive Spurling's test. I have discussed with the patient that he may benefit from a repeat cervical epidural steroid injection. Risk and benefits were discussed with the patient and he would like to proceed forward with this plan of care. Patient did get approximately 85% relief with roughly 2-1/2 months improvement with overall decreased pain and improved function with this last injection in December. Patient has tried and failed conservative therapy including continued at home stretching and exercise between injections. We will schedule the patient for a ALVERTO C6-C7 under fluoroscopy. Patient has been instructed to contact the clinic with any concerns before the next appointment. Dr. Aguilar has reviewed this note and agrees with this plan of care. This note was dictated using voice recognition software and make contain errors or omissions. [facility] Disclaimer: The information contained in this section may have been updated after the patient was seen, as this information can be updated by other users. Medical History Tinnitus of both ears Hearing loss HTN (hypertension) HTN (hypertension) Family History Other No significant family history Social History Smoking Status: Never smoker second hand exposure: No alcohol intake: never substance use type: denies use current occupational status: retired Travel in the last 8 weeks: None household members: other housing: house current occupational exposures/hazards: No caffeine: No
== END 2024-04-17 23:59 | disposition home or self-care (01) ==
LOC: SC.PAIN 11:19
PROVIDERS: PCP Internal Medicine Adolescent Medicine; Visit Provider Nurse Practitioner Family
DX: M50.123 Cervical disc disorder at C6-C7 level with radiculopathy (principal); M51.16 Intervertebral disc disorders with radiculopathy, lumbar region; M47.892 Other spondylosis, cervical region; M47.896 Other spondylosis, lumbar region; M79.10 Myalgia, unspecified site
CPT/HCPCS: 99212; G0463

== ENCOUNTER 2024-05-07 11:07 | Day surgery (SDC) | payer MEDICARE, SELFPAY ==
[2024-05-07 11:31] VITALS: BP 141/84; PULSE 76; RESP 18; TEMP 36.9; O2SAT 96; BMI 24.7
[2024-05-07] MEDS: BUPIVACAINE 0.25% 10ML INJ 25 MG IJ (11:54)
[2024-05-07] MEDS: methylPREDNISolone ACETATE 80MG/ML VIAL 80 MG (11:55)
[2024-05-07] MEDS: LIDOCAINE 1% 5ML PF VIAL 5 ML (11:55)
[2024-05-07 11:57] VITALS: BP 156/92; PULSE 74; RESP 18; O2SAT 96
--- NOTE | 2024-05-07 12:03 | EXP.PAIN.PRO ---
Procedure Date: 05/07/24 Time: 11:50 Anesthesiologist:: Stpehan Mejia CRNA Complications:: None Pre-procedure Diagnosis:: DJD bilateral knees. Chronic bilateral knee pain. Post-procedure Diagnosis:: Same. Indications for Procedure:: Patient is a very pleasant 78-year-old male comes our clinic today for bilateral intra-articular knee injections of cortisone. Patient describes bilateral knee pain as constant, dull, aching. Patient states pain intensifies at night. Patient reports pain intensifies with standing and/or walking. Patient rates his pain 8/10. Procedure Details:: Informed consent was obtained risk and benefits of the procedure were explained to the patient. Patient was taken the procedure room both knees were prepped using ChloraPrep. A 25-gauge needle was used to inject 10 mL bupivacaine 0.25% and Depo-Medrol 40 mg into each knee. We did a total of 80 mg Depo-Medrol for both knees. The patient tolerated the procedure well with no complications. Plan and Disposition:: Patient was discharged without incident.
--- NOTE | 2024-05-07 12:05 | P.PCN_ITS ---
Procedure Date: 05/07/24 Time: 11:40 Anesthesiologist:: Stephan Mejia CRNA Complications:: None Pre-procedure Diagnosis:: Degenerative disc cervical spine multilevels. Cervical radiculopathy. Post-procedure Diagnosis:: Same. Indications for Procedure:: Patient is a pleasant 78-year-old male comes our clinic today for repeat cervical epidural steroid injection C6-7 level. Patient has significant proved in terms of her overall cervical neck pain as well as bilateral arm radicular symptoms with previous injection. Patient describes posterior cervical neck pain as constant, dull, aching. Patient also reports bilateral arm radicular symptoms. He rates his pain 7/10. Procedure Details:: Procedure:Cervical epidural steroid injection Informed consent was obtained and the risks and benefits of the procedure were explained to the patient. The patient was taken to the procedure room and noninvasive monitors placed, including noninvasive blood pressure cuff and pulse oximeter. The neck was prepped using Chloraprep as a cleansing solution. The C6- C7 interspace was viewed using fluroscopy. The skin and subcutaneous tissues were anesthetized using lidocaine 1.5% and a 25-gauge needle. After this an 18- gauge Touhy epidural needle was placed into the C6-C7 interspace under fluroscopy guidance and advanced using loss of resistance to air until the epidural space was encountered. After confirmation of needle placement in the epidural space using contrast dye, a solution containing normal saline, 2 mL and Depo-Medrol 80 mg was incrementally injected into the cervical epidural space.~ The patient tolerated the procedure well with no complications. The patient was observed in the Pain Clinic and then discharged home neurologically intact. Plan and Disposition:: Patient was discharged without incident.
== END 2024-05-07 11:57 | disposition home or self-care (01) ==
PROVIDERS: PCP Internal Medicine Adolescent Medicine; Visit Provider Nurse Anesthetist, Certified Registered
DX: M50.123 Cervical disc disorder at C6-C7 level with radiculopathy (principal)
CPT/HCPCS: 62321; J1010

== ENCOUNTER 2024-05-27 13:09 | Outpatient (POV) | payer MEDICARE, SELFPAY ==
[2024-05-27 13:14] VITALS: BP 142/82; PULSE 80; RESP 18; O2SAT 96; BMI 25.1
--- NOTE | 2024-05-27 13:52 | A.OFFVIS_ITS ---
[facility] Disclaimer: The information contained in this section may have been updated after the patient was seen, as this information can be updated by other users. Medical History Tinnitus of both ears Hearing loss HTN (hypertension) HTN (hypertension) Family History Other No significant family history Social History Smoking Status: Never smoker second hand exposure: No alcohol intake: never substance use type: denies use current occupational status: other Travel in the last 8 weeks: None household members: other housing: house current occupational exposures/hazards: No caffeine: No PM Subjective & Objective Subjective Subjective:: Patient is a pleasant 78-year-old male who presents today for follow-up of cervical epidural steroid injection C6-C7 on 05/07/2024. Today he rates his pain in his neck a 1 out of 10 and roughly a 5 out of 10 in his low back. Patient states he has had at least 85 to 90% relief following this injection. Patient states he has been able to move around easier with significant improvement. He does however state he is still experiencing pain in his low back as well as his left knee. Patient does state that he would like to see about doing injections for this pain. Patient was previously denied lumbar medial branch blocks for lack of imaging. Patient denies any recent imaging. He has tried and failed conservative therapy including continued at home stretching exercise for longer than 12 weeks. His Odell has been reviewed and is appropriate. Review of Systems: General: No recent weight changes, no fever, no sleep disturbances Respiratory: No cough, no shortness of air, no recurring pulmonary infections Cardiovascular/peripheral vascular: No chest pain, no palpitations, no edema, no shortness of breath Gastrointestinal: No new onset incontinence, normal bowel movements reported Genitourinary: No new onset incontinence Musculoskeletal: Low back pain Psychiatric: [Normal mood/affect] Neurological: [Denies weakness in extremities], [denies balance issues] Pain at rest (0-10 scale): 5 Objective Objective:: Physical Exam: General: Alert and oriented x3, no acute distress, pleasant and cooperative Lungs: Respirations even and unlabored, symmetrical chest expansion Eyes: PERRL Musculoskeletal: Flexion and extension of lumbar [spine] somewhat guarded secondary to pain, [antalgic gait noted] Neurological: Speech clear, no gross sensory deficit Has patient had previous pain injection?: Yes Percent improvement in pain since last injection: 85 to 90% Conservative treatment options previously tried: Home exercise plan Length of treatment: Longer than 12 weeks Meds Home Medications and Allergies Home Medications ?Medication ?Instructions ?Recorded ?Confirmed ?Type fenofibrate 160 mg tablet 160 mg PO DAILY Cholesterol 01/17/18 05/27/24 History ferrous sulfate 325 mg (65 mg 325 mg PO DAILY iron 01/17/18 05/27/24 History iron) tablet tramadol 50 mg tablet 50 mg PO DAILYP PRN pain 07/16/19 05/27/24 History tizanidine 4 mg tablet (Zanaflex) 4 mg PO HS . 06/20/23 05/27/24 History meloxicam 15 mg tablet 15 mg PO DAILY #30 tabs 08/31/23 05/27/24 Rx amlodipine 5 mg tablet 5 mg PO DAILY 09/25/23 05/27/24 History pramipexole 0.25 mg tablet 0.25 mg PO BID 02/05/24 05/27/24 History New Prescriptions to Start Prescriptions: Allergies Allergy/AdvReac Type Severity Reaction Status Date / Time SEASONAL ALLERGIES Allergy Unknown RUNNY NOSE Uncoded 03/14/24 14:42 ETC Assessment and Plan *Assessment and plan (1) Low back pain: Status: Acute Qualifiers: Chronicity: chronic Back pain laterality: bilateral Sciatica presence: without sciatica Qualified Code(s): M54.50 - Low back pain, unspecified; G89.29 - Other chronic pain Category: Medical Code(s): M54.50 - Low back pain, unspecified Plan Patient did have significant improvement following his cervical epidural and does not require any additional injection therapy at that location. Patient is still experiencing worsening low back pain and has continued to try at home exercise and stretching for longer than 12 weeks. I have counseled the patient that I will order x-ray and MRI without contrast of his lumbar spine. Patient will return to clinic in 1 month following this imaging for reevaluation of symptoms and plan of care. Patient has been instructed to contact the clinic with any concerns before the next appointment. Dr. Aguilar has reviewed this note and agrees with this plan of care. This note was dictated using voice recognition software and make contain errors or omissions. All injections are used with Lidocaine or Bupivacaine and Depo Medrol.
--- NOTE | 2024-05-27 14:04 | XR_ITS ---
FINAL REPORT CLINICAL HISTORY: LBP COMPARISON: None FINDINGS: AP, lateral, and oblique views of the lumbar spine were obtained. There is no acute fracture or acute malalignment. There is minimal grade 1 anterior spondylolisthesis of L4 on L5 and L5 on S1. Vertebral body height is preserved. Multilevel degenerative disc disease most pronounced at L5-S1. No acute paraspinal abnormality is identified. IMPRESSION: Degenerative changes without acute osseous abnormalities lumbar spine. Reviewed, Interpreted and Dictated by Julia Benavidez MD Transcribed by Nubia Christensen Authenticated and [facility]
== END 2024-05-27 23:59 | disposition home or self-care (01) ==
PROVIDERS: PCP Internal Medicine Adolescent Medicine; Visit Provider Nurse Practitioner Family
DX: M54.50 Low back pain, unspecified (principal); G89.29 Other chronic pain
CPT/HCPCS: 72110; 99212; G0463

== ENCOUNTER 2024-06-11 18:29 | Outpatient (CLI) | payer MEDICARE, SELFPAY ==
--- NOTE | 2024-06-11 18:32 | MR_ITS ---
PROCEDURE INFORMATION: Exam: MR Lumbar Spine Without Contrast Exam date and time: 06/11/2024 6:37 PM Age: 78 years old Clinical indication: Low back pain; Additional info: Lbp TECHNIQUE: Imaging protocol: Magnetic resonance imaging of the lumbar spine without contrast. COMPARISON: CR XR LUMBAR SPINE MIN 4V 05/27/2024 2:24 PM FINDINGS: alignment is grossly normal. signal intensity within the bone marrow is normal. conus terminates at the mid aspect of L1. Soft tissues are unremarkable. Disc degeneration including decreased disc height, hydration and annular disk bulge/protrusion diffusely. Moderate to severe central canal narrowing L4-L5 Severe facet arthropathy L4-L5 No marrow edema Numerous renal cysts particularly on the right. Correlate. Is there a history of polycystic kidney disease T12-L1: Central canal and neural foramina are normal. L1-L2: Central canal and neural foramina are normal. L2-L3: Broad-based annular disc bulge effaces the anterior aspect of the thecal sac mildly so. Central canal and neural foramina are normal. L3-L4: Broad-based annular disc bulge effaces the anterior aspect of the thecal sac mildly so. Central canal and neural foramina are normal. L4-L5: Severe narrowing of the central canal secondary to facet hypertrophic changes, ligamentum flavum hypertrophic changes, and a broad-based annular bulge. L5-S1: Broad-based annular disc bulge with a broad-based central and left paracentral disc protrusion. Disc lateralizes to the right and left with paucity of fat about the exiting nerve roots. Bilateral neural foraminal narrowing. IMPRESSION: Degenerative disc disease most pronounced L4-L5 and L5-S1. Severe central canal narrowing L4-L5. Numerous renal cyst right kidney. Correlate. Is there a history of polycystic kidney disease.
== END 2024-06-11 23:59 | disposition home or self-care (01) ==
LOC: RAD 18:30
PROVIDERS: PCP Internal Medicine Adolescent Medicine; Visit Provider Nurse Practitioner Family
DX: M54.50 Low back pain, unspecified (principal)
CPT/HCPCS: 72148

== ENCOUNTER 2024-06-26 09:18 | Outpatient (POV) | payer MEDICARE, SELFPAY ==
--- NOTE | 2024-06-26 09:31 | EXP.PAIN.SOA ---
[facility] Disclaimer: The information contained in this section may have been updated after the patient was seen, as this information can be updated by other users. Medical History Tinnitus of both ears Hearing loss HTN (hypertension) HTN (hypertension) Family History Other No significant family history Social History Smoking Status: Never smoker second hand exposure: No alcohol intake: never substance use type: denies use current occupational status: retired Travel in the last 8 weeks: None household members: other housing: house current occupational exposures/hazards: No caffeine: No PM Subjective & Objective Subjective Subjective:: Patient is a pleasant 78-year-old male who presents today for follow-up of lumbar MRI imaging. Today he rates his pain a 6 out of 10. He denies any new trauma or injury. Patient did have a cervical epidural at C6-C7 back on April that did provide 85 to 90% relief. He states overall this is still well however he has still been experiencing low back pain. He states it has been radiated across his low back and going into his hips and describes it as an aching, throbbing sensation that does interfere with his ability perform activities of daily living such as cooking and cleaning. He states it is worse with walking or prolonged positioning. He does state that the left side is the worst side. He has tried and failed conservative therapy including continued at home stretching exercise for longer than 12 weeks. His Odell has been reviewed and is appropriate. Review of Systems: General: No recent weight changes, no fever, no sleep disturbances Respiratory: No cough, no shortness of air, no recurring pulmonary infections Cardiovascular/peripheral vascular: No chest pain, no palpitations, no edema, no shortness of breath Gastrointestinal: No new onset incontinence, normal bowel movements reported Genitourinary: No new onset incontinence Musculoskeletal: Low back pain, bilateral hip pain Psychiatric: [Normal mood/affect] Neurological: [Denies weakness in extremities], [denies balance issues] Pain at rest (0-10 scale): 6 Objective Objective:: Physical Exam: General: Alert and oriented x3, no acute distress, pleasant and cooperative Lungs: Respirations even and unlabored, symmetrical chest expansion Eyes: PERRL Musculoskeletal: Flexion and extension of lumbar [spine] somewhat guarded secondary to pain, [antalgic gait noted] point tenderness along bilateral SIs with positive bilateral Irlanda's, Ken's, Gaenslen's, compression and distraction exam Neurological: Speech clear, no gross sensory deficit Has patient had previous pain injection?: No Conservative treatment options previously tried: Home exercise plan Length of treatment: Longer than 12 weeks Meds Home Medications and Allergies Home Medications ?Medication ?Instructions ?Recorded ?Confirmed ?Type fenofibrate 160 mg tablet 160 mg PO DAILY Cholesterol 01/17/18 05/27/24 History ferrous sulfate 325 mg (65 mg 325 mg PO DAILY iron 01/17/18 05/27/24 History iron) tablet tramadol 50 mg tablet 50 mg PO DAILYP PRN pain 07/16/19 05/27/24 History tizanidine 4 mg tablet (Zanaflex) 4 mg PO HS . 06/20/23 05/27/24 History meloxicam 15 mg tablet 15 mg PO DAILY #30 tabs 08/31/23 05/27/24 Rx amlodipine 5 mg tablet 5 mg PO DAILY 09/25/23 05/27/24 History pramipexole 0.25 mg tablet 0.25 mg PO BID 02/05/24 05/27/24 History New Prescriptions to Start Prescriptions: Allergies Allergy/AdvReac Type Severity Reaction Status Date / Time SEASONAL ALLERGIES Allergy Unknown RUNNY NOSE Uncoded 03/14/24 14:42 ETC Assessment and Plan *Assessment and plan (1) Lumbar facet arthropathy: Status: Acute Category: Medical Code(s): M47.816 - Spondylosis without myelopathy or radiculopathy, lumbar region (2) Degenerative disc disease, lumbar: Status: Acute Category: Medical Code(s): M51.36 - Other intervertebral disc degeneration, lumbar region (3) Lumbar stenosis: Status: Acute Category: Medical Code(s): M48.061 - Spinal stenosis, lumbar region without neurogenic claudication (4) Bilateral sacroiliitis: Status: Acute Category: Medical Code(s): M46.1 - Sacroiliitis, not elsewhere classified Plan I did review over at length regarding his lumbar MRI imaging. Patient did have limited range of motion of his lumbar spine with point tenderness along his bilateral SIs and a positive bilateral Irlanda's, Ken's, Gaenslen's, compression and distraction exam. Patient has been dealing with this pain over the last 12 weeks. Patient has also tried conservative therapy including continued at home stretching exercise for longer than 12 weeks with no additional relief. I did discuss with the patient that I do believe he would benefit from bilateral SI injections. Risk and benefits were discussed with the patient and he would like to proceed forward with this plan of care. Patient will be scheduled for a bilateral SI injections under fluoroscopy. Patient has been instructed to contact the clinic with any concerns before the next appointment. Dr. Aguilar has reviewed this note and agrees with this plan of care. This note was dictated using voice recognition software and make contain errors or omissions. All injections are used with Lidocaine or Bupivacaine and Depo Medrol.
[2024-06-26 09:46] VITALS: BP 136/84; PULSE 79; RESP 18; O2SAT 97; BMI 25.1
== END 2024-06-26 23:59 | disposition home or self-care (01) ==
LOC: SC.PAIN 09:20
PROVIDERS: PCP Internal Medicine Adolescent Medicine; Visit Provider Nurse Practitioner Family
DX: M47.816 Spondylosis without myelopathy or radiculopathy, lumbar region (principal); M51.36 Other intervertebral disc degeneration, lumbar region; M48.061 Spinal stenosis, lumbar region without neurogenic claudication; M46.1 Sacroiliitis, not elsewhere classified; Z73.89 Other problems related to life management difficulty
CPT/HCPCS: 99212; G0463

== ENCOUNTER 2024-07-26 10:29 | Outpatient (POV) | payer MEDICARE, SELFPAY ==
[2024-07-26 11:12] VITALS: BP 137/76; PULSE 77; RESP 18; O2SAT 97; BMI 24.7
--- NOTE | 2024-07-26 13:12 | A.OFFVIS_ITS ---
[facility] Disclaimer: The information contained in this section may have been updated after the patient was seen, as this information can be updated by other users. Medical History Tinnitus of both ears Hearing loss HTN (hypertension) HTN (hypertension) Family History Other No significant family history Social History Smoking Status: Never smoker second hand exposure: No alcohol intake: never substance use type: denies use current occupational status: other Travel in the last 8 weeks: None household members: other housing: house current occupational exposures/hazards: No caffeine: No PM Subjective & Objective Subjective Subjective:: Patient is a pleasant 79-year-old male who presents today for follow-up of bilateral SI injections on 07/09/2024. Today he rates his pain a 1 out of 10. Patient states he has had at least 90% improvement following this injection and feels like it still providing good relief. He states he has been able to inc rease his movements with decreased pain and feels much more functional. He does also state that overall his neck is still doing well from his cervical epidural of C6-C7 that was in April. His Odell has been reviewed and is appropriate. Review of Systems: General: No recent weight changes, no fever, no sleep disturbances Respiratory: No cough, no shortness of air, no recurring pulmonary infections Cardiovascular/peripheral vascular: No chest pain, no palpitations, no edema, no shortness of breath Gastrointestinal: No new onset incontinence, normal bowel movements reported Genitourinary: No new onset incontinence Musculoskeletal: Low back pain Psychiatric: [Normal mood/affect] Neurological: [Denies weakness in extremities], [denies balance issues] Pain at rest (0-10 scale): 1 Objective Objective:: Physical Exam: General: Alert and oriented x3, no acute distress, pleasant and cooperative Lungs: Respirations even and unlabored, symmetrical chest expansion Eyes: PERRL Musculoskeletal: Flexion and extension of lumbar [spine] somewhat guarded secondary to pain, [antalgic gait noted] Neurological: Speech clear, no gross sensory deficit Has patient had previous pain injection?: Yes Percent improvement in pain since last injection: 90% Conservative treatment options previously tried: Home exercise plan Length of treatment: Longer than 6 weeks Meds Home Medications and Allergies Home Medications ?Medication ?Instructions ?Recorded ?Confirmed ?Type fenofibrate 160 mg tablet 160 mg PO DAILY Cholesterol 01/17/18 07/26/24 History ferrous sulfate 325 mg (65 mg 325 mg PO DAILY iron 01/17/18 07/26/24 History iron) tablet tramadol 50 mg tablet 50 mg PO DAILYP PRN pain 07/16/19 07/26/24 History tizanidine 4 mg tablet (Zanaflex) 4 mg PO HS . 06/20/23 07/26/24 History meloxicam 15 mg tablet 15 mg PO DAILY #30 tabs 08/31/23 07/26/24 Rx amlodipine 5 mg tablet 5 mg PO DAILY 09/25/23 07/26/24 History pramipexole 0.25 mg tablet 0.25 mg PO BID 02/05/24 07/26/24 History New Prescriptions to Start Prescriptions: Allergies Allergy/AdvReac Type Severity Reaction Status Date / Time SEASONAL ALLERGIES Allergy Unknown RUNNY NOSE Uncoded 07/25/24 09:42 ETC Assessment and Plan *Assessment and plan (1) Degenerative disc disease, lumbar: Status: Acute Category: Medical Code(s): M51.36 - Other intervertebral disc degeneration, lumbar region Plan Patient has had significant improvement following his SI injections and does not require any additional injection therapy. Patient will return to clinic in 1 month for reevaluation of symptoms and plan of care. Patient has been instructed to contact the clinic with any concerns before the next appointment. Dr. Aguilar has reviewed this note and agrees with this plan of care. This note was dictated using voice recognition software and make contain errors or omissions. All injections are used with Lidocaine or Bupivacaine and Depo Medrol.
== END 2024-07-26 23:59 | disposition home or self-care (01) ==
LOC: SC.PAIN 10:31
PROVIDERS: PCP Internal Medicine Adolescent Medicine; Visit Provider Nurse Practitioner Family
DX: M51.36 Other intervertebral disc degeneration, lumbar region (principal)
CPT/HCPCS: 99212; G0463

== ENCOUNTER 2024-08-01 15:32 | Outpatient (CLI) | payer MEDICARE, SELFPAY ==
--- NOTE | 2024-08-01 | MR_ITS ---
FINAL REPORT CLINICAL HISTORY: kidney cysts FINDINGS: Multiplanar MR imaging of the abdomen was performed without and with contrast. Images of the liver reveal no evidence of mass. There is no evidence of biliary ductal dilatation. The gallbladder has an unremarkable appearance. On axial imaging multiple fluid signal intensity structures are seen in the right kidney measuring up to 3.8 cm anteriorly and 3.5 cm posteriorly. There is no abnormal contrast-enhancement. Exophytic focus in the posterior right kidney measuring 3.5 cm does not meet strict criteria for simple cyst. Findings are consistent with complex, benign cyst. Left kidney is unremarkable. IMPRESSION: Multiple simple and complex benign right renal cysts. Reviewed, Interpreted and Dictated by Branden Bear MD Transcribed by Fariha Locke Authenticated and [facility]
[2024-08-01 16:14] LABS: Blood Urea Nitrogen 17 mg/dl (9-20); Estimated Glomerular Filt Rate 82 ml/min (>60); GFR (African American) 99 ML/MIN (>60)
[2024-08-01] MEDS: GADOTERIDOL INJ 20ML SYRINGE 16 ML IV (17:24)
== END 2024-08-01 23:59 | disposition home or self-care (01) ==
LOC: RAD 15:33
PROVIDERS: Nurse Practitioner; PCP Internal Medicine Adolescent Medicine; Visit Provider Internal Medicine Adolescent Medicine
DX: H93.13 Tinnitus, bilateral (principal); H91.90 Unspecified hearing loss, unspecified ear; N28.1 Cyst of kidney, acquired
CPT/HCPCS: 74183; 82565; 84520; A9576

== ENCOUNTER 2024-08-26 09:36 | Outpatient (POV) | payer MEDICARE, SELFPAY ==
[2024-08-26 09:56] VITALS: BP 145/94; PULSE 68; RESP 16; O2SAT 95; BMI 25.1
--- NOTE | 2024-08-26 10:13 | A.OFFVIS_ITS ---
[facility] Disclaimer: The information contained in this section may have been updated after the patient was seen, as this information can be updated by other users. Medical History (Updated 08/26/24 @ 10:15 by Paola Boothe APRN) Tinnitus of both ears Hearing loss HTN (hypertension) HTN (hypertension) Surgical History (Updated 08/19/24 @ 09:11 by JOSE Amezcua) History of total right knee replacement Family History Other No significant family history Social History Smoking Status: Never smoker second hand exposure: No alcohol intake: never substance use type: denies use current occupational status: other Travel in the last 8 weeks: None household members: other housing: house current occupational exposures/hazards: No caffeine: No PM Subjective & Objective Subjective Subjective:: Patient is a pleasant 79-year-old male who presents today for follow-up. Today he rates his low back pain a 3 out of 10 in his neck symptoms a 5 out of 10. Patient does state that the previous injections that he got in June were still helping however he did notice more pain along the right side and did recently go to his primary care who did give him a IM steroid injection as well as oral steroids and methocarbamol 750 mg. He states that these have helped. Patient does state that he has started to experience more catching and popping sensations in his overall neck with limited range of motion. He states that he has trouble looking down due to the increased pain. Patient did previously have a cervical RFA and states that he would like to see about doing this injection again because it did provide significant improved function of around 85% relief and has lasted up until about the last month or so. he states the current pain is an aching, throbbing sensation that does interfere with his ability perform activities of daily living such as cooking and cleaning. Patient denies any radiating symptoms into his arms. His Odell has been reviewed and is appropriate. Review of Systems: General: No recent weight changes, no fever, no sleep disturbances Respiratory: No cough, no shortness of air, no recurring pulmonary infections Cardiovascular/peripheral vascular: No chest pain, no palpitations, no edema, no shortness of breath Gastrointestinal: No new onset incontinence, normal bowel movements reported Genitourinary: No new onset incontinence Musculoskeletal: Neck pain Psychiatric: [Normal mood/affect] Neurological: [Denies weakness in extremities], [denies balance issues] Pain at rest (0-10 scale): 5 Objective Objective:: Physical Exam: General: Alert and oriented x3, no acute distress, pleasant and cooperative Lungs: Respirations even and unlabored, symmetrical chest expansion Eyes: PERRL Musculoskeletal: Flexion and extension of cervical [spine] somewhat guarded secondary to pain, [antalgic gait noted] positive Kemps test Neurological: Speech clear, no gross sensory deficit Has patient had previous pain injection?: No Conservative treatment options previously tried: Home exercise plan Length of treatment: Longer than 12 weeks Meds Home Medications and Allergies Home Medications ?Medication ?Instructions ?Recorded ?Confirmed ?Type fenofibrate 160 mg tablet 160 mg PO DAILY Cholesterol 01/17/18 08/26/24 History ferrous sulfate 325 mg (65 mg 325 mg PO DAILY iron 01/17/18 08/26/24 History iron) tablet tramadol 50 mg tablet 50 mg PO DAILYP PRN pain 07/16/19 08/26/24 History tizanidine 4 mg tablet (Zanaflex) 4 mg PO HS . 06/20/23 08/26/24 History meloxicam 15 mg tablet 15 mg PO DAILY #30 tabs 08/31/23 08/26/24 Rx amlodipine 5 mg tablet 5 mg PO DAILY 09/25/23 08/26/24 History pramipexole 0.25 mg tablet 0.25 mg PO BID 02/05/24 08/26/24 History New Prescriptions to Start Prescriptions: Allergies Allergy/AdvReac Type Severity Reaction Status Date / Time SEASONAL ALLERGIES Allergy Unknown RUNNY NOSE Uncoded 08/19/24 09:01 ETC Assessment and Plan *Assessment and plan (1) Facet arthropathy, cervical: Status: Acute Category: Medical Code(s): M47.812 - Spondylosis without myelopathy or radiculopathy, cervical region (2) Neck pain: Status: Acute Category: Medical Code(s): M54.2 - Cervicalgia Plan Patient is experiencing worsening pain in his neck with limited range of motion and a positive Kemps test. I did discuss over with the patient risks and benefits of repeat cervical RFA. Patient would like to proceed forward with this plan of care. Patient did previously have his last RFA back in August 2023 that did provide 85% relief and gave more than 6 months of improvement. Patient has tried and failed conservative therapy including continued at home stretching exercise for longer than 12 weeks. Patient will be scheduled for a cervical radiofrequency ablation of C5-C6 and C6-C7 under fluoroscopy. Patient will be submitted for a cervical RFA with thermal nonpulsed radiofrequency of 80 ?C. Patient has been instructed to contact the clinic with any concerns before the next appointment. Dr. Aguilar has reviewed this note and agrees with this plan of care. This note was dictated using voice recognition software and make contain errors or omissions. All injections are used with Lidocaine or Bupivacaine and Depo Medrol.
== END 2024-08-26 23:59 | disposition home or self-care (01) ==
LOC: SC.PAIN 09:37
PROVIDERS: PCP Internal Medicine Adolescent Medicine; Visit Provider Nurse Practitioner Family
DX: M47.812 Spondylosis without myelopathy or radiculopathy, cervical region (principal); M54.2 Cervicalgia; Z96.651 Presence of right artificial knee joint; Z73.89 Other problems related to life management difficulty
CPT/HCPCS: 99212; G0463

== ENCOUNTER 2024-09-10 09:58 | Day surgery (SDC) | payer MEDICARE, SELFPAY ==
[2024-09-10 10:15] VITALS: BP 147/81; PULSE 68; RESP 16; TEMP 36.7; O2SAT 96; BMI 24.3
[2024-09-10 10:52] VITALS: BP 154/95; PULSE 78; RESP 18; O2SAT 97
[2024-09-10] MEDS: methylPREDNISolone ACETATE 80MG/ML VIAL 80 MG (10:52)
[2024-09-10] MEDS: BUPIVACAINE 0.25% 10ML INJ 25 MG IJ (10:52)
[2024-09-10] MEDS: LIDOCAINE 1% 5ML PF VIAL 5 ML (10:52)
[2024-09-10 10:56] VITALS: BP 154/95; PULSE 78; RESP 18; O2SAT 97
--- NOTE | 2024-09-10 11:02 | EXP.PAIN.PRO ---
Procedure Date: 09/10/24 Time: 10:45 Anesthesiologist:: Stephan Mejia CRNA Complications:: None Pre-procedure Diagnosis:: Myofascial pain lumbar paraspinous muscle bilaterally. Post-procedure Diagnosis:: Same. Indications for Procedure:: Patient is a pleasant 79-year-old male who comes our clinic today for bilateral lumbar paraspinous muscle trigger point injections. He describes low lumbar back pain as constant, dull, aching. Pain increases with flexion, extension, left and right rotation. He rates his pain 7/10. Procedure Details:: Details of the procedure explained to the patient. The patient taken procedure and placed in the sitting position. The area over the lumbar spine was cleansed using chlorhexidine as a cleansing solution. Using a 25-gauge inch and half needle 3 separate areas in the left and right paraspinous muscle was identified. At each level using a 25-gauge inch and half needle 3 cc was injected after negative aspiration. A total of 6 injections were given 3 on either side. The solution contained 0.25% Marcaine +1% lidocaine and 40 mg of Depo-Medrol. Patient tolerated procedure without difficulty. There are no complications. Plan and Disposition:: Patient was discharged without incident.
[2024-09-10 11:04] VITALS: BP 144/94; PULSE 69; RESP 16; O2SAT 97
== END 2024-09-10 11:04 | disposition home or self-care (01) ==
PROVIDERS: PCP Internal Medicine Adolescent Medicine; Visit Provider Nurse Anesthetist, Certified Registered
DX: M79.18 Myalgia, other site (principal)
CPT/HCPCS: 20552; J1010

== ENCOUNTER 2024-09-24 09:19 | Outpatient (POV) | payer MEDICARE, SELFPAY | END 2024-09-24 23:59 | disposition home or self-care (01) | LOC: SC 09:20 | PROVIDERS: Visit Provider Specialist/Technologist | DX: Z00.00 Encounter for general adult medical examination without abnormal findings (principal) ==

== ENCOUNTER 2024-10-02 14:08 | Outpatient (POV) | payer MEDICARE, SELFPAY ==
--- NOTE | 2024-10-02 14:37 | A.OFFVIS_ITS ---
[facility] Disclaimer: The information contained in this section may have been updated after the patient was seen, as this information can be updated by other users. Medical History Tinnitus of both ears Hearing loss HTN (hypertension) HTN (hypertension) Surgical History History of total right knee replacement Family History Other No significant family history Social History Smoking Status: Never smoker second hand exposure: No alcohol intake: never substance use type: denies use current occupational status: other Travel in the last 8 weeks: None household members: other housing: house current occupational exposures/hazards: No caffeine: No PM Subjective & Objective Subjective Subjective:: Patient is a pleasant 79-year-old male who presents today for follow-up of bilateral lumbar paraspinous trigger point injections on 09/10/2024. Today he rates his pain a 1 or 2 out of 10 they are in his low back and reports at least 90% improvement following these injections and feels like it still helping. Patient denies any new trauma or injury. He does state however that he is having increased neck pain and rates that a 5 out of 10. Patient states that he has been having a lot more trouble with certain positions such as bending or twisting from [id number]. 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 Patient did previously have a cervical RFA in the past that did provide 85% relief and has done a really good job overall up until the last couple months. Patient does also state his last bilateral SI injections done in June still seem to be helping. Patient does state due to the worsening pain in his neck and limited range of motion he would like to see about having additional injection therapy for this pain. His Odell has been reviewed and is appropriate. Review of Systems: General: No recent weight changes, no fever, no sleep disturbances Respiratory: No cough, no shortness of air, no recurring pulmonary infections Cardiovascular/peripheral vascular: No chest pain, no palpitations, no edema, no shortness of breath Gastrointestinal: No new onset incontinence, normal bowel movements reported Genitourinary: No new onset incontinence Musculoskeletal: Neck pain Psychiatric: [Normal mood/affect] Neurological: [Denies weakness in extremities], [denies balance issues] Pain at rest (0-10 scale): 5 Objective Objective:: Physical Exam: General: Alert and oriented x3, no acute distress, pleasant and cooperative Lungs: Respirations even and unlabored, symmetrical chest expansion Eyes: PERRL Musculoskeletal: Flexion and extension of cervical [spine] somewhat guarded secondary to pain, [antalgic gait noted] positive Kemps test Neurological: Speech clear, no gross sensory deficit Has patient had previous pain injection?: Yes Percent improvement in pain since last injection: 90% Conservative treatment options previously tried: Home exercise plan Length of treatment: Longer than 12 weeks Meds Home Medications and Allergies Home Medications ?Medication ?Instructions ?Recorded ?Confirmed ?Type fenofibrate 160 mg tablet 160 mg PO DAILY Cholesterol 01/17/18 09/23/24 History ferrous sulfate 325 mg (65 mg 325 mg PO DAILY iron 01/17/18 09/23/24 History iron) tablet tramadol 50 mg tablet 50 mg PO DAILYP PRN pain 07/16/19 09/23/24 History tizanidine 4 mg tablet (Zanaflex) 4 mg PO HS . 06/20/23 09/23/24 History meloxicam 15 mg tablet 15 mg PO DAILY #30 tabs 08/31/23 09/23/24 Rx amlodipine 5 mg tablet 5 mg PO DAILY 09/25/23 09/23/24 History pramipexole 0.25 mg tablet 0.25 mg PO BID 02/05/24 09/23/24 History New Prescriptions to Start Prescriptions: Allergies Allergy/AdvReac Type Severity Reaction Status Date / Time SEASONAL ALLERGIES Allergy Unknown RUNNY NOSE Uncoded 09/23/24 11:27 ETC Assessment and Plan *Assessment and plan (1) Facet arthropathy, cervical: Status: Acute Category: Medical Code(s): M47.812 - Spondylosis without myelopathy or radiculopathy, cervical region (2) Neck pain: Status: Acute Category: Medical Code(s): M54.2 - Cervicalgia Plan Patient is experiencing worsening pain in his neck with limited range of motion and a positive Kemps test. Patient did previously have a cervical RFA of C5-C6 and C6-C7 back on September 12, 2023. Patient did report 85% relief and has lasted up until the last month or 2. Patient did have significant improved function with this injection. I did discuss risk and benefits of repeat injection and he would like to proceed forward with this plan of care. We will submit to insurance for the radiofrequency ablation of C5-C6 and C6-C7 under fluoroscopy. This will be a thermal nonpulsed radiofrequency ablation at 80 ?C. Patient has tried and failed conservative therapy including oral medications, heat and ice, topicals, continued at home stretching exercise for longer than 12 weeks. Patient has been instructed to contact the clinic with any concerns before the next appointment. Dr. Aguilar has reviewed this note and agrees with this plan of care. This note was dictated using voice recognition software and make contain errors or omissions. All injections are used with Lidocaine or Bupivacaine and Depo Medrol.
[2024-10-02 15:17] VITALS: BP 128/85; PULSE 82; RESP 14; O2SAT 96; BMI 24.7
== END 2024-10-02 23:59 | disposition home or self-care (01) ==
LOC: SC.PAIN 14:09
PROVIDERS: PCP Internal Medicine Adolescent Medicine; Visit Provider Nurse Practitioner Family
DX: M47.812 Spondylosis without myelopathy or radiculopathy, cervical region (principal); M54.2 Cervicalgia; Z96.651 Presence of right artificial knee joint
CPT/HCPCS: 99212; G0463

== ENCOUNTER 2024-10-15 10:34 | Day surgery (SDC) | payer MEDICARE, SELFPAY ==
[2024-10-15 11:00] VITALS: BP 152/87; PULSE 77; RESP 16; O2SAT 96; BMI 25.1
[2024-10-15 11:14] VITALS: BP 152/83; PULSE 71; RESP 18; O2SAT 94
[2024-10-15] MEDS: BUPIVACAINE 0.25% 10ML INJ 25 MG IJ (11:14)
[2024-10-15] MEDS: methylPREDNISolone ACETATE 80MG/ML VIAL 80 MG (11:14)
[2024-10-15] MEDS: LIDOCAINE 1% 5ML PF VIAL 5 ML (11:14)
[2024-10-15 11:17] VITALS: BP 152/83; PULSE 71; RESP 18; O2SAT 94
[2024-10-15 11:27] VITALS: BP 142/90; PULSE 71; RESP 16; O2SAT 97
--- NOTE | 2024-10-15 12:26 | EXP.PAIN.PRO ---
Procedure Date: 10/15/24 Time: 11:00 Anesthesiologist:: Stephan Mejia CRNA Complications:: None Pre-procedure Diagnosis:: Degenerative disc cervical spine multilevels. Cervical radiculopathy. Cervical facet arthropathy. Cervical spondylosis. Post-procedure Diagnosis:: Same. Indications for Procedure:: Is a pleasant 79-year-old male who comes our clinic today for right C5-6, C6-7 radiofrequency ablation cervical spine. Patient responded very well to previous blocks at the same levels. He reports having difficulty with cervical flexion, extension, left and right rotation. He reports his right side is worse than the left. He will return in 2 weeks for the left side cervical C5-6, C6-7 radiofrequency ablation. Procedure Details:: Procedure Details: Cervical RFA Informed consent was obtained and the risk and benefits of the procedure was explained to the patient. Patient was placed prone on the procedure table. The patient was prepped and draped in sterile fashion. C-arm fluoroscopy was used to view the lumbar spine. The skin and subcutaneous tissues were anesthetized using lidocaine. I placed 20-gauge RF needles into the facet joints of C5- C6 and C6-C7 levels on the right side. We underwent sensory stimulation. There is good sensory stimulation at 0.8 V. We underwent motor stimulation. There is no motor stimulation at 2.5 V. We then anesthetized these levels with lidocaine and Depo-Medrol. I used a total of 40 mg Depo-Medrol for both levels. I then burned both levels of C5-C6 and C6-C7 facet joint/medial branches on the right side for 4 minutes at 80 ?C. Patient tolerated the procedure well with no complication. Plan and Disposition:: We will follow-up with him in 2 weeks. Will reevaluate her symptoms at that time and plan on RF ablation to the facet joint/medial branches of C5-C6 and C6-7 on the left side. Plan and Disposition:: Patient was discharged without incident
== END 2024-10-15 11:27 | disposition home or self-care (01) ==
LOC: SC.PAINP 10:35
PROVIDERS: PCP Internal Medicine Adolescent Medicine; Visit Provider Nurse Anesthetist, Certified Registered
DX: M47.812 Spondylosis without myelopathy or radiculopathy, cervical region (principal); M50.10 Cervical disc disorder with radiculopathy, unspecified cervical region
CPT/HCPCS: 64633; 64634; J1010

== ENCOUNTER 2024-10-29 08:32 | Day surgery (SDC) | payer MEDICARE, SELFPAY ==
[2024-10-29 08:48] VITALS: BP 141/95; PULSE 65; RESP 16; TEMP 36.5; O2SAT 97; BMI 25.1
--- NOTE | 2024-10-29 08:55 | EXP.PAIN.PRO ---
Procedure Date: 10/29/24 Time: 08:50 Anesthesiologist:: Stephan Mejia CRNA Complications:: None Pre-procedure Diagnosis:: Degenerative disc cervical spine multilevels. Cervical radiculopathy. Cervical facet arthropathy. Cervical spondylosis. Post-procedure Diagnosis:: Same. Indications for Procedure:: Patient is a very pleasant 79-year-old male who comes our clinic today for left side C5-6, C6-7 radiofrequency ablation. Patient doing well following right side cervical radiofrequency ablation at the same levels 2 weeks ago. Patient describes cervical neck pain is posterior in nature. However, difficulty with cervical flexion, extension, left and right rotation. Procedure Details:: Procedure Details: Left cervical RFA Informed consent was obtained and the risk and benefits of the procedure was explained to the patient. Patient was placed prone on the procedure table. The patient was prepped and draped in sterile fashion. C-arm fluoroscopy was used to view the lumbar spine. The skin and subcutaneous tissues were anesthetized using lidocaine. I placed 20-gauge RF needles into the facet joints of C5- C6 and C6-C7 levels on the left side. We underwent sensory stimulation. There is good sensory stimulation at 0.8 V. We underwent motor stimulation. There is no motor stimulation at 2.5 V. We then anesthetized these levels with lidocaine and Depo-Medrol. I used a total of 40 mg Depo-Medrol for both levels. I then burned both levels of C5-C6 and C6-C7 facet joint/medial branches on the right side for 4 minutes at 80 ?C. Patient tolerated the procedure well with no complication. Plan and Disposition:: Patient was discharged without incident.
[2024-10-29] MEDS: LIDOCAINE 1% 5ML PF VIAL 5 ML (09:00)
[2024-10-29] MEDS: BUPIVACAINE 0.25% 10ML INJ 25 MG IJ (09:00)
[2024-10-29] MEDS: IOPAMIDOL-200 (41%);10ML VIAL 10 ML IV (09:00)
[2024-10-29 09:03] VITALS: BP 148/79; PULSE 73; RESP 18; O2SAT 93
[2024-10-29 09:07] VITALS: BP 148/79; PULSE 73; RESP 18; O2SAT 93
[2024-10-29 09:08] VITALS: BP 143/81; PULSE 75; RESP 16; O2SAT 97
== END 2024-10-29 09:08 | disposition home or self-care (01) ==
PROVIDERS: PCP Internal Medicine Adolescent Medicine; Visit Provider Nurse Anesthetist, Certified Registered
DX: M47.812 Spondylosis without myelopathy or radiculopathy, cervical region (principal); M50.10 Cervical disc disorder with radiculopathy, unspecified cervical region
CPT/HCPCS: 64633; 64634; J1010; Q9966

== ENCOUNTER 2024-11-11 08:36 | Outpatient (POV) | payer MEDICARE, SELFPAY ==
[2024-11-11 08:45] LABS: Microscopic, Urine URINE MICROSCOPIC (MICROSCOPIC)
--- NOTE | 2024-11-11 08:49 | EXP.PAIN.SOA ---
[facility] Disclaimer: The information contained in this section may have been updated after the patient was seen, as this information can be updated by other users. Medical History Tinnitus of both ears Hearing loss HTN (hypertension) HTN (hypertension) Surgical History History of colonoscopy History of total right knee replacement Family History Other No significant family history Social History Smoking Status: Never smoker second hand exposure: No alcohol intake: never substance use type: denies use current occupational status: other Travel in the last 8 weeks: None household members: other housing: house current occupational exposures/hazards: No caffeine: No Have you lived/traveled outside [place] in past 30 days?: No Contact w/someone who lives/traveled outside US past 30 days?: No Exposure to someone with infectious disease in past 14 days?: No Do you have a fever (greater than 100.4 F or 38 C)?: No Have you tested positive for COVID-19: No Exposed to someone with COVID-19 in past 14 days?: No Do you have a sore throat?: No Do you have a cough?: No Do you have any weakness?: No Do you have any diarrhea?: No Are you experiencing any unusual bleeding?: No Do you have any muscle aches/pain?: No Do you have any abdominal pain?: No Are you experiencing loss of taste or smell?: No PM Subjective & Objective Subjective Subjective:: Patient is a pleasant 79-year-old male who presents today for follow-up of left-sided cervical radiofrequency ablation C5-C6 and C6-C7 on 10/29/2024. Today he rates his pain a 0 out of 10. He states that he has had at least 75 to 80% improvement following this procedure. He does state that his movements are much less painful and have eased up significantly. He does state that he has been having a little bit more knee pain on the left side. He states he did have a injection from Dr. Boothe here at [facility] back in September and it does help some however he has to be very mindful when he is walking regarding uneven spots. Patient denies any other changes. He does state that he is back to using some lidocaine and it does seem like it is helping with the pain. His Odell has been reviewed and is appropriate. Review of Systems: General: No recent weight changes, no fever, no sleep disturbances Respiratory: No cough, no shortness of air, no recurring pulmonary infections Cardiovascular/peripheral vascular: No chest pain, no palpitations, no edema, no shortness of breath Gastrointestinal: No new onset incontinence, normal bowel movements reported Genitourinary: No new onset incontinence Musculoskeletal: Left knee pain Psychiatric: [Normal mood/affect] Neurological: [Denies weakness in extremities], [denies balance issues] Pain at rest (0-10 scale): 0 Objective Objective:: Physical Exam: General: Alert and oriented x3, no acute distress, pleasant and cooperative Lungs: Respirations even and unlabored, symmetrical chest expansion Eyes: PERRL Musculoskeletal: Flexion and extension of [] [spine] somewhat guarded secondary to pain, [antalgic gait noted] Neurological: Speech clear, no gross sensory deficit Has patient had previous pain injection?: Yes Percent improvement in pain since last injection: 75 to 80% Conservative treatment options previously tried: Home exercise plan Length of treatment: Longer than 12 weeks Meds Home Medications and Allergies Home Medications ?Medication ?Instructions ?Recorded ?Confirmed ?Type fenofibrate 160 mg tablet 160 mg PO DAILY Cholesterol 01/17/18 10/29/24 History ferrous sulfate 325 mg (65 mg 325 mg PO DAILY iron 01/17/18 10/29/24 History iron) tablet amlodipine 5 mg tablet 5 mg PO DAILY 09/25/23 10/29/24 History pramipexole 0.25 mg tablet 0.25 mg PO BID 02/05/24 10/29/24 History New Prescriptions to Start Prescriptions: Allergies Allergy/AdvReac Type Severity Reaction Status Date / Time SEASONAL ALLERGIES Allergy Unknown RUNNY NOSE Uncoded 10/16/24 09:08 ETC Assessment and Plan *Assessment and plan (1) Bilateral sacroiliitis: Status: Acute Category: Medical Code(s): M46.1 - Sacroiliitis, not elsewhere classified (2) Lumbar stenosis: Status: Acute Category: Medical Code(s): M48.061 - Spinal stenosis, lumbar region without neurogenic claudication (3) Degenerative disc disease, lumbar: Status: Acute Category: Medical Code(s): M51.369 - Other intervertebral disc degeneration, lumbar region without mention of lumbar back pain or lower extremity pain (4) Lumbar facet arthropathy: Status: Acute Category: Medical Code(s): M47.816 - Spondylosis without myelopathy or radiculopathy, lumbar region (5) Facet arthropathy, cervical: Status: Acute Category: Medical Code(s): M47.812 - Spondylosis without myelopathy or radiculopathy, cervical region Plan Patient has had significant improvement following his cervical RFA left-sided and does not require any additional interventions at this time. Patient will return to clinic in 6 weeks for reevaluation of symptoms and plan of care. Patient has been instructed to contact the clinic with any concerns before the next appointment. Dr. Aguilar has reviewed this note and agrees with this plan of care. This note was dictated using voice recognition software and make contain errors or omissions. All injections are used with Lidocaine, Bupivacaine and Depo Medrol. Occasionally urine drug screen is needed to verify patient's compliance with our office pain contract. This is ordered based off specific treatments related to chronic pain with the potential to abuse certain medications.
[2024-11-11 09:12] LABS: Hematocrit 41.1 % (42.0-52.0); Hemoglobin 13.5 g/dL (14.1-18.0); Mean Corpuscular HGB Conc 32.8 g/dL (31.8-35.4); Mean Corpuscular Volume 88.2 fl (80-94); Platelet Count 177 K/mm3 (142-424); Red Blood Count 4.66 M/mm3 (4.60-6.20); Red Cell Distribution Width 13.2 % (11.5-17.5)
[2024-11-11 09:17] LABS: Appearance,Urine CLEAR (Clear); Bilirubin,Urine Negative (Negative); Blood, Urine Negative (Negative); Color,Urine YELLOW (Yellow); Glucose,Urine (UA) Negative (Negative); Ketones,Urine Negative (Negative); Leukocyte Esterase,Urine 2+ (Negative); Nitrate,Urine Negative (Negative); Protein,Urine Negative (Negative); Urobilinogen,Urine 0.2 EU/dl (0.2)
[2024-11-11 09:36] LABS: Blood Urea Nitrogen 15 mg/dl (9-20); Calcium 10.3 mg/dl (8.4-10.2); Chloride 101 mmol/L (98-107); Estimated Glomerular Filt Rate 82 ml/min (>60); GFR (African American) 99 ML/MIN (>60); Glucose 83 mg/dl (74-100); Potassium 4.4 mmoL/L (3.5-5.1); Sodium 137 mmol/L (136-145)
[2024-11-11 09:37] LABS: Albumin Level 4.5 g/dl (3.5-5.0); Anion Gap 12.4 mEq/L (5-15); Carbon Dioxide 28 mmol/L (22.0-30.0)
[2024-11-11 09:47] LABS: Intact Parathyroid Hormone 17.1 pg/mL (7.5-53.5)
[2024-11-11 09:53] LABS: 25-OH Vitamin D, Total 34.9 ng/mL (30-100)
[2024-11-11 10:13] LABS: WBC,Urine Occasional #/hpf (0-3)
[2024-11-11 10:33] LABS: Creatinine,Urine Random 56 mg/dL (Not Estab.)
[2024-11-11 11:30] VITALS: BP 144/72; PULSE 86; RESP 18; O2SAT 95; BMI 24.7
== END 2024-11-11 23:59 | disposition home or self-care (01) ==
LOC: SC.PAIN 08:38
PROVIDERS: Student in an Organized Health Care Education/Training Program; PCP Internal Medicine Adolescent Medicine; Visit Provider Nurse Practitioner Family
DX: M46.1 Sacroiliitis, not elsewhere classified (principal); M48.061 Spinal stenosis, lumbar region without neurogenic claudication; M51.369 Other intervertebral disc degeneration, lumbar region without mention of lumbar back pain or lower extremity pain; M47.816 Spondylosis without myelopathy or radiculopathy, lumbar region; M47.812 Spondylosis without myelopathy or radiculopathy, cervical region; N28.1 Cyst of kidney, acquired; E55.9 Vitamin D deficiency, unspecified
CPT/HCPCS: 36415; 80069; 81001; 82306; 82570; 83970; 84156; 85027; 87086; 87088; 99212; G0463

== ENCOUNTER 2024-11-28 12:45 | Outpatient (CLI) | payer MEDICARE, SELFPAY ==
--- NOTE | 2024-11-28 12:46 | CT_ITS ---
FINAL REPORT TECHNIQUE: Thin section axial CT images with coronal and sagittal reformats were performed. This study was performed with techniques to keep radiation doses as low as reasonably achievable (ALARA). Individualized dose reduction techniques using automated exposure control or adjustment of mA and/or kV according to the patient''s size were employed. CLINICAL HISTORY: Lt Knee, my knee protocol for new replacement FINDINGS: There is marginal knee compartment joint space narrowing. There is subchondral sclerosis and osteophyte formation at the medial and lateral joint margins. There are well-corticated ossific structures are identified at the anterior margin of the lateral compartment joint space. Structures measures up to 1.3 cm in greatest dimension. There is moderate osteophyte formation at the medial joint margin. Moderate joint effusion is present. IMPRESSION: Moderate changes of osteoarthritis, particularly at the medial compartment joint space. Intra-articular loose bodies at the anterior margin of the lateral compartment joint space. Reviewed, Interpreted and Dictated by Branden Bear MD Transcribed by Lilibeth Vigil Authenticated and [facility]
== END 2024-11-28 23:59 | disposition home or self-care (01) ==
LOC: RAD 12:46
PROVIDERS: PCP Internal Medicine Adolescent Medicine; Visit Provider Orthopaedic Surgery
DX: M17.12 Unilateral primary osteoarthritis, left knee (principal)
CPT/HCPCS: 73700

== ENCOUNTER 2024-12-27 09:05 | Outpatient (CLI) | payer MEDICARE, SELFPAY ==
--- NOTE | 2024-12-27 09:33 | ECG_ITS ---
APPROVED REPORT Exam: Resting ECG HR:93 bpm ECG Measurements Heart Rate 93 AXES DE 175 P 26 QRSd 98 QRS -31 QT 321 T 62 QTc 372 Conclusion SINUS RHYTHM LEFT AXIS DEVIATION [QRS AXIS < -30] ABNORMAL ECG UNCONFIRMED REPORT Electronically signed by : Gil Aguilar MD 12/28/2024 13:28:11
[2024-12-27 09:36] VITALS: BMI 25.8
[2024-12-27 09:44] LABS: Basophils % 0.1 % (0.1-2.0); Eosinophils % 0.3 % (0.1-12.0); Hematocrit 38.2 % (42.0-52.0); Hemoglobin 13.1 g/dL (14.1-18.0); Lymphocytes # 1.4 K/mm3 (0.7-4.5); Lymphocytes % 15.9 % (10-50); Mean Corpuscular HGB Conc 34.3 g/dL (31.8-35.4); Mean Corpuscular Hemoglobin 30.4 pg (27.0-31.2); Mean Corpuscular Volume 88.6 fl (80-94); Mean Platelet Volume 11.3 fl (7.4-10.4); Monocytes # 2.1 K/mm3 (0.1-1.0); Monocytes % 24.8 % (1.7-9.3); Neutrophils # 4.9 K/mm3 (1.8-7.8); Neutrophils % 57.3 % (37.0-80.0); Platelet Count 180 K/mm3 (142-424); Red Blood Count 4.31 M/mm3 (4.60-6.20); Red Cell Distribution Width 12.1 % (11.5-17.5); White Blood Count 8.6 K/mm3 (4.8-10.8)
[2024-12-27 09:46] LABS: MANUAL DIFFERENTIAL MANUAL DIFFERENTIAL (MANUAL DIFF)
[2024-12-27 09:55] LABS: Blood Urea Nitrogen 20 mg/dl (9-20); Calcium 9.8 mg/dl (8.4-10.2); Carbon Dioxide 24 mmol/L (22.0-30.0); Chloride 102 mmol/L (98-107); Creatinine Clearance Estimated 71 mL/min (50-200); Estimated Glomerular Filt Rate 82 ml/min (>60); GFR (African American) 99 ML/MIN (>60); Glucose 96 mg/dl (74-100); Sodium 133 mmol/L (136-145)
[2024-12-27 10:33] LABS: Lymphocytes % 20 % (10-50); Monocytes % 16 % (2-9); Neutrophils % 63 % (42-76); Total Cells Counted 100
[2024-12-27 10:35] LABS: RBC Morphology Normal
[2024-12-27 10:36] LABS: Platelet Estimate Normal
== END 2024-12-27 23:59 | disposition home or self-care (01) ==
LOC: PREOP 09:06
PROVIDERS: Nurse Anesthetist, Certified Registered; PCP Internal Medicine Adolescent Medicine; Visit Provider Orthopaedic Surgery
DX: R94.31 Abnormal electrocardiogram [ECG] [EKG] (principal)
CPT/HCPCS: 80048; 85007; 85025; 85027; 93005

== ENCOUNTER 2024-12-30 07:07 | Observation (INO) | payer MEDICARE, SELFPAY ==
--- NOTE | 2024-12-09 11:25 | SW/DCPLANNER ---
I have attempted to contact this patient regarding upcoming total knee procedure on 12/30: no answer/VM left at this time.
--- NOTE | 2024-12-09 13:36 | SW/DCPLANNER ---
I spoke w/ this patient regarding plans once medically stable for discharge from knee replacement surgery on 12/30. Patient stated that he resides at home w/ his and plans to return back home w/ his w/ home health services. I will follow up w/ this patient once he is admitted to [facility] to ensure a safe discharge plan.
[2024-12-27 10:14] VITALS: BMI 25.8
[2024-12-30] VITALS (24 sets, daily range): BP systolic 136–160; BP diastolic 74–99; PULSE 89–115; RESP 14–18; TEMP 36.7–43; O2SAT 92–98; BMI 25.8
[2024-12-30] MEDS: LACTATED RINGERS 1000ML 1,000 ML 100 ML IV (06:55)
--- NOTE | 2024-12-30 07:24 | P.PNANES_ITS ---
[facility] Disclaimer: The information contained in this section may have been updated after the patient was seen, as this information can be updated by other users. Medical History HLD (hyperlipidemia) Tinnitus of both ears Hearing loss HTN (hypertension) HTN (hypertension) Surgical History History of colonoscopy History of total right knee replacement Family History Other Family history of bladder cancer Family history of hypertension Family history of osteoporosis Social History Smoking Status: Never smoker second hand exposure: No alcohol intake: never substance use type: denies use current occupational status: retired Travel in the last 8 weeks: None household members: other housing: house current occupational exposures/hazards: No caffeine: No Have you lived/traveled outside US in past 30 days?: No Contact w/someone who lives/traveled outside US past 30 days?: No Exposure to someone with infectious disease in past 14 days?: No Do you have a fever (greater than 100.4 F or 38 C)?: No Have you tested positive for COVID-19: No Exposed to someone with COVID-19 in past 14 days?: No Do you have a sore throat?: No Do you have a cough?: No Do you have any weakness?: No Do you have any diarrhea?: No Are you experiencing any unusual bleeding?: No Do you have any muscle aches/pain?: No Do you have any abdominal pain?: No Are you experiencing loss of taste or smell?: No [facility] Anesthesia Checklist Patient Identification Patient Identification: Arm Band, Family and Verbal (Name & ) Structural Data Admitted From: Home Planned Operative Procedure/s: LEFT TKA Consent for Planned Operative Procedure(s) Verified: Yes Verified Documents: Surgical Consent and History and Physical NPO Status Verified Time NPO: 00:00 Chart Verification Results Verified: CBC, BMP and ECG Additional verifications Patient : No Anesthesia Reactions: No Hx Blood Transfusions: No Blood Transfusion Reaction: No Cardiovascular Assessment Heart Sounds: S1 & S2 Pulse Rhythm: Irregular Peripheral Edema: No Airway Assessment Mallampati Score:: Class II C-Spine Mobility Assessed: Yes (FROM demonstrated) TMJ Mobility Assessed: Yes Dentition: Good Dentition (Nothing loose per pt.) Neurological Assessment Level of Consciousness: Awake, Alert, Appropriate and Follows Commands Hx Seizures: No Numbness or tingling in extremities: No Anesthesia Plan Anesthesia Risk discussed: Yes Anesthesia Plan: Verified ASA Class: III Anesthesia Type: General w/block (Adductor canal in PACU)
[2024-12-30] MEDS: CEFAZOLIN SODIUM 2 GM in 0.9 % SODIUM CHLORIDE 100 ML IV (07:45)
--- NOTE | 2024-12-30 07:50 | HMH.PHAINT1 ---
Pharmacy Intervention Comments: MEDICATION RECONCILIATION COMPLETED ON PATIENT USING EXTERNAL FILL HISTORY FROM PHARMACY. -AMANDA ELLSWORTH, KEVIND
[2024-12-30] MEDS: TRANEXAMIC ACID 1,000 MG in 0.9 % SODIUM CHLORIDE 250 ML 520 MG IV ×2 (08:00→10:30)
--- NOTE | 2024-12-30 10:26 | XR_ITS ---
FINAL REPORT CLINICAL HISTORY: s/p left tka COMPARISON: 03/14/2024 FINDINGS: Two views of the left knee were obtained. There are normal post arthroplasty changes. A normal joint effusion is noted with pneumarthrosis. IMPRESSION: Normal postoperative changes from total knee arthroplasty. Reviewed, Interpreted and Dictated by Edith Barrientos MD Transcribed by Nubia Christensen Authenticated and [facility]
--- NOTE | 2024-12-30 10:31 | P.PNANES_ITS ---
[facility] Anesthesia Record Part I Anesthesia Record I Intake, IV Amount: 1,200 Hydration: Adequate Estimated blood loss (mL): 75 Urine output (mL): 0 Blood Products used (#): none Blood Pressure: 147/83 SaO2: 92 Pulse Rate: 115 Airway Patency: Patent Respiratory Rate: 14 Temperature: 98.3 F Patient is:: Awake (Talking) and Stable Stable to PACU at:: 10:33
[2024-12-30] MEDS: MORPHINE 2MG/ML SYRINGE 2 MG IV (11:36)
--- NOTE | 2024-12-30 12:54 | EXP.ANES.II ---
[facility] Anesthesia Record Part II Anesthesia Record Part II Discharge Time: 10:58 Destination: Surgical Day Care (OP Surgery) PACU nurse assessment reviewed?: Yes Patient Condition:: Good Anesthesia Complications:: None Swallowing reflex intact?: Yes Airway Patency: Patent Cyanosis?: No Blood Pressure: 149/99 SaO2: 93 Respiratory Rate: 16 Pulse Rate: 109 Temperature: 98.3 F Mental Status: Alert & Oriented Pain level:: 0 Nausea and/or vomitting:: None Intake, IV Amount: 1,200 Hydration: Adequate
[2024-12-30] MEDS: ACETAMINOPHEN 500MG TAB 1000 MG PO ×2 (13:01→17:49)
[2024-12-30] MEDS: OXYCODONE 5MG IMMEDIATE RELEASE TABLET 5 MG PO ×3 (13:02→21:06)
[2024-12-30] MEDS: METHOCARBAMOL 500MG TABLET 500 MG PO (13:19)
--- NOTE | 2024-12-30 13:55 | HMH.PTEV ---
Physical Therapy Evaluation Rehab PT IP Evaluation Start: 12/30/24 10:24 Freq: ONCE Status: Active Protocol: Document 12/30/24 13:48 LEONARDO (Rec: 12/30/24 13:55 LENOARDO [id number]) Subjective/History History History Pt is a 79yom who presents s/p LTKA POD 0. Pt's PMH is remarkable for HLD (hyperlipidemia) Tinnitus of both ears Hearing loss HTN (hypertension) R TKA Subjective Subjective Pt is alert and oriented x3. Pt reports that he lives in a 1 story house with 0 TIO. He reports that prior to surgery he was fully independent with all ADLs and mobility. He reports that he has both a cane and walker, which he does not use. He reports that he brought his walker for use after surgery. He reports that he has feeling in his feet and toes. New diagnosis of cancer in past 12 No months? Rehab PT IP Eval Objective Appearance Patient Behavior Appropriate,Patient Baseline Patient Orientation Person,Place,Time Difficulty following instructions none Speech Pattern Clear,Patient Baseline Ambulation Patient Able to Ambulate Yes Ambulation Observation IP General Gait Pattern Observation Decrease Weight Bear (L), Decrease Stride Lngth (R) Ambulation Distance (feet) 40 Ambulation Assistive Device Rolling Walker Ambulation Ability Contact Guard/Hand Hold Balance Ability to Arise Able, uses arms to help Sitting Balance Steady, safe Standing Balance Steady, wide stance Dynamic Sitting Balance Ability Good Dynamic Standing Balance Ability Fair Transfers Bed Transfer Ability Moderate x 1 (50% assist) Chair Transfer Ability Contact Guard/Hand Hold Sit to Stand Bed Transfer Ability Contact Guard/Hand Hold Sit to Stand Chair Transfer Ability Contact Guard/Hand Hold Rehab PT IP prob,goals,plan Problems Date of Evaluation: 12/30/24 PT IP Problems Bed Mobility,Transfers,Gait, Balance,Self care,Safety Rehab Potential Rehab Potential Good Equipment Needs Assistive Devices None / NA Plan PT Intervention Plan Bed Mobility,Transfers,Gait, Balance,Self care,Safety, Therapeutic Exercise PT Plan Frequency BID Duration LOS Discharge Goals Bed Transfer Ability Supervision/Stand by Sit to Stand Chair Transfer Ability Supervision/Stand by Ambulation Assistive Device Rolling Walker Ambulation Distance (feet) 100 Discharge Plan PT Discharge Plan PT is recommending discharge to home with outpatient PT, presently. Pt would benefit from skilled PT during his acute stay to begin LE strengthening and ROM, assist with transfers and mobility, and to prevent falls. Eval Complexity Eval Charge Codes 33897 - Low Complexity PHYSICIAN CERTIFICATION: I certify the specified therapy services for Mak Martell are required, authorized, and reviewed every 30 days.
--- NOTE | 2024-12-30 14:01 | HMH.OTEV ---
OT Inpatient Evaluation Rehab OT IP Evaluation Start: 12/30/24 10:24 Freq: ONCE Status: Active Protocol: Document 12/30/24 13:56 CHIQUITA (Rec: 12/30/24 14:01 CHIQUITA [id number]) Rehab OT IP Assessment Subjective History 79 year old male referred to skilled OT IP services with s/ p left tka on 12/30/24. Independent with ADLs and fx'l mobility prior to hospitalization. Subjective I would like to use the restroom. Instructed Patient on safety awareness to complete bed mobility, transfers, and fx'l mobility with usage of rollator. Patient maneuver to restroom with rollator ~25ft with CGA. Patient completed toileting task with CGA with usage of rollator. SBA for hand hygiene while standing. s /u for toilet hygiene. Assisted patient back to EOB with CGA. Left Patient sitting upright in bed with needs met at end of session. Objective Patient Orientation Person,Place,Name,Birthday Right Upper Extremity Gross ROM WFL Left Upper Extremity Gross ROM WFL Bed Mobility bed mobility - supine/sit Assist Level Contact Guard/Hand Hold Transfer Training Sit/Stand/Step Transfer Assist Level Contact Guard/Hand Hold Chair Transfer Ability Contact Guard/Hand Hold Chair Transfer Technique Sit to/from Ambulatory Chair Transfer Assistive Devices Rolling Walker Rehab OT IP prob,goals,plan Problems Date of Evaluation: 12/30/24 OT IP Problems Bed Mobility,Transfers,Balance ,Self care,Safety Rehab Potential Rehab Potential Good Equipment Needs Assistive Devices Rolling / Wheeled Walker Plan OT intervention Plan Bed Mobility,Transfers,Balance ,Self care,Safety,Therapeutic Exercise OT Plan Frequency Daily Duration LOS Discharge Goals Bed Mobility Ability Standby Assistance Sit to Stand Chair Transfer Ability Supervision/Stand by Chair Transfer Ability Supervision/Stand by Chair Transfer Technique Sit to/from Ambulatory Chair Transfer Assistive Devices Rolling Walker Discharge Plan OT Discharge Plan Recommend Patient return home with . Recommend OP therapy services after medical d/c. Patient to continue skilled OT services while here at [facility]. Eval Complexity Eval Charge Codes 57597 - Low Complexity PHYSICIAN CERTIFICATION: I certify the specified therapy services for Mak Angus Wheary are required, authorized, and reviewed every 30 days.
[2024-12-30] MEDS: Dex 5% in 0.45% NaCl 1,000 ML 75 ML IV (14:39)
[2024-12-30] MEDS: CEFAZOLIN SODIUM 1 GM in 0.9 % SODIUM CHLORIDE 50 ML IV ×2 (16:11→21:07)
--- NOTE | 2024-12-30 17:33 | PC.NURSE ---
AOX4, LEFT TOTAL KNEE PERFORMED TODAY. MEDICATED FOR PAIN PER MAR WITH GOOD EFFECTIVENESS. POLAR PACK IN PLACE TO LEFT KNEE. HE IS NOT REQUIRING O2 SUPPORT AT THIS TIME. AMBULATING TO RESTROOM WITH WALKER AND STANDBY ASSIST. TOLERATING DIET WELL. NO OTHER COMPLAINTS VOICED.
--- NOTE | 2024-12-30 19:30 | PC.NURSE ---
Pt has a temp of 103.3 despite having tylenol 2 hours prior to now. Pt seems to be quiet confused and requires x2 assist with toileting. Contacted Dr. Boothe, new orders received.
--- NOTE | 2024-12-30 19:45 | PC.NURSE ---
Cooling protocol initiated. Pt and Pts educated on need for cooling measures. Alarm activated due to confusion. Pt is currently alert to self.
[2024-12-30] MEDS: IBUPROFEN 600 MG TABLET PO (19:46)
--- NOTE | 2024-12-30 20:05 | XR_ITS ---
PROCEDURE INFORMATION: Exam: XR Chest Exam date and time: 12/30/2024 10:34 PM Age: 79 years old Clinical indication: Other: Post op TECHNIQUE: Imaging protocol: Radiologic exam of the chest. Views: 1 view. COMPARISON: CR XR CHEST 2V 12/18/2023 10:47 AM FINDINGS: Lungs: Low lung volumes. Medial right lung airspace disease. Pleural spaces: Unremarkable. No pleural effusion. No pneumothorax. Heart/Mediastinum: Unremarkable. No cardiomegaly. Vasculature: Unremarkable. Bones/joints: Unremarkable. IMPRESSION: Medial right lung airspace disease may represent developing infiltrate or atelectasis.
[2024-12-30] MEDS: ASPIRIN EC 81MG TABLET 81 MG PO (21:06)
[2024-12-31 03:03] VITALS: TEMP 37.4; BMI 25.8
--- NOTE | 2024-12-31 04:59 | PC.NURSE ---
Pt is alert and oriented x4 and currently tolerating RA well. Pt did run a fever at the beginning of the shift, temp in now 99.4. Pt did c/o in left knee and was treated per DEC. Pt has rested well this shift, without any other acute changes to note.
[2024-12-31] MEDS: OXYCODONE 5MG IMMEDIATE RELEASE TABLET 5 MG PO (05:46)
[2024-12-31] MEDS: Dex 5% in 0.45% NaCl 1,000 ML 75 ML IV (05:47)
[2024-12-31 07:27] LABS: Basophils % 0.2 % (0.1-2.0); Eosinophils % 0.2 % (0.1-12.0); Hemoglobin 10.9 g/dL (14.1-18.0); Lymphocytes # 0.7 K/mm3 (0.7-4.5); Lymphocytes % 4.3 % (10-50); Mean Corpuscular Hemoglobin 29.2 pg (27.0-31.2); Mean Corpuscular Volume 88.5 fl (80-94); Mean Platelet Volume 11.5 fl (7.4-10.4); Monocytes # 3.7 K/mm3 (0.1-1.0); Monocytes % 21.9 % (1.7-9.3); Neutrophils # 12.2 K/mm3 (1.8-7.8); Neutrophils % 72.2 % (37.0-80.0); Platelet Count 199 K/mm3 (142-424); Red Blood Count 3.73 M/mm3 (4.60-6.20); White Blood Count 16.9 K/mm3 (4.8-10.8)
[2024-12-31 07:33] LABS: MANUAL DIFFERENTIAL MANUAL DIFFERENTIAL (MANUAL DIFF)
[2024-12-31 07:57] LABS: Anion Gap 9.7 mEq/L (5-15); Blood Urea Nitrogen 15 mg/dl (9-20); Calcium 8.9 mg/dl (8.4-10.2); Carbon Dioxide 26 mmol/L (22.0-30.0); Chloride 105 mmol/L (98-107); Creatinine Clearance Estimated 72 mL/min (50-200); Estimated Glomerular Filt Rate 94 ml/min (>60); GFR (African American) 113 ML/MIN (>60); Glucose 125 mg/dl (74-100); Potassium 3.7 mmoL/L (3.5-5.1); Sodium 137 mmol/L (136-145)
[2024-12-31 08:00] VITALS: BP 146/88; PULSE 109; RESP 18; TEMP 37.4; O2SAT 96
--- NOTE | 2024-12-31 09:19 | EXP.ORTH.PN ---
Subjective *Date: 12/31/24 *Time: 16:27 Interval history: Pleasant 79 M s/p L TKA POD#[address] Boot[address]. Denies CALVO, dizziness, CP, SOB, n/v, calf pain, paresthesias. Pain 7/10, sitting uncomfortably in bed. Has not worked with PT yet. States pain meds help but has hasn't been taking them as recommended. Polar pack not working. Ortho Exam (Inpt) Vital signs and Labs for Last 24 Hours: Temp Pulse Resp BP Pulse Ox O2 Del Method 99.3 F 109 H 18 146/88 H 96 Room Air 12/31/24 08:00 12/31/24 08:00 12/31/24 08:00 12/31/24 08:00 12/31/24 08:00 12/31/24 08:00 Laboratory Results - last 24 hr 12/31/24 06:44: WBC 16.9 H, RBC 3.73 L, Hgb 10.9 L, Hct 33.0 L, MCV 88.5, MCH 29.2, MCHC 33.0, RDW 12.0, Plt Count 199, MPV 11.5 H, Neut % (Auto) 72.2, Lymph % (Auto) 4.3 L, [place] % (Auto) 21.9 H, Eos % (Auto) 0.2, Baso % (Auto) 0.2, Neut # (Auto) 12.2 H, Lymph # (Auto) 0.7, [place] # (Auto) 3.7 H, Eos # (Auto) 0.0, Baso # (Auto) 0.0, Sodium 137, Potassium 3.7, Chloride 105, Carbon Dioxide 26, Anion Gap 9.7, BUN 15, Creatinine 0.80, Estimated Creat Clear 72, Estimated GFR 94, Est GFR ( Amer) 113, Glucose 125 H, Calcium 8.9 I & O for Labs for Last 24 Hours: Intake & Output 12/28/24 12/29/24 12/30/24 12/31/24 23:59 23:59 23:59 23:59 Intake Total 2700 / 3075 615 / 615 Output Total 0 / 0 0 / 0 Balance 2700 / 3075 615 / 615 Weight 81.845 kg 81.845 kg Comment:: L knee: Polar pack in place, working. Dressing C/D/I. Grossly NVID with +2 DP, SILT at 1st DWS/PA, +motor at EHL/FHL/GS/TA. Calves soft. Assessment and Plan *Assessment and plan (1) Osteoarthritis of left knee: Problem Comment: s/p L TKA with Dr. Boothe on 12/30/24 Status: Acute Qualifiers: Osteoarthritis type: primary Qualified Code(s): M17.12 - Unilateral primary osteoarthritis, left knee Category: Medical Code(s): M17.12 - Unilateral primary osteoarthritis, left knee Plan Weightbearing as tolerated to LLE . Ambulate with a rolling walker or other devices as needed. DVT ppx: 81mg ASA BID, continue for total of 28 days. Ice as needed swelling and pain at incision site. Polar pack plugged into wall, now working, keep in place as toelrated. Pain medication as needed. Hgb/Hct: 10.9/33, stable. Discharge planning per PT recommendations. F/u 14 days post-op for post-op wound check in clinic.
[2024-12-31] MEDS: ASPIRIN EC 81MG TABLET 81 MG PO (09:21)
[2024-12-31] MEDS: FENOFIBRATE 134MG CAPSULE 134 MG PO (09:21)
[2024-12-31] MEDS: AMLODIPINE 5MG TABLET 5 MG PO (09:21)
[2024-12-31] MEDS: OXYCODONE 5MG IMMEDIATE RELEASE TABLET 10 MG PO (09:22)
[2024-12-31] MEDS: ACETAMINOPHEN 500MG TAB 1000 MG PO ×2 (09:25→13:09)
[2024-12-31 09:30] LABS: Lymphocytes % 17 % (10-50); Monocytes % 7 % (2-9); Neutrophils % 76 % (42-76); Platelet Estimate Normal; RBC Morphology Normal; Total Cells Counted 100
--- NOTE | 2024-12-31 11:52 | SW/DCPLANNER ---
Spoke with patient about home health physical therapy and out patient therapy. Patient stated that he would prefer to have out patient because it doesnt compare to how home health does. Derek Venegas
[2024-12-31] MEDS: levoFLOXacin 750 MG TABLET PO (13:09)
--- NOTE | 2024-12-31 13:15 | CARE MANAGER ---
Met with patient to discuss discharge planning needs. Patient refused the need for a bedside commode and already has a rollator which he and PT are comfortable with him using. No known needs at this time.
--- NOTE | 2024-12-31 13:33 | EXP.MED.CON ---
History of Present Illness *Admission Date: 12/31/24 *Reason for visit:: s/p TKA left knee *History of present illness: 79-year-old male who underwent total left knee replacement yesterday with orthopedics. Admitted overnight for observation and evaluation by therapy. Overnight patient developed fever to 103 and had a bump in his white cell count to 16 today. Remained stable on room air. Denies cough. Chest imaging obtained showing concern for right lower lobe patchy finding of possible airspace disease versus atelectasis. Medicine was consulted to assist with evaluation for possible pneumonia as source of fever. My evaluation, patient states he feels well this morning. Denies any chest pain, shortness of breath, nausea, vomiting. Only complaining of left knee pain which is to be expected after surgery. Alert and oriented x 4. at bedside. Tolerating p.o. intake and oral medications. [facility] Disclaimer: The information contained in this section may have been updated after the patient was seen, as this information can be updated by other users. Medical History OSCAR (obstructive sleep apnea) Parkinsons HLD (hyperlipidemia) Tinnitus of both ears Hearing loss HTN (hypertension) HTN (hypertension) Surgical History History of colonoscopy History of total right knee replacement Family History Other Family history of bladder cancer Family history of hypertension Family history of osteoporosis Social History Smoking Status: Never smoker second hand exposure: No alcohol intake: never substance use type: denies use current occupational status: retired Travel in the last 8 weeks: None household members: other housing: house current occupational exposures/hazards: No caffeine: No Review of Systems Review of Systems Review of systems (narrative): 14 point review of systems performed, pertinent positives and negatives as per HPI Exam Data for Last 24 hours Vital signs and Labs for Last 24 Hours: Temp Pulse Resp BP Pulse Ox O2 Del Method 99.3 F 109 H 18 146/88 H 96 Room Air 12/31/24 08:00 12/31/24 08:00 12/31/24 08:00 12/31/24 08:00 12/31/24 08:00 12/31/24 09:00 Laboratory Results - last 24 hr 12/31/24 06:44: WBC 16.9 H, RBC 3.73 L, Hgb 10.9 L, Hct 33.0 L, MCV 88.5, MCH 29.2, MCHC 33.0, RDW 12.0, Plt Count 199, MPV 11.5 H, Neut % (Auto) 72.2, Lymph % (Auto) 4.3 L, [place] % (Auto) 21.9 H, Eos % (Auto) 0.2, Baso % (Auto) 0.2, Neut # (Auto) 12.2 H, Lymph # (Auto) 0.7, [place] # (Auto) 3.7 H, Eos # (Auto) 0.0, Baso # (Auto) 0.0, Total Counted 100, Neutrophils % (Manual) 76, Lymphocytes % (Manual) 17, Monocytes % (Manual) 7, Platelet Estimate Normal, RBC Morphology Normal, Sodium 137, Potassium 3.7, Chloride 105, Carbon Dioxide 26, Anion Gap 9.7, BUN 15, Creatinine 0.80, Estimated Creat Clear 72, Estimated GFR 94, Est GFR ( Amer) 113, Glucose 125 H, Calcium 8.9 I & O for Last 24 hours: Intake & Output 12/28/24 12/29/24 12/30/24 12/31/24 23:59 23:59 23:59 23:59 Intake Total 2700 / 3075 615 / 615 Output Total 0 / 0 0 / 0 Balance 2700 / 3075 615 / 615 Weight 81.845 kg 81.845 kg Constitutional Constitutional: no acute distress, average body habitus and cooperative *Routine HEENT Exam Head: Present normocephalic Eye: Present EOMI and PERRL ENT: Present mucous membranes moist *Routine Neck Exam Neck: Present supple; Absent lymphadenopathy *Routine Respiratory Exam Respiratory: Present CTA bilaterally; Absent rhonchi, wheezes or crackles *Routine Cardiovascular Exam Cardiovascular: Present RRR *Routine Abdominal Exam Abdominal: Present soft and normoactive bowel sounds; Absent tenderness *Routine Rectal Exam Patient deferred: visual exam *Routine Exam Patient deferred: penile exam *Routine Extremities Exam Extremities: Absent cyanosis, clubbing or edema Comments: Left knee in postsurgical wrap, tender to palpation *Routine Skin Exam Skin: Present warm; Absent rash *Routine Neurological Exam Neurological: Present alert, oriented X3 and moving all extremities; Absent altered mental status Meds Home Medications and Allergies Home Medications ?Medication ?Instructions ?Recorded ?Confirmed ?Type fenofibrate 160 mg tablet 160 mg PO DAILY 01/17/18 12/30/24 History ferrous sulfate 325 mg (65 mg 325 mg PO DAILY 01/17/18 12/30/24 History iron) tablet amlodipine 5 mg tablet 5 mg PO DAILY 09/25/23 12/30/24 History pramipexole 0.25 mg tablet 0.25 mg PO TID 02/05/24 12/30/24 History multivitamin 1 tab PO DAILY 12/27/24 12/30/24 History levofloxacin 750 mg tablet 750 mg PO DAILY #10 tabs 12/31/24 Rx oxycodone-acetaminophen 10 mg-325 1 tab PO Q4H PRN Postop pain #42 12/31/24 Rx mg tablet (Percocet) tabs New Prescriptions to Start Prescriptions: levofloxacin Evan Boothe oxycodone-acetaminophen [Percocet] Evan Boothe Allergies Allergy/AdvReac Type Severity Reaction Status Date / Time No Known Allergies Allergy Verified 12/30/24 06:30 Results Labs 12/31/24 06:44 12/31/24 06:44 Labs: Abnormal lab results 12/31/24 Range/Units 06:44 WBC 16.9 H (4.8-10.8) K/mm3 RBC 3.73 L (4.60-6.20) M/mm3 Hgb 10.9 L (14.1-18.0) g/dL Hct 33.0 L (42.0-52.0) % MPV 11.5 H (7.4-10.4) fl Lymph % (Auto) 4.3 L (10-50) % [place] % (Auto) 21.9 H (1.7-9.3) % Neut # (Auto) 12.2 H (1.8-7.8) K/mm3 [place] # (Auto) 3.7 H (0.1-1.0) K/mm3 Glucose 125 H (74-100) mg/dl H & H 12/31/24 Range/Units 06:44 Hgb 10.9 L (14.1-18.0) g/dL Hct 33.0 L (42.0-52.0) % All other labs normal. Assessment and Plan *Assessment and plan (1) Pneumonia: Status: Acute Category: Medical Code(s): J18.9 - Pneumonia, unspecified organism (2) Fever: Status: Acute Category: Medical Code(s): R50.9 - Fever, unspecified Plan 79-year-old male status post left knee TKA. Postop day 1. Developed fever overnight with elevation in white count to 16. Chest imaging per my review with right lower lobe opacity concerning for airspace disease. Similar but worse from chest x-ray a year ago. No oxygen requirement however white count 16.9 along with fever of 103 overnight. Would recommend. Therapy for 5 days for suspected pneumonia. Received 24 hours of Ancef. Will initiate Levaquin 750 mg daily today and recommend 5 days of antibiotic therapy total. Last dose due on 01/03. Patient otherwise at baseline function. Continue Tylenol as needed for fever. Will defer management for knee replacement and therapy per orthopedics recommendations. Thank you for the opportunity to consult on this patient. Clinically stable for discharge home to complete antibiotics as an outpatient.
--- NOTE | 2024-12-31 16:32 | P.OP_ITS ---
Date of procedure: 12/30/24 Pre-op Diagnosis:: Left knee end-stage osteoarthritis Post-op Diagnosis:: Same Procedure performed:: Left total knee arthroplasty Surgeon:: Evan Boothe DO Executive Manager(s):: Florentino MEDLEY NUT PROCESS HELPER:: Ines Agrawal Anesthesia: GETA Estimated blood loss (mL): 100 Clinical Note:: Medacta 5+ femur 5 tibia 10 mm poly size 3 patella Operative findings:: Severe end-stage osteoarthritis of the knee Operative note:: Patient identified preoperatively. Left knee marked with a yes and my initials. Transferred operative suite. Placed upon operating bed. General anesthesia was administered. Airway secured. Left lower extremity prepped and draped in normal sterile fashion. Once prepped and draped final operative timeout performed to identify proper patient procedure and extremity. Everyone involved the case agreed. There is no counter indications beginning. He did receive preoperative antibiotics. Marking pen was used to shanti plan midline incision of the knee. Esmarch was used to exsanguinate the extremity pneumatic tourniquet inflated to 300 mmHg. Knee was flexed skin knife was used incise the skin down to identify the capsule standard medial parapatellar approach was utilized arthrotomy was performed upon arthrotomy was a large return of knee effusion light yellow-colored effusion evacuated with a suction. Patella was everted and the knee was flexed. Anterior aspect the medial lateral meniscus were sacrificed the ACL was sacrificed. Retractors were placed cartilage was removed from the anterior aspect of the femur and the CT-guided models were utilized to find proper fit of the femoral distal cutting guide. These were marked and the cartilage removed and the femoral cutting guide was placed and pinned into place the distal femoral cut was then made per preoperative CT planning. The holes for the 4-in-1 cutting block were drilled and the 4-in-1 cutting block was placed anterior and posterior chamfer cuts and anterior posterior cuts were made. Excess bone removed the trial femur was selected and impacted into place. He gave good fit and fill in proper alignment. Lug holes drilled. Attention brought to the tibial guide soft tissue removed from the tibia and cartilage removed from the tibia to allow for proper fit of the CT guided patient specific tibial cutting guide which was pinned in the place according to the model. Retractors placed and the tibial cut was made caliper was used to confirm preoperative planning correlated with proper osteotomy of the tibia. These did match. Irrigation of the wound performed. The tibial trial plate was selected and placed on the tibia in line with the proper alignment for mechanical axis. This was marked with the Bovie pins were placed and the initial reamer was used followed by the punch keel. Femoral trial was then replaced again and the 10 mm poly was placed in the knee for trial. Flexion extension of the knee found to be very stable in mid flexion terminal extension and flexion with a balanced knee. The patella was everted and caliber is used to measure the patella caliper measured to 26 mm. Therefore for using freehand technique with a saw 10 mm patella was resected the patella button trial was placed with the drill holes drilled and a size 3 button was placed the knee was taken through range of motion flexion extension patella did track within the trochlea. Trials were felt to be of appropriate size and implants final implants were opened on the back table. Irrigation performed with the Pulsavac. This was a 5+ femur 5 tibia 10 mm poly and 3 mm patella poly-. Cement was mixed in standard fashion and the tibial component was cemented into place by pressurizing the canal and placed in tibial component and impacted excess cement was removed the poly was then impacted into place followed by the implantation of the final femoral implant. Excess cement was removed. Knee was brought in extension back into flexion there were excess cement was removed then as well. Then the patella was cemented into place. The knee was brought in extension with patella clamp in place and allow for the cement to harden. Once the cement was hardened the patella clamp was removed the knee was flexed and extended and found to be very stable. Irrigation was performed. Tourniquet was deflated. Direct hemostasis obtained with electrocautery. Capsules then closed with a running #1 strata fix suture. Deep layers with 0 Vicryl subcutaneous with 2-0 Vicryl and surgical clips in the skin for closure sterile dressing placed from toe to thigh patient waken anesthesia and taken recovery after undergoing a adductor canal block. Condition: stable Disposition: PACU Complications:: None apparent
--- NOTE | 2024-12-31 17:26 | EXP.HPDC ---
General Admission date:: 12/30/24 Discharge date: 12/31/24 *Admission Date: 12/30/24 *Chief complaint: End-stage osteoarthritis left knee *History of present illness: End-stage osteoarthritis left knee failed considerable conservative treatment and wished undergo total knee arthroplasty and presented for hospitalization for such. [facility] Disclaimer: The information contained in this section may have been updated after the patient was seen, as this information can be updated by other users. Medical History OSCAR (obstructive sleep apnea) Parkinsons HLD (hyperlipidemia) Tinnitus of both ears Hearing loss HTN (hypertension) HTN (hypertension) Surgical History History of colonoscopy History of total right knee replacement Family History Other Family history of bladder cancer Family history of hypertension Family history of osteoporosis Social History Smoking Status: Never smoker second hand exposure: No alcohol intake: never substance use type: denies use current occupational status: retired Travel in the last 8 weeks: None household members: other housing: house current occupational exposures/hazards: No caffeine: No Other Medical History Have you received the Flu Vaccine for this season: No Have you received the Pneumonia Vaccine: No Review of Systems Review of Systems Review of systems:: pertinent systems reviewed and negative unless documented below Constitutional Constitutional: Reports system reviewed and no additional complaints, except as documented Eyes Eyes: Reports system reviewed and no additional complaints, except as documented ENT Ears, Nose, Mouth, and Throat: Reports system reviewed and no additional complaints, except as documented *Cardiovascular Cardiovascular: Reports system reviewed and no additional complaints, except as documented and Denies dyspnea *Respiratory Respiratory: Denies cough and Denies dyspnea *Gastrointestinal Gastrointestinal: Reports system reviewed and no additional complaints, except as documented *Genitourinary Genitourinary: Reports system reviewed and no additional complaints, except as documented *Musculoskeletal Musculoskeletal: Reports as per HPI Integumentary/Breasts Skin/Breast: Reports system reviewed and no additional complaints, except as documented *Neurologic Neurologic: Reports system reviewed and no additional complaints, except as documented Psychiatric Psychiatric: Reports system reviewed and no additional complaints, except as documented Endocrine Endocrine: Reports system reviewed and no additional complaints, except as documented Hematologic/Lymphatic Hematologic/Lymphatic: Reports system reviewed and no additional complaints, except as documented Exam Data for Last 24 hours Vital signs and Labs for Last 24 Hours: Temp Pulse Resp BP Pulse Ox O2 Del Method 99.3 F 109 H 18 146/88 H 96 Room Air 12/31/24 08:00 12/31/24 08:00 12/31/24 08:00 12/31/24 08:00 12/31/24 08:00 12/31/24 13:00 Laboratory Results - last 24 hr 12/31/24 06:44: WBC 16.9 H, RBC 3.73 L, Hgb 10.9 L, Hct 33.0 L, MCV 88.5, MCH 29.2, MCHC 33.0, RDW 12.0, Plt Count 199, MPV 11.5 H, Neut % (Auto) 72.2, Lymph % (Auto) 4.3 L, Meigs % (Auto) 21.9 H, Eos % (Auto) 0.2, Baso % (Auto) 0.2, Neut # (Auto) 12.2 H, Lymph # (Auto) 0.7, Meigs # (Auto) 3.7 H, Eos # (Auto) 0.0, Baso # (Auto) 0.0, Total Counted 100, Neutrophils % (Manual) 76, Lymphocytes % (Manual) 17, Monocytes % (Manual) 7, Platelet Estimate Normal, RBC Morphology Normal, Sodium 137, Potassium 3.7, Chloride 105, Carbon Dioxide 26, Anion Gap 9.7, BUN 15, Creatinine 0.80, Estimated Creat Clear 72, Estimated GFR 94, Est GFR ( Amer) 113, Glucose 125 H, Calcium 8.9 I & O for Last 24 hours: Intake & Output 12/28/24 12/29/24 12/30/24 12/31/24 23:59 23:59 23:59 23:59 Intake Total 2700 / 3075 615 / 615 Output Total 0 / 0 0 / 0 Balance 2700 / 3075 615 / 615 Weight 180 lb 6.997 oz 180 lb 6.997 oz *Routine HEENT Exam Head: Present normocephalic and atraumatic Eye: Present EOMI ENT: Present mucous membranes moist *Routine Neck Exam Neck: Present full ROM *Routine Respiratory Exam Respiratory: Absent accessory muscle use or respiratory distress *Routine Cardiovascular Exam Cardiovascular: Present RRR *Routine Abdominal Exam Abdominal: Present soft *Routine Rectal Exam Rectal:: deferred *Routine Genitalia Exam Genitalia:: deferred *Routine Extremities Exam Extremities: Absent cyanosis or clubbing *Routine Skin Exam Skin: Present wounds (Surgical wound benign) *Routine Neurological Exam Neurological: Present alert and oriented X3 Meds Home Medications and Allergies Home Medications ?Medication ?Instructions ?Recorded ?Confirmed ?Type fenofibrate 160 mg tablet 160 mg PO DAILY 01/17/18 12/30/24 History ferrous sulfate 325 mg (65 mg 325 mg PO DAILY 01/17/18 12/30/24 History iron) tablet amlodipine 5 mg tablet 5 mg PO DAILY 09/25/23 12/30/24 History pramipexole 0.25 mg tablet 0.25 mg PO TID 02/05/24 12/30/24 History multivitamin 1 tab PO DAILY 12/27/24 12/30/24 History levofloxacin 750 mg tablet 750 mg PO DAILY #10 tabs 12/31/24 Rx oxycodone-acetaminophen 10 mg-325 1 tab PO Q4H PRN Postop pain #42 12/31/24 Rx mg tablet (Percocet) tabs New Prescriptions to Start Prescriptions: levofloxacin Evan Boothe oxycodone-acetaminophen [Percocet] Evan Boothe Allergies Allergy/AdvReac Type Severity Reaction Status Date / Time No Known Allergies Allergy Verified 12/30/24 06:30 Hospital Course Hospital Course Hospital Course: Patient underwent uneventful total knee arthroplasty on the left side on 12/30/2024. Was then admitted to the hospital overnight. The night of the hospital he did experience a low-grade fever initially was given incentive spirometry. However he did have significant fever 103 in the night. He was treated with Tylenol and ibuprofen which resolved the fever back to 99. Hospitalist was consulted in regards to interpretation of postoperative chest x-ray and felt like there could be some early infiltrate. Suggested course of antibiotics. On examination on 12/31/2024 pain control was better with increase frequency of p.o. pain medication and getting the ice machine to work properly. He was able to be weightbearing with therapy and according to the therapy did very well. [place] he was in a good candidate for outpatient physical therapy. Which was arranged for Monday. Stable for discharge home. I discussed with him postoperative protocols and exercises. I changed the dressing prior to him leaving today. He can get the wound wet but cannot soak it. Pat it dry. He is to continue home medications he will take 81 mg aspirin twice daily over 6 weeks for postoperative DVT prophylaxis. Results Data Completed and Pending Labs on day of discharge: Labs from last 24 hours 12/31/24 06:44 WBC 16.9 H RBC 3.73 L Hgb 10.9 L Hct 33.0 L MCV 88.5 MCH 29.2 MCHC 33.0 RDW 12.0 Plt Count 199 MPV 11.5 H Neut % (Auto) 72.2 Lymph % (Auto) 4.3 L Meigs % (Auto) 21.9 H Eos % (Auto) 0.2 Baso % (Auto) 0.2 Neut # (Auto) 12.2 H Lymph # (Auto) 0.7 Meigs # (Auto) 3.7 H Eos # (Auto) 0.0 Baso # (Auto) 0.0 Total Counted 100 Neutrophils % (Manual) 76 Lymphocytes % (Manual) 17 Monocytes % (Manual) 7 Platelet Estimate Normal RBC Morphology Normal Sodium 137 Potassium 3.7 Chloride 105 Carbon Dioxide 26 Anion Gap 9.7 BUN 15 Creatinine 0.80 Estimated Creat Clear 72 Estimated GFR 94 Est GFR ( Amer) 113 Glucose 125 H Calcium 8.9 DS: Diagnosis Discharge Diagnosis (1) Osteoarthritis of left knee: Status: Acute Code(s): M17.12 - Unilateral primary osteoarthritis, left knee Qualifiers: Osteoarthritis type: primary Qualified Code(s): M17.12 - Unilateral primary osteoarthritis, left knee Problem details: s/p L TKA with Dr. Boothe on 12/30/24 Discharge Plan Disposition Patient Disposition: Home, Self-Care Condition: Good Follow up Plan Follow up with: Evan Boothe DO [Staff Physician] - 01/07/25 1:00 pm Gil Aguilar MD [Primary Care Provider] - 01/06/25 10:30 am Prescriptions/Medication Reconciliation: New oxycodone-acetaminophen [Percocet] 10-325 mg tablet 1 tab PO Q4H PRN (Reason: Postop pain) Qty: 42 0RF levofloxacin 750 mg tablet 750 mg PO DAILY Qty: 10 0RF Continued amlodipine 5 mg tablet 5 mg PO DAILY Patient Comments: TAKE 1 TABLET BY MOUTH EVERY DAY pramipexole 0.25 mg tablet 0.25 mg PO TID multivitamin Tablet 1 tab PO DAILY fenofibrate 160 MG tablet 160 mg PO DAILY ferrous sulfate 325 MG tablet 325 mg PO DAILY Problem Reconciliation Problems Reviewed?: Yes Patient Discharge Instructions ACTIVITY: Ambulate as tolerated DIET: advance to your usual diet Additional Instructions: Keep appointment outpatient physical therapy as scheduled Ice machine to the knee Q 15 minutes as needed for postop pain. May shower but no soaking the knee. Weightbearing as tolerated on the walker. Use home exercise program. Continue aspirin 81 mg twice daily for neck 6 weeks. Dressing change as needed. Patient Instructions: DI for Knee Replacement, DI for Surgical Site Infection Print Language: [place] Providers Primary Care Provider: Gil Aguilar Provider: Evan Boothe Attending Provider: Evan Boothe
--- NOTE | 2025-01-02 11:13 | SW/DCPLANNER ---
Spoke with patienton the phone. Patient stated that he is doing well. Patient stated that his therapy hurts but he is pushing through the pain. Patient stated that he is aware of his upcoming appointments. 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 Patient stated that he has no concerns or questions at this time. Kasandra Venegas
== END 2024-12-31 14:14 | disposition home or self-care (01) ==
LOC: 2ND 07:08
PROVIDERS: Admitting Provider Orthopaedic Surgery; PCP Internal Medicine Adolescent Medicine; Visit Provider Orthopaedic Surgery
PROC: (CPT 27447; principal; 2024-12-30 09:15)
DX: M17.12 Unilateral primary osteoarthritis, left knee (principal); J18.9 Pneumonia, unspecified organism; I10 Essential (primary) hypertension; E78.5 Hyperlipidemia, unspecified; Z79.899 Other long term (current) drug therapy; R50.82 Postprocedural fever; J95.89 Other postprocedural complications and disorders of respiratory system, not elsewhere classified; G20.A1 Parkinson's disease without dyskinesia, without mention of fluctuations; Z96.651 Presence of right artificial knee joint; Z80.52 Family history of malignant neoplasm of bladder; Z82.49 Family history of ischemic heart disease and other diseases of the circulatory system; Z82.62 Family history of osteoporosis
CPT/HCPCS: 27447; 36415; 71045; 73560; 80048; 85007; 85025; 97110; 97116; 97161; 97165; J3490; C1776; G0378; J0666; J0690; J1100; J2270; J2405; J3010; J7120

== ENCOUNTER 2025-01-16 12:07 | Outpatient (CLI) | payer MEDICARE, SELFPAY ==
--- NOTE | 2025-01-16 12:10 | XR_ITS ---
FINAL REPORT CLINICAL HISTORY: lt knee pain -- surgery 3 weeks ago COMPARISON: 12/30/2024 FINDINGS: LEFT KNEE 3 views of the left knee were obtained. There are normal post arthroplasty changes. Soft tissue swelling is noted anteriorly. IMPRESSION: Post arthroplasty changes. Reviewed, Interpreted and Dictated by Edith Barrientos MD Transcribed by Nubia Christensen Authenticated and [facility]
== END 2025-01-16 23:59 | disposition home or self-care (01) ==
LOC: RAD 12:08
PROVIDERS: PCP Internal Medicine Adolescent Medicine; Visit Provider Orthopaedic Surgery
DX: M17.12 Unilateral primary osteoarthritis, left knee (principal)
CPT/HCPCS: 73562

== ENCOUNTER 2025-01-22 16:00 | Outpatient (RCR) | payer MEDICARE, SELFPAY ==
--- NOTE | 2025-01-16 15:50 | HMH.PTOPEV ---
PT Outpatient Evaluation Rehab PT Outpatient Evaluation Start: 01/16/25 14:05 Freq: Status: Active Protocol: Document 01/16/25 14:05 MOSHE (Rec: 01/16/25 15:50 MOSHE [id number]) E-signed By Paola Dooley, PT Outpatient Therapy Subjective History Subjective History Pt is a 79 y/o male who reports to PT 2 weeks s/p L TKA performed on 12/30/24. Pt denies complications following surgery. Pt denies having HHPT and reports non- compliance with HEP provided to him in the hospital due to experiencing LBP. Pt states he got his stitches removed earlier this date and had an xray of his knee with good report. Pt reports he is ambulating well with a rollator walker and is trying to walk daily for exercise. Pt reports he is having a lot of medial knee pain but is taking pain medication as prescribed. Pt denies numbness or tinging, reports swelling that increases with activity. Pt denies use of ice or elevation to assist with swelling or pain control. Medical History: Hypertension, Restless leg syndrome New diagnosis of cancer in past 12 No months? Chief Complaint Pain,Swelling,Weakness Symptom Type Ache,Sharp,Dull Symptoms Relieved By Rest/Positioning,Prescription Meds Symptoms Aggravated By Standing,Physical Activity, Walking Current Functional Limitations Lifting,Housework,Dressing, Standing,Squatting,Walking, Stairs,Balance Symptom Description Constant but Variable Level of pain today (0-10) 3 Pain scale - at its best (0-10) 1 Pain scale - at its worst (0-10) 10 Hip/Knee Eval Gait Observation General Gait Pattern Observation Antalgic Gait Assistive Device Assistive Devices Rolling / Wheeled Walker Palpation Tenderness left Knee Palpation Finding Tenderness Knee Palpation Overall Comment 2/4 TTP of global L knee MMT Hip Flexion Strength Grade 4- Good- Hip Abduction Strength Grade 4- Good- Hip Adduction Strength Grade 4- Good- Hip Extension Strength Grade 3+ Fair+ Knee Extension Strength Grade 2+ Poor+ Knee Flexion Strength Grade 3+ Fair+ ROM Knee Extension Active Range of Motion ( 32 degrees) Knee Extension Passive Range of Motion ( 20 degrees) Knee Flexion Active Range of Motion ( 92 degrees) Sensation Comment equal and intact to light touch sensation Effusion joint effusion knee exam standard left Mid - Patellar Circumerential Measure ( 43 cm) 5cm Proximal Circumference Measure (cm) 47 5cm Distal Circumference Measure (cm) 39.5 Lower Extremity Functional Index Activities Today, do you or would you have any difficulty at all with: a.Any of your usual work, housework or A little bit of difficulty school activities b. Your usual hobbies, recreational or A little bit of difficulty sporting activities c. Getting into or out of the bath Quite a bit of difficulty d. Walking between rooms Quite a bit of difficulty e. Putting on your shoes or socks Quite a bit of difficulty f. Squatting A little bit of difficulty g. Lifting an object, like a bag of No difficulty groceries from the floor h. Performing light activities around No difficulty your home i. Performing heavy activities around Moderate difficulty your home j. Getting into or out of a car Moderate difficulty k. Walking 2 blocks Quite a bit of difficulty l. Walking a mile Quite a bit of difficulty m. Going up or down 10 stairs (about 1 A little bit of difficulty flight of stairs) n. Standing for 1 hour No difficulty o. Sitting for 1 hour No difficulty p. Running on even ground Extreme difficulty or unable to perform activity q. Running on uneven ground Extreme difficulty or unable to perform activity r. Making sharp turns while running fast Extreme difficulty or unable to perform activity s. Hopping Extreme difficulty or unable to perform activity t. Rolling over in bed Moderate difficulty LEFI Score Lower Extremity Functional Index Score 39 Outpatient Therapy Assessment Impairments Problems/Impairmments Palpation Tenderness,Impaired Range of Motion,Impaired Strength,Impaired Gait Pattern ,Impaired Walking,Impaired Standing,Impaired Dressing, Impaired Shower/Bathing, Impaired Household Care, Impaired Stair Climbing, Impaired Incline Stepping, Impaired Stepping on Uneven Surface,Impaired Squatting, Impaired Balance,Increased Edema,Lymphedema Present,Wound Care Needs,Subjective C/O Pain,Impaired Self Care/Self Management Prognosis Rehab Potential Good Clinical Impression Consistent with Diagnosis Yes Short Term Goals Number of Weeks 4 Increase Range of Motion Yes: Improve L knee AROM to 0- 100 Increase Strength Yes: Improve LLE MMT to 4-/5 grossly to assist with function Improve Gait Pattern with Assistive Yes: demonstrate proper gait Device mechanics with SPC to decrease fall risk Improve Ability to Dress Self Yes: report ability to don L shoe/sock I to decrease burden of care Improve LEFI Score Yes Decrease Subjective C/O Pain Yes: Improve pain at worst to 8/10 to improve overall Improve Self Care/Self Management Yes Patient to be Ind w/ HEP Yes [facility] Goals Number of Weeks 6-8 Increase Range of Motion Yes: Improve L knee AROM to 0- 120 Increase Strength Yes: Improve LLE MMT to 4-4+/5 grossly to assist with function Improve Gait Pattern without Assistive Yes: demonstrate proper gait Device mechanics without an AD to decrease fall risk Improve Ability to Climb Stairs Yes: 1 flight with HR to assist with household ambulation Improve LEFI Score Yes: Improve score to 49/80 to improve overall QOL Decrease Edema Yes Decrease Subjective C/O Pain Yes: Improve pain at worst to 6/10 to improve overall QOL Outpatient Therapy Plan of Care Treatment Plan May Include Therapeutic Exercise Including Home Yes Exercise Program Manual Therapy Techniques Yes Neuromuscular Re-education Yes Therapeutic Activities to Return to Yes Previous Functional/Work Level Gait Training Yes ADL/Self Care Education Yes Thermal Modalities Yes Electrical Stimulation Yes Ultrasound/Phonophoresis Yes Iontophoresis Yes Orthotics/Bracing/Splinting Yes Vasopneumatic Compression Pump Yes Massage Yes Manual Lymphatic Drainage Yes Wound Care Yes Group Therapy for Medicare Yes Eval/Re-Eval Yes Frequency Times per week 2-3 Duration Number of Weeks 6-8 Addendums This patient is a candidate for social No or vocational rehab? Patient/Guardian verbally acknowledges Yes understanding of treatment program and consents to further treatment? Patient/Guardian verbally acknowledges Yes understanding of diagnosis, prognosis and goals for treatment? Eval Complexity PT Charges 79626 - Low Complexity Shoulder/Elbow Eval Shoulder Objective Measurements Elbow Objective Measurements PHYSICIAN CERTIFICATION: I certify the specified therapy services for Mak Martell are required, authorized, and reviewed every 30 days.
== END 2025-01-22 23:59 | disposition home or self-care (01) ==
LOC: PT 16:00
PROVIDERS: PCP Internal Medicine Adolescent Medicine; Visit Provider Orthopaedic Surgery
DX: M17.12 Unilateral primary osteoarthritis, left knee (principal); Z98.890 Other specified postprocedural states
CPT/HCPCS: 97016; 97110; 97163

== ENCOUNTER 2025-02-19 10:00 | Outpatient (RCR) | payer MEDICARE, SELFPAY ==
--- NOTE | 2025-02-19 11:10 | HMH.RHREAS ---
Rehab Reassessment Rehab OP Re-assessment Start: 01/28/25 14:04 Freq: Status: Active Protocol: Document 02/19/25 09:59 DORIESTACY (Rec: 02/19/25 11:09 MOSHE [id number]) E-signed By Paola Dooley PT Lower Extremity Functional Index Activities Today, do you or would you have any difficulty at all with: a.Any of your usual work, housework or No difficulty school activities b. Your usual hobbies, recreational or No difficulty sporting activities c. Getting into or out of the bath No difficulty d. Walking between rooms No difficulty e. Putting on your shoes or socks No difficulty f. Squatting A little bit of difficulty g. Lifting an object, like a bag of No difficulty groceries from the floor h. Performing light activities around No difficulty your home i. Performing heavy activities around A little bit of difficulty your home j. Getting into or out of a car No difficulty k. Walking 2 blocks No difficulty l. Walking a mile A little bit of difficulty m. Going up or down 10 stairs (about 1 No difficulty flight of stairs) n. Standing for 1 hour A little bit of difficulty o. Sitting for 1 hour No difficulty p. Running on even ground A little bit of difficulty q. Running on uneven ground A little bit of difficulty r. Making sharp turns while running fast A little bit of difficulty s. Hopping A little bit of difficulty t. Rolling over in bed No difficulty LEFI Score Lower Extremity Functional Index Score 72 Rehab Re-assessment Subjective Subjective Pt reports he feels 85% improved since starting PT. Pt reports continued knee stiffness after prolonged sitting that improves with taking 3-4 steps. Pt reports pain at worst as 6/10 on VAS that is brief in nature and occurs if he twists his knee awkwardly. Pt reports he is becoming more active and now able to perform yard work. Pt states he is able to ascend his basement stairs reciprocally with HR but has to use a step to pattern to descend the steps. Pt reports he saw his surgeon last week with good report and was told to return in 2 months for his next follow-up visit. Objective Objective Notes Gait: non antalgic without AD L knee edema: proximal incision 44cm, joint line 42. 5cm, distal incision 36cm L knee AROM: 0-3-120 L knee AAROM: 0-125 LLE MMT: 4+/5 grossly *able to perform SLR without extension lag Assessment Assessment Notes Pt is 7 weeks s/p L TKA and has attended 7 PT treatment sessions consisting of aerobic exercise, knee ROM, LE stretching/strengthening, gait training, manual therapy, modalities and HEP with good tolerance. Pt demonstrated improved subjective report of pain, edema, LEFS score, knee AROM, strength and gait this date compared to the initial evaluation. Pt met most PT goals and is appropriate to discharge to independent HEP. Pt provided with written/ illustrated advanced HEP instructions to continue independently to continue progress with knee extension AROM and strength. Patient goals met ST/8 LT/7 Goals Not Met lacking 3 degrees of knee extension Revised Goals n/a Plan Plan Discharge to independent HEP Time and Billing Re-Eval Time 12 Re-Eval Billing Units 0 Charge for PT reassessment? No Charge for OT reassessment? No PHYSICIAN CERTIFICATION: I certify the specified therapy services for Mak Martell are required, authorized, and reviewed every 30 days.
== END 2025-02-19 23:59 | disposition home or self-care (01) ==
LOC: PT 10:00
PROVIDERS: PCP Internal Medicine Adolescent Medicine; Visit Provider Orthopaedic Surgery
DX: Z96.652 Presence of left artificial knee joint (principal); M17.12 Unilateral primary osteoarthritis, left knee
CPT/HCPCS: 97110; 97140

== ENCOUNTER 2025-02-23 09:09 | Emergency (ER) | payer MEDICARE, SELFPAY ==
--- NOTE | 2025-02-23 09:13 | ED_ITS ---
Discharge Plan Disposition Patient Disposition: Home, Self-Care Prescriptions Prescriptions: New prednisone 50 mg tablet 50 mg PO DAILY 5 Days Qty: 5 0RF No Action amlodipine 5 mg tablet 5 mg PO DAILY Patient Comments: TAKE 1 TABLET BY MOUTH EVERY DAY pramipexole 0.25 mg tablet 0.25 mg PO TID multivitamin Tablet 1 tab PO DAILY fenofibrate 160 MG tablet 160 mg PO DAILY ferrous sulfate 325 MG tablet 325 mg PO DAILY levofloxacin 750 mg tablet 750 mg PO DAILY Qty: 10 0RF Referrals Follow up/Referrals: Gil Aguilar MD [Primary Care Provider] - See instructions Activity Restrictions/Add. Instructions Additional Instructions/Restrictions: Start taking your oral steroids tomorrow. Follow-up with primary care doctor tomorrow or as soon as possible as well. Please return to the ER with any new, concerning, or worsening symptoms including but not limited to worsening redness and swelling, tracking of the redness up your arm, especially fever. 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 States that it began yesterday. Has had worsening redness swelling and difficulty moving this finger. States that it feels similar to gout flares that he has had in the past. Reports 2 episodes of gout in his left thumb that resolved with steroid treatment. Denies fever. Denies any other symptoms. Denies any injuries. Related Data Home Medications ?Medication ?Instructions ?Recorded ?Confirmed fenofibrate 160 mg tablet 160 mg PO DAILY 01/17/18 02/13/25 ferrous sulfate 325 mg (65 mg 325 mg PO DAILY 01/17/18 02/13/25 iron) tablet amlodipine 5 mg tablet 5 mg PO DAILY 09/25/23 02/13/25 pramipexole 0.25 mg tablet 0.25 mg PO TID 02/05/24 02/13/25 multivitamin 1 tab PO DAILY 12/27/24 02/13/25 Previous Rx's ?Medication ?Instructions ?Recorded levofloxacin 750 mg tablet 750 mg PO DAILY #10 tabs 12/31/24 prednisone 50 mg tablet 50 mg PO DAILY 5 days #5 tabs 02/23/25 Allergies Allergy/AdvReac Type Severity Reaction Status Date / Time No Known Allergies Allergy Verified 02/13/25 13:04 [facility] Disclaimer: The information contained in this section may have been updated after the patient was seen, as this information can be updated by other users. Medical History OSCAR (obstructive sleep apnea) Parkinsons HLD (hyperlipidemia) Tinnitus of both ears Hearing loss HTN (hypertension) HTN (hypertension) Surgical History History of colonoscopy History of total right knee replacement Family History Other Family history of bladder cancer Family history of hypertension Family history of osteoporosis Social History Smoking Status: Former smoker second hand exposure: No alcohol intake: never substance use type: denies use current occupational status: retired Travel in the last 8 weeks: None household members: other housing: house current occupational exposures/hazards: No caffeine: No Have you lived/traveled outside US in past 30 days?: No Contact w/someone who lives/traveled outside US past 30 days?: No Exposure to someone with infectious disease in past 14 days?: No Do you have a fever (greater than 100.4 F or 38 C)?: No Have you tested positive for COVID-19: No Exposed to someone with COVID-19 in past 14 days?: No Do you have a sore throat?: No Do you have a cough?: No Do you have any weakness?: No Do you have any diarrhea?: No Are you experiencing any unusual bleeding?: No Do you have any muscle aches/pain?: No Do you have any abdominal pain?: No Are you experiencing loss of taste or smell?: No Other Medical History Have you received the Flu Vaccine for this season: No Have you received the Pneumonia Vaccine: Yes ROS Obtained: Yes All systems reviewed & no additional complaints except as documented Physical Exam General General appearance: alert and in no apparent distress Head Head exam: atraumatic Eye Eye exam: Present normal appearance, PERRL and EOMI Neck Neck exam: Present normal inspection and full ROM Chest Chest inspection: Present symmetric chest wall rise Respiratory Respiratory exam: Present normal lung sounds bilaterally; Absent respiratory distress Cardiovascular Cardiovascular exam: Present regular rate and normal rhythm Abdominal Exam Abdominal exam: Present soft; Absent distention Extremities Exam Extremities exam: Present other (R hand: Erythema, swelling, and tenderness well-circumscribed to the third MCP joint. Limited range of motion of the third digit due to pain.) Neurological Exam Neurological exam: Present alert and oriented X3 Psychiatric Psychiatric exam: Present normal affect and normal mood Skin Skin exam: Present warm and dry Medical Decision Making Medical Records Medical records reviewed: Yes I reviewed the patient's medical records. Screening: Per USPSTF and CDC recommendations, given the prevalence of disease in our region, it is our hospital?s policy to screen for HIV and viral Hepatitis for all patients aged 18 and over and those with ongoing risk factors. MR Comment: Hospital medicine consult note from 12/31/2024 notable for patient's past medical history as noted above [place] Inquiry Pt receiving controlled substance: No Vital Signs: 02/23/25 09:14 02/23/25 09:16 Temperature 98.8 F Temperature Source Oral Pulse Rate 96 H Pulse Rate [Left Radial] 94 H Respiratory Rate 13 Blood Pressure 143/92 H Blood Pressure [Right Arm] 143/92 H Blood Pressure Mean [Right Arm] 109 02 Sat by Pulse Oximetry 99 97 Orders (Tests/Meds): ED MEDICATIONS Generic Name Dose Route Start Last Admin Trade Name Freq PRN Reason Stop Dose Admin Methylprednisolone Sodium Succinate 80 mg 02/23/25 09:31 Methylprednisolone Sod Succ 125mg Vial IM 02/23/25 09:32 ONCE ONE ORDERS Category Date Time Status HIV Combo Stat Lab 02/23/25 09:25 Ordered Hepatitis C Ab Qual. W/ RFX Stat Lab 02/23/25 09:25 Ordered Medical Decision Narrative: In summary, this 79-year-old male with a past medical history of hypertension, gynecomastia, recent left knee replacement, gout presents to the emergency department today with acute pain and swelling of the third MCP joint of the right hand that began yesterday. On initial evaluation patient is afebrile, hemodynamically stable, nontoxic-appearing. Differential diagnosis includes but is not limited to gout, osteoarthritis, RA, septic arthritis. Appears to be consistent with gout flare given the patient states that he has this established diagnosis and has had multiple flares in his left hand in the past. These all responded well with prednisone. Considered septic arthritis, however the patient had no systemic symptoms and patient states that he has had the exact same presentation multiple times in the past that responded well with steroids. He is to follow-up with primary care doctor tomorrow for reevaluation. Considered NSAIDs however given patient's age and successful treatment with steroids in the past, elected for a single intramuscular injection in the emergency department followed by 5-day course of prednisone at discharge. Also discussed preventative therapy with medication such as allopurinol to be discussed with primary care doctor. Critical Care Critical Care Time Critical Care Time: No
[2025-02-23 09:14] VITALS: BP 143/92; PULSE 96; O2SAT 99
[2025-02-23 09:16] VITALS: BP 143/92; PULSE 94; RESP 13; TEMP 37.1; O2SAT 97; BMI 23.6
--- OUTSIDE RECORDS SUMMARY | 2025-02-23 09:31 | XMS_ITS | Data Portability ---
Author Organization [facility] Address [address] [place] [address] Assessment No assessment recorded. Plan of Treatment Reminders Order Date Submit Date Provider Last Modified By Organization Details Last Modified Time Details Appointments OV EST 15 2024 10:45A M Yon Medrano Jr, MD Not available Not available Not available Lab PSA, total + free, serum or plasma [email or web address], [address], 08/28/2024 07:24:21 urinalysi s, dipstick [email or web address], [address], 08/21/2023 09:09:10 Referral None recorded. Procedures bladder scan (PROC) [email or web address], [address], 08/21/2023 09:09:10 Surgeries None recorded. Imaging None recorded. Medication Orders None recorded. Patient TargetsNo targets recorded. Patient InstructionsNo instructions recorded. Reason for Referral None Reported. Results Created Date Observation Date Name Description Value Unit Range Abnormal Flag Note LastModifiedBy Organization Detail LastModifiedTime 08/18/2008/18/2023 bladd er scan (PROC ) Calculated Residual Urine: 12ml Not Available [address], [address], 08/18/2023 14:56:09 08/18/2008/18/2023 urina lysis , dipst ick Leukocytes (reference range) small Not Available [address], [address], 08/18/2023 14:56:08 08/18/2008/18/2023 urina lysis , dipst ick Nitrite (reference range:) negati ve Not Available [address], [address], 08/18/2023 14:56:08 08/18/2008/18/2023 urina lysis , dipst ick Urobilinogen (reference range) 0.2 Not Available [address], [address], 08/18/2023 14:56:08 08/18/2008/18/2023 urina lysis , dipst ick Protein (reference range) negati ve Not Available [address], [address], 08/18/2023 14:56:08 08/18/2008/18/2023 urina lysis , dipst ick pH (reference range 5-8.5) 7.0 Not Available [address], [address], 08/18/2023 14:56:08 08/18/2008/18/2023 urina lysis , dipst ick Blood (reference range:) negati ve Not Available [address], [address], 08/18/2023 14:56:08 08/18/2008/18/2023 urina lysis , dipst ick Specific [place] (reference range) 1.015 Not Available [address], [address], 08/18/2023 14:56:08 08/18/20 23 08/18/2023 urina lysis , dipst ick Ketone (reference range) negati ve Not Available [address], [address], 08/18/2023 14:56:08 08/18/2008/18/2023 urina lysis , dipst ick Bilirubin (reference range) negati ve Not Available [address], [address], 08/18/2023 14:56:08 08/18/2008/18/2023 urina lysis , dipst ick Glucose (reference range) negati ve Not Available [address], [address], 08/18/2023 14:56:08 08/18/2008/18/2023 urina lysis , dipst ick Color (reference range: yellow-brown ) Yellow Not Available [address], [place], [address], 08/18/2023 14:56:08 Result Notes None recorded. Medical Equipment None Reported. Allergies No known drug allergies Medications Name Sig Start Date Stop Date Status Note LastModified by Organization Details LastModified Time methocarbam ol 500 mg tablet TAKE 1 TABLET BY MOUTH EVERY NIGHT AT BEDTIME 08/18 completed Not Available Not Available Not Available tizanidine 4 mg tablet TAKE ONE TABLET BY MOUTH EVERY DAY AT BEDTIME MAY CAUSE DROWSINES S 08/18 completed Not Available Not Available Not Available hydrocodone 5 mg-acetamin ophen 325 mg tablet TAKE 1 TABLET BY MOUTH EVERY 6 TO 8 HOURS NEEDED 08/18 completed Not Available Not Available Not Available meloxicam 15 mg tablet TAKE ONE TABLET BY MOUTH EVERY DAY active Not Available Not Available No t Available prednisone 20 mg tablet TAKE ONE TABLET BY MOUTH TWICE DAILY --TAKE WITH FOOD-- active Not Available Not Available No t Available penicillin V potassium 500 mg tablet TAKE 1 TABLET BY MOUTH FOUR TIMES DAILY active Not Available Not Available No t Available amlodipine 5 mg tablet TAKE 1 TABLET BY MOUTH DAILY active Not Available Not Available No t Available tramadol 50 mg tablet TAKE 1 TABLET BY MOUTH EVERY 8 HOURS NEEDED FOR 30 DAYS active Not Available Not Available No t Available meloxicam 7.5 mg tablet TAKE ONE TABLET BY MOUTH EVERY DAY active Not Available Not Available No t Available amoxicillin 875 mg tablet TAKE ONE TABLET BY MOUTH EVERY TWELVE HOURS FOR 7 DAYS -- FINISH ALL MEDICINE -- 08/21 completed Not Available Not Available Not Available famotidine 20 mg tablet TAKE ONE TABLET BY MOUTH TWICE DAILY active Not Available Not Available No t Available metoclopram louise 5 mg tablet TAKE ONE TABLET BY MOUTH FOUR TIMES DAILY (BEFORE MEALS AND AT BEDTIME) NEEDED active Not Available Not Available No t Available methocarbam ol 750 mg tablet TAKE 1 TO 2 TABLETS BY MOUTH THREE TIMES DAILY FOR 10 DAYS NEEDED active Not Available Not Available No t Available indomethaci n 50 mg capsule TAKE ONE CAPSULE BY MOUTH TWICE DAILY NEEDED FOR GOUT JOINT PAIN active Not Available Not Available No t Available pramipexole 0.125 mg tablet TAKE 1 TO 2 TABLETS BY MOUTH EVERY DAY active Not Available Not Available No t Available pramipexole 0.25 mg tablet TAKE 1 TABLET BY MOUTH THREE TIMES DAILY active Not Available Not Available No t Available gabapentin 100 mg capsule TAKE 1 TO 2 CAPSULE(S ) BY MOUTH THREE TIMES DAILY NEEDED FOR PAIN active Not Available Not Available No t Available azelastine 137 mcg (0.1 %) nasal spray USE 2 SPRAYS IN EACH NOSTRIL TWICE DAILY 08/18 completed Not Available Not Available Not Available fenofibrate 160 mg tablet TAKE 1 TABLET BY MOUTH ONCE DAILY active Not Available Not Available No t Available FeroSul 325 mg (65 mg iron) tablet TAKE 1 TABLET BY MOUTH EVERY DAY active Not Available Not Available No t Available Vitals Date Recorded Body height Body mass index (BMI) Body weight Body temperature Provider Name and Address Organization Details Last Updated DateTime 08/18/2023 177.8 cm 25.1 kg/m2 73505.66 g 98 [degF] Sharon Wright [place] - LPNT [facility] 08/18/2023 14:29:30 Date Recorded Body height Body mass index (BMI) Body weight Provider Name and Address Organization Details Last Updated DateTime 08/21/2024 177.8 cm 25.1 kg/m2 53912.66 g Sharon WICK JUDI [facility] [place] 08/21/2024 10:49:53 Social History Question Answer Notes LastModified by Organizat ion Details LastModified Time Tobacco Smoking Status Never Smoker Sharon beebe, DELANO LAU [facility] [place] 08/18/2023 14:31:11 What Is Your Level Of Alcohol Consumption? None [email or web address] Information not available 08/18/2023 Sex: Unknown Functional Status None recorded. Mental Status None recorded. Family History Nothing Reported Notes:Mother- Fathe r- bladder cancer Medical History No medical history recorded. Past Encounters Encounter ID Performer Location Encounter Start Date Encounter Closed Date Diagnosis/Indication Diagnosis SNOMED-CT Code Diagnosis ICD10 Code Diagnosis Note [id number] Yon Medrano Jr, MD [facility] [address] [address] 08/18/2023 13:55:18 08/18/2023 14:55:17 Prostate specific antigen above reference range [id number] R97.20 Patient with a history of elevated PSA. By report his recent PSAs are stable and I will obtain his PSAs for the record. Lower urin eboni tract symptoms 798234056 R39.9 patient with occasional dysuria and feeling of incomplete emptying. His bladder scan today is only 12 cc in his urinalysis is unremarkab le. Patient was reassured that he is emptying well. [id number] Yon Medrano Jr, MD [facility] [place] [phone] 08/21/2024 10:40:28 08/21/2024 11:26:09 Prostate specific antigen above reference range [id number] R97.20 Patient with a history of elevated PSA. his PSA last year was 5.8 which is within normal limits for his age. Prostate examinatio n today is within normal limits. Will repeat a PSA. Benign pro static hyperplasia without outflow obstruction [id number] N40.0 patient with history of BPH. He underwent a TURP 11 years ago and states he continues to void well. Health Concerns Section Related Observation LastModified by Organization Hilda ls LastModified Time None Recorded Concern Status LastModified by Organization Details LastModified Time None Recorded Advance Directives Directive None Recorded Payers Encounter Date Sequence Insurance Name Policy Number Policy Bertrand Covered Member ID Bertrand Member ID Guarantor Name 08/18/2023 1 [employer] (MEDICARE REPLACEMENT/A DVANTAGE - PPO) Mak Martell [id number] Mak Martell 08/21/2024 1 [employer] (MEDICARE REPLACEMENT/A DVANTAGE - PPO) Mak Martell [id number] Mak Martell Notes Date Note Type Note Provider Name and Address Organization Details Recorded Time 08/18/2023 text/html Patient is a 78-year-old white male with history of elevated PSA. He states he has been seeing Dr. Avelar every 6 months with PSA checks and they have been stable but I do not have any numbers available. Patient has a history of BPH and is status post a GreenLight laser TURP [address] Morejon. He states he is voiding well and is not on any medications. He denies any nocturia but does have some occasional dysuria and at times feels like he is not completely emptying. His bladder scan today is 12 cc in his urinalysis is unremarkable. Yon Medrano Jr, MD [address] [place] [address], [address], [place], [address], [facility] 09/27/2023 13:47:54 08/21/2024 text/html patient is a 79-year-old white male with history of elevated PSA and lower urinary tract symptoms. Patient states that long history of the slightly elevated PSA. His PSA June 2023 was 5.8.Patient has a history of BPH and underwent a GreenLight laser TURP [address] Morejon. Patient states he is voiding well. Yon Medrano Jr, MD [address], [address], [place], [address], [facility] [place] 08/21/2024 12:12:13
[2025-02-23] MEDS: METHYLPREDNISOLONE SOD SUCC 125MG VIAL 80 MG IM (09:38)
[2025-02-23 09:46] VITALS: BP 120/72; PULSE 77; RESP 16; TEMP 36.6; O2SAT 98
== END 2025-02-23 09:47 | disposition home or self-care (01) ==
PROVIDERS: Emergency Provider Student in an Organized Health Care Education/Training Program; PCP Internal Medicine Adolescent Medicine
DX: M10.041 Idiopathic gout, right hand (principal); M79.641 Pain in right hand
CPT/HCPCS: 96372; 99283; J2919

== ENCOUNTER 2025-05-19 10:21 | Outpatient (POV) | payer MEDICARE, SELFPAY ==
[2025-05-19 10:32] VITALS: BP 140/74; PULSE 87; RESP 12; O2SAT 97; BMI 24.5
--- OUTSIDE RECORDS SUMMARY | 2025-05-19 10:32 | XMS_ITS | Clinical Summary ---
Author Organization [facility] Address [address] [place] [address] Care Team Providers Care Fine Jewelry Sales Associate Name Role Phone Gil Aguilar MD Primary Care Provider + [phone] Medications Zinc Sulfate 140 (50 Zn) MG tablet Take by mouth. Active multivitamin (Theragran) tablet Take 1 tablet by mouth 1 (one) time each day. Active ascorbic acid (Vitamin C) 500 MG ER capsule Take 1 capsule (500 mg) by mouth 1 (one) time each day. Active fenofibrate (Triglide) 160 MG tablet Take 1 tablet (160 mg) by mouth 1 (one) time each day. Active pramipexole (Mirapex) 0.25 MG tablet Take 1 tablet (0.25 mg) by mouth 3 (three) times a day. Active amLODIPine (Norvasc) 5 MG tablet Take 1 tablet (5 mg) by mouth 1 (one) time each day. Active traMADol (Ultram) 50 MG tablet Take 1 tablet (50 mg) by mouth every 8 (eight) hours if needed for severe pain. Active ferrous sulfate 325 (65 Fe) MG tablet Take 1 tablet (325 mg) by mouth 1 (one) time each day with breakfast. Active Active Problems Problem Noted Date Diagnosed Date Multiple renal cysts 11/15/2024 Elevated PSA measurement 11/15/2024 Hypercalcemia 11/15/2024 CKD (chronic kidney disease) stage 2, GFR 60-89 ml/min 11/15/2024 Immunizations Immunization Administration Dates Next Due Hep A, Adult 05/25/2019,05/31/2018 Influenza, High-dose, Split Virus, Trivalent, Injectable, preservative free 07/24/2024,07/25/2022,07/10/2021,07/12,07/24/2018,09/02/2016 Influenza, high-dose, quadrivalent 07/13/2023, Influenza, seasonal, injecta ble, preservative free 08/03/2010 Influenza, trivalent, adjuvanted 08/14/2017 Moderna COVID-19 Vaccine (Re d Cap) 12+ years 02/10/2022,08/27/2021,01/08/2021,12/11 Moderna COVID-19 Vaccine Biv alent 6months+ 09/15/2022 Moderna Covid-19 Vaccine 12y +, Elias Protein, Preservative free 07/24/2023 Pneumococcal 20-miesha Conj Vaccine 10/03/2022 Pneumococcal Conjugate PCV 13 12/29/2016 Pneumococcal Polysaccharide PPV23 02/25/2019 Rsvpref, Recombinant, Protei n Subunit, Adjuvent 09/06/2023 Td (adult) 01/17/2018 Zoster, Recombinant 11/26/2019,05/25/2019 Family History Relation Name Status Comments Father Mother Social History Tobacco Use Types Packs/Day Years Used Date Smoking Tobacco: Former Cigarettes 1 43.6 S tarted: 1982 Smokeless Tobacco: Never Tobacco Cessation:Counseling Given: Yes Alcohol Use Standard Drinks/Week Comments Never 0 (1 standard drink = 0.6 oz pur e alcohol) socially Sex and Gender Information Value Date Recorded Sex Assigned at Not on file Legal Sex Male 6:53 PM EDT Gender Identity Not on file Sexual Orientation Not on file Last Filed Vital Signs Vital Sign Reading Time Taken Comments Blood Pressure 138/84 11/15/2024 9:41 AM EST Pulse 74 11/15/2024 9:41 AM EST Temperature 36.5 C (97.7 F) 11/15/2024 9:41 AM EST Respiratory Rate 18 11/15/2024 9:41 AM EST Oxygen Saturation 97% 11/15/2024 9:41 AM EST Inhaled Oxygen Concentration - - Weight 81.2 kg (179 lb) 11/15/2024 9:41 AM EST Height 177.8 cm (5' 10 ) 11/15/2024 9:41 AM EST Body Mass Index 25.68 11/15/2024 9:41 AM EST Plan of Treatment Health Maintenance Due Date Last Done Comments [facility]-Depression Screening 1945 [facility]-Hepatitis C Screening 1945 [facility]-Medicare Annual Wellness (AWV) 1945 [facility]-/Child/Adol SDOH Screenings 1945 [facility]- SDOH Screenings 1965 [facility]-Adult SDOH Screenings 1965 [facility]-DTaP,Tdap,and Td Vaccines (1 - Tdap) 01/18/2018 01/17/2018 [id number] Vaccine (8 - Moderna risk 2023- season) 2025 08/02/2024, 07/24/2023, 09/15/2022, Additional history exists [facility]-Influenza Vaccine (#1) 06/30/202507/24, 07/13/2023, 07/25/2022, Additional history exists [facility]-Hepatitis A Vaccines Aged Out 05/25/2019, 11/2017 No longer eligible based on patient's age to complete this topic [facility]-Zoster Vaccines Completed 11/26/2019, 9 [facility]-Pneumococcal Vaccine: 50+ Years Completed 10/03/2022, 02/25/2019, 12/29/2016 [facility]-RSV Vaccine: 60+ Years or Completed 09/19/2024, 09/06/2023 [facility]-Obesity Intervention Completed 11/15/2024 HPV Vaccines Aged Out No longer eligi ble based on patient's age to complete this topic [facility]-HIB Vaccines Aged Out No longer e ligible based on patient's age to complete this topic [facility]-IPV Vaccines Aged Out No longer e ligible based on patient's age to complete this topic [facility]-Rotavirus Vaccines Aged Out No lo nger eligible based on patient's age to complete this topic Insurance [facility] MEDICARE Care Teams Fine Jewel[employer] Sales Associate Relationship Specialty Start Date End Date Gil Aguilar MD [address] [place] [address] PCP - General 03/12/21
--- OUTSIDE RECORDS SUMMARY | 2025-05-19 10:32 | XMS_ITS | Referral Summary ---
Author Organization [employer] ([place], [place], [place], [place]) Address [address] [place] [address] Care Team Providers Care Lobby Attendant Name Role Phone Unavailable Primary Care Provider Unavailabl e Encounters Date Type Department Care Team Description 03/04/2025 10:02 AM EDT - 03/04/2025 11:59 PM EDT Hospital Encounter [facility] Diagnostic Imaging - [address] [place] [address] Serge Devine PA-C Arthralgia of both hands Discharge Disposition: Home or Self Care 03/04/2025 9:45 AM EDT Office Visit [facility] Orthopedics - [address] [address] Serge Devine PA-C 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 Active ascorbic Acid (VITAMIN C) 500 mg cpER SR capsule Take 1 capsule (500 mg total) by mouth daily. Active fenofibrate (LOFIBRA) 160 MG tablet Take 1 tablet (160 mg total) by mouth daily. Active FeroSuL 325 mg (65 mg iron) tablet Take 1 tablet (325 mg total) by mouth daily. Active pramipexole (MIRAPEX) 0.125 MG tablet Take 1-2 tablets (0.125-0.25 mg total) by mouth daily. 02/04/2025 Active traMADoL (ULTRAM) 50 mg tablet Take 1 tablet (50 mg total) by mouth 2 (two) times daily as needed. Max Daily Amount: 100 mg Active multivitamin (THERAGRAN) tablet Take 1 tablet by mouth daily. Active antiox #8/om3/dha/epa/ lut/zeax (PRESERVISION AREDS 2, OMEGA-3, ORAL) Take 1 capsule by mouth daily as needed. Active Active Problems No known active problems Social History Tobacco Use Types Packs/Day Years Used Date Smoking Tobacco: Never Smokeless Tobacco: Never Tobacco Cessation:Counseling Given: Not Answered Alcohol Use Standard Drinks/Week Comments Never 0 (1 standard drink = 0.6 oz pur e alcohol) Sex and Gender Information Value Date Recorded Sex Assigned at Male 03/04/2025 9:14 AM CDT Legal Sex Male 7:15 PM CDT Gender Identity Male 03/04/2025 9:14 AM CDT Sexual Orientation Not on file Last Filed Vital Signs Vital Sign Reading Time Taken Comments Blood Pressure 139/84 03/04/2025 9:39 AM EDT Pulse 67 03/04/2025 9:39 AM EDT Temperature - - Respiratory Rate - - Oxygen Saturation - - Inhaled Oxygen Concentration - - Weight 75.8 kg (167 lb) 03/04/2025 9:39 AM EDT Height 177.8 cm (5' 10 ) 03/04/2025 9:39 AM EDT Body Mass Index 23.96 03/04/2025 9:39 AM EDT Plan of Treatment Upcoming Encounters Date Type Department Care Team (Late st Contact Info) Description 06/05/2025 10:30 AM EDT Office Visit [facility] Orthopedics - [facility] [address] [place] [address] Serge Devine PA-C [address] [facility] [address] [place] [address] Procedures Procedure Name Priority Date/Time Associated Diagnosis Comments FS_SJH_MODEL GENERAL FORM Routine 03/04/2025 11:14 AM EDT 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 Primary osteoarthritis of first carpometacarpal joint of left hand XR HAND BILATERAL PA LATERAL AND OBLIQUE Routine 03/04/2025 10:35 AM EDT Arthralgia of both hands from Last 3 Months Results * Left 1st CMCJ injection, Right long MCPJ injection (03/04/2025 11:14 AM EDT) Serge Seay PA-C - 03/04/2025 11:14 AM EDT Serge Devine PA-C 03/04/2025 11:21 AM Left 1st CMCJ injection, Right long MCPJ injection Date/Time: 03/04/2025 11:14 AM Performed by: Serge Devine PA-C Authorized by: Serge Devine PA-C Consent: Consent obtained: Verbal and written Consent given by: Patient Risks, benefits, and alternatives were discussed: yes Risks discussed: Bleeding, infection, pain, incomplete drainage, nerve damage and poor cosmetic result [place] protocol: Procedure explained and questions answered to patient or proxy's satisfaction: yes Relevant documents present and verified: yes Test results available: yes Imaging studies available: yes Site/side marked: yes Immediately prior to procedure, a time out was called: yes Patient identity confirmed: Verbally with patient Pre-procedure details: Preparation: Patient was prepped and draped in the usual sterile fashion Sedation: Sedation type: None Anesthesia: Anesthesia method: Topical application (See MAR) Procedure specific details: Left 1st Carpometacarpal joint injections. The left hand was positioned in the lateral position with the CMCJ pointing dorsally. The CMCJ was prepped with alcohol swabs. The CMCJ was identified at the base of the 1st MC with traction applied to the thumb. Left 1st Carpometacarpal joint were injected with 1ml of 1% lidocaine and Kenalog 10mg. Effects from the injection may take several days to be noticeable. Contact the office in 2 weeks if absolutely no improvement noted. Right long MCP joint injection The hand was positioned in the prone position with the MCPJ pointing dorsally. The MCPJ was prepped with alcohol swabs. The MCPJ was identified at the Proximal dorsal joint crease with MCPJ in slight flexion. Traction was applied to the proximal phalanx. The MCP joint(s) was/were injected with 1ml of 1% lidocaine and Kenalog 10mg. Effects from the injection may take several days to be noticeable. Contact the office in 2 weeks if absolutely no improvement noted. Post-procedure details: Procedure completion: Tolerated well, no immediate complications Serge Devine PA-C PROCEDURE/MINOR SURGICAL NEDRA [place] Final Result * X-ray hand bilateral PA lateral and oblique (03/04/2025 10:35 AM EDT) Anatomical Region Laterality Modality Hand, Wrist X-Ray 03/04/2025 12:1 7 PM EDT Impressions 03/04/2025 1:39 PM EDT Significant degenerative findings bilaterally with no acute osseous abnormality of either hand. Images reviewed, interpreted, and dictated by Dr. Martin Holm. Transcribed by Peyton Nieto PA-C. Narrative 03/04/2025 1:39 PM EDT BILATERAL HAND SERIES HISTORY: Chronic bilateral hand pain. FINDINGS: A 3 view exam of the right hand demonstrates no acute fracture. There is ulnar minus variation. There are advanced degenerative changes of the first CMC joint. There is diffuse periarticular osteopenia. There is diffuse IP joint space narrowing with dorsal spurring of the second, third and fifth DIP joints. A 3 view exam of the right hand demonstrates no acute fracture. There is a minus variation. There are mild degenerative changes of the first CMC joint. There are significant degenerative changes with narrowing and osteophyte formation of the third metacarpal joint. There are significant degenerative changes of the second DIP joint with dorsal osteophyte and subluxation. Procedure Note Martin Holm MD - 03/04/2025 BILATERAL HAND SERIES HISTORY: Chronic bilateral hand pain. FINDINGS: A 3 view exam of the right hand demonstrates no acute fracture. There is ulnar minus variation. There are advanced degenerative changes of the first CMC joint. There is diffuse periarticular osteopenia. There is diffuse IP joint space narrowing with dorsal spurring of the second, third and fifth DIP joints. A 3 view exam of the right hand demonstrates no acute fracture. There is a minus variation. There are mild degenerative changes of the first CMC joint. There are significant degenerative changes with narrowing and osteophyte formation of the third metacarpal joint. There are significant degenerative changes of the second DIP joint with dorsal osteophyte and subluxation. IMPRESSION: Significant degenerative findings bilaterally with no acute osseous abnormality of either hand. Images reviewed, interpreted, and dictated by Dr. Martin Holm. Transcribed by Peyton Nieto PA-C. Serge Devine PA-C [facility]ST[facility] ORDERA BLES Final Result from Last 3 Months Insurance [facility] MEDICARE PPO
--- OUTSIDE RECORDS SUMMARY | 2025-05-19 10:32 | XMS_ITS | Encounter Summary ---
Author Organization [facility] Address [address] [id number] Care Team Providers Care Tram Operator Name Role Phone Gil Aguilar MD Primary Care Provider [phone] Reason for Referral * Consultation (Routine) - Closed Specialty Diagnoses / Procedures Referred By Contac t Referred To Contact Nephrology Diagnoses Kidney cysts Gil Aguilar MD [address] [place] [address] Phone: tel: fax: [address] [address] Phone: tel: fax: Referral ID Status Reason Start Date Expiration Date V isits Requested Visits Authorized [id number] Closed Specialty Services Required 07/22/2024 01/21/2026 1 1 Encounter Details Date Type Department Care Team (Late st Contact Info) Description 07/22/2024 [facility] [address] [place] [address] Gil Aguilar MD [address] [facility] [address] [place] [address] Kidney cysts (Primary Dx) Social History Tobacco Use Types Packs/Day Years Used Date Smoking Tobacco: Never Assessed Sex and Gender Information Value Date Recorded Sex Assigned at Not on file Legal Sex Male 6:53 PM EDT Gender Identity Not on file Sexual Orientation Not on file documented as of this encounter Plan of Treatment Scheduled Referrals Name Type Priority Associated Diagnoses Order Schedule Ambulatory referral to Nephrology Outpatient Referral Routine Kidney cysts Ordered: 07/22/2024 documented as of this encounter Visit Diagnoses Diagnosis Kidney cysts- Primary documented in this encounter Care Teams Tram Operator Relationship Specialty Start Date End Date Gil Aguilar MD [address] [place] [address] PCP - General 03/12/21 documented as of this encounter
--- OUTSIDE RECORDS SUMMARY | 2025-05-19 10:32 | XMS_ITS | Clinical Summary ---
Author Organization [employer] ([place], [place], [place], [place]) Address [address] [place] [address] Care Team Providers Care Customer Orders Clerk Name Role Phone Unavailable Primary Care Provider Unavailabl e Allergies No known active allergies Medications amLODIPine [...] Active Active Problems No known active problems Encounters Date Type Department Care Team Description 03/04/2025 10:02 AM EDT - 03/04/2025 11:59 PM EDT Hospital Encounter [facility] Diagnostic Imaging - [address] [place] [address] Sybil, Serge, PA-C Arthralgia of both hands Discharge Disposition: Home or Self Care 03/04/2025 9:45 AM EDT Office Visit [facility] Orthoped[facility] [address] [place] [address] Serge Devine PA-C 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 (Primary Dx); Primary osteoarthritis of first carpometacarpal joint of left hand; Arthralgia of both hands from Last 3 Months Family History Medical History Relation Name Comments Arthritis Other Gout Other Relation Name Status Comments Other Social History Tobacco Use Types Packs/Day Years [...] Description 06/05/2025 10:30 AM EDT Office Visit [facility] Orthoped[facility] [address] [place] [address] Serge Devine PA-C [address] [facility] [address] [place] [address] Health Maintenance Due Date Last Done Comments Depression Screening (12+) 1957 Hepatitis C Screening 1963 Medicare Initial AWV [id number] 10/31/2019 Respiratory Syncytial Virus (RSV) Adult or (1 - 1-dose 75+ series) 2022 COVID-19 VACCINE (2023-2 5 season) 2024 07/24/2023, 09/15/2022, 02/10/2022, Additional history exists Falls Risk Screening 10/30/2024 Influenza Vaccine (#1) 2025 4, 07/13/2023, 07/25/2022, Additional history exists Tobacco Cessation Counseling and Screening (12+) 03/04/2026 03/04/2025 DTAP/TDAP/TD VACCINES (2 - T d or Tdap) 01/18/2028 01/17/2018 Shingles Vaccine (Zoster) Completed 11/26/2019, Pneumococcal 50+ years Completed 2, 02/25/2019, 12/29/2016 Procedures Procedure Name Priority Date/Time Associated Diagnosis [...] drainage, nerve damage and poor cosmetic result [place] protocol: Procedure explained and questions answered to [...] complications Serge Devine PA-C PROCEDURE/MINOR SURGICAL NEDRA [place] Final Result * X-ray hand bilateral PA [...] Final Result from Last 3 Months Insurance [facility] MEDICARE PPO
--- OUTSIDE RECORDS SUMMARY | 2025-05-19 10:32 | XMS_ITS | Data Portability ---
Author Organization [facility] Address [address] [place] [address] Assessment No assessment recorded. Plan of Treatment Reminders Order Date Submit Date Provider Last Modified By Organization Details Last Modified Time Details Appointments OV EST 15 2024 10:45A M Yon Medrano Jr, MD Not available Not available Not available Lab PSA, total + free, serum or plasma [address], [address], 08/28/2024 07:24:21 urinalysi s, dipstick [email or web address], [address], 08/21/2023 09:09:10 Referral None recorded. Procedures bladder scan (PROC) 2022 [email or web address], [address], 08/21/2023 09:09:10 Surgeries None recorded. Imaging None recorded. Medication Orders None recorded. Patient TargetsNo targets recorded. Patient InstructionsNo instructions recorded. Reason for Referral None Reported. Results Created Date Observation Date Name Description Value Unit Range Abnormal Flag Note LastModifiedBy Organization Detail LastModifiedTime 08/18/2008/18/2023 bladd er scan (PROC ) Calculated Residual Urine: 12ml Not Available [address], [address], 08/18/2023 14:56:09 08/18/20 23 08/18/2023 urina lysis , dipst ick Leukocytes (reference range) small Not Available [address], [address], 08/18/2023 14:56:08 08/18/20 23 08/18/2023 urina lysis , dipst ick Nitrite (reference range:) negati ve Not Available [address], [address], 08/18/2023 14:56:08 08/18/2008/18/2023 urina lysis , dipst ick Urobilinogen (reference range) 0.2 Not Available [address], [address], 08/18/2023 14:56:08 08/18/2008/18/2023 urina lysis , dipst ick Protein (reference range) negati ve Not Available [address], [address], 08/18/2023 14:56:08 08/18/2008/18/2023 urina lysis , dipst ick pH (reference range 5-8.5) 7.0 Not Available [address], [address], 08/18/2023 14:56:08 08/18/20 23 08/18/2023 urina lysis , dipst ick Blood (reference range:) negati ve Not Available [address], [address], 08/18/2023 14:56:08 08/18/20 23 08/18/2023 urina lysis , dipst ick Specific Dolores (reference range) 1.015 Not Available [address], [address], 08/18/2023 14:56:08 08/18/2008/18/2023 urina lysis , dipst ick Ketone (reference range) negati ve Not Available [address], [address], 08/18/2023 14:56:08 08/18/2008/18/2023 urina lysis , dipst ick Bilirubin (reference range) negati ve Not Available [address], [address], 08/18/2023 14:56:08 08/18/2008/18/2023 urina lysis , dipst ick Glucose (reference range) negati ve Not Available [address], [address], 08/18/2023 14:56:08 08/18/2008/18/2023 urina lysis , dipst ick Color (reference range: yellow-brown ) Yellow Not Available [address], [address], 08/18/2023 14:56:08 08/21/2008/21/2024 PSA TOTAL + %FREE note Unles s other liao noted testi ng perfo rmed at: [facility] [address] [place] [address] [phone] Kendall nunez MD CLIA: [id number] Not Available [facility] (Lab Registration) [address] [place], [address], 08/22/2024 11:21:06 08/21/2008/22/2024 PSA TOTAL + %FREE prostate specific Ag, serum 9.7 NG/mL 0.0-4. 0 high Lorenza ECLIA metho dolog y. . Accor edgard to [facility], Serum PSA shoul d decre ase and remai n at undet ectab le level s after radic al prost atect isaura. The AUA defin es bioch emica l recur rence as an initi al PSA value 0.2 ng/mL or great er follo wed by a subse quent confi rmato ry PSA value 0.2 ng/mL or great er. Value s obtai fabiana with diffe rent assay metho ds or kits canno t be used inter lynch eably . Resul ts canno t be inter prete d as absol [place] evide nce of the prese nce or absen ce of [facility]. SENT TO REFER ENCE LAB Not Available [facility] (Lab Registration) [address] , [place], [address], 08/22/2024 11:21:06 08/21/2008/22/2024 PSA TOTAL + %FREE PSA, free 2.67 NG/mL n/a Lorenza ECLIA metho dolog y. SENT TO REFER ENCE LAB Not Available [facility] (Lab Registration) [address], [place], [address], 08/22/2024 11:21:06 08/21/2008/22/2024 PSA TOTAL + %FREE % free PSA 27.5 % The table below lists the proba bilit y of prost ate cance r for men with non-s uspic ious SAÚL resul ts and total PSA betwe en 4 and 10 ng/mL , by patie nt age (Patricia rocha et al, YVES 1998, 279:1 542). % Free PSA 50-64 yr 65-75 yr 0.00- 10.00 % 56% 55% 10.01 -15.0 0% 24% 35% 15.01 -20.0 0% 17% 23% 20.01 -25.0 0% 10% 20% >25.0 0% 5% 9% Pleas e note: Kenneth lorenzana did not make speci fic recom menda tions regar ding the use of perce nt free PSA for any other popul ation of men. Perfo rmed at: - [facility] [address] [facility], [place] [address] Lab Direc tor: Jatinder velez PhD, Phone : [phone] SENT TO REFER ENCE LAB Not Available [facility] (Lab Registration) [address] , [place], [address], 08/22/2024 11:21:06 Result Notes None recorded. Medical Equipment None [...] Updated DateTime 08/18/2023 177.8 cm 25.1 kg/m2 81932.66 g 98 [degF] [facility] [place] 08/18/2023 14:29:30 Date Recorded Body height Body mass index (BMI) Body weight Provider Name and Address Organization Details Last Updated DateTime 08/21/2024 177.8 cm 25.1 kg/m2 28390.66 g [facility] [place] 08/21/2024 10:49:53 Social History None recorded. Functional Status Question Answer Note LastModified by Organization D etails LastModified Time What is your level of alcohol consumption? None [email or web address] Information not available 08/18/2023 Mental Status None recorded. Family History Nothing Reported Notes:Mother- Fathe r- bladder cancer Medical History No medical history recorded. Past Encounters Encounter ID Performer Location Encounter Start Date Encounter Closed Date Diagnosis/Indication Diagnosis SNOMED-CT Code Diagnosis ICD10 Code Diagnosis Note [id number] Yon Medrano Jr, MD [facility] [address] [address] 08/18/2023 13:55:18 08/18/2023 14:55:17 Prostate specific antigen above reference range 388443429 R97.20 Patient with a history of elevated PSA. By report his recent PSAs are stable and I will obtain his PSAs for the record. Lower urin eboni tract symptoms 867394486 R39.9 patient with occasional dysuria and feeling of incomplete emptying. His bladder scan today is only 12 cc in his urinalysis is unremarkab le. Patient was reassured that he is emptying well. [id number] Yon Medrano Jr, MD [facility] [address] [address] 08/21/2024 10:40:28 08/21/2024 11:26:09 Prostate specific antigen above reference range [id number] R97.20 Patient with a history of elevated PSA. his PSA last year was 5.8 which is within normal limits for his age. Prostate examinatio n today is within normal limits. Will repeat a PSA. Benign pro static hyperplasia without outflow obstruction [id number] N40.0 patient with history of BPH. He underwent a TURP 11 years ago and states he continues to void well. Health Concerns Section Related Observation LastModified by Organization Detai ls LastModified Time None Recorded Concern Status LastModified by Organization Details LastModified Time None Recorded Advance Directives Directive None Recorded Payers Insurance Date Sequence Insurance Name Policy Number Policy Bertrand Covered Member ID Bertrand Member ID Guarantor Name 08/21/2024 1 [employer] (MEDICARE REPLACEMENT/A DVANTAGE - PPO) Mak Martell [id number] Mak Martell Notes Date Note Type Note [...] urinalysis is unremarkable. Yon Medrano Jr, MD [address] [place] [address], [address], [place], [address], [facility] & [place] 09/27/2023 13:47:54 08/21/2024 text/html patient is a 79-year-old white male with history of elevated PSA and lower urinary tract symptoms. Patient states that long history of the slightly elevated PSA. His PSA June 2023 was 5.8.Patient has a history of BPH and underwent a GreenLight laser TURP [address] Morejon. Patient states he is voiding well. Yon Medrano Jr, MD [address] [place] [address], [address], [place], [address], [place] - [facility] - [place] & [place] 08/21/2024 12:12:13
--- NOTE | 2025-05-19 10:46 | EXP.PAIN.SOA ---
[facility] Disclaimer: The information contained in this section may have been updated after the patient was seen, as this information can be updated by other users. Medical History OSCAR (obstructive sleep apnea) Parkinsons HLD (hyperlipidemia) Tinnitus of both ears Hearing loss HTN (hypertension) HTN (hypertension) Surgical History History of colonoscopy History of total right knee replacement Family History Other Family history of bladder cancer Family history of hypertension Family history of osteoporosis Social History Smoking Status: Former smoker second hand exposure: No alcohol intake: never substance use type: denies use current occupational status: other Travel in the last 8 weeks?: None household members: other housing: house current occupational exposures/hazards: No caffeine: No PM Subjective & Objective Subjective Subjective:: Patient is a pleasant 79-year-old male who presents today for worsening pain. He does state that he is having pain in multiple areas including his neck shoulders, low back and bilateral hips as well as his left knee was replaced January 21. Patient does state that he feels like on a daily basis the neck symptoms are giving him the most pain. Patient did previously have a cervical RFA back in September 2024 that did provide 75 to 80% relief. He states that he feels like this has started to wear off and he does have tenderness in and around his neck and shoulders. Patient is interested in any help we may be able to provide as the pain is interfering with his ability perform activities of daily living such as cooking and cleaning. His Odell has been reviewed and is appropriate. Review of Systems: General: No recent weight changes, no fever, no sleep disturbances Respiratory: No cough, no shortness of air, no recurring pulmonary infections Cardiovascular/peripheral vascular: No chest pain, no palpitations, no edema, no shortness of breath Gastrointestinal: No new onset incontinence, normal bowel movements reported Genitourinary: No new onset incontinence Musculoskeletal: Neck pain, low back pain, bilateral hip pain, knee pain Psychiatric: [Normal mood/affect] Neurological: [Denies weakness in extremities], [denies balance issues] Pain at rest (0-10 scale): 5 Objective Objective:: Physical Exam: General: Alert and oriented x3, no acute distress, pleasant and cooperative Lungs: Respirations even and unlabored, symmetrical chest expansion Eyes: PERRL Musculoskeletal: Flexion and extension of cervical [spine] somewhat guarded secondary to pain, [antalgic gait noted] point tenderness along bilateral cervical paraspinous and bilateral trapezius muscles Neurological: Speech clear, no gross sensory deficit Has patient had previous pain injection?: No Conservative treatment options previously tried: Home exercise plan Length of treatment: Longer than 12 weeks Meds Home Medications and Allergies Home Medications ?Medication ?Instructions ?Recorded ?Confirmed ?Type fenofibrate 160 mg tablet 160 mg PO DAILY 01/17/18 05/19/25 History ferrous sulfate 325 mg (65 mg 325 mg PO DAILY 01/17/18 05/19/25 History iron) tablet amlodipine 5 mg tablet 5 mg PO DAILY 09/25/23 05/19/25 History pramipexole 0.25 mg tablet 0.25 mg PO TID 02/05/24 05/19/25 History multivitamin 1 tab PO DAILY 12/27/24 05/19/25 History levofloxacin 750 mg tablet 750 mg PO DAILY #10 tabs 12/31/24 05/19/25 Rx prednisone 50 mg tablet 50 mg PO DAILY 5 days #5 tabs 02/23/25 05/19/25 Rx New Prescriptions to Start Prescriptions: Allergies Allergy/AdvReac Type Severity Reaction Status Date / Time No Known Allergies Allergy Verified 05/15/25 09:13 Assessment and Plan *Assessment and plan (1) Facet arthropathy, cervical: Status: Acute Category: Medical Code(s): M47.812 - Spondylosis without myelopathy or radiculopathy, cervical region (2) Myofascial pain: Status: Acute Category: Medical Code(s): M79.18 - Myalgia, other site Plan Patient is experiencing worsening pain in his neck with point tenderness along his bilateral cervical paraspinous and bilateral trapezius muscles. I did discuss with the patient that he would benefit from both trigger point injections as well as repeat cervical RFA as it has been longer than 6 months. Patient did state overall he felt like he had more pain in and around his muscles and would like to try for the trigger point injections initially. Patient has tried and failed conservative therapy including oral medications, heat and ice, topicals, at home stretching exercise for longer than 12 weeks. This has been a chronic pain source of his neck for longer than a year. Patient will be scheduled for trigger point injections of his bilateral cervical paraspinous and trapezius muscles. These will be done without fluoroscopic or ultrasound guidance. Patient has been instructed to contact the clinic with any concerns before the next appointment. Dr. Aguilar has reviewed this note and agrees with this plan of care. This note was dictated using voice recognition software and make contain errors or omissions. All injections are used with Lidocaine, Bupivacaine and dexamethasone. Occasionally urine drug screen is needed to verify patient's compliance with our office pain contract. This is ordered based off specific treatments related to chronic pain with the potential to abuse certain medications.
== END 2025-05-19 23:59 | disposition home or self-care (01) ==
LOC: SC.PAIN 10:22
PROVIDERS: PCP Internal Medicine Adolescent Medicine; Visit Provider Nurse Practitioner Family
DX: M47.812 Spondylosis without myelopathy or radiculopathy, cervical region (principal); M79.18 Myalgia, other site
CPT/HCPCS: 99212; G0463

== ENCOUNTER 2025-05-30 13:33 | Day surgery (SDC) | payer MEDICARE, SELFPAY ==
[2025-05-30 13:45] VITALS: BP 138/80; PULSE 77; RESP 18; O2SAT 96; BMI 24.3
--- NOTE | 2025-05-30 13:53 | EXP.PAIN.PRO ---
Procedure Date: 05/30/25 Time: 14:03 Anesthesiologist:: Paola Boothe APRN Complications:: None Pre-procedure Diagnosis:: Chronic pain syndrome, cervical facet arthropathy, cervical spondylosis, myofascial pain Post-procedure Diagnosis:: Same Indications for Procedure:: Patient is a pleasant 79-year-old male who presents today for trigger point injections of his bilateral cervical paraspinous and trapezius muscles. Patient denies any new falls or injuries. He does state that his pain was at least a 5 out of 10. He states it does get worse with increased activity or movement. Patient is also making mention that he is experiencing worsening pain there at his neck that does cause limited range of motion. He has a lot of difficulty turning his head [id number] and up and down. He does state that pain interferes with his ability perform activities of daily living such as cooking and cleaning. Patient is interested in additional injection therapy for this. His Odell has been reviewed and is appropriate. Physical Exam: General: Alert and oriented x3, no acute distress, pleasant and cooperative Lungs: Respirations even and unlabored, symmetrical chest expansion Eyes: PERRL Musculoskeletal: Flexion and extension of cervical [spine] somewhat guarded secondary to pain, [antalgic gait noted] positive Kemps test Neurological: Speech clear, no gross sensory deficit Procedure Details:: Patient did have noninvasive blood pressure cuff applied and pulse oximeter. Patient was placed in a sitting position and palpated along his bilateral cervical paraspinous and trapezius muscles. Areas of point tenderness were marked and using a sterile 25-gauge needle approximately 10 mL of 0.25% bupivacaine, 1% lidocaine and 10 mg dexamethasone were incrementally injected into his bilateral cervical paraspinous and trapezius muscles. Needle was removed and sterile bandages applied. Patient tolerated the procedure well with no complications and was discharged neurologically intact. Plan and Disposition:: Patient tolerated his trigger point injections with no complications and was discharged neurologically intact. Patient is experiencing worsening pain in his neck with limited range of motion of his cervical spine and a positive Kemps test. I did discuss with the patient that I do believe he would benefit from repeat cervical RFA. Risk and benefits were discussed with the patient and he would like to proceed forward with this plan of care. Patient has had significant improved function with the RFA in the past.Patient has continued conservative therapy including oral medications, heat and ice, topicals, at home stretching exercise for longer than 12 weeks that was physician guided. Patient did just have his last left sided cervical RFA of C5-C6 C6-C7 back in September that did provide more than 75 to 80% relief. Patient has had this pain for longer than 6 months. We did review over the risk and benefits of this procedure and he would like to proceed forward with this plan of care. We will submit to insurance for the cervical radiofrequency ablation right sided C5-C6 and C6-C7 under fluoroscopy. We will plan on doing the left side following the right. Patient agrees with this plan of care. Patient has been instructed to contact the clinic with any concerns before the next appointment. Dr. Aguilar has reviewed this note and agrees with this plan of care. This note was dictated using voice recognition software and make contain errors or omissions. All injections are used with Lidocaine, Bupivacaine and dexamethasone. Occasionally urine drug screen is needed to verify patient's compliance with our office pain contract. This is ordered based off specific treatments related to chronic pain with the potential to abuse certain medications.
[2025-05-30] MEDS: BUPIVACAINE 0.25% 10ML INJ 25 MG IJ (13:59)
[2025-05-30] MEDS: LIDOCAINE 1% 5ML PF VIAL 5 ML (13:59)
[2025-05-30] MEDS: DEXAMETHASONE 10MG/ML 1ML VIAL 10 MG (13:59)
[2025-05-30 14:00] VITALS: BP 120/84; PULSE 78; RESP 18; O2SAT 96
[2025-05-30 14:01] VITALS: BP 120/84; PULSE 78; RESP 18; O2SAT 96
[2025-05-30 14:08] VITALS: BP 140/89; PULSE 74; RESP 18; O2SAT 97
== END 2025-05-30 14:08 | disposition home or self-care (01) ==
PROVIDERS: PCP Internal Medicine Adolescent Medicine; Visit Provider Nurse Practitioner Family
DX: G89.4 Chronic pain syndrome (principal); M79.18 Myalgia, other site; G47.33 Obstructive sleep apnea (adult) (pediatric); G20.A1 Parkinson's disease without dyskinesia, without mention of fluctuations; E78.5 Hyperlipidemia, unspecified; I10 Essential (primary) hypertension; Z87.891 Personal history of nicotine dependence; Z79.899 Other long term (current) drug therapy
CPT/HCPCS: 20553; J0665; J1100; J2003

== ENCOUNTER 2025-06-12 09:21 | Outpatient (POV) | payer MEDICARE, SELFPAY ==
--- OUTSIDE RECORDS SUMMARY | 2025-06-05 10:30 | XMS_ITS | Encounter Summary ---
Author Organization [employer] ([place], [place], [place], [place]) Address [address] [place] [address] Care Team Providers Care Cupola Melting Supervisor Name Role Phone Serge Devine PA-C Unavailable [phone] Reason for Visit * Reason Comments Injections Repeat inj Encounter Details Date Type Department Care Team (Latest Contact Info) Description 06/05/2025 10:30 AM EDT Office Visit [facility] Orthopedics - [address] [place] [phone] Serge Devine PA-C [address] [place] [address] Primary osteoarthritis of first carpometacarpal [...] described achy throbbing pain with soreness YUAN Bow Maker Machine Tender R 60 L 85 Pinch R 22 [...] CMC Tenderness []+ []- [x]+ []- 1st MANAGER PROJECT MANAGEMENT Grind []+ []- [x]+ []- Norbert Nodes [...] drainage, nerve damage and poor cosmetic result [facility] protocol: Procedure explained and questions answered to [...] factors. Patient will follow-up with PCP for care home treatment plan. I have examined and questioned the above listed patient and provided or received all documentation,establishing, confirming, and revising as necessary, the findings and statements noted. . EMR/[employer] [employer] [facility]/Clinical Care Leader disclaimer: Much of this encounter note is an electronic batch blender/translation of spoken language to printed text. The electronic translation of spoken language may permit erroneous, or at times, nonsensical words or phrases to be inadvertently transcribed; Although thenote is reviewed for such errors, some may still exist. documented in this encounter Plan of Treatment Upcoming Encounters Date Type Department Care Team (Late st Contact Info) Description 09/09/2025 10:30 AM EST Office Visit [facility] Orthoped[facility] - [address] [place] [address] Serge Devine PA-C [address] [place], [place] [id number] documented as of this encounter Procedures Procedure [...] drainage, nerve damage and poor cosmetic result [facility] protocol: Procedure explained and questions answered to [...] completion: Tolerated well, no immediate complications Result [facility] Serge Devine PA-C PROCEDURE/MINOR SURGICAL NEDRA [...] Other documented in this encounter Care Teams Cupola Melting Supervisor Relationship Specialty Start Date End Date Serge Devine PA-C [address] [facility] [address] [place] [address] Physician Spray I Painter Orthopedic Surgery 06/05/25 documented as of this encounter
--- OUTSIDE RECORDS SUMMARY | 2025-06-12 09:23 | XMS_ITS | Referral Summary ---
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 10 mg IAtc Once 06/05/2025 06/05/2025 Ended Active Problems No known active problems Social [...] Mass Index 24.39 06/05/2025 10:26 AM EDT Plan of Treatment Upcoming Encounters Date Type Department Care Team (Late st Contact Info) Description 09/09/2025 10:30 AM EST Office Visit [facility] - [facility] [address] [place] [address] Serge Devine PA-C [address] [facility] [address] [place] [address] Procedures Procedure Name Priority Date/Time Associated Diagnosis Comments FS_SJH_MODEL GENERAL FORM Routine 06/05/2025 10:41 AM EDT Primary osteoarthritis of first carpometacarpal joint of left 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
--- OUTSIDE RECORDS SUMMARY | 2025-06-12 09:23 | XMS_ITS | Clinical Summary ---
Author Organization [facility] Address [address] [place] [address] Care Team Providers Care Club Waiter/Waitress Name Role Phone Gil Aguilar MD Primary Care Provider [phone] Medications Zinc Sulfate 140 (50 Zn) MG [...] Td Vaccines (1 - Tdap) 01/18/2018 01/17/2018 [id number]-[id number]-60 Vaccine (8 - Moderna risk 2023- season) [...] patient's age to complete this topic Insurance [facility] MEDICARE Care Teams Club Waiter/Waitress Relationship Specialty Start Date End Date Gil Aguilar MD [address] [place] [address] PCP - General 03/12/21
--- OUTSIDE RECORDS SUMMARY | 2025-06-12 09:23 | XMS_ITS | Clinical Summary ---
Author Organization [employer] ([place], [place], [place], [place]) Address [address] [place] [address] Care Team Providers Care Dot Compliance Coordinator Name Role Phone Serge Devine PA-C Unavailable [phone] Allergies No known active allergies Medications amLODIPine [...] Ended Active Problems No known active problems Encounters Date Type Department Care Team Description 06/05/2025 10:30 AM EDT Office Visit [facility] [address] [place] [address] Serge Devine PA-C Primary osteoarthritis [...] Description 09/09/2025 10:30 AM EST Office Visit [facility] [address] [place] [address] Serge Devine PA-C [address] [facility] [address] [place] [address] Health Maintenance Due Date Last Done Comments [...] exists Tobacco Cessation Counseling and Screening (12+) 06/05/2026 06/05/2025 DTAP/TDAP/TD VACCINES (2 - T d or [...] long MCPJ injection (06/05/2025 10:41 AM EDT) Narrative Serge Devine PA-C - 06/05/2025 10:41 AM EDT Serge [...] drainage, nerve damage and poor cosmetic result [place] protocol: Procedure explained and questions answered to [...] immediate complications Serge Devine PA-C PROCEDURE/MINOR SURGICAL [place] Final Result from Last 3 Months Insurance [facility] MEDICARE PPO Care Teams Dot Compliance Coordinator Relationship Specialty Start Date End Date Serge Devine PA-C [address] [facility] [address] [place] [id number] Physician Sample Box Maker Orthopedic Surgery 06/05/25
--- OUTSIDE RECORDS SUMMARY | 2025-06-12 09:23 | XMS_ITS | Encounter Summary ---
Author Organization [facility] Address [address] [id number] Care Team Providers Care Mental Health Clinician Name Role Phone Gil Aguilar MD Primary Care Provider [phone] Reason for Referral * Consultation (Routine) - Closed Specialty Diagnoses / Procedures Referred By Contac t Referred To Contact Nephrology Diagnoses Kidney cysts Gil Aguilar MD [address] [place] [address] Phone: tel: fax: [facility] [address] [address] Phone: tel: fax: Referral ID Status Reason Start Date Expiration Date V isits Requested Visits Authorized [id number] Closed Specialty Services Required 07/22/2024 01/21/2026 1 1 Encounter Details Date Type Department Care Team (Late st Contact Info) Description 07/22/2024 [facility] [address] [place] [address] Gil Aguilar MD [address] [facility] [address] [place] [address] Kidney cysts (Primary Dx) Social History Tobacco [...] Primary documented in this encounter Care Teams Mental Health Clinician Relationship Specialty Start Date End Date Gil Aguilar MD [address] [place] [address] PCP - General 03/12/21 documented as of this encounter
[2025-06-12 09:34] VITALS: BP 138/78; PULSE 83; RESP 14; O2SAT 97; BMI 24.3
--- NOTE | 2025-06-12 09:45 | EXP.PAIN.SOA ---
[facility] Disclaimer: The information contained in this section may have been updated after the patient was seen, as this information can be updated by other users. Medical History OSCAR (obstructive sleep apnea) Parkinsons HLD (hyperlipidemia) Tinnitus of both ears Hearing loss HTN (hypertension) HTN (hypertension) Surgical History History of colonoscopy History of total right knee replacement Family History Other Family history of bladder cancer Family history of hypertension Family history of osteoporosis Social History Smoking Status: Former smoker second hand exposure: No alcohol intake: never substance use type: denies use current occupational status: other Travel in the last 8 weeks?: None household members: other housing: house current occupational exposures/hazards: No caffeine: No Have you lived/traveled outside US in past 30 days?: No Contact w/someone who lives/traveled outside US past 30 days?: No Exposure to someone with infectious disease in past 14 days?: No Do you have a fever (greater than 100.4 F or 38 C)?: No Have you tested positive for COVID-19?: No Exposed to someone with COVID-19 in past 14 days?: No Do you have a sore throat?: No Do you have a cough?: No Do you have any weakness?: No Do you have any diarrhea?: No Are you experiencing any unusual bleeding?: No Do you have any muscle aches/pain?: No Do you have any abdominal pain?: No Are you experiencing loss of taste or smell?: No PM Subjective & Objective Subjective Subjective:: Patient is a pleasant 79-year-old male who presents today for follow-up of his trigger point injections of his bilateral cervical paraspinous and trapezius muscles on 05 30. He does right 75% improvement into those muscle groups and felt like it did take a little while for it to kick in and it was a little bit more delayed than some of his other injections. He does state that that worked really well but he is still having very limited movement turning his head to the right or looking up and down more on the right side. Patient is interested in repeating his prior cervical ablation that he had in the past to help with this movement. Patient does feel like the last 1 has officially worn off and it is interfering with his ability perform activities of daily living such as cooking and cleaning. Patient Odell has been reviewed and is appropriate. Review of Systems: General: No recent weight changes, no fever, no sleep disturbances Respiratory: No cough, no shortness of air, no recurring pulmonary infections Cardiovascular/peripheral vascular: No chest pain, no palpitations, no edema, no shortness of breath Gastrointestinal: No new onset incontinence, normal bowel movements reported Genitourinary: No new onset incontinence Musculoskeletal: Neck pain right sided Psychiatric: [Normal mood/affect] Neurological: [Denies weakness in extremities], [denies balance issues] Pain at rest (0-10 scale): 5 Objective Objective:: Physical Exam: General: Alert and oriented x3, no acute distress, pleasant and cooperative Lungs: Respirations even and unlabored, symmetrical chest expansion Eyes: PERRL Musculoskeletal: Flexion and extension of cervical [spine] somewhat guarded secondary to pain, [antalgic gait noted] positive Kemps test Neurological: Speech clear, no gross sensory deficit Has patient had previous pain injection?: Yes Percent improvement in pain since last injection: 75% Conservative treatment options previously tried: Home exercise plan Length of treatment: Longer than 12 weeks Meds Home Medications and Allergies Home Medications ?Medication ?Instructions ?Recorded ?Confirmed ?Type fenofibrate 160 mg tablet 160 mg PO DAILY 01/17/18 06/12/25 History ferrous sulfate 325 mg (65 mg 325 mg PO DAILY 01/17/18 06/12/25 History iron) tablet amlodipine 5 mg tablet 5 mg PO DAILY 09/25/23 06/12/25 History pramipexole 0.25 mg tablet 0.25 mg PO TID 02/05/24 06/12/25 History multivitamin 1 tab PO DAILY 12/27/24 06/12/25 History levofloxacin 750 mg tablet 750 mg PO DAILY #10 tabs 12/31/24 06/12/25 Rx prednisone 50 mg tablet 50 mg PO DAILY 5 days #5 tabs 02/23/25 06/12/25 Rx New Prescriptions to Start Prescriptions: Allergies Allergy/AdvReac Type Severity Reaction Status Date / Time No Known Allergies Allergy Verified 05/15/25 09:13 Assessment and Plan *Assessment and plan (1) Facet arthropathy, cervical: Status: Acute Category: Medical Code(s): M47.812 - Spondylosis without myelopathy or radiculopathy, cervical region (2) Neck pain: Status: Acute Category: Medical Code(s): M54.2 - Cervicalgia Plan Patient is experiencing worsening pain in his neck with limited range of motion and movement more prominent on the right side and he did have a positive Kemps test. Patient had his last cervical RFA along the right side back on October 15 with 75 to 80% improvement. I did review with the patient that I do believe he would benefit from repeat RFA. Risk and benefits were discussed with patient and he would like to proceed forward with this plan of care. Patient has tried and failed conservative therapy including oral medication, heat and ice, topicals, previous physical therapy and continued physician guided exercise and stretching for longer than 12 weeks. Patient will be scheduled for a right sided cervical RFA C5-C6 and C6-C7 under fluoroscopy. Patient has been instructed to contact the clinic with any concerns before the next appointment. Dr. Aguilar has reviewed this note and agrees with this plan of care. This note was dictated using voice recognition software and make contain errors or omissions. All injections are used with Lidocaine, Bupivacaine and dexamethasone. Occasionally urine drug screen is needed to verify patient's compliance with our office pain contract. This is ordered based off specific treatments related to chronic pain with the potential to abuse certain medications.
== END 2025-06-12 23:59 | disposition home or self-care (01) ==
LOC: SC.PAIN 09:21
PROVIDERS: PCP Internal Medicine Adolescent Medicine; Visit Provider Nurse Practitioner Family
DX: M47.812 Spondylosis without myelopathy or radiculopathy, cervical region (principal)
CPT/HCPCS: 99212; G0463

== ENCOUNTER 2025-07-08 10:49 | Day surgery (SDC) | payer MEDICARE, SELFPAY ==
[2025-07-08 11:10] VITALS: BP 155/88; PULSE 61; RESP 16; O2SAT 97; BMI 24.3
[2025-07-08 11:14] VITALS: BP 141/79; PULSE 71; RESP 18; O2SAT 98
[2025-07-08] MEDS: DEXAMETHASONE 10MG/ML 1ML VIAL 10 MG (11:14)
[2025-07-08] MEDS: LIDOCAINE 1% 5ML PF VIAL 5 ML (11:14)
[2025-07-08] MEDS: BUPIVACAINE 0.25% 10ML INJ 25 MG IJ (11:14)
[2025-07-08] MEDS: IOPAMIDOL-200 (41%);10ML VIAL 2 ML IV (11:14)
[2025-07-08 11:19] VITALS: BP 139/81; PULSE 72; RESP 18; O2SAT 94
--- NOTE | 2025-07-08 11:19 | P.PCN_ITS ---
Procedure Date: 07/08/25 Time: 11:10 Anesthesiologist:: Abraham Mejia CRNA Complications:: None Pre-procedure Diagnosis:: You are to disc cervical spine multilevels. Cervical radiculopathy. Cervical spondylosis. Multilevel cervical facet arthropathy. Post-procedure Diagnosis:: Same Indications for Procedure:: Patient is a very pleasant 80-year-old male who comes our clinic today for right cervical C5-6, C6-7 radiofrequency ablation. Patient describes a posterior cervical neck pain is constant, dull, aching. He reports a right occipital pain as well as frequent headaches. Right greater than left. He rates his pain 8/10. Procedure Details:: Informed consent was obtained and the risk and benefits of the procedure was explained to the patient. Patient was placed prone on the procedure table. The patient was prepped and draped in sterile fashion. C-arm fluoroscopy was used to view the lumbar spine. The skin and subcutaneous tissues were anesthetized using lidocaine. I placed 20-gauge RF needles into the facet joints of C5- C6 and C6-C7 levels on the right side. We underwent sensory stimulation. There is good sensory stimulation at 0.8 V. We underwent motor stimulation. There is no motor stimulation at 2.5 V. We then anesthetized these levels with lidocaine and dexamethasone. I used a total of 5 mg of dexamethasone for both levels. I then burned both levels of C5-C6 and C6-C7 facet joint/medial branches on the r ight side for 4 minutes at 80 ?C. Patient tolerated the procedure well with no complication. Plan and Disposition:: Patient was discharged without incident.
[2025-07-08 11:22] VITALS: BP 141/79; PULSE 71; RESP 18; O2SAT 98
== END 2025-07-08 11:19 | disposition home or self-care (01) ==
PROVIDERS: PCP Internal Medicine Adolescent Medicine; Visit Provider Nurse Anesthetist, Certified Registered
DX: M47.812 Spondylosis without myelopathy or radiculopathy, cervical region (principal); G20.A1 Parkinson's disease without dyskinesia, without mention of fluctuations; E78.5 Hyperlipidemia, unspecified; I10 Essential (primary) hypertension; Z87.891 Personal history of nicotine dependence; Z79.899 Other long term (current) drug therapy
CPT/HCPCS: 64633; 64634; J0665; J1100; J2003; Q9966

== ENCOUNTER 2025-07-20 18:35 | Emergency (ER) | payer MEDICARE, SELFPAY ==
--- OUTSIDE RECORDS SUMMARY | 2025-06-05 10:30 | XMS_ITS | Encounter Summary ---
Author Organization [facility] ([place], [place], [place], [place]) Address [address] [place] [address] Care Team Providers Care Clerk Of Works Name Role Phone Serge Devine PA-C Unavailable [phone] Reason for Visit * Reason Comments Injections Repeat inj Encounter Details Date Type Department Care Team (Latest Contact Info) Description 06/05/2025 10:30 AM EDT Office Visit [facility] Orthopedics - [address] [place] [phone] Serge Devine PA-C [address] [place] [address] Primary osteoarthritis of first carpometacarpal joint of left hand (Primary Dx); 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; Arthralgia of both hands Social History Tobacco Use Types Packs/Day Years Used Date Smoking Tobacco: Never Smokeless Tobacco: Never Alcohol Use Standard Drinks/Week Comments Never 0 (1 standard drink = 0.6 oz pur e alcohol) Sex and Gender Information Value Date Recorded Sex Assigned at Male 03/04/2025 9:14 AM CDT Legal Sex Male 7:15 PM CDT Gender Identity Male 03/04/2025 9:14 AM CDT Sexual Orientation Not on file documented as of this encounter Last Filed Vital Signs Vital Sign Reading Time Taken Comments Blood Pressure 135/84 06/05/2025 10:37 AM EDT Pulse 69 06/05/2025 10:37 AM EDT Temperature - - Respiratory Rate - - Oxygen Saturation - - Inhaled Oxygen Concentration - - Weight 77.1 kg (170 lb) 06/05/2025 10:26 AM EDT Height 177.8 cm (5' 10 ) 06/05/2025 10:26 AM EDT Body Mass Index 24.39 06/05/2025 10:26 AM EDT documented in this encounter Progress Notes * Serge Devine PA-C - 06/05/2025 10:30 AM EDTAssociated Order(s): Left 1st CMCJ injection, Right long MCPJ injection Post-Procedure Diagnose(s): Primary osteoarthritis of first carpometacarpal joint of left hand; 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 male. No ref. provider found Work Comp []Yes [x]No Hand Dominance: right-handed Employment: Retired Chief Complaint Patient presents with Injections Repeat inj HPI Injection Visit: Patient returns for follow-up regarding Left 1st CMCJ OA and Right long MCPJ OA. The patient received injections on 03/04/25 which worked well for 3 months. The patient requests repeat injections today. Pain level is 5/10 described achy throbbing pain with soreness YUAN Extension Professor R 60 L 85 Pinch R 22 L16 Date of Onset of Symptoms: [x]On-going problem Trauma: []+ [x]- Mechanism of Injury: Pain Location: Bilateral thumbs Severity (1-10) Quality: Sharp, aching, throbbing Numbness: []+ [x]- []Occasional []Constant Tingling: []+ [x]- []Occasional []Constant Night Symptoms: []+ [x]- x/wk Additional Symptoms: []None []Drainage []Neck Pain []Redness [x]Swelling [x]Stiffness []Bruising [x]Weakness []Drop Items []Other: Review of Systems [x]No change from previous [x]Change from previous [x]Reviewed ROS by Serge Devine PA-C General: No recent fever or chills, no recent weight loss or weight gain, no insomnia HEENT: No change in vision, no glasses/contacts, no hearing loss, no tinnitus, no vertigo, no congestion/sinus issues CVS: No chest pain, no palpitations, no edema, no varicose veins Resp: No dyspnea, no wheezing, no cough, no hemoptysis GI: No dysphagia, no nausea, no vomiting, no heart burn, no constipation, no diarrhea : No dysuria, no hematuria, no nocturia, no history of chronic UTI Musculoskeletal: See HPI Derm: No rash, no abrasions, no skin discoloration, no history or MRSA Neuro: No headaches, no seizures, no stroke, no tremors, no muscle weakness, no difficulty walking,no numbness/tingling, no neuropathy Endo: No cold/heat intolerance Heme: No abnormal bruising or bleeding Psych: No depression, no anxiety, no fatigue, no mood swings Vitals: 06/05/25 1026 06/05/25 1037 BP: (!) 148/90 135/84 Pulse: 70 69 Weight: 77.1 kg (170 lb) Height: 1.778 m (5' 10 ) Past Medical History: Diagnosis Date Bilateral hand pain Hyperlipidemia Hypertension Low iron Restless leg Past Surgical History: Procedure Laterality Date REPLACEMENT TOTAL KNEE BILATERAL Bilateral Current Outpatient Medications Medication Sig Dispense Refill amLODIPine (NORVASC) 5 MG tablet Take 1 tablet (5 mg total) by mouth daily. antiox #8/om3/dha/epa/lut/zeax (PRESERVISION AREDS 2, OMEGA-3, ORAL) Take 1 capsule by mouth daily as needed. ascorbic Acid (VITAMIN C) 500 mg cpER SR capsule Take 1 capsule (500 mg total) by mouth daily. fenofibrate (LOFIBRA) 160 MG tablet Take 1 tablet (160 mg total) by mouth daily. FeroSuL 325 mg (65 mg iron) tablet Take 1 tablet (325 mg total) by mouth daily. multivitamin (THERAGRAN) tablet Take 1 tablet by mouth daily. pramipexole (MIRAPEX) 0.125 MG tablet Take 1-2 tablets (0.125-0.25 mg total) by mouth daily. traMADoL (ULTRAM) 50 mg tablet Take 1 tablet (50 mg total) by mouth 2 (two) times daily as needed. Max Daily Amount: 100 mg No current facility-administered medications for this visit. No Known Allergies Family History Problem Relation Name Age of Onset Arthritis Other Gout Other Social History Tobacco Use Smoking status: Never Smokeless tobacco: Never Substance Use Topics Alcohol use: Never Objective: BP 135/84 Pulse 69 Ht 1.778 m (5' 10 ) Wt 77.1 kg (170 lb) BMI 24.39 kg/m?? Physical Exam Physical Examination: General: [x]Awake, Alert, Oriented [x]Ambulatory [x]No Acute Distress [x]Mucus Membranes pink, moist [x]Pupils equal [x]Respiratory even, unlabored Skin: [x]Warm and dry with good cap refill [] []+ [x]- []+ [x]- []+ [x]- []+ [x]- Dystrophic changes Hypersweating Hypertrichosis Discoloration Wound/Incision: []+ []- Location: Left 1st CMCJ pain and subluxation. Axial loading poorly tolerated with crepitation and grinding. Moderate 1st CMCJ edema. TTP right long finger over MCP joint. Moderate edema. Stiffness and discomfort with range of motion. [] Healed []NSOI []C/D/I []Ecchymosis []Erythema [x]Swelling Peripheral Vessels: Palpable pulses: ~[x]~ Radial Artery ~[x]~ Ulnar Artery ~[x]~ Good Capillary Refill Nura's Test /____ R/L /____ Hand (+) or (-) Right Left 1st CMC Tenderness []+ []- [x]+ []- 1st CUSTOMER RELATIONS ASSISTANT Grind []+ []- [x]+ []- Norbert Nodes [x]+ []- [x]+ []- Heberden Nodes [x]+ []- [x]+ []- A1 Santos Tenderness []+ []- []+ []- Triggering []+ []- []+ []- Pain on lateral stress []+ []- []+ []- UCL Instability []+ []- []+ []- RCL Instability []+ []- []+ []- Thenar Atrophy []+ []- []+ []- Hypothenar Atrophy []+ []- []+ []- EMG/NCS: No results found for this or any previous visit. Imaging Treatment: Left 1st CMCJ injection, Right long MCPJ injection Date/Time: 06/05/2025 10:41 AM Performed by: Serge Devine PA-C Authorized by: Serge Devine PA-C Consent: Consent obtained: Verbal and written Consent given by: Patient Risks, benefits, and alternatives were discussed: yes Risks discussed: Bleeding, infection, pain, incomplete drainage, nerve damage and poor cosmetic result [facility] protocol: Procedure explained and questions answered to [...] noted. Right long MCP joint injection The hand(s) was positioned in the prone position with [...] Procedure completion: Tolerated well, no immediate complications Assessment: ICD-10-CM ICD-9-CM 1. Primary osteoarthritis of first carpometacarpal joint of left hand M18.12 715.14 lidocaine (XYLOCAINE) injection 1% triamcinolone acetonide suspension (KENALOG-40) 40 mg/mL injection 10 mg 2. 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 Arthralgia of both hands M25.541 719.44 M25.542 Plan: Discussed with patient treatment options including Osteobiflex, Ice, NSAIDS, joint injection versussurgical options such as arthrodesis vs arthroplasty (when appropriate). Patient states understanding of the options and elects to proceed with Right long MCP joint and Left 1st CMCJ injections today. Osteobiflex information given. We discussed our intent to continue with conservative management as long as the injections provide appropriate relief of symptoms or until surgery is elected by the patient. Return in about 3 months (around 09/05/2025) for Repeat injections. Patient instructions given. Discussed elevated BMI and elevated BP with patient including risk factors. Patient will follow-up with PCP for ad terminal makeup operator treatment plan. I have examined and questioned the above listed patient and provided or received all documentation,establishing, confirming, and revising as necessary, the findings and statements noted. . EMR/NI/Transportation Operations Manager disclaimer: Much of this encounter note is an electronic general office dispatcher/translation of spoken language to printed text. The electronic translation of spoken language may permit erroneous, or at times, nonsensical words or phrases to be inadvertently transcribed; Although thenote is reviewed for such errors, some may still exist. 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 documented in this encounter Results * Left 1st CMCJ injection, Right long MCPJ injection (06/05/2025 10:41 AM EDT) Serge Seay PA-C - 06/05/2025 10:41 AM EDT Serge Devine PA-C 06/05/2025 10:51 AM Left 1st CMCJ injection, Right long MCPJ injection Date/Time: 06/05/2025 10:41 AM Performed by: Serge Devine PA-C Authorized by: Serge Devine PA-C Consent: Consent obtained: Verbal and written Consent given by: Patient Risks, benefits, and alternatives were discussed: yes Risks discussed: Bleeding, infection, pain, incomplete drainage, nerve damage and poor cosmetic result [facility] protocol: Procedure explained and questions answered to [...] noted. 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 Arthralgia of both hands documented in this encounter Administered Medications Inactive Administered Medications - up to 3 most recent administrations Medication Order MAR Action Action Date Dose Rate Site lidocaine (XYLOCAINE) injection 1% 1 mL Once, intra-articular, On Rosario 06/05/25 at 1100, For 1 doseIndications:Primary osteoarthritis of first carpometacarpal joint of left hand,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 Given 06/05/2025 10:39 AM EDT 1 mL Other triamcinolone acetonide suspension (KENALOG-40) 40 mg/mL injection 10 mg 10 mg Once, intra-articular, On Rosario 06/05/25 at 1100, For 1 doseIndications:Primary osteoarthritis of first carpometacarpal joint of left hand,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
[2025-07-20 19:11] VITALS: BP 149/83; PULSE 85; RESP 16; TEMP 36.6; O2SAT 95; BMI 24.3
--- NOTE | 2025-07-20 19:26 | HMH.EDGENADL ---
Discharge Plan Disposition Patient Disposition: Home, Self-Care Condition: Good Prescriptions Prescriptions: New Benadryl 2 % gel 1 applic topical BID Qty: 103 0RF hydrocortisone 1 % cream 1 applic topical DAILY PRN (Reason: rash) Qty: 28.35 0RF No Action amlodipine 5 mg tablet 5 mg PO DAILY Patient Comments: TAKE 1 TABLET BY MOUTH EVERY DAY pramipexole 0.25 mg tablet 0.25 mg PO TID multivitamin Tablet 1 tab PO DAILY fenofibrate 160 MG tablet 160 mg PO DAILY ferrous sulfate 325 MG tablet 325 mg PO DAILY levofloxacin 750 mg tablet 750 mg PO DAILY Qty: 10 0RF prednisone 50 mg tablet 50 mg PO DAILY 5 Days Qty: 5 0RF Referrals Follow up/Referrals: Gil Aguilar MD [Primary Care Provider, Internal Medicine] - See instructions Activity Restrictions/Add. Instructions Additional Instructions/Restrictions: Take tylenol and ibuprofen for heaache as well as benadryl or zyrtec as needed for itching and burning. Use the topical steroid and benadryl cream as needed for symptom control. Clinical Impressions Clinical Impression: Bee sting Print Language Print Language: Irish Discharge ED Provider: Dawna Angel Adult HPI General Chief complaint: PAIN Stated complaint: AO 07/20/25; Ran into Hornets Nest; Scratched Nose Time Seen by Provider: 07/20/25 19:25 Mode of Arrival: Ambulatory Source of Information: Patient Description of Symptoms (Recalled from ER Triage Doc. by RN): got into a hornet nest; stung all over; headache; stings and hinds History of Present Illness HPI narrative: Patient is a 80-year-old male with no significant past medical history who presents to the emergency department with itching and burning sensation to his extremities and head after getting stung by multiple hornets. Patient states that he had a mild headache provide no vision changes no vomiting. Patient states that he thinks he was stung by multiple hornets. Patient tried symptom relief at home without significant relief. Patient states that he is not allergic. He has not noticed a rash. Patient has not had any chest pain shortness of breath vomiting diarrhea or other associated symptoms. Related Data Home Medications ?Medication ?Instructions ?Recorded ?Confirmed fenofibrate 160 mg tablet 160 mg PO DAILY 01/17/18 07/23/25 ferrous sulfate 325 mg (65 mg 325 mg PO DAILY 01/17/18 07/23/25 iron) tablet amlodipine 5 mg tablet 5 mg PO DAILY 09/25/23 07/23/25 pramipexole 0.25 mg tablet 0.25 mg PO TID 02/05/24 07/23/25 multivitamin 1 tab PO DAILY 12/27/24 07/23/25 Previous Rx's ?Medication ?Instructions ?Recorded levofloxacin 750 mg tablet 750 mg PO DAILY #10 tabs 12/31/24 prednisone 50 mg tablet 50 mg PO DAILY 5 days #5 tabs 02/23/25 diphenhydramine HCl 2 % topical 1 applic topical BID #103 mL 07/20/25 gel (Benadryl) hydrocortisone 1 % topical cream 1 applic topical DAILY PRN rash 07/20/25 #28.35 grams Allergies Allergy/AdvReac Type Severity Reaction Status Date / Time No Known Allergies Allergy Verified 07/23/25 15:02 [facility] Disclaimer: The information contained in this section may have been updated after the patient was seen, as this information can be updated by other users. Medical History OSCAR (obstructive sleep apnea) Parkinsons HLD (hyperlipidemia) Tinnitus of both ears Hearing loss HTN (hypertension) HTN (hypertension) Surgical History History of colonoscopy History of total right knee replacement Family History Other Family history of bladder cancer Family history of hypertension Family history of osteoporosis Social History Smoking Status: Never smoker second hand exposure: No alcohol intake: never substance use type: denies use current occupational status: other Travel in the last 8 weeks?: None household members: other housing: house current occupational exposures/hazards: No caffeine: No Other Medical History Have you received the Flu Vaccine for this season: No Have you received the Pneumonia Vaccine: No ROS Obtained: Yes All systems reviewed & no additional complaints except as documented and Yes Systems reviewed as appropriate & no additional complaints except as documented Physical Exam General General appearance: alert and in no apparent distress Head Head exam: atraumatic, normocephalic and normal inspection Eye Eye exam: Present normal appearance, PERRL and EOMI; Absent scleral icterus ENT ENT exam: Present normal exam and normal external ear exam Neck Neck exam: Present normal inspection and full ROM Chest Chest inspection: Present normal inspection and symmetric chest wall rise Respiratory Respiratory exam: Present normal lung sounds bilaterally; Absent respiratory distress or wheezes Cardiovascular Cardiovascular exam: Present regular rate, normal rhythm and normal heart sounds Abdominal Exam Abdominal exam: Present soft and distention; Absent tenderness, guarding or rebound Extremities Exam Extremities exam: Present normal inspection and full ROM Back Exam Back exam: Present normal inspection and full ROM Neurological Exam Neurological exam: Present alert, oriented X3, CN II-XII intact, normal gait, motor sensory deficit and reflexes normal Psychiatric Psychiatric exam: Present normal affect and normal mood Skin Skin exam: Present warm, dry and other (no obvious rash, erythema or skin irritation) Medical Decision Making Medical Records Medical records reviewed: Yes I reviewed the patient's medical records. Screening: Per USPSTF and CDC recommendations, given the prevalence of disease in our region, it is our hospital?s policy to screen for HIV and viral Hepatitis for all patients aged 18 and over and those with ongoing risk factors. Odell Inquiry Pt receiving controlled substance: No Vital Signs: 07/20/25 19:11 07/20/25 20:55 Temperature 97.9 F 98.0 F Temperature Source Oral Oral Pulse Rate 65 Pulse Rate [Right Radial] 85 Respiratory Rate 16 17 Blood Pressure 137/85 Blood Pressure [Right Arm] 149/83 H Blood Pressure Mean [Right Arm] 105 Blood Pressure Source Automatic Cuff Blood Pressure Source [Right Arm] Automatic Cuff Blood Pressure Position Sitting Blood Pressure Position [Right Arm] Sitting 02 Sat by Pulse Oximetry 95 Oxygen Delivery Method Room Air Room Air Lab Data Lab results reviewed: Yes I reviewed the patient's lab results. Orders (Tests/Meds): ED MEDICATIONS Discontinued Medications Generic Name Dose Route Start Last Admin Trade Name Freq PRN Reason Stop Dose Admin Acetaminophen 1,000 mg 07/20/25 19:36 07/20/25 19:41 Acetaminophen 500mg Tab PO 07/20/25 19:37 1,000 mg ONCE ONE Administration Dexamethasone 10 mg 07/20/25 19:41 07/20/25 19:46 Dexamethasone 4mg Tablet PO 07/20/25 19:42 10 mg ONCE ONE Administration Diphenhydramine HCl 50 mg 07/20/25 19:41 07/20/25 19:47 Diphenhydramine 50mg Capsule PO 07/20/25 19:42 50 mg ONCE ONE Administration Famotidine 40 mg 07/20/25 19:41 07/20/25 19:47 Famotidine 20mg Tablet PO 07/20/25 19:42 40 mg ONCE ONE Administration Ondansetron HCl 4 mg 07/20/25 19:36 07/20/25 19:42 Ondansetron 4mg Odt SL 07/20/25 19:37 4 mg ONCE ONE Administration Medical Decision Narrative: Patient is an otherwise healthy 50-year-old male who presented to the emergency department with burning itching after being stung by multiple hornets. On arrival, patient was hemodynamically stable with unremarkable vital signs. Differential includes but not limited to: Contact dermatitis, allergic reaction, anaphylaxis, toxin reaction, amongst others. On exam, patient had no evidence of visible rash however patient reported burning and itching. Patient had no wheezing on exam patient had a unremarkable abdominal exam. Patient vital signs were otherwise unremarkable patient had no hypotension. No tachycardia. Although no signs of allergic reaction at this time given patient's severe symptoms of burning and itching I treated it as such. Patient was given dexamethasone, Pepcid, Zofran and Tylenol. Patient had no signs of anaphylaxis. Patient had no blisters or other obvious skin lesions concerning for secondary cellulitis. On reassessment, patient had significant improvement of symptoms. I recommended the patient use Benadryl at home as needed. Patient was sent with Benadryl cream and hydrocortisone as well. Return precautions were discussed and patient was otherwise discharged home in stable condition. Critical Care Critical Care Time Critical Care Time: No
--- OUTSIDE RECORDS SUMMARY | 2025-07-20 19:29 | XMS_ITS | Referral Summary ---
Author Organization [employer] ([place], [place], [place], [place]) Address [address] [place] [address] Care Team Providers Care Epilepsy Physician Name Role Phone Segre Devine PA-C Unavailable [phone] Encounters Date Type Department Care Team Description 06/05/2025 10:30 AM EDT Office Visit [facility] - [address] [place] [address] Serge Devine PA-C Primary osteoarthritis [...] Description 09/09/2025 10:30 AM EST Office Visit [facility] - [facility] [address] [place] [id number] Serge Devine PA-C [address] [facility] [address] [place] [address] Procedures Procedure Name Priority Date/Time Associated Diagnosis [...] drainage, nerve damage and poor cosmetic result [place] protocol: Procedure explained and questions answered to [...] immediate complications Serge Devine PA-C PROCEDURE/MINOR SURGICAL [place] Final Result from Last 3 Months Insurance [facility] MEDICARE PPO Care Teams Epilepsy Physician Relationship Specialty Start Date End Date Serge Devine PA-C [address] [facility] [address] [place] [address] Physician Data Technical Lead Orthopedic Surgery 06/05/25
--- OUTSIDE RECORDS SUMMARY | 2025-07-20 19:29 | XMS_ITS | Clinical Summary ---
Author Organization [employer] ([place], [place], [place], [place]) Address [address] [place] [address] Care Team Providers Care Venereal Disease Investigator Name Role Phone Serge Devine PA-C Unavailable [phone] Allergies No known active allergies Medications amLODIPine [...] Description 06/05/2025 10:30 AM EDT Office Visit [facility] - [address] [place] [address] Serge Devine PA-C Primary osteoarthritis [...] Description 09/09/2025 10:30 AM EST Office Visit [facility] [address] [place] [phone] Serge Devine PA-C [address] [place] [address] Health Maintenance Due Date Last Done Comments Depression Screening (12+) 1957 Hepatitis C Screening 1965 Medicare Initial AWV [id number] 10/31/2019 Respiratory Syncytial Virus (RSV) Adult or (1 - 1-dose 75+ series) 2022 Falls Risk Screening 10/30/2024 COVID-19 VACCINE (2024-2 6 season) 2025 07/24/2023, 09/15/2022, 02/10/2022, Additional history exists Influenza Vaccine (#1) 2025 4, 07/13/2023, 07/25/2022, [...] drainage, nerve damage and poor cosmetic result [place] protocol: Procedure explained and questions answered to [...] Final Result from Last 3 Months Insurance [facility] MEDICARE PPO Care Teams Venereal Disease Investigator Relationship Specialty Start Date End Date Serge Devine PA-C [address] [facility] [address] [place] [address] Physician Javascript Application Developer Orthopedic Surgery 06/05/25
--- OUTSIDE RECORDS SUMMARY | 2025-07-20 19:29 | XMS_ITS | Encounter Summary ---
Author Organization [facility] Address [address] [id number] Care Team Providers Care Manager Child Name Role Phone Gil Aguilar MD Primary Care Provider [phone] Reason for Referral * Consultation (Routine) - Closed Specialty Diagnoses / Procedures Referred By Contac t Referred To Contact Nephrology Diagnoses Kidney cysts Gil Aguilar MD [address] [facility] [address] [place] [address] Phone: tel: fax: [facility] [address] [address] Phone: tel: fax: Referral ID Status Reason Start Date Expiration Date V isits Requested Visits Authorized [id number] Closed Specialty Services Required 07/22/2024 01/21/2026 1 1 Encounter Details Date Type Department Care Team (Late st Contact Info) Description 07/22/2024 Community [facility] [address] [place] [address] Gil Aguilar MD [address] [facility] [address] [place] [address] Kidney cysts (Primary Dx) Social History Tobacco [...] Primary documented in this encounter Care Teams Manager Child Relationship Specialty Start Date End Date Gil Aguilar MD [address] [place] [address] PCP - General 03/12/21 documented as of this encounter
--- OUTSIDE RECORDS SUMMARY | 2025-07-20 19:29 | XMS_ITS | Clinical Summary ---
Author Organization [facility] Address [address] [place] [address] Care Team Providers Care Exhibit Builder Name Role Phone Gil Aguilar MD Primary Care Provider [phone] Medications Zinc Sulfate 140 (50 Zn) MG [...] Used Date Smoking Tobacco: Former Cigarettes 1 43.7 S tarted: 1982 Smokeless Tobacco: Never Tobacco [...] Td Vaccines (1 - Tdap) 01/18/2018 01/17/2018 [id number] Vaccine (8 - Moderna risk 2023- season) [...] patient's age to complete this topic Insurance [facility] MEDICARE Care Teams Exhibit Builder Relationship Specialty Start Date End Date Gil Aguilar MD [address] [place] [address] PCP - General 03/12/21
[2025-07-20] MEDS: ACETAMINOPHEN 500MG TAB 1000 MG PO (19:41)
[2025-07-20] MEDS: ONDANSETRON 4MG ODT 4 MG SL (19:42)
[2025-07-20] MEDS: DEXAMETHASONE 4MG TABLET 10 MG PO (19:46)
[2025-07-20] MEDS: FAMOTIDINE 20MG TABLET 40 MG PO (19:47)
[2025-07-20 20:55] VITALS: BP 137/85; PULSE 65; RESP 17; TEMP 36.7; O2SAT 97
== END 2025-07-20 20:56 | disposition home or self-care (01) ==
PROVIDERS: Emergency Provider Student in an Organized Health Care Education/Training Program; PCP Internal Medicine Adolescent Medicine
DX: T63.451A Toxic effect of venom of hornets, accidental (unintentional), initial encounter (principal); R51.9 Headache, unspecified; L29.9 Pruritus, unspecified
CPT/HCPCS: 99282; 99283; J8540; Q0162

== ENCOUNTER 2025-09-26 14:01 | Outpatient (CLI) | payer MEDICARE, SELFPAY ==
--- OUTSIDE RECORDS SUMMARY | 2025-08-26 00:08 | XMS_ITS | Continuity of Care Document ---
Author Organization [facility] Phone Care Team Providers Care Physiatrist Name Role Phone KIAN TALAMANTES JR Unavailable KIAN TALAMANTES JR Admitting [phone] DECLINED, PCP Primary Care Unavailable KIAN TALAMANTES JR Primary Attending RESULTS Patient: FELICITA MIRAMONTES Date of : 1945 LABORATORY RESULTS ORDER 100: PROSTATE SPECIFIC AG PSA (LOINC: 2857-1) ORDER DATE: August 22, 2025 6:48:00 PM [facility] Specimen Source: Serum/Plasm a Specimen Type: Acellular blo od (serum or plasma) specimen PERFORMING LAB: [address] [id number] Result Comment: Final Result Date: August 22, 2025 7:37:00 PM [facility] (TECH: LT) LOINC TEST FLAG RESULT REFERENCE RANGE [place] BY 2857-1 Prostate specific Ag [Mass/volume] in Serum or Plasma H 9.26 ng/mL 0.0 ng/mL - 4.0 ng/mL July 7:37:00 PM [facility] (TECH: LT) LABORATORY NARRATIVE RESULTS Information is not available RADIOLOGY RESULTS Information is not available PATHOLOGY NARRATIVE RESULTS Information is not available MICROBIOLOGY RESULTS No Micro Labs/Results Exist for Patient BLOOD ADMIN RESULTS Information is not available MEDICATIONS HOME MEDICATIONS Status RXNORM NDC Medication Dose Route Frequency Dates Comments Reported By Updated By Drug Treatment Unknown DISCHARGE MEDICATIONS Status RXNORM NDC Medication Dose Route Frequency Dates Dis pense Data Comments Physician Updated By No Discharge Medication Info rmation Available INPATIENT MEDICATIONS Status RXNORM NDC Medication Dose Route Frequency Rat e Quantity Dates Indication Dispense Data Comments Physician Updated By No Inpatient Medication Info rmation Available SOCIAL HISTORY SOCIAL HISTORY - Smoking Status SNOMED-CT Social History Element Description Effective Dates Offered Cessation Comment Updated By [id number] Smoking Status Unknown If Ever Smoked SOCIAL HISTORY - Gender Sex: Male SOCIAL HISTORY - Status : status i nformation is not available Intention in Next Year: intention information is not available SOCIAL HISTORY - Assessments Code System Description Status Date Value of Assessment Updated By Comment Assessment Information is no t available SOCIAL HISTORY - [place] Affiliation [place] information is not av ailable SOCIAL HISTORY - Legal Sex Legal Sex information is not available SOCIAL HISTORY - Sexual Behavior Sexual Orientation Gender Identity SNOMED-CT Description SNO MED -CT Description Activity Level No of Partners Partner Type UpdatedBy Information is not available SOCIAL HISTORY - Occupation Occupation information is no t available HEALTH CONCERNS Problems Concern Status Health Concern problem infor mation not available. Smoking Status Status Years Used Consumed packs p er day Health Concern smoking histo ry information not available. Family History Concern Status Health Concern family histor y information not available. ENCOUNTERS ENCOUNTER INFORMATION Reason for Visit R97.20 Admission August 22, 2025 6:47:[address] [address] Discharge August 23, 2025 6:47:00 PM [facility] DISCHARGED TO HOME OR SELF CARE ENCOUNTER DIAGNOSES Notes information is not tayo ilable. Code System Diagnosis Onset Date Diagnosis information is not available. ABSTRACT DIAGNOSES Code System Diagnosis Updated By Abatement Date R97.20 ICD10 ELEVATED PROSTAT E SPECIFIC ANTIGEN [PSA] [id number] on August 26, 2025 5:07:49 AM [facility] R97.20 ICD10 ELEVATED PROSTAT E SPECIFIC ANTIGEN [PSA] [id number] on August 26, 2025 5:07:51 AM [facility] CARE TEAM Care Physiatrist Role KIAN TALAMANTES Referring KIAN TALAMANTES Admitting PCP [facility] Primary Care KIAN TALAMANTES Primary Attending CARE TEAM CARE silver spray worker Role on Team Location Telecom Status Start Date End Carmine e Updated By ALBIN Bonds JR, MD Referring normal August 22, 2025 7:57:43 PM [facility] August 23, 2025 6:47:00 PM [facility] [id number] on August 22, 2025 7:57:43 PM [facility] ALBIN Bonds JR, MD Attending normal August 22, 2025 7:57:43 PM [facility] August 23, 2025 6:47:00 PM [facility] [id number] on August 22, 2025 7:57:43 PM [facility] ALBIN Bodns JR, MD Admitting normal August 22, 2025 7:57:43 PM UTC August 23, 2025 6:47:00 PM UTC [id number] on August 22, 2025 7:57:43 PM UTC DECLINED PCP PCP normal August 22, 2025 6:47:56 PM UTC August 23, 2025 6:47:00 PM UTC [id number] on August 22, 2025 7:57:43 PM UTC
--- OUTSIDE RECORDS SUMMARY | 2025-09-09 10:30 | XMS_ITS | Encounter Summary ---
Author Organization [employer] ([place], [place], [place], [place]) Address [address] [place] [address] Care Team Providers Care Slat Basket Maker Machine Name Role Phone Serge Devine PA-C Unavailable [phone] Reason for Visit * Reason Comments Injections Repeat inj Encounter Details Date Type Department Care Team (Latest Contact Info) Description 09/09/2025 10:30 AM EST Office Visit [facility] - [address] [place] [phone] Serge Devine PA-C [address] [place] [address] Primary osteoarthritis of first carpometacarpal joint of left hand (Primary Dx); 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 Social History Tobacco Use Types Packs/Day Years [...] Sign Reading Time Taken Comments Blood Pressure 146/87 09/09/2025 10:44 AM EST Pulse 68 09/09/2025 10:44 AM EST Temperature - - Respiratory Rate - - Oxygen Saturation - - Inhaled Oxygen Concentration - - Weight 75.8 kg (167 lb) 09/09/2025 10:34 AM EST Height 177.8 cm (5' 10 ) 09/09/2025 10:34 AM EST Body Mass Index 23.96 09/09/2025 10:34 AM EST documented in this encounter Progress Notes * Serge Devine PA-C - 09/09/2025 10:30 AM ESTAssociated Order(s): Left 1st CMCJ injection, Right long MCPJ injection Post-Procedure Diagnose(s): Primary osteoarthritis of first carpometacarpal joint of left hand; 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 male. No ref. provider found Work Comp []Yes [x]No Hand Dominance: right-handed Employment: Retired Chief Complaint Patient presents with Injections Repeat inj HPI Injection Visit: Patient returns for follow-up regarding Left 1st CMCJ OA and Right long MCPJ OA. The patient received injections on 06/05/25 which worked well for 3 months. The patient requests repeat injections today. 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 [place] R 70 L 84 [place] R 24 L 18 Date of Onset of Symptoms: [x]On-going problem [...] anxiety, no fatigue, no mood swings Vitals: 09/09/25 1034 09/09/25 1044 BP: (!) 150/86 (!) 146/87 BP Location: Left arm Left arm Patient Position: Sitting Sitting Pulse: 69 68 Weight: 75.8 kg (167 lb) Height: 1.778 m (5' 10 ) [...] Use Topics Alcohol use: Never Objective: BP (!) 146/87 (BP Location: Left arm, Patient Position: Sitting) Pulse 68 Ht 1.778 m (5' 10 ) Wt 75.8 kg (167 lb) BMI 23.96 kg/m?? Physical Exam Physical Examination: General: [x]Awake, [...] CMC Tenderness []+ []- [x]+ []- 1st CAR INSPECTION AND REPAIR MANAGER Grind []+ []- [x]+ []- Norbert Nodes [...] CMCJ injection, Right long MCPJ injection Date/Time: 09/09/2025 10:52 AM Performed by: Serge Devine PA-C Authorized by: Serge Devine PA-C Consent: Consent obtained: Verbal and written Consent given by: Patient Risks, benefits, and alternatives were discussed: yes Risks discussed: Bleeding, infection, pain, incomplete drainage, nerve damage and poor cosmetic result [place] protocol: Procedure explained and questions answered to [...] suspension (KENALOG-40) 40 mg/mL injection 10 mg Plan: Discussed with patient treatment options including [...] patient. Return in about 3 months (around 12/10/2025) for Repeat injections. Patient instructions given. Discussed elevated BMI and elevated BP with patient including risk factors. Patient will follow-up with PCP for aluminum can collector treatment plan. I have examined and questioned the above listed patient and provided or received all documentation,establishing, confirming, and revising as necessary, the findings and statements noted. . EMR/[employer]/Project Manager Retail disclaimer: Much of this encounter note is an electronic director loss prevention/translation of spoken language to printed text. The electronic translation of spoken language may permit erroneous, or at times, nonsensical words or phrases to be inadvertently transcribed; Although thenote is reviewed for such errors, some may still exist. 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 documented in this encounter Results * Left 1st CMCJ injection, Right long MCPJ injection (09/09/2025 10:52 AM EST) Serge Seay PA-C - 09/09/2025 10:52 AM EST Serge Devine PA-C 09/09/2025 10:59 AM Left 1st CMCJ injection, Right long MCPJ injection Date/Time: 09/09/2025 10:52 AM Performed by: Serge Devine PA-C Authorized by: Serge Devine PA-C Consent: Consent obtained: Verbal and written Consent given by: Patient Risks, benefits, and alternatives were discussed: yes Risks discussed: Bleeding, infection, pain, incomplete drainage, nerve damage and poor cosmetic result [place] protocol: Procedure explained and questions answered to [...] completion: Tolerated well, no immediate complications Result [facility] Serge Devine PA-C PROCEDURE/MINOR SURGICAL NEDRA GARIBAY Final Result documented in this encounter Visit Diagnoses Diagnosis Primary osteoarthritis of first carpometacarpal joint of left hand- Primary 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 documented in this encounter Administered Medications Inactive Administered Medications - up to 3 most recent administrations Medication Order MAR Action Action Date Dose Rate Site lidocaine (XYLOCAINE) injection 1% 1 mL Once, intra-articular, On Mon09/09/25 at 1100, For 1 doseIndications:Primary osteoarthritis of first carpometacarpal joint of left hand,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 Given 09/09/2025 10:45 AM EST 1 mL Other triamcinolone acetonide suspension (KENALOG-40) 40 mg/mL injection 10 mg 10 mg Once, intra-articular, On Mon09/09/25 at 1100, For 1 doseIndications:Primary osteoarthritis of first carpometacarpal joint of left hand,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
--- OUTSIDE RECORDS SUMMARY | 2025-09-26 14:03 | XMS_ITS | Clinical Summary ---
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 10 mg IAtc Once 09/09/2025 09/09/2025 Ended Active Problems No known active problems Encounters Date Type Department Care Team Description 09/09/2025 10:30 AM EST [facility] [address] [place] [address] Serge Devine PA-C Primary osteoarthritis of first carpometacarpal joint of left hand (Primary Dx); 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 from Last 3 Months Family History Medical [...] Mass Index 23.96 09/09/2025 10:34 AM EST Plan of Treatment Upcoming Encounters Date Type Department Care Team (Late st Contact Info) Description 12/10/2025 9:30 AM EST [facility] [address] [place] [address] Serge Devine PA-C [address] [place] [address] [address] [place] [address] Health Maintenance Due Date Last Done Comments Depression Screening (12+) 1957 Hepatitis C Screening 1963 Medicare Initial AWV [id number] 10/31/2019 Respiratory Syncytial Virus (RSV) Adult or (1 - 1-dose 75+ series) 2022 Falls Risk Screening 10/30/2024 COVID-19 VACCINE (7 - 2024-2 6 season) 2025 07/24/2023, 09/15/2022, 02/10/2022, Additional history exists Influenza Vaccine (#1) 2025 4, 07/13/2023, 07/25/2022, Additional history exists Tobacco Cessation Counseling and Screening (12+) 09/09/2026 09/09/2025 DTAP/TDAP/TD VACCINES (2 - T d or [...] drainage, nerve damage and poor cosmetic result [place] protocol: Procedure explained and questions answered to [...] Final Result from Last 3 Months Insurance [facility] MEDICARE PPO Care Teams Clinical Trial Head Relationship Specialty Start Date End Date Serge Devine PA-C [address] [facility] [address] [place] [id number] Physician Lead Printer Orthopedic Surgery 06/05/25
--- OUTSIDE RECORDS SUMMARY | 2025-09-26 14:03 | XMS_ITS | Clinical Summary ---
Author Organization [facility] Address [address] [place] [address] Care Team Providers Care Paralegal Instructor Name Role Phone Gil Aguilar MD Primary Care Provider [phone] Medications Zinc Sulfate 140 (50 Zn) MG [...] Used Date Smoking Tobacco: Former Cigarettes 1 43.9 S tarted: 1982 Smokeless Tobacco: Never Tobacco [...] 11/15/2024 9:41 AM EST Plan of Treatment Upcoming Encounters Date Type Department Care Team (Late st Contact Info) Description 11/14/2025 12:00 PM EST Office Visit [facility] [address] [place] [address] Lei Rangel MD [address] [place] [phone] Health Maintenance Due Date Last Done Comments [facility]-Depression Screening 1945 [facility]-Hepatitis C Screening 1945 [facility]-Medicare Annual Wellness (AWV) 1945 [facility]-/Child/Adol SDOH Screenings 1945 [facility]- SDOH Screenings 1965 [facility]-Adult SDOH Screenings 1965 [facility]-DTaP,Tdap,and Td Vaccines (1 - Tdap) 01/18/2018 01/17/2018 [id number]-[id number]-30 Vaccine (9 - Moderna risk 2024- season) 2026 07/30/2025, 08/02/2024, 07/24/2023, Additional history exists [facility]-Hepatitis A Vaccines Aged Out 05/25/2019, 11/2017 No longer eligible based on patient's age to complete this topic [facility]-Zoster Vaccines Completed 11/26/2019, 9 [facility]-Pneumococcal Vaccine: 50+ Years Completed 10/03/2022, 02/25/2019, 12/29/2016 [facility]-RSV Vaccine: 60+ Years or Completed 09/19/2024, 09/06/2023 [facility]-Obesity Intervention Completed 11/15/2024 [facility]-Influenza Vaccine Completed 07/28/2025 , 07/24/2024, 07/13/2023, Additional history exists HPV Vaccines Aged Out No longer eligi [...] patient's age to complete this topic Insurance [facility] MEDICARE Care Teams Paralegal Instructor Relationship Specialty Start Date End Date Gil Aguilar MD [address] [place] [address] PCP - General 03/12/21
--- OUTSIDE RECORDS SUMMARY | 2025-09-26 14:03 | XMS_ITS | Encounter Summary ---
Author Organization [facility] Address [address] [id number] Care Team Providers Care Factory Representative Name Role Phone Gil Aguilar MD Primary Care Provider [phone] Reason for Referral * Consultation (Routine) - Closed Specialty Diagnoses / Procedures Referred By Contac t Referred To Contact Nephrology Diagnoses Kidney cysts Gil Aguilar MD [address] [address] Phone: tel: fax: [facility] [address] [place] [address] Phone: tel: fax: Referral ID Status Reason Start Date Expiration Date V isits Requested Visits Authorized [id number] Closed Specialty Services Required 07/22/2024 01/21/2026 1 1 Encounter Details Date Type Department Care Team (Late st Contact Info) Description 07/22/2024 Community [facility] Community Practice [address] [place] [address] Gil Aguilar MD [address] [facility] [address] [place] [address] Kidney cysts (Primary Dx) Social History Tobacco Use Types Packs/Day Years Used Date Smoking Tobacco: Never Assessed Sex and Gender Information Value Date Recorded Sex Assigned at Not on file Legal Sex Male 6:53 PM EDT Gender Identity Not on file Sexual Orientation Not on file documented as of this encounter Plan of Treatment Upcoming Encounters Date Type Department Care Team (Late st Contact Info) Description 11/14/2025 12:00 PM EST Office Visit [facility] [address] [place] [phone] Lei Rangel MD [address] [place] [phone] Scheduled Referrals Name Type Priority Associated Diagnoses Order Schedule Ambulatory referral to Nephrology Outpatient Referral Routine Kidney cysts Ordered: 07/22/2024 documented as of this encounter Visit Diagnoses Diagnosis Kidney cysts- Primary documented in this encounter Care Teams Factory Representative Relationship Specialty Start Date End Date Gil Aguilar MD [address] [place] [address] PCP - General 03/12/21 documented as of this encounter
--- OUTSIDE RECORDS SUMMARY | 2025-09-26 14:03 | XMS_ITS | Referral Summary ---
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 from Last 3 Months Allergies No known [...] Description 12/10/2025 9:30 AM EST Office Visit [facility] Orth[facility] - [facility] [address] [place] [phone] Serge Devine PA-C [address] [facility] [address] [place] [address] Procedures Procedure Name Priority Date/Time Associated Diagnosis [...] drainage, nerve damage and poor cosmetic result Leon protocol: Procedure explained and questions answered to [...] immediate complications Serge Devine PA-C PROCEDURE/MINOR SURGICAL ORDLesia GARIBAY Final Result from Last 3 Months [place] [address] Care Teams Splicing Machine Operator Automatic Relationship Specialty Start Date End Date Serge Devine PA-C [address] [facility] [address] [place], [place] [id number] Physician Geomagnetician Orthopedic Surgery 06/05/25
--- NOTE | 2025-09-26 14:05 | XR_ITS ---
FINAL REPORT CLINICAL HISTORY: right knee pain COMPARISON: 09/06/2017 FINDINGS: AP, lateral and oblique views of the right knee were obtained. There is no acute osseous abnormality of the right knee. There are changes from knee arthroplasty. The hardware is intact. The sunrise view shows lateral patellar subluxation. Joint effusion is similar to prior exam. IMPRESSION: Lateral patellar subluxation and joint effusion. Reviewed, Interpreted and Dictated by Julia Benavidez MD Transcribed by Lilibeth Vigil Authenticated and [facility]
== END 2025-09-26 23:59 | disposition home or self-care (01) ==
LOC: RAD 14:02
PROVIDERS: PCP Internal Medicine Adolescent Medicine; Visit Provider Orthopaedic Surgery
DX: S83.011A Lateral subluxation of right patella, initial encounter (principal); X58.XXXA Exposure to other specified factors, initial encounter; Z96.651 Presence of right artificial knee joint
CPT/HCPCS: 73562

== ENCOUNTER 2025-09-29 14:48 | Outpatient (CLI) | payer MEDICARE, SELFPAY ==
--- OUTSIDE RECORDS SUMMARY | 2025-09-09 10:30 | XMS_ITS | Encounter Summary ---
Author Organization [employer] ([place], [place], [place], [place], [place]) Address [address] [place] [address] Care Team Providers Care Shell Core And Molding Supervisor Name Role Phone Serge Devine PA-C Unavailable [phone] Reason for Visit * Reason Comments Injections Repeat inj Encounter Details Date Type Department Care Team (Latest Contact Info) Description 09/09/2025 10:30 AM EST Office Visit [facility] - [address] [place] [phone] Serge Devine PA-C [address] [place] [address] Primary osteoarthritis of first carpometacarpal [...] CMC Tenderness []+ []- [x]+ []- 1st DATA ANALYSIS MANAGER Grind []+ []- [x]+ []- Norbert [...] drainage, nerve damage and poor cosmetic result [place] protocol: Procedure explained and questions answered to [...] necessary, the findings and statements noted. . EMR/[employer]/Bar Steward disclaimer: Much of this encounter note is an electronic international logistics analyst/translation of spoken language to printed text. The electronic translation of spoken language may permit erroneous, or at times, nonsensical words or phrases to be inadvertently transcribed; Although thenote is reviewed for such errors, some may still exist. 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 documented in this encounter Results * Left 1st CMCJ injection, Right long MCPJ injection (09/09/2025 10:52 AM EST) Segre Seay PA-C - 09/09/2025 10:52 AM EST [...] drainage, nerve damage and poor cosmetic result [place] protocol: Procedure explained and questions answered to [...] completion: Tolerated well, no immediate complications Result [facility] Serge Devine PA-C PROCEDURE/MINOR SURGICAL NEDRA GARIBAY [...] Other documented in this encounter Care Teams Shell Core And Molding Supervisor Relationship Specialty Start Date End Date Serge Devine PA-C [address] [facility] [address] [place] [address] Physician Insulation Board Back Tender Orthopedic Surgery 06/05/25 documented as of this encounter
--- OUTSIDE RECORDS SUMMARY | 2025-09-29 14:55 | XMS_ITS | Referral Summary ---
Author Organization [employer] ([place], [place], [place], [place]) Address [address] [place] [address] Care Team Providers Care Furniture Decals Inspector Name Role Phone Serge Devine PA-C Unavailable [phone] Encounters Date Type Department Care Team Description 09/09/2025 10:30 AM EST Office Visit [facility] Orthopedics - [address] [place] [address] Serge Devine PA-C Primary osteoarthritis [...] Description 12/10/2025 9:30 AM EST Office Visit [facility] Orthoped[facility] - [facility] [address] [place] [phone] Serge Devine PA-C [address] [facility] [address] [place] [address] Procedures Procedure Name Priority Date/Time [...] drainage, nerve damage and poor cosmetic result Loomis protocol: Procedure explained and questions answered to [...] Months Insurance [employer] MEDICARE PPO Care Teams Furniture Decals Inspector Relationship Specialty Start Date End Date Serge Devine PA-C [address] [facility] [address] [place], [place] [id number] Physician Utilization Supervisor Orthopedic Surgery 06/05/25
--- OUTSIDE RECORDS SUMMARY | 2025-09-29 14:55 | XMS_ITS | Clinical Summary ---
Author Organization [employer] ([place], [place], [place], [place], [place]) Address [address] [place] [address] Care Team Providers Care Pouch Maker Name Role Phone Serge Devine PA-C Unavailable [phone] Allergies No known active allergies Medications amLODIPine [...] Description 09/09/2025 10:30 AM EST Office [facility] [address] [place] [address] Serge Devine PA-C Primary osteoarthritis [...] Description 12/10/2025 9:30 AM EST Office Visit [facility] [address] [place] [address] Serge Devine PA-C [address] [place] [address] [address] [place] [address] Health Maintenance Due Date Last Done Comments [...] drainage, nerve damage and poor cosmetic result Sarah protocol: Procedure explained and questions answered to [...] Final Result from Last 3 Months Insurance [facility] MEDICARE PPO Care Teams Pouch Maker Relationship Specialty Start Date End Date Serge Devine PA-C [address] [facility] [address] [place] [phone] Physician Fermentologist Orthopedic Surgery 06/05/25
--- OUTSIDE RECORDS SUMMARY | 2025-09-29 14:55 | XMS_ITS | Encounter Summary ---
Author Organization [facility] Address [address] [id number] Care Team Providers Care Credit Or Loans Officer Name Role Phone Gil Aguilar MD Primary Care Provider [phone] Reason for Referral * Consultation (Routine) - Closed Specialty Diagnoses / Procedures Referred By Contac t Referred To Contact Nephrology Diagnoses Kidney cysts Gil Aguilar MD [address] [address] Phone: tel: fax: [facility] [address] [facility] [address] [address] Phone: tel: fax: Referral ID Status Reason Start Date Expiration Date V isits Requested Visits Authorized [id number] Closed Specialty Services Required 07/22/2024 01/21/2026 1 1 Encounter Details Date Type Department Care Team (Late st Contact Info) Description 07/22/2024 Community [facility] Community Practice [address] [place] [address] Gil Aguilar MD [address] [facility] [facility] [address] [place] [address] Kidney cysts (Primary Dx) Social History Tobacco [...] Description 11/14/2025 12:00 PM EST Office Visit [facility] [address] [place] [phone] Lei Rangel MD [address] [place] [phone] Scheduled Referrals Name Type Priority Associated Diagnoses Order Schedule Ambulatory referral to Nephrology Outpatient Referral Routine Kidney cysts Ordered: 07/22/2024 documented as of this encounter Visit Diagnoses Diagnosis Kidney cysts- Primary documented in this encounter Care Teams Credit Or Loans Officer Relationship Specialty Start Date End Date Gil Aguilar MD [address] [place] [address] PCP - General 03/12/21 documented as of this encounter
--- OUTSIDE RECORDS SUMMARY | 2025-09-29 14:55 | XMS_ITS | Clinical Summary ---
Author Organization [facility] Address [address] [place] [address] Care Team Providers Care Customer Service Technician Name Role Phone Gil Aguilar MD Primary Care Provider [phone] Medications Zinc Sulfate 140 (50 Zn) MG [...] Description 11/14/2025 12:00 PM EST Office Visit [facility] [address] [place] [phone] Lei Rangel MD [address] [place] [phone] Health Maintenance Due Date Last Done Comments [facility]-Depression Screening 1945 [facility]-Hepatitis C Screening 1945 [facility]-Medicare Annual Wellness (AWV) 1945 [facility]-/Child/Adol SDOH Screenings 1945 [facility]- SDOH Screenings 1965 [facility]-Adult SDOH Screenings 1965 [facility]-DTaP,Tdap,and Td Vaccines (1 - Tdap) 01/18/2018 01/17/2018 [id number] Vaccine (9 - Moderna risk 2024- season) [...] patient's age to complete this topic Insurance [facility] MEDICARE Care Teams Customer Service Technician Relationship Specialty Start Date End Date Gil Aguilar MD [address] [place] [address] PCP - General 03/12/21
[2025-09-29 15:24] LABS: Hematocrit 36.8 % (42.0-52.0); Hemoglobin 12.3 g/dL (14.1-18.0); Immature Granulocytes % 1.4 %; Mean Corpuscular HGB Conc 33.4 g/dL (31.8-35.4); Mean Corpuscular Hemoglobin 29.6 pg (27.0-31.2); Mean Corpuscular Volume 88.5 fl (80-94); Nucleated Red Blood Cells % 0 %; Platelet Count 260 K/mm3 (142-424); Red Blood Count 4.16 M/mm3 (4.60-6.20); Red Cell Distribution Width-SD 40.2 fL; White Blood Count 5.0 K/mm3 (4.8-10.8)
[2025-09-29 16:00] LABS: C-Reactive Protein 7.4 mg/L (0-4)
== END 2025-09-29 23:59 | disposition home or self-care (01) ==
LOC: LAB 14:49
PROVIDERS: PCP Internal Medicine Adolescent Medicine; Visit Provider Orthopaedic Surgery
DX: M25.561 Pain in right knee (principal)
CPT/HCPCS: 36415; 85025; 85651; 86140